=== PATIENT | male | born 1945 | race Caucasian/White ===

== ENCOUNTER 2019-03-29 11:00 | Emergency (ER) | payer OTHER, SELFPAY ==
[2019-03-29 11:05] VITALS: BP 190/90; TEMP 36.7; O2SAT 94; BMI 46.2
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
[2019-03-29 11:24] LABS: Basophils # 0.1 10^3/uL (0.0-0.1); Basophils % 0.9 %; Eosinophils # 0.2 10^3/uL (0.0-0.8); Eosinophils % 3.4 %; Hemoglobin 15.3 g/dL (11.7-16.6); Lymphocytes # 1.7 10^3/uL (0.8-4.8); Lymphocytes % 30.5 %; Mean Corpuscular HGB Conc 33.3 g/dL (30.0-36.0); Mean Corpuscular Hemoglobin 30.2 pg (28.0-34.0); Mean Corpuscular Volume 90.9 fL (80-94); Mean Platelet Volume 9.3 fL (7.4-10.4); Monocytes # 0.4 10^3/uL (0.2-0.9); Monocytes % 6.7 %; Neutrophils # 3.2 10^3/uL (1.8-7.7); Neutrophils % 58.1 %; Nucleated Red Blood Cells % 0 %; Platelet Count 205 10^3/cmm (130-400); Red Blood Count 5.06 10^6/uL (4.1-5.3); Red Cell Distribution Width 12.6 % (12.1-15.1); White Blood Count 5.6 10^3/uL (4.0-10.0)
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
[2019-03-29 11:41] LABS: Alanine Aminotransferase 18 U/L (0-41); Albumin Level 4.4 g/dL (3.5-5.2); Alkaline Phosphatase 109 IU/L (40-130); Anion Gap 14.4 (5-19); Aspartate Amino Transferase 18 U/L (0-40); Blood Urea Nitrogen 18 mg/dL (8-23); Calcium 9.8 mg/Dl (8.8-10.2); Carbon Dioxide 25 mmol/L (22-29); Chloride 101 mmol/L (98-107); Globulin 3.5 g/dL (1.3-4.6); Glucose 110 mg/dL (74-106); Potassium 4.4 mmol/L (3.5-5.1); Sodium 136 mmol/L (136-145); Total Bilirubin 0.3 mg/dL (0.15-1.2); Total Protein 7.9 g/dL (6.6-8.7)
[2019-03-29] MEDS: iodixanol 320 mg/mL 100mL Btl IV (12:53)
[2019-03-29] MEDS: morphine 4 mg/mL SDV 1 mL IVP (13:29)
[2019-03-29] MEDS: ondansetron 2 mg/ML SDV 2 mL 4 MG IVP (13:35)
[2019-03-29 14:14] VITALS: BP 157/84; PULSE 60; RESP 20; O2SAT 95
== END 2019-03-29 14:15 | disposition home or self-care (01) ==
LOC: ER 03-31 11:44
PROVIDERS: Physician Assistant; Emergency Provider Emergency Medicine; Family Provider Family Medicine
DX: S16.1XXA Strain of muscle, fascia and tendon at neck level, initial encounter (principal); M54.5 Low back pain; M54.6 Pain in thoracic spine; V59.40XA Driver of pick-up truck or van injured in collision with unspecified motor vehicles in traffic accident, initial encounter
CPT/HCPCS: 70450; 71045; 72125; 72128; 72131; 73590; 74177; 80053; 85025; 96374; 99281; J2270; J2405; Q9967

== ENCOUNTER 2019-04-05 10:50 | Outpatient (CLI) | payer MEDICARE, OTHER, SELFPAY ==
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
== END 2019-04-05 10:51 | disposition home or self-care (01) ==
LOC: RAD 10:57
PROVIDERS: Family Provider Family Medicine; Visit Provider Family Medicine
DX: R60.0 Localized edema (principal); M66.0 Rupture of popliteal cyst; M79.605 Pain in left leg; M79.89 Other specified soft tissue disorders
CPT/HCPCS: 93971

== ENCOUNTER 2020-07-01 12:52 | Outpatient (CLI) | payer OTHER, SELFPAY ==
--- NOTE | 2020-07-01 13:03 | CT_ITS ---
WS: [id number] CT ABDOMEN WITHOUT CONTRAST HISTORY: FOLLOW UP RENAL MASS Contiguous single phase 5 mm axial imaging performed to the abdomen. Oral contrast has not been provi ded. Coronal and sagittal reformats are submitted. All CT scans at [facility] use at leas t one of these dose optimization techniques: automated exposure control; mA and/or kV adjustment per patient size (includes targeted exams where dose is matched to clinical indication); or iterative rec onstruction. CONTRAST: None DLP: 3058.95 mGy.cm COMPARISON: 03/29/2019, 07/18/2017 Lower thorax: Lung bases are clear. Mild enlargement of the heart. Liver: Mild hepatic steatosis. Liver is not enlarged. No bile duct dilatation. Gallbladder: Normal. Pancreas: Normal. Spleen: Granulomatous. Normal size. Adrenals: Normal. Right kidney: Again noted is a solid mass extending anterior from the mid to lower RIGHT kidney. Mass measures 5.0 x 5.6 cm. Cannot comment on enhancement without IV contrast. There does appear to be a slight increase in size of the mass as compared to the prior study. No obstruction. There is an area of cortical thinning and scarring in the lower pole. Left kidney: There are multiple small indeterminate masses associated with the LEFT kidney. In the po sterior mid kidney is a low-attenuation mass with calcium in the wall measuring 2.0 x 2.3 cm which is unchanged. Cannot identify an enlarging mass. Aorta: Mild atherosclerosis with no aneurysm. GI tract: Visualized appendix is normal. Visualized colon is negative. No obstruction. No adenopathy or free fluid. Abdominal wall: No hernia. Visualized osseous structures: Multilevel moderate to severe lower thoracic and lumbar vertebral body spondylosis. CT/CT abdomen wo con [id number] IMPRESSION: 1. Previously described solid mass consistent with a renal cell carcinoma in t he mid to lower RIGHT kidney has slightly increased in size since the prior belinda dy. Now measures 5.0 x 5.6 cm. Evaluation is limited without IV contrast. 2. Additional stable masses within the LEFT kidney. Cannot comment on enhancin g components or mass. 3. Mild cardiomegaly.
== END 2020-07-01 12:53 | disposition home or self-care (01) ==
LOC: RADWPI 13:01
PROVIDERS: Visit Provider Internal Medicine Nephrology
DX: N18.32 Chronic kidney disease, stage 3b (principal); N28.89 Other specified disorders of kidney and ureter; I51.7 Cardiomegaly
CPT/HCPCS: 74150

== ENCOUNTER 2021-05-10 10:01 | Emergency (ER) | payer OTHER, MEDICARE, SELFPAY ==
[2021-05-10 10:07] VITALS: BP 183/99; PULSE 59; RESP 20; TEMP 36.8; O2SAT 97; BMI 45.6
--- NOTE | 2021-05-10 10:17 | XRR_ITS ---
PROCEDURE INFORMATION: Exam: XR Chest Exam date and time: 05/10/2021 10:17 AM Age: 76 years old Clinical indication: Cough TECHNIQUE: Imaging protocol: XR of the chest. Views: 1 view. COMPARISON: CR XR chest 1V portable [id number] 03/29/2019 11:40 AM FINDINGS: Lungs: No pulmonary consolidation. Pleural spaces: No pleural effusion. No pneumothorax. Heart/Mediastinum: The cardiac silhouette is approximately unchanged given differences in pulmonary inflation. No gross evidence of pneumomediastinum. Diaphragm: There is elevation of the right hemidiaphragm. Bones/joints: No gross fracture. Soft tissues: Possible small nodule in the lower left chest measuring 4.4 mm. XR/XR chest 1V portable [id number] IMPRESSION: 1. Possible small nodule in the lower left chest measuring 4.[address] chest to better characterize. This could be obtained on a nonemergent basis. 2. Elevation of the right hemidiaphragm.
--- NOTE | 2021-05-10 10:35 | ED_ITS ---
Documented by User: DM Rodriguez 05/11/21 07:54 HPI - Nausea/Vomiting/Diarrhea General: Chief complaint: Nausea/Vomiting/Diarrhea Stated complaint: Nausea/Vomiting Time Seen by Provider: 05/10/21 10:12 History of Present Illness: Patient is a 76-year-old male who comes to the ED with nausea, vomiting and diarrhea. Patient has a past medical history of CKD stage III. Symptoms started approximately 4 days ago. The first 2 days patient had fever nausea and vomiting and diarrhea. His vomiting has resolved but he still has some nausea. He reports having diarrhea multiple times a day and it is hard to control it. Patient has had the COVID-19 vaccination and booster. He has not had an appetite over the past couple days. Over the last 24 hours she has had little p.o. fluids. Main concern today is that patient is getting dehydrated. He endorses some fatigue as well. Patient has been taking Pepto- Bismol to help with symptoms. Associated nausea: Yes Associated symtoms: Reports fatigue and nausea; Denies change in vision, chest pain, dysuria, headache(s) or palpitations Review of Systems Const: Reports: fever(s) (Had fever the first day or 2 of symptoms but not for past couple days), change in appetite (decreased) and fatigue; Denies: chills Eyes: Denies: change in vision or eye discomfort ENMT: Denies: throat pain, odynophagia, nasal discharge or nasal congestion Card: Denies: chest pain, palpitations, edema, swelling of feet/ankles, dyspnea on exertion or orthopnea Resp: Reports: non-productive cough (Chronic); Denies: dyspnea or productive cough GI: Reports: nausea, vomiting (hasn't had any episodes of vomiting for the past couple days.) and diarrhea; Denies: abdominal pain, constipation or hematochezia : Denies: flank pain, difficulty urinating, dysuria or hematuria Musc: Denies: neck pain, back pain or extremity swelling Skin/Breast: Denies: rash or new lesions Neuro: Denies: headache(s), numbness in extremities or weakness in extremities PFSH ED PFSH: Medical History Chronic kidney disease No pertinent family history Social History Smoking and tobacco status: never smoked Physical Exam Const: COMMON NORMALS: no acute distress, patient oriented x3 and alert GENERAL APPEARANCE: cooperative NUTRITIONAL APPEARANCE: obese HENMT: COMMON NORMALS: normocephalic HEAD & SCALP: normocephalic MOUTH: Normal oral and palatal mucosa present THROAT: posterior oropharynx normal and uvula midline Eye: COMMON NORMALS: Equal, round and reactive pupils present GENERAL EYE: appearance normal, both eyes and all related structures PUPIL: Yes Equal, round and reactive pupils present Neck/C-Spine: COMMON NORMALS: supple GENERAL: Yes normal visual inspection Resp: COMMON NORMALS: normal respiratory effort, No retractions, No use of accessory muscles and clear to auscultation bilaterally AUSCULTATION: clear to auscultation bilaterally Cardio: COMMON NORMALS: regular rate, regular rhythm, S1 normal heart sound present, S2 normal heart sound present, No gallops present (Cardio), No clicks present (Cardio), No murmurs present (Cardio) and Peripheral pulses 2+ throughout RATE: regular rate RHYTHM: regular rhythm HEART SOUNDS: S1 normal heart sound present and S2 normal heart sound present PERIPHERAL PULSES: Peripheral pulses 2+ throughout GI: COMMON NORMALS: Normal to inspection, nondistended, normoactive bowel sounds present, Soft to palpation, non-tender and no masses PALPATION: Yes Soft to palpation : COMMON NORMALS: Yes no CVA tenderness BLADDER/KIDNEY EXAM: Yes no CVA tenderness Back/Pelvis: COMMON NORMALS: no CVA tenderness Extremity: COMMON NORMALS: normal to inspection Neuro: COMMON NORMALS: patient oriented x3 and moves all extremities SENSORIUM/ORIENTATION: Yes alert Skin: GENERAL SKIN EXAM: dry skin Course Reevaluation(s): Reevaluation #1: Patient says he urinated right before he arrived here in the ED. He has been given approximately 1 L of IV fluids but he does not have the urge to urinate yet. I discussed with patient about waiting a little bit longer to get a UA from him or doing a straight cath. Patient does not want to wait any longer and would prefer to just get the straight cath done so we can get her urine sample. Denies any dysuria, hematuria or urinary retention. Patient just does not feel he has to go the bathroom yet. Time: 12:55 Vital Signs: Vital signs: Vital Signs Temperature 98.0 F 02/26/22 13:45 Pulse Rate 53 L 05/10/21 13:45 Respiratory Rate 14 05/10/21 13:45 Blood Pressure 142/83 05/10/21 13:45 Pulse Oximetry 97 05/10/21 13:45 MDM - Nausea/Vomiting/Diarrhea Medical Decision Making Patient is a 76-year-old male comes to the ED with nausea, vomiting and diarrhea. He has a past medical history of chronic kidney disease stage III. His symptoms of vomiting resolved approximately 2 days ago but he still feeling nauseous and having multiple episodes of diarrhea. Biggest concern for patient that he was getting dehydrated because the not drinking enough. Denies any other current symptoms such as abdominal pain, fevers, blood in stool or bladder symptoms. Patient does endorse having a chronic nonproductive cough. Vitals stable. Patient has a creatinine of 1.6 but is other creatinine level we have on file was at 1.5. Given his CKD history this appears to be his baseline. The rest of CBC and CMP are unremarkable. UA showed no signs of infection. Covid test was negative. Chest x-ray showed possible small nodule in lower left chest measuring 4.4 mm. Radiologist recommended a nonemergent CT of chest to better evaluate lung nodule. Told patient about chest x-ray findings and that I will be setting up an outpatient CT of the chest in place and referral with case management for further evaluation of lung nodule. An outpatient order form was filled out for CT of chest and I placed an order with case management for patient to be set up with outpatient CT of chest and referral to follow-up with pulm/oncology. Patient was given 1 L IV fluids, Zofran here in the ED and his symptoms improved. He had no episodes of emesis here in the ED was able to keep p.o. fluids down. Patient's symptoms likely due to viral cause. Patient was stable for discharge home. pt diagnosed with a viral syndrome and lung nodules sent home with a prescription for dicyclomine and Zofran. He was told case nayeli tavarez will call him in the next week here to set up outpatient CT of chest. Return to ED precautions given. He was encouraged to make sure he drinks plenty of fluids and stays hydrated. Follow-up with PCP in the next 5 to 7 days for reevaluation. Patient understood and agreed with plan. Lab Data I reviewed the patient's lab results. : 05/10/21 10:30 05/10/21 10:30 Radiology Impressions Chest X-Ray 05/10/21 10:17 IMPRESSION: 1. Possible small nodule in the lower left chest measuring 4.[address] chest to better characterize. This could be obtained on a nonemergent basis. 2. Elevation of the right hemidiaphragm. ADDENDUM: 05/10/21 1117 The sentence, Possible small nodule in the lower left chest measuring 4.4 mm. Should be in the Lungs: section. Laboratory Results WBC 4.8 10^3/uL (4.0-10.0) 05/10/21 10:30 RBC 5.15 10^6/uL (4.1-5.3) 05/10/21 10:30 Hgb 15.6 g/dL (11.7-16.6) 05/10/21 10:30 Hct 47.5 % (42.0-52.0) 05/10/21 10:30 MCV 92.2 fl (80-94) 05/10/21 10:30 MCH 30.3 pg (28.0-34.0) 05/10/21 10:30 MCHC 32.8 g/dL (30.0-36.0) 05/10/21 10:30 RDW 12.8 % (12.1-15.1) 05/10/21 10:30 Plt Count 188 10^3/cmm (130-400) 05/10/21 10:30 MPV 8.8 fL (7.4-10.4) 05/10/21 10:30 Neut % (Auto) 58.8 % 05/10/21 10:30 Lymph % (Auto) 26.5 % 05/10/21 10:30 [place] % (Auto) 10.3 % 05/10/21 10:30 Eos % (Auto) 3.4 % 05/10/21 10:30 Baso % (Auto) 0.8 % 05/10/21 10:30 Neut # (Auto) 2.80 10^3/uL (1.8-7.7) 05/10/21 10:30 Lymph # (Auto) 1.3 10^3/uL (0.8-4.8) 05/10/21 10:30 [place] # (Auto) 0.5 10^3/uL (0.2-0.9) 05/10/21 10:30 Eos # (Auto) 0.2 10^3/uL (0.0-0.8) 05/10/21 10:30 Baso # (Auto) 0.0 10^3/uL (0.0-0.1) 05/10/21 10:30 Nucleated RBC % (auto) 0 % 05/10/21 10:30 Nucleated RBCs # 0.0 /100WBC 05/10/21 10:30 Sodium 135 mmol/L (136-145) L 05/10/21 10:30 Potassium 4.3 mmol/L (3.5-5.1) 05/10/21 10:30 Chloride 100 mmol/L (98-107) 05/10/21 10:30 Carbon Dioxide 23 mmol/L (22-29) 05/10/21 10:30 Anion Gap 16.3 (5-19) 05/10/21 10:30 BUN 25 mg/dL (8-23) H 05/10/21 10:30 Creatinine 1.6 mg/dL (0.7-1.2) H 05/10/21 10:30 GFR Calculation Not Reportable 05/10/21 10:30 Glucose 117 mg/dL (65-115) H 05/10/21 10:30 Calculated Osmolality 285 mOsm/kg (285-295) 05/10/21 10:30 Calcium 9.1 mg/dL (8.5-10.5) 05/10/21 10:30 Total Bilirubin 0.5 mg/dL (0.15-1.2) 05/10/21 10:30 AST 14 U/L (0-40) 05/10/21 10:30 ALT 13 U/L (0-41) 05/10/21 10:30 Alkaline Phosphatase 116 IU/L (40-130) 05/10/21 10:30 Total Protein 7.4 g/dL (6.6-8.7) 05/10/21 10:30 Albumin 4.2 g/dL (3.5-5.2) 05/10/21 10:30 Globulin 3.2 g/dL (1.3-4.6) 05/10/21 10:30 Lipase 26 U/L (13-60) 05/10/21 10:30 Urine Color Yellow (Yellow) 05/10/21 13:10 Urine Appearance Clear (CLEAR) 05/10/21 13:10 Urine pH 5 (5-7) 05/10/21 13:10 Ur Specific Ruby 1.020 (1.005-1.030) 05/10/21 13:10 Urine Protein Trace (Negative) 05/10/21 13:10 Urine Glucose (UA) Norm (Normal) 05/10/21 13:10 Urine Ketones Negative (Negative) 05/10/21 13:10 Urine Blood Neg (Negative) 05/10/21 13:10 Urine Nitrate Negative (Negative) 05/10/21 13:10 Urine Bilirubin Neg (Negative) 05/10/21 13:10 Urine Urobilinogen Norm mg/dL (Negative) 05/10/21 13:10 Ur Leukocyte Esterase Negative (Negative) 05/10/21 13:10 Urine RBC None /hpf (0-2) 05/10/21 13:10 Urine WBC None /hpf (0-5) 05/10/21 13:10 Ur Squamous Epith Cells 0-4 /hpf (0-5) H 05/10/21 13:10 Amorphous Sediment Not Reportable 05/10/21 13:10 Urine Bacteria 1+ /hpf (NONE) H 05/10/21 13:10 SARS-CoV-2 Ag (Rapid) Negative (Negative) 05/10/21 11:00 Discharge Plan Discharge Patient Disposition: Home Clinical Impression: Viral syndrome, Lung nodule Condition: Stable Prescriptions: New dicyclomine 20 mg tablet 20 mg PO TID PRN (Reason: diarrhea and abdominal cramping) Qty: 20 0RF ondansetron 4 mg tablet,disintegrating 4 mg PO Q8H PRN (Reason: nausea and vomiting) Qty: 20 0RF No Action furosemide 40 mg Tablet 40 mg PO DAILY 0RF citalopram 40 mg Tablet 40 mg PO BEDTIME 0RF Zyrtec 10 mg Tablet 10 mg PO DAILY 0RF gabapentin 400 mg Capsule 400 mg PO BID 0RF omeprazole 40 mg Capsule,Delayed Release(Dr/Ec) 40 mg PO DAILY 0RF Aspir-81 81 mg Tablet,Delayed Release (Dr/Ec) 81 mg PO DAILY 0RF spironolactone 25 mg Tablet 25 mg PO DAILY 0RF tamsulosin 0.4 mg Capsule 0.4 mg PO BID 0RF levothyroxine 50 mcg Tablet 50 mcg PO DAILY 0RF Sudafed 30 mg Tablet 30 mg PO Q6H PRN (Reason: Congestion) 0RF dicyclomine 10 mg Capsule 10 mg PO TID PRN (Reason: STOMACH CRAMPS) 0RF memantine 10 mg Tablet 10 mg PO BID 0RF chlorhexidine gluconate 0.12 % Mouthwash 15 ml BUCCAL DAILY PRN (Reason: Mouth Irritation) 0RF Vitamin D3 25 mcg (1,000 unit) Tablet 25 mcg PO DAILY 0RF alogliptin 6.25 mg Tablet 6.25 mg PO DAILY 0RF Discharge Orders: Discharge ED (Routine); Ordered 05/10/21 Ordered By: Simeon Roland Referrals: [facility] [Primary Care Provider] - Discharge Diet: Advance as tolerated Discharge Activity: Increase activity as tolerated Patient Instructions: Diarrhea - Adult, Gastroenteritis (DC), Viral Syndrome (ED) Activity Restrictions/Additional Instructions: Follow-up with medical provider as directed. Case management should be contacting you in the next several days to set up an appointment for outpatient CT chest to evaluate lung nodule. athlete manager will also refer you to a specialist to see after imaging. Take medications as prescribed. Return to the ER or your medical provider if condition worsens. Please read and understand discharge instructions. Thank you for choosing [facility] for your healthcare needs today. Please realize this is an emergency room and that we are providing you with a medical screening exam and this may not be complete and all inclusive of all the testing and or work up that you may need to determine your ailment or severity of your illness. It is very important that you follow up as instructed or that you return to the Emergency Department should you have concerns or if your condition changes or worsens in any way. Coding Level of Care Code ED Tie Knitter Helper for Chg Fwd Exam Comprehensive Documented by User: Sivakumar Betancourt DO 05/12/21 08:53 HPI - Nausea/Vomiting/Diarrhea General: Chief complaint: Nausea/Vomiting/Diarrhea Stated complaint: Nausea/Vomiting Time Seen by Provider: 05/10/21 10:12 [facility] ED PFS: Medical History Chronic kidney disease No pertinent family history Social History Smoking and tobacco status: never smoked Course Vital Signs: Vital signs: Vital Signs Temperature 98.0 F 05/10/21 13:45 Pulse Rate 53 L 05/10/21 13:45 Respiratory Rate 14 05/10/21 13:45 Blood Pressure 142/83 05/10/21 13:45 Pulse Oximetry 97 05/10/21 13:45 MDM - Nausea/Vomiting/Diarrhea Medical Decision Making Patient is a 76-year-old male comes to the ED with nausea, vomiting and diarrhea. He has a past medical history of chronic kidney disease stage III. His symptoms of vomiting resolved approximately 2 days ago but he still feeling nauseous and having multiple episodes of diarrhea. Biggest concern for patient that he was getting dehydrated because the not drinking enough. Denies any other current symptoms such as abdominal pain, fevers, blood in stool or bladder symptoms. Patient does endorse having a chronic nonproductive cough. Vitals stable. Patient has a creatinine of 1.6 but is other creatinine level we have on file was at 1.5. Given his CKD history this appears to be his baseline. The rest of CBC and CMP are unremarkable. UA showed no signs of infection. Covid test was negative. Chest x-ray showed possible small nodule in lower left chest measuring 4.4 mm. Radiologist recommended a nonemergent CT of chest to better evaluate lung nodule. Told patient about chest x-ray findings and that I will be setting up an outpatient CT of the chest in place and referral with case management for further evaluation of lung nodule. An outpatient order form was filled out for CT of chest and I placed an order with case management for patient to be set up with outpatient CT of chest and referral to follow-up with pulm/oncology. Patient was given 1 L IV fluids, Zofran here in the ED and his symptoms improved. He had no episodes of emesis here in the ED was able to keep p.o. fluids down. Patient's symptoms likely due to viral cause. Patient was stable for discharge home. pt diagnosed with a viral syndrome and lung nodules sent home with a prescription for dicyclomine and Zofran. He was told case management will call him in the next week here to set up outpatient CT of chest. Return to ED precautions given. He was encouraged to make sure he drinks plenty of fluids and stays hydrated. Follow-up with PCP in the next 5 to 7 days for reevaluation. Patient understood and agreed with plan. Chart reviewed and patient discussed with midlevel. Agree with assessment and plan. Lab Data : 05/10/21 10:30 05/10/21 10:30 Radiology Impressions Chest X-Ray 05/10/21 10:17 IMPRESSION: 1. Possible small nodule in the lower left chest measuring 4.[address] chest to better characterize. This could be obtained on a nonemergent basis. 2. Elevation of the right hemidiaphragm. ADDENDUM: 05/10/21 1117 The sentence, Possible small nodule in the lower left chest measuring 4.4 mm. Should be in the Lungs: section. Laboratory Results WBC 4.8 10^3/uL (4.0-10.0) 05/10/21 10:30 RBC 5.15 10^6/uL (4.1-5.3) 05/10/21 10:30 Hgb 15.6 g/dL (11.7-16.6) 05/10/21 10:30 Hct 47.5 % (42.0-52.0) 05/10/21 10:30 MCV 92.2 fl (80-94) 05/10/21 10:30 MCH 30.3 pg (28.0-34.0) 05/10/21 10:30 MCHC 32.8 g/dL (30.0-36.0) 05/10/21 10:30 RDW 12.8 % (12.1-15.1) 05/10/21 10:30 Plt Count 188 10^3/cmm (130-400) 05/10/21 10:30 MPV 8.8 fL (7.4-10.4) 05/10/21 10:30 Neut % (Auto) 58.8 % 05/10/21 10:30 Lymph % (Auto) 26.5 % 05/10/21 10:30 [place] % (Auto) 10.3 % 05/10/21 10:30 Eos % (Auto) 3.4 % 05/10/21 10:30 Baso % (Auto) 0.8 % 05/10/21 10:30 Neut # (Auto) 2.80 10^3/uL (1.8-7.7) 05/10/21 10:30 Lymph # (Auto) 1.3 10^3/uL (0.8-4.8) 05/10/21 10:30 [place] # (Auto) 0.5 10^3/uL (0.2-0.9) 05/10/21 10:30 Eos # (Auto) 0.2 10^3/uL (0.0-0.8) 05/10/21 10:30 Baso # (Auto) 0.0 10^3/uL (0.0-0.1) 05/10/21 10:30 Nucleated RBC % (auto) 0 % 05/10/21 10:30 Nucleated RBCs # 0.0 /100WBC 05/10/21 10:30 Sodium 135 mmol/L (136-145) L 05/10/21 10:30 Potassium 4.3 mmol/L (3.5-5.1) 05/10/21 10:30 Chloride 100 mmol/L (98-107) 05/10/21 10:30 Carbon Dioxide 23 mmol/L (22-29) 05/10/21 10:30 Anion Gap 16.3 (5-19) 05/10/21 10:30 BUN 25 mg/dL (8-23) H 05/10/21 10:30 Creatinine 1.6 mg/dL (0.7-1.2) H 05/10/21 10:30 GFR Calculation Not Reportable 05/10/21 10:30 Glucose 117 mg/dL (65-115) H 05/10/21 10:30 Calculated Osmolality 285 mOsm/kg (285-295) 05/10/21 10:30 Calcium 9.1 mg/dL (8.5-10.5) 05/10/21 10:30 Total Bilirubin 0.5 mg/dL (0.15-1.2) 05/10/21 10:30 AST 14 U/L (0-40) 05/10/21 10:30 ALT 13 U/L (0-41) 05/10/21 10:30 Alkaline Phosphatase 116 IU/L (40-130) 05/10/21 10:30 Total Protein 7.4 g/dL (6.6-8.7) 05/10/21 10:30 Albumin 4.2 g/dL (3.5-5.2) 05/10/21 10:30 Globulin 3.2 g/dL (1.3-4.6) 05/10/21 10:30 Lipase 26 U/L (13-60) 05/10/21 10:30 Urine Color Yellow (Yellow) 05/10/21 13:10 Urine Appearance Clear (CLEAR) 05/10/21 13:10 Urine pH 5 (5-7) 05/10/21 13:10 Ur Specific Ruby 1.020 (1.005-1.030) 05/10/21 13:10 Urine Protein Trace (Negative) 05/10/21 13:10 Urine Glucose (UA) Norm (Normal) 05/10/21 13:10 Urine Ketones Negative (Negative) 05/10/21 13:10 Urine Blood Neg (Negative) 05/10/21 13:10 Urine Nitrate Negative (Negative) 05/10/21 13:10 Urine Bilirubin Neg (Negative) 05/10/21 13:10 Urine Urobilinogen Norm mg/dL (Negative) 05/10/21 13:10 Ur Leukocyte Esterase Negative (Negative) 05/10/21 13:10 Urine RBC None /hpf (0-2) 05/10/21 13:10 Urine WBC None /hpf (0-5) 05/10/21 13:10 Ur Squamous Epith Cells 0-4 /hpf (0-5) H 05/10/21 13:10 Amorphous Sediment Not Reportable 05/10/21 13:10 Urine Bacteria 1+ /hpf (NONE) H 05/10/21 13:10 SARS-CoV-2 Ag (Rapid) Negative (Negative) 05/10/21 11:00 Discharge Plan Discharge Patient Disposition: Home Clinical Impression: Viral syndrome, Lung nodule Condition: Stable Prescriptions: New dicyclomine 20 mg tablet 20 mg PO TID PRN (Reason: diarrhea and abdominal cramping) Qty: 20 0RF ondansetron 4 mg tablet,disintegrating 4 mg PO Q8H PRN (Reason: nausea and vomiting) Qty: 20 0RF No Action furosemide 40 mg Tablet 40 mg PO DAILY 0RF citalopram 40 mg Tablet 40 mg PO BEDTIME 0RF Zyrtec 10 mg Tablet 10 mg PO DAILY 0RF gabapentin 400 mg Capsule 400 mg PO BID 0RF omeprazole 40 mg Capsule,Delayed Release(Dr/Ec) 40 mg PO DAILY 0RF Aspir-81 81 mg Tablet,Delayed Release (Dr/Ec) 81 mg PO DAILY 0RF spironolactone 25 mg Tablet 25 mg PO DAILY 0RF tamsulosin 0.4 mg Capsule 0.4 mg PO BID 0RF levothyroxine 50 mcg Tablet 50 mcg PO DAILY 0RF Sudafed 30 mg Tablet 30 mg PO Q6H PRN (Reason: Congestion) 0RF dicyclomine 10 mg Capsule 10 mg PO TID PRN (Reason: STOMACH CRAMPS) 0RF memantine 10 mg Tablet 10 mg PO BID 0RF chlorhexidine gluconate 0.12 % Mouthwash 15 ml BUCCAL DAILY PRN (Reason: Mouth Irritation) 0RF Vitamin D3 25 mcg (1,000 unit) Tablet 25 mcg PO DAILY 0RF alogliptin 6.25 mg Tablet 6.25 mg PO DAILY 0RF Discharge Orders: Discharge ED (Routine); Ordered 05/10/21 Ordered By: Simeon Roland [facility] [Primary Care Provider] - Discharge Diet: Advance as tolerated Discharge Activity: Increase activity as tolerated Patient Instructions: Diarrhea - Adult, Gastroenteritis (DC), Viral Syndrome (ED) Activity Restrictions/Additional Instructions: Follow-up with medical provider as directed. Case management should be contacting you in the next several days to set up an appointment for outpatient CT chest to evaluate lung nodule. athlete manager will also refer you to a spe cialist to see after imaging. Take medications as prescribed. Return to the ER or your medical provider if condition worsens. Please read and understand discharge instructions. Thank you for choosing [facility] for your healthcare needs today. Please realize this is an emergency room and that we are providing you with a medical screening exam and this may not be complete and all inclusive of all the testing and or work up that you may need to determine your ailment or severity of your illness. It is very important that you follow up as instructed or that you return to the Emergency Department should you have concerns or if your condition changes or worsens in any way. Coding Level of Care Code ED Tie Knitter Helper for Chg Fwd Exam Comprehensive
[2021-05-10 10:38] LABS: Basophils % 0.8 %; Eosinophils # 0.2 10^3/uL (0.0-0.8); Eosinophils % 3.4 %; Hematocrit 47.5 % (42.0-52.0); Hemoglobin 15.6 g/dL (11.7-16.6); Lymphocytes # 1.3 10^3/uL (0.8-4.8); Lymphocytes % 26.5 %; Mean Corpuscular HGB Conc 32.8 g/dL (30.0-36.0); Mean Corpuscular Hemoglobin 30.3 pg (28.0-34.0); Mean Corpuscular Volume 92.2 fl (80-94); Mean Platelet Volume 8.8 fL (7.4-10.4); Monocytes # 0.5 10^3/uL (0.2-0.9); Monocytes % 10.3 %; Neutrophils % 58.8 %; Nucleated Red Blood Cells % 0 %; Platelet Count 188 10^3/cmm (130-400); Red Blood Count 5.15 10^6/uL (4.1-5.3); Red Cell Distribution Width 12.8 % (12.1-15.1); White Blood Count 4.8 10^3/uL (4.0-10.0)
[2021-05-10 10:55] LABS: Alanine Aminotransferase 13 U/L (0-41); Albumin Level 4.2 g/dL (3.5-5.2); Alkaline Phosphatase 116 IU/L (40-130); Anion Gap 16.3 (5-19); Aspartate Amino Transferase 14 U/L (0-40); Blood Urea Nitrogen 25 mg/dL (8-23); Calcium 9.1 mg/dL (8.5-10.5); Carbon Dioxide 23 mmol/L (22-29); Chloride 100 mmol/L (98-107); Globulin 3.2 g/dL (1.3-4.6); Glucose 117 mg/dL (65-115); Lipase 26 U/L (13-60); Osmolality Calculated 285 mOsm/kg (285-295); Potassium 4.3 mmol/L (3.5-5.1); Sodium 135 mmol/L (136-145); Total Bilirubin 0.5 mg/dL (0.15-1.2); Total Protein 7.4 g/dL (6.6-8.7)
[2021-05-10 11:09] VITALS: BP 135/72; PULSE 57; RESP 16; TEMP 36.8; O2SAT 95
[2021-05-10] MEDS: ondansetron 2 mg/ML SDV 2 mL 4 MG IVP (11:18)
[2021-05-10] MEDS: sodium chloride 0.9% 1,000 ML 999 ML IV (11:19)
[2021-05-10 11:30] LABS: SARS Covid-2 Antigen Negative (Negative)
[2021-05-10 11:54] VITALS: BP 156/89; PULSE 58; RESP 16; TEMP 36.8; O2SAT 100
[2021-05-10 13:45] VITALS: BP 142/83; PULSE 53; RESP 14; TEMP 36.7; O2SAT 97
[2021-05-10 13:46] LABS: Urine Appearance Clear (CLEAR); Urine Color Yellow (Yellow); pH Urine 5 (5-7)
[2021-05-10 13:47] LABS: Add Urine Culture? No; Add Urine Microscopic? YES; Bacteria Urine 1+ /hpf; Bilirubin Urine Neg (Negative); Blood Urine Neg (Negative); Glucose Urine UA Norm (Normal); Ketones Urine Negative (Negative); Leukocyte Esterase Urine Negative (Negative); Nitrate Urine Negative (Negative); Protein Urine Trace (Negative); Squamous Epithelial Cell Urine 0-4 /hpf (0-5); Urobilinogen Urine Norm (Negative)
--- NOTE | 2021-05-13 14:06 | DCPLANNER ---
Addendum entered by Eloise Cruz 06/06/21 11:51: Patient had a follow up appointment scheduled for 05.30.21 with [facility] - patient did attend appointment. Original Note: manager audio had a message to schedule an out patient stress test for patient. manager audio is unable to order a CT for patient, due to patient having [employer]. manager audio also had message to schedule a follow up appointment for patient with pulmonology. A follow up appointment is scheduled for Sunday, May 30, 2021 at 10:[address] Centeno. manager audio gave the appointment information to patient.
== END 2021-05-10 14:20 | disposition home or self-care (01) ==
PROVIDERS: Emergency Provider Physician Assistant
DX: B34.9 Viral infection, unspecified (principal); R91.1 Solitary pulmonary nodule; Z79.82 Long term (current) use of aspirin; Z20.822 Contact with and (suspected) exposure to COVID-19
CPT/HCPCS: 51701; 71045; 80053; 81001; 83690; 85025; 87426; 96361; 96374; 99284; J2405; J7030

== ENCOUNTER → 2021-05-30 10:55 | Outpatient (BNVA) | payer OTHER, SELFPAY | PROVIDERS: PCP Family Medicine; Visit Provider Internal Medicine Pulmonary Disease | DX: R91.1 Solitary pulmonary nodule (principal); N28.89 Other specified disorders of kidney and ureter; N18.9 Chronic kidney disease, unspecified | CPT/HCPCS: 99204 ==

== ENCOUNTER 2021-06-20 10:12 | Outpatient (CLI) | payer OTHER, SELFPAY ==
--- NOTE | 2021-06-20 10:30 | CT_ITS ---
WS: [id number] CT CHEST WITHOUT INTRAVENOUS CONTRAST HISTORY: lung nodule TECHNIQUE: Contiguous 5 mm axial imaging performed on the thorax. Coronal and sagittal reformats are submitted. All CT scans at [facility] use at least one of these dose optimization techniques: automated exposure control; mA and/or kV adjustment per patient size (includes targeted exams where dose is matched to clinical indication); or iterative reconstruction. CONTRAST: None DLP: 809.89 mGy.cm COMPARISON: 05/08/2012 CT and chest radiograph 05/10/2021 Lungs and central airway: Mildly hyperexpanded lungs. No pulmonary nodule or mass. There is breathing motion artifact at the lung bases. There is very mild increased groundglass attenuation in the LEFT lower lobe from pneumonitis. Pleura: Mild bilateral pleural thickening at the lung bases. No effusion. Heart and pericardium: Normal size heart with no pericardial effusion. Mediastinum and monica: No mediastinum or hilar adenopathy. Vessels: Very minimal atherosclerosis aorta. No aneurysm. Normal size pulmonary artery. Chest wall and lower neck: No soft tissue masses. Upper abdomen: There is a mild bulge of the anterior contour of the mid to upper RIGHT kidney. Patien t has a known solid renal mass. This study was not obtained to evaluate this solid mass as it is with out contrast. The adrenal glands are normal. Mild hepatic steatosis. The visualized gallbladder is sl ightly contracted. Osseous structures: Increase in thoracic kyphosis. Large anterior bridging osteophytes throughout the thoracic spine. CT/CT chest wo con [id number] IMPRESSION: 1. No pulmonary nodule or mass. 2. Very minimal areas of mild pneumonitis at the LEFT lung base. 3. Mild emphysema.
== END 2021-06-20 10:13 | disposition home or self-care (01) ==
PROVIDERS: PCP Family Medicine; Visit Provider Internal Medicine Pulmonary Disease
DX: R91.1 Solitary pulmonary nodule (principal); J43.9 Emphysema, unspecified
CPT/HCPCS: 71250

== ENCOUNTER → 2021-07-25 10:11 | Outpatient (BNVA) | payer OTHER, SELFPAY | PROVIDERS: PCP Family Medicine; Visit Provider Internal Medicine Pulmonary Disease | DX: R91.1 Solitary pulmonary nodule (principal); N28.89 Other specified disorders of kidney and ureter; J45.909 Unspecified asthma, uncomplicated; N18.30 Chronic kidney disease, stage 3 unspecified; R06.02 Shortness of breath | CPT/HCPCS: 36415; 82785; 85025; 86003; 99214 ==

== ENCOUNTER 2021-08-05 06:00 | Outpatient (RCR) | payer OTHER, SELFPAY | END 2021-08-12 23:59 | disposition home or self-care (01) | LOC: SPT 06:00 | PROVIDERS: PCP Family Medicine; Referring Provider Family Medicine; Visit Provider Family Medicine | DX: M54.59 Other low back pain (principal) | CPT/HCPCS: 97161 ==

== ENCOUNTER 2021-08-13 06:00 | Outpatient (RCR) | payer OTHER, SELFPAY | END 2021-09-11 23:59 | disposition home or self-care (01) | LOC: SPT 06:00 | PROVIDERS: PCP Family Medicine; Referring Provider Family Medicine; Visit Provider Family Medicine | DX: M54.50 Low back pain, unspecified (principal) | CPT/HCPCS: 97110; 97530 ==

== ENCOUNTER 2021-09-12 06:00 | Outpatient (RCR) | payer OTHER, SELFPAY | END 2021-10-12 23:59 | disposition home or self-care (01) | LOC: SPT 06:00 | PROVIDERS: PCP Family Medicine; Referring Provider Family Medicine; Visit Provider Family Medicine | DX: M54.50 Low back pain, unspecified (principal) | CPT/HCPCS: 97110 ==

== ENCOUNTER 2021-10-28 12:34 | Outpatient (CLI) | payer OTHER, SELFPAY ==
--- NOTE | 2021-10-28 13:47 | PFTS_ITS ---
Date of Study:10/28/21 Date of Dictation: MECHANICS: Forced vital capacity (FVC) is reduced. Forced expiratory volume in one second (FEV1) is reduced. FEV1/FVC is normal. FLOW VOLUME LOOP: Mild scooping. LUNG VOLUMES: Total lung capacity (TLC) is reduced. Residual volume (RV) is normal. DIFFUSING CAPACITY FOR CARBON MONOXIDE: Normal. INTERPRETATION: The prebronchodilator spirometry is consistent with mild restriction. No postbronchodilator spirometry was performed. Lung volumes are consistent with mild restriction. Gas exchange (DLCO) is normal. MTDD
== END 2021-10-28 12:35 | disposition home or self-care (01) ==
PROVIDERS: PCP Family Medicine; Visit Provider Internal Medicine Pulmonary Disease
DX: J45.909 Unspecified asthma, uncomplicated (principal)
CPT/HCPCS: 94010; 94618; 94726; 94729

== ENCOUNTER → 2021-10-30 10:56 | Outpatient (BNVA) | payer OTHER, SELFPAY | PROVIDERS: PCP Family Medicine; Visit Provider Internal Medicine Pulmonary Disease | DX: R91.1 Solitary pulmonary nodule (principal); J45.909 Unspecified asthma, uncomplicated; N28.89 Other specified disorders of kidney and ureter; N18.9 Chronic kidney disease, unspecified | CPT/HCPCS: 99214 ==

== ENCOUNTER → 2022-01-05 14:54 | Outpatient (BNVA) | payer OTHER, SELFPAY | PROVIDERS: PCP Family Medicine; Referring Provider Family Medicine; Visit Provider Specialist | DX: M17.11 Unilateral primary osteoarthritis, right knee (principal); Z96.652 Presence of left artificial knee joint; E66.01 Morbid (severe) obesity due to excess calories; Z68.42 Body mass index [BMI] 45.0-49.9, adult | CPT/HCPCS: 20610; 73560; 73565; 99204; J7326 ==

== ENCOUNTER 2022-04-11 20:15 | Emergency (ER) | payer OTHER, SELFPAY ==
[2022-04-11 20:16] VITALS: PULSE 91; RESP 16; TEMP 36.4; O2SAT 97
[2022-04-11 20:23] VITALS: BP 143/79; PULSE 91; RESP 16; O2SAT 97
[2022-04-11 22:29] LABS: Basophils # 0.1 10^3/uL (0.0-0.1); Basophils % 0.6 %; Eosinophils # 0.2 10^3/uL (0.0-0.8); Hematocrit 44.7 % (42.0-52.0); Hemoglobin 14.6 g/dL (11.7-16.6); Lymphocytes # 1.5 10^3/uL (0.8-4.8); Lymphocytes % 13.3 %; Mean Corpuscular HGB Conc 32.7 g/dL (30.0-36.0); Mean Corpuscular Hemoglobin 30.4 pg (28.0-34.0); Mean Corpuscular Volume 92.9 fl (80-94); Mean Platelet Volume 8.7 fL (7.4-10.4); Monocytes # 0.9 10^3/uL (0.2-0.9); Monocytes % 8.3 %; Neutrophils % 75.2 %; Nucleated Red Blood Cells % 0 %; Platelet Count 222 10^3/cmm (130-400); Red Blood Count 4.81 10^6/uL (4.1-5.3); Red Cell Distribution Width 13.1 % (12.1-15.1); White Blood Count 10.9 10^3/uL (4.0-10.0)
--- NOTE | 2022-04-11 22:32 | XRR_ITS ---
PROCEDURE INFORMATION: Exam: XR Chest Exam date and time: 04/11/2022 10:53 PM Age: 77 years old Clinical indication: Other: AMS TECHNIQUE: Imaging protocol: Radiologic exam of the chest. Views: 1 view. COMPARISON: CT chest [facility] [id number] 06/20/2021 10:36 AM FINDINGS: Lungs: Right perihilar opacity. Pleural spaces: No pleural effusion. No pneumothorax. Heart/Mediastinum: Similar cardiomegaly. Bones/joints: Visualized osseous structures are intact. XR/XR chest 1V portable [id number] IMPRESSION: Right perihilar opacity which may reflect aspiration or infiltrate/pneumonia.
--- NOTE | 2022-04-11 22:32 | CTR_ITS ---
PROCEDURE INFORMATION: Exam: CT Head Without Contrast Exam date and time: 04/11/2022 11:12 PM Age: 77 years old Clinical indication: Altered mental status/memory loss; Patient HX: Renal cell CA; Additional info: AMS TECHNIQUE: Imaging protocol: Computed tomography of the head without contrast. Radiation optimization: All CT scans at this facility use at least one of these dose optimization techniques: automated exposure control; mA and/or kV adjustment per patient size (includes targeted exams where dose is matched to clinical indication); or iterative reconstruction. Other protocol: This patient has received 2 known CTs and 0 known cardiac nuclear medicine studies in the 12 months prior to the current study. COMPARISON: CT head wo con* [id number] 03/29/2019 12:45 PM RADIATION DOSE METRICS: Total DLP (mGy-cm): 1190.48 FINDINGS: Brain: No hemorrhage. No edema. Moderate diffuse cerebral atrophy. No significant white matter disease. No mass effect. Cerebral ventricles: No ventriculomegaly. Paranasal sinuses: Visualized sinuses are unremarkable. No fluid levels. Mastoid air cells: Visualized mastoid air cells are well aerated. Bones/joints: Unremarkable. No acute fracture. Soft tissues: Unremarkable. CT/CT head wo con* [id number] IMPRESSION: No acute intracranial abnormality.
[2022-04-11] MEDS: sodium chloride 0.9% 1,000 ML 999 ML IV (22:47)
[2022-04-11 22:56] LABS: Lactate (Lactic Acid level) 1.2 mmol/L (0.5-2.2)
[2022-04-11 22:57] LABS: Alanine Aminotransferase 11 U/L (0-41); Albumin Level 3.6 g/dL (3.5-5.2); Alkaline Phosphatase 112 U/L (40-130); Anion Gap 15.3 (5-19); Aspartate Amino Transferase 13 U/L (0-40); Blood Urea Nitrogen 15 mg/dL (8-23); C Reactive Protein 60.7 mg/L (0.0-4.9); Calcium 9.1 mg/dL (8.5-10.5); Carbon Dioxide 24 mmol/L (22-29); Chloride 98 mmol/L (98-107); Globulin 4.3 g/dL (1.3-4.6); Glucose 134 mg/dL (65-115); Osmolality Calculated 279 mOsm/kg (285-295); Potassium 4.3 mmol/L (3.5-5.1); Sodium 133 mmol/L (136-145); Total Bilirubin 0.7 mg/dL (0.15-1.2); Total Protein 7.9 g/dL (6.6-8.7)
--- NOTE | 2022-04-11 22:59 | CTR_ITS ---
PROCEDURE INFORMATION: Exam: CT Chest With Contrast; Diagnostic Exam date and time: 04/11/2022 11:18 PM Age: 77 years old Clinical indication: Other: Weakness; Abdominal pain; Generalized; Other: Abnormal cxr; Chest pressure; Patient HX: HX renal cell CA. Prostate surgery; Additional info: AMS, weakness, abdominal pain, abn cxr TECHNIQUE: Imaging protocol: Diagnostic computed tomography of the chest with contrast. Radiation optimization: All CT scans at this facility use at least one of these dose optimization techniques: automated exposure control; mA and/or kV adjustment per patient size (includes targeted exams where dose is matched to clinical indication); or iterative reconstruction. Contrast material: OMNI 350; Contrast volume: 100 ml; Contrast route: INTRAVENOUS (IV); Other protocol: This patient has received 2 known CTs and 0 known cardiac nuclear medicine studies in the 12 months prior to the current study. COMPARISON: CT chest [facility] [id number] 06/20/2021 10:36 AM RADIATION DOSE METRICS: Total DLP (mGy-cm): 704 FINDINGS: Lungs: Minimal ground-glass densities are seen bilaterally in the inferior lingula and lower lobes similar to previous. No apparent right perihilar masses visualized to correlate with the finding on the comparison same day x-ray. Unchanged mild hyperinflation. Pleural spaces: Unremarkable. No pneumothorax. No pleural effusion. Heart: Unremarkable. No cardiomegaly. No pericardial effusion. Lymph nodes: Unremarkable. No enlarged lymph nodes. Vasculature: Unremarkable. No aortic aneurysm. Bones/joints: Unremarkable. No acute fracture. Soft tissues: Unremarkable. PROCEDURE INFORMATION: Exam: CT Abdomen And Pelvis With Contrast Exam date and time: 04/11/2022 11:18 PM Age: 77 years old Clinical indication: Other: Weakness; Abdominal pain; Generalized; Other: Abnormal cxr; Chest pressure; Patient HX: HX renal cell CA. Prostate surgery; Additional info: AMS, weakness, abdominal pain, abn cxr TECHNIQUE: Imaging protocol: Computed tomography of the abdomen and pelvis with contrast. Radiation optimization: All CT scans at this facility use at least one of these dose optimization techniques: automated exposure control; mA and/or kV adjustment per patient size (includes targeted exams where dose is matched to clinical indication); or iterative reconstruction. Contrast material: OMNI 350; Contrast volume: 100 ml; Contrast route: INTRAVENOUS (IV); Other protocol: This patient has received 2 known CTs and 0 known cardiac nuclear medicine studies in the 12 months prior to the current study. COMPARISON: CT abdomen wo con [id number] 07/01/2020 1:43 PM RADIATION DOSE METRICS: Total DLP (mGy-cm): 1176.2 FINDINGS: Liver: Normal. No mass. Gallbladder and bile ducts: Normal. No calcified stones. No ductal dilation. Pancreas: Normal. No ductal dilation. Spleen: Normal. No splenomegaly. Adrenal glands: Normal. No mass. Kidneys and ureters: Anterior right midpole heterogeneously enhancing mass which measures 7.0 x 6.1 by 6.1 cm is consistent with the patient's history of renal cell carcinoma. This is larger than previous measurement of 5.0 x 5.6 cm. Low-attenuation lesion posterior midpole left kidney measuring 2.3 cm is unchanged with rim calcification. The Hounsfield unit values are inaccurate within the lesion due to beam hardening artifact but it appears grossly unchanged. Stomach and bowel: Unremarkable. No obstruction. No mucosal thickening. Appendix: No evidence of appendicitis. Intraperitoneal space: Unremarkable. No free air. No significant fluid collection. Vasculature: Unremarkable. No abdominal aortic aneurysm. Lymph nodes: Unremarkable. No enlarged lymph nodes. Urinary bladder: The bladder wall is thickened with Capellan catheter in place. Reproductive: Unremarkable as visualized. Bones/joints: ORIF changes in the left femur. Soft tissues: Unremarkable. CT/CT chest abdpel w/*[id number] IMPRESSION: 1. Minimal ground-glass densities are seen bilaterally in the inferior lingula and lower lobes similar to previous. This may reflect chronic pneumonitis. 2. No acute pulmonary disease identified. IMPRESSION: 1. Anterior right midpole renal masses mildly enlarging since 07/01/2020, suspicious for progressive disease. 2. Complex cyst lower pole of the left kidney is grossly unchanged and not well characterized on this study due to artifact. 3. Thickened bladder wall. Correlate for cystitis.
[2022-04-11 23:42] VITALS: BP 185/86; RESP 17; O2SAT 93
[2022-04-11 23:54] LABS: Glucose Urine UA Norm (Normal); Protein Urine 1+ (Negative); Urine Appearance Hazy (CLEAR); Urine Color Dark Yellow (Yellow); pH Urine 8 (5-7)
[2022-04-11 23:55] LABS: Add Urine Microscopic? YES; Bilirubin Urine Neg (Negative); Blood Urine 3+ (Negative); Ketones Urine Negative (Negative); Leukocyte Esterase Urine 1+ (Negative); Nitrate Urine Negative (Negative); Sulfosalicylic Acid Urine Negative (Negative); Urobilinogen Urine Neg (Negative)
[2022-04-11 23:56] LABS: RBC Urine >100 /hpf (0-2)
[2022-04-11 23:57] LABS: Add Urine Culture? Yes; Bacteria Urine TRACE /hpf; Mucus Urine TRACE /hpf; Squamous Epithelial Cell Urine 0-4 /hpf (0-5)
[2022-04-12] VITALS: BP 186/84; PULSE 66; O2SAT 94
[2022-04-12] MEDS: iohexol 350 mg/mL 500 mL Btl (per mL) IV
--- NOTE | 2022-04-12 00:15 | ED_ITS ---
HPI - Altered Mental Status General: Chief Complaint: Altered Mental Status Stated Complaint: AMS, all over pain Time Seen by Provider: 04/11/22 22:12 Source: patient and family History of Present Illness: 77-year-old male with mildly altered mental status and generalized weakness today. He had BPH surgery with Capellan placement 3 days ago. He has had a Capellan since that time. He was placed on antibiotics, Bactrim, after his surgery. He has been chilled today. No fever. He has generalized abdominal pain. He has been coughing a bit, mildly short of breath, and family states he has been wheezy. MD complaint: altered mental status and confusion Onset (ago): hour(s) Timing confirmed by: family member Severity: mild Consistency of symptoms: Waxing and Waning Context: other Associated symptoms: Reports no associated symptoms Review of Systems ENMT: Denies: throat pain Card: Denies: chest pain Resp: Reports: dyspnea and non-productive cough GI: Reports: abdominal pain and nausea; Denies: vomiting : Reports: hematuria Neuro: Reports: headache(s) PFSH ED PFSH: Medical History Chronic kidney disease No pertinent family history Social History Smoking and tobacco status: never smoked Physical Exam Const: GENERAL APPEARANCE: cooperative and frail appearing (Mildly); not ill appearing NUTRITIONAL APPEARANCE: obese ORIENTATION/CONSCIOUSNESS: Yes awake, Yes oriented to person, Yes oriented to place and Yes oriented to time HENMT: COMMON NORMALS: normocephalic and atraumatic HEAD & SCALP: normoc ephalic and atraumatic FACE & SINUS: normal facial exam Eye: COMMON NORMALS: Equal, round and reactive pupils present and EOMs intact bilaterally PUPIL: Yes Equal, round and reactive pupils present Neck/C-Spine: GENERAL: Yes trachea midline Chest: CHEST: Yes Symmetrical chest wall rise Resp: COMMON NORMALS: normal respiratory effort, No use of accessory muscles and clear to auscultation bilaterally AUSCULTATION: clear to auscultation bilaterally Cardio: COMMON NORMALS: regular rate and regular rhythm RATE: regular rate RHYTHM: regular rhythm GI: COMMON NORMALS: Soft to palpation PALPATION: Yes Soft to palpation and Yes Tenderness to palpation present (GI) (Generalized) Neuro: CATE COMA SCALE: document GCS findings Cate coma scale eye opening: Spontaneous [place] coma scale verbal response: Orientated Cate coma scale motor response: Obey commands Cate coma scale total score: 15 SENSORIUM/ORIENTATION: Yes oriented to person, Yes oriented to place and Yes oriented to time Psych: COMMON NORMALS: cooperative Course Vital Signs: Vital signs: Vital Signs Temperature 97.5 F L 04/11/22 20:16 Pulse Rate 91 04/11/22 20:23 Respiratory Rate 17 04/11/22 23:42 Blood Pressure 185/86 04/11/22 23:42 Pulse Oximetry 93 04/11/22 23:42 Oxygen Delivery Me thod 04/11/22 23:42 MDM - Altered Mental Status Medical Decision Making My blood cell count is 11. Hemoglobin 14.6. Creatinine is 1.4 which is near his baseline. Chest x-ray shows right perihilar opacity mildly concerning for pneumonia, CT of the chest abdomen pelvis was ordered. It shows minimal gland glass densities seen bilaterally in the inferior lingula and lower lobes that are similar to previous findings. No acute pulmonary disease is noted. CT of the belly shows thickened bladder wall consistent with cystitis. His urinalysis appears to show an incompletely treated urinary tract infection with hematuria related to his surgery. He is given a gram of Rocephin and a liter of fluid here. He is feeling better making more sense. He will be treated with cefdinir. He will stop his Macrobid. Family knows to bring him back for any worsening symptoms. Lab Data 04/11/22 22:20 04/11/22 22:20 Radiology Impressions Chest X-Ray 04/11/22 22:32 IMPRESSION: Right perihilar opacity which may reflect aspiration or infiltrate/pneumonia. Head CT 04/11/22 22:32 IMPRESSION: No acute intracranial abnormality. Chest/Abdomen/Pelvis CT 04/11/22 22:59 IMPRESSION: 1. Minimal ground-glass densities are seen bilaterally in the inferior lingula and lower lobes similar to previous. This may reflect chronic pneumonitis. 2. No acute pulmonary disease identified. IMPRESSION: 1. Anterior right midpole renal masses mildly enlarging since 07/01/2020, suspicious for progressive disease. 2. Complex cyst lower pole of the left kidney is grossly unchanged and not well characterized on this study due to artifact. 3. Thickened bladder wall. Correlate for cystitis. Laboratory Results WBC 10.9 10^3/uL (4.0-10.0) H 04/11/22 22:20 RBC 4.81 10^6/uL (4.1-5.3) 04/11/22 22:20 Hgb 14.6 g/dL (11.7-16.6) 04/11/22 22:20 Hct 44.7 % (42.0-52.0) 04/11/22 22:20 MCV 92.9 fl (80-94) 04/11/22 22:20 MCH 30.4 pg (28.0-34.0) 04/11/22 22:20 MCHC 32.7 g/dL (30.0-36.0) 04/11/22 22:20 RDW 13.1 % (12.1-15.1) 04/11/22 22:20 Plt Count 222 10^3/cmm (130-400) 04/11/22 22:20 MPV 8.7 fL (7.4-10.4) 04/11/22 22:20 Neut % (Auto) 75.2 % 04/11/22 22:20 Lymph % (Auto) 13.3 % 04/11/22 22:20 [place] % (Auto) 8.3 % 04/11/22 22:20 Eos % (Auto) 2.0 % 04/11/22 22:20 Baso % (Auto) 0.6 % 04/11/22 22:20 Neut # (Auto) 8.20 10^3/uL (1.8-7.7) H 04/11/22 22:20 Lymph # (Auto) 1.5 10^3/uL (0.8-4.8) 04/11/22 22:20 [place] # (Auto) 0.9 10^3/uL (0.2-0.9) 04/11/22 22:20 Eos # (Auto) 0.2 10^3/uL (0.0-0.8) 04/11/22 22:20 Baso # (Auto) 0.1 10^3/uL (0.0-0.1) 04/11/22 22:20 Nucleated RBC % (auto) 0 % 04/11/22 22:20 Nucleated RBCs # 0.0 /100WBC 04/11/22 22:20 Sodium 133 mmol/L (136-145) L 04/11/22 22:20 Potassium 4.3 mmol/L (3.5-5.1) 04/11/22 22:20 Chloride 98 mmol/L (98-107) 04/11/22 22:20 Carbon Dioxide 24 mmol/L (22-29) 04/11/22 22:20 Anion Gap 15.3 (5-19) 04/11/22 22:20 BUN 15 mg/dL (8-23) 04/11/22 22:20 Creatinine 1.4 mg/dL (0.7-1.2) H 04/11/22 22:20 GFR Calculation Not Reportable 04/11/22 22:20 Glucose 134 mg/dL (65-115) H 04/11/22 22:20 Calculated Osmolality 279 mOsm/kg (285-295) L 04/11/22 22:20 Lactate 1.2 mmol/L (0.5-2.2) 04/11/22 22:20 Calcium 9.1 mg/dL (8.5-10.5) 04/11/22 22:20 Total Bilirubin 0.7 mg/dL (0.15-1.2) 04/11/22 22:20 AST 13 U/L (0-40) 04/11/22 22:20 ALT 11 U/L (0-41) 04/11/22 22:20 Alkaline Phosphatase 112 U/L (40-130) 04/11/22 22:20 C-Reactive Protein 60.7 mg/L (0.0-4.9) H 04/11/22 22:20 Total Protein 7.9 g/dL (6.6-8.7) 04/11/22 22:20 Albumin 3.6 g/dL (3.5-5.2) 04/11/22 22:20 Globulin 4.3 g/dL (1.3-4.6) 04/11/22 22:20 Urine Color Dark yellow (Yellow) 04/11/22 23:32 Urine Appearance Hazy (CLEAR) A 04/11/22 23:32 Urine pH 8 (5-7) H 04/11/22 23:32 Ur Specific [place] 1.010 (1.005-1.030) 04/11/22 23:32 Urine Protein 1+ (Negative) H 04/11/22 23:32 Urine Glucose (UA) Norm (Normal) 04/11/22 23:32 Urine Ketones Negative (Negative) 04/11/22 23:32 Urine Blood 3+ (Negative) H 04/11/22 23:32 Urine Nitrate Negative (Negative) 04/11/22 23:32 Urine Bilirubin Neg (Negative) 04/11/22 23:32 Prot Sulfosalicylic Acd Negative (Negative) 04/11/22 23:32 Urine Urobilinogen Neg mg/dL (Negative) 04/11/22 23:32 Ur Leukocyte Esterase 1+ (Negative) H 04/11/22 23:32 Urine RBC >100 /hpf (0-2) H 04/11/22 23:32 Urine WBC 5-10 /hpf (0-5) H 04/11/22 23:32 Ur Squamous Epith Cells 0-4 /hpf (0-5) H 04/11/22 23:32 Amorphous Sediment Not Reportable 04/11/22 23:32 Urine Bacteria Trace /hpf (NONE) 04/11/22 23:32 Urine Mucus Trace /hpf 04/11/22 23:32 Discharge Plan Discharge Patient Disposition: Home Clinical Impression: Altered mental status, Urinary tract infection Condition: Stable Prescriptions: New cefdinir 300 mg capsule 300 mg PO BID Qty: 14 0RF No Action ranitidine HCl 150 mg tablet 150 mg PO BID albuterol sulfate 90 mcg/actuation aerosol powdr breath activated 1 inh inhalation Q6H PRN (Reason: shortness of breath) Qty: 1 3RF citalopram 40 mg Tablet 40 mg PO BEDTIME Zyrtec 10 mg Tablet 10 mg PO DAILY gabapentin 400 mg Capsule 400 mg PO BID omeprazole 40 mg Capsule,Delayed Release(Dr/Ec) 40 mg PO DAILY Aspir-81 81 mg Tablet,Delayed Release (Dr/Ec) 81 mg PO DAILY spironolactone 25 mg Tablet 25 mg PO DAILY tamsulosin 0.4 mg Capsule 0.4 mg PO BID levothyroxine 50 mcg Tablet 50 mcg PO DAILY Sudafed 30 mg Tablet 30 mg PO Q6H PRN (Reason: Congestion) dicyclomine 10 mg Capsule 10 mg PO TID PRN (Reason: STOMACH CRAMPS) memantine 10 mg Tablet 10 mg PO BID chlorhexidine gluconate 0.12 % Mouthwash 15 ml BUCCAL DAILY PRN (Reason: Mouth Irritation) Vitamin D3 25 mcg (1,000 unit) Tablet 25 mcg PO DAILY alogliptin 6.25 mg Tablet 6.25 mg PO DAILY dicyclomine 20 mg tablet 20 mg PO TID PRN (Reason: diarrhea and abdominal cramping) Qty: 20 0RF ondansetron 4 mg tablet,disintegrating 4 mg PO Q8H PRN (Reason: nausea and vomiting) Qty: 20 0RF furosemide 40 mg tablet 40 mg PO BID Discharge Orders: Discharge ED (Routine); Ordered 04/12/22 Ordered By: Damien Paz Referrals: Urvashi Mcmahan MD [Primary Care Provider] - 1-3 days Patient Instructions: Altered Mental Status (ED), Urinary Tract Infection in Older Adults (ED), Opioid Safety, Pain Management Activity Restrictions/Additional Instructions: Return for worsening lethargy or mental status changes despite treatment, fever greater than 100 despite 2-3 doses of antibiotics, worsening pain, other concerning symptoms. Coding Level of Care Code ED Blast Furnace Tender for Maryg Fwd Exam Comprehensive
[2022-04-12] MEDS: cefTRIAXone 1,000 MG in sodium chloride 0.9% (plus) 50 ML 100 MG IV (01:10)
[2022-04-12 01:35] VITALS: BP 136/81; PULSE 79; O2SAT 94
== END 2022-04-12 01:37 | disposition home or self-care (01) ==
PROVIDERS: Emergency Medicine; Emergency Provider Emergency Medicine; PCP Family Medicine
DX: R41.82 Altered mental status, unspecified (principal); N39.0 Urinary tract infection, site not specified; Z79.82 Long term (current) use of aspirin; N18.9 Chronic kidney disease, unspecified
CPT/HCPCS: 70450; 71045; 71260; 74177; 80053; 81001; 83605; 85025; 86140; 87040; 87086; 96365; 99285; J0696; J7030; Q9967

== ENCOUNTER 2022-05-23 19:36 | Inpatient (IN) | payer OTHER, SELFPAY ==
--- NOTE | 2022-05-23 19:44 | CTR_ITS ---
PROCEDURE INFORMATION: Exam: CTA Chest With Contrast Exam date and time: 05/23/2022 9:45 PM Age: 77 years old Clinical indication: Other: Hypoxia, covid pos, HX pe; Patient HX: HX right renal CA per PT. ; Additional info: Covid positive, hypoxia, HX of pe TECHNIQUE: Imaging protocol: Computed tomographic angiography of the chest with contrast. 3D rendering (Not supervised by radiologist): MIP and/or 3D reconstructed images were created by the technologist. Radiation optimization: All CT scans at this facility use at least one of these dose optimization techniques: automated exposure control; mA and/or kV adjustment per patient size (includes targeted exams where dose is matched to clinical indication); or iterative reconstruction. Contrast material: OMNI 350; Contrast volume: 100 ml; Contrast route: INTRAVENOUS (IV); REPORTING DATA: Count of CT and Cardiac NM exams in prior 12 months: This patient has received 3 known CTs and 0 known cardiac nuclear medicine studies in the 12 months prior to the current study. COMPARISON: CT chest abdpel w/*[id number] 04/11/2022 11:18 PM RADIATION DOSE METRICS: Total DLP (mGy-cm): 518.71 FINDINGS: Limitations: Poor contrast bolus timing limiting evaluation for pulmonary embolism. Within this limitation: Pulmonary arteries: There are suspected filling defects in the bilateral segmental and subsegmental pulmonary artery branches. Aorta: There are atherosclerotic calcifications of the aortic arch. There are calcifications of the origin/proximal arch vessels. There are calcifications of the aortic valve leaflets. There is minimal atherosclerotic calcifications of the coronary arteries. Lungs: There are dependent opacities which may represent atelectasis, inflammation, or airspace disease such as pneumonia. Clinical correlation is recommended. No masses. Pleural spaces: No pneumothorax. No pleural effusion. Heart: Mild thickening of the interventricular septum and the left ventricular wall. Borderline cardiomegaly. Heart RV/LV ratio: The RV LV ratio equals 1.09. Lymph nodes: Scattered small mediastinal and hilar lymph nodes are nonspecific. No enlarged lymph nodes by CT size criteria. Bones/joints: Diffuse flowing syndesmophytes throughout the thoracic spine compatible with diffuse idiopathic skeletal hyperostosis. No acute fracture. Soft tissues: Granulomatous calcifications in the spleen. Fatty changes of the liver and mild hepatomegaly. Small hiatal hernia. CT/CT angio chest PE protcl [id number] IMPRESSION: 1. Poor contrast bolus timing, limiting evaluation for pulmonary embolism. Within this limitation: 2. Suspected pulmonary embolism in the segmental and subsegmental pulmonary artery branches bilaterally. 3. Additional miscellaneous findings in the body of the report. 4. Please refer to the prior CT of the abdomen from 04/11/2022 for detailed intra-abdominal findings. Findings were communicated with Dr Tao by Dr. Brooks on 05/23/2022 at 11:05 p.m.
--- NOTE | 2022-05-23 19:45 | ECG_ITS ---
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 Measurements Intervals [place] Rate: 97 P: 77 DE: 182 QRS: -24 QRSD: 93 T: 36 QT: 352 QTc: 448 Interpretive Statements SINUS RHYTHM INDETERMINATE AXIS LOW QRS VOLTAGE IN PRECORDIAL LEADS [QRS DEFLECTION < 1.0 mV IN CHEST LEADS] INCOMPLETE RIGHT BUNDLE BRANCH BLOCK [90+ ms QRS DURATION, TERMINAL R IN V1/V2, 40+ ms S IN I/aVL/V4/V5/V6] POSSIBLE ANTERIOR MYOCARDIAL INFARCTION , OF INDETERMINATE AGE [30 ms Q WAVE IN V3/V4, OR R < 0.2 mV IN V4] Compared to ECG 07/18/2017 22:59:01 Incomplete right bundle-branch block now present Myocardial infarct finding now present Electronically Signed On 05-24-2022 19:39:15 CDT by Slim Wilburn M.D. [id number]
--- NOTE | 2022-05-23 19:46 | ED_ITS ---
Documented by User: Tayo Yang DO 05/23/22 20:08 HPI - SOB/Dyspnea General: Chief Complaint: COVID symptoms Stated Complaint: WEAKNESS/COVID + Time Seen by Provider: 05/23/22 19:38 History of Present Illness: HPI Narrative: Patient presents to the ER per EMS with complaints of shortness of breath, COVID-positive today in generalized weakness. Patient states has been going downhill the last couple days with shortness of breath and generalized weakness to the point today that he cannot get up and move around as he normally can. Patient did a home COVID test today and it was positive. MD elicited complaint: shortness of breath Pertinent past history: PE Onset (ago): day(s) (2 to 3 days ago) Context: recent illness Timing: constant and progressively worsening Severity: moderate Exacerbating factors: movement Relieving factors: nothing Known history of: PE Associated symptoms: Reports cough; Deny abdominal pain, chest pain, extremity pain, fever(s), nausea, palpitations, polydipsia, polyuria or vomiting Related Data: Home oxygen amount: none Review of Systems General: Reports: 10 or more systems reviewed and unremarkable except in HPI and below Const: Reports: body aches; Denies: fever(s) or chills Eyes: Denies: change in vision or blurry vision ENMT: Denies: throat pain or odynophagia Card: Reports: edema; Denies: chest pain, palpitations or irregular heart rhythm Resp: Reports: dyspnea GI: Denies: abdominal pain, nausea, vomiting or diarrhea : Denies: flank pain, difficulty urinating, dysuria or urinary frequency Musc: Denies: neck pain, back pain or extremity pain Skin/Breast: Denies: rash, pruritus or erythema Neuro: Denies: headache(s), numbness in extremities or weakness in extremities Psych: Denies: anxiety, depression or mood swings Endo: Denies: polyuria, polydipsia or tired all the time Nikhil/Lymph: Denies: easy bruising, easy bleeding or petechiae All/Imm: Denies: urticaria, throat swelling or tongue swelling PFSH ED PFSH: Medical History Chronic kidney disease No pertinent family history Social History Smoking and tobacco status: never smoked Physical Exam Const: COMMON NORMALS: patient oriented x3, alert and well nourished GENERAL APPEARANCE: ill appearing NUTRITIONAL APPEARANCE: obese HENMT: COMMON NORMALS: normocephalic, atraumatic, hearing grossly normal bilat erally and external ears normal HEAD & SCALP: normocephalic and atraumatic EXTERNAL EAR: Yes external ears normal Eye: COMMON NORMALS: Equal, round and reactive pupils present, EOMs intact jimmy aterally and conjunctivae normal CONJUNCTIVA: Yes conjunctivae normal PUPIL: Yes Equal, round and reactive pupils present Neck/C-Spine: COMMON NORMALS: full ROM, no lymphadenopathy, supple and no JVD Lymph: LYMPHATIC: no lymphadenopathy noted Chest: COMMONS NORMALS: normal inspection of the chest Resp: EFFORT & INSPECTION: Yes able to speak in complete sentences, Yes symmetric chest movement, Yes respiratory distress and Yes decreased respiratory effort AUSCULTATION: diminished lung sounds Cardio: COMMON NORMALS: no JVD, regular rate, regular rhythm, S1 normal heart sound present, S2 normal heart sound present and No gallops present (Cardio) RATE: regular rate RHYTHM: regular rhythm HEART SOUNDS: S1 normal heart sound present and S2 normal heart sound present GI: COMMON NORMALS: Normal to inspection, nondistended, normoactive bowel sounds present, Soft to palpation, non-tender and No hepatosplenomegaly present PALPATION: Yes Soft to palpation and Yes No hepatosplenomegaly present : COMMON NORMALS: Yes no CVA tenderness BLADDER/KIDNEY EXAM: Yes no CVA tenderness Back/Pelvis: COMMON NORMALS: no CVA tenderness and thoracic and lumbar spine normal to inspection Extremity: NARRATIVE EXTREMITY EXAM: 1-2+ pitting edema bilateral lower extremities Neuro: COMMON NORMALS: patient oriented x3, CN's II-XII intact bilaterally, moves all extremities, no focal motor deficits and no sensory deficits noted SENSORIUM/ORIENTATION: Yes alert Psych: COMMON NORMALS: mental status grossly normal, Normal thought process present, cooperative, normal affect and speech normal SPEECH: Yes normal speech THOUGHT PROCESS: Normal thought process present Course Vital Signs: Vital signs: Vital Signs Temperature 98.5 F 05/23/22 19:50 Pulse Rate 88 05/23/22 22:42 Respiratory Rate 20 H 05/23/22 22:42 Blood Pressure 133/56 05/23/22 22:42 Pulse Oximetry 97 05/23/22 22:42 Oxygen Delivery Me thod Nasal Cannula 05/23/22 22:42 Oxygen Flow Rate 2 05/23/22 22:42 MDM - SOB/Dyspnea Lab Data 05/23/22 19:55 03 19:55 Labs/Radiology: Radiology Impressions Chest CTA 05/23/22 19:44 IMPRESSION: 1. Poor contrast bolus timing, limiting evaluation for pulmonary embolism. Within this limitation: 2. Suspected pulmonary embolism in the segmental and subsegmental pulmonary artery branches bilaterally. 3. Additional miscellaneous findings in the body of the report. 4. Please refer to the prior CT of the abdomen from 04/11/2022 for detailed intra-abdominal findings. Findings were communicated with Dr Tao by Dr. Brooks on 05/23/2022 at 11:05 p.m. Laboratory Results WBC 7.9 10^3/uL (4.0-10.0) 05/23/22 19:55 RBC 4.75 10^6/uL (4.1-5.3) 05/23/22 19:55 Hgb 14.4 g/dL (11.7-16.6) 05/23/22 19:55 Hct 44.6 % (42.0-52.0) 05/23/22 19:55 MCV 93.9 fl (80-94) 05/23/22 19:55 MCH 30.3 pg (28.0-34.0) 05/23/22 19:55 MCHC 32.3 g/dL (30.0-36.0) 05/23/22 19:55 RDW 13.7 % (12.1-15.1) 05/23/22 19:55 Plt Count 157 10^3/cmm (130-400) 05/23/22 19:55 MPV 9.1 fL (7.4-10.4) 05/23/22 19:55 Neut % (Auto) 59.9 % 05/23/22 19:55 Lymph % (Auto) 28.9 % 05/23/22 19:55 [place] % (Auto) 9.4 % 05/23/22 19:55 Eos % (Auto) 0.9 % 05/23/22 19:55 Baso % (Auto) 0.5 % 05/23/22 19:55 Neut # (Auto) 4.72 10^3/uL (1.8-7.7) 05/23/22 19:55 Lymph # (Auto) 2.3 10^3/uL (0.8-4.8) 05/23/22 19:55 [place] # (Auto) 0.7 10^3/uL (0.2-0.9) 05/23/22 19:55 Eos # (Auto) 0.1 10^3/uL (0.0-0.8) 05/23/22 19:55 Baso # (Auto) 0.0 10^3/uL (0.0-0.1) 05/23/22: Nucleated RBC % (auto) 0 % 05/23/22: Nucleated RBCs # 0.0 /100WBC 05/23/22 19: PT 14.20 SECONDS (12.1-14.9) 05/23/22 19: INR 1.06 (0.8-1.2) 05/23/22: Specimen Type Arterial 05/23/22 20:09 Sample Site Brachial, right 05/23/22 20:09 ABG pH 7.42 (7.35-7.45) 05/23/22 20:09 ABG pCO2 36.6 mmHg (35-45) 05/23/22 20:09 ABG pO2 78.7 mmHg (80.0-100.0) L 05/23/22 20:09 ABG HCO3 23.8 mmol/L (22-26) 05/23/22 20:09 ABG Base Excess -0.3 mmol/L (-2.0-2.0) 05/23/22 20:09 Damien Test N/a 05/23/22 20:09 Hematocrit 44.5 % (42-52) 05/23/22 20:09 Hgb O2 Saturation 94.9 % (95-100) L 05/23/22 20:09 Carboxyhemoglobin 1.2 %THgb (0.4-20.1) 05/23/22 20:09 Methemoglobin 0.8 % (0.4-1.5) 05/23/22 20:09 Total Hemoglobin 14.5 g/dL (14-18) 05/23/22 20:09 O2 Delivery Device Nc 05/23/22 20:09 O2 Liters/Min 2.5 % 05/23/22 20:09 Ssn/Ssbn Assistant Navigator ID Kedra 05/23/22 20:09 Sodium 135 mmol/L (136-145) L 05/23/22 19:55 Potassium 3.8 mmol/L (3.5-5.1) 05/23/22 19:55 Chloride 96 mmol/L (98-107) L 05/23/22 19:55 Carbon Dioxide 24 mmol/L (22-29) 05/23/22 19:55 Anion Gap 18.8 (5-19) 05/23/22 19:55 BUN 15 mg/dL (8-23) 05/23/22 19:55 Creatinine 1.7 mg/dL (0.7-1.2) H 05/23/22 19:55 GFR Calculation Not Reportable 05/23/22 19:55 Glucose 133 mg/dL (65-115) H 05/23/22 19:55 Calculated Osmolality 283 mOsm/kg (285-295) L 05/23/22 19:55 Lactic Acid 1.9 mmol/L (0.5-2.2) 05/23/22 19:55 Calcium 8.6 mg/dL (8.5-10.5) 05/23/22 19:55 Magnesium 1.8 mg/dL (1.7-2.3) 05/23/22 19:55 Total Bilirubin 0.5 mg/dL (0.15-1.2) 05/23/22 19:55 AST 17 U/L (0-40) 05/23/22 19:55 ALT 14 U/L (0-41) 05/23/22 19:55 Alkaline Phosphatase 121 U/L (40-130) 05/23/22 19:55 Troponin T Baseline 24 ng/L (0-15) H 05/23/22 19:55 Troponin T 120 Minute 22.10 ng/L (0-15) H 05/23/22 22:00 Delta Troponin T -1.90 ABS# (0-10) L 05/23/22 22:00 NT-Pro-B Natriuret Pep 219 pg/mL (0-450) 05/23/22 19:55 Total Protein 7.2 g/dL (6.6-8.7) 05/23/22 19:55 Albumin 4.2 g/dL (3.5-5.2) 05/23/22 19:55 Globulin 3.0 g/dL (1.3-4.6) 05/23/22 19:55 Urine Color Yellow (Yellow) 05/23/22 22:08 Urine Appearance Clear (CLEAR) 05/23/22 22:08 Urine pH 5 (5-7) 05/23/22 22:08 Ur Specific [place] 1.015 (1.005-1.030) 05/23/22 22:08 Urine Protein Trace (Negative) 05/23/22 22:08 Urine Glucose (UA) Norm (Normal) 05/23/22 22:08 Urine Ketones Negative (Negative) 05/23/22 22:08 Urine Blood 2+ (Negative) H 05/23/22 22:08 Urine Nitrate Negative (Negative) 05/23/22 22:08 Urine Bilirubin Neg (Negative) 05/23/22 22:08 Urine Urobilinogen Neg mg/dL (Negative) 05/23/22 22:08 Ur Leukocyte Esterase Trace (Negative) H 05/23/22 22:08 Urine RBC 10-15 /hpf (0-2) H 05/23/22 22:08 Urine WBC 10-15 /hpf (0-5) H 05/23/22 22:08 Ur Squamous Epith Cells 5-10 /hpf (0-5) H 05/23/22 22:08 Amorphous Sediment 1+ /hpf 05/23/22 22:08 Urine Bacteria 1+ /hpf (NONE) H 05/23/22 22:08 Urine Mucus 1+ /hpf 05/23/22 22:08 EKG Data EKG 1: I personally reviewed and interpreted this EKG as follows: EKG Interpretation Date: 05/23/22 EKG interpretation time: 19:54 Interpretation: EKG shows normal sinus rhythm at 97 beats minute a [place] interval of 182 QRS duration of 93 QT of 352 shows an indeterminate axis low voltage in precordial leads incomplete right bundle branch block possible anterior PR of indeterminate age Q waves in V3/V4 Discharge Plan Discharge Patient Disposition: Admitted As Inpatient Admit Provider: Tamica Kendall Clinical Impression: Acute respiratory failure with hypoxia, Pulmonary edema Condition: Stable Coding Level of Care Code ED Envelope Machine Operator for Chg Fwd Documented by User: Rebekah Tao MD 05/23/22 23:24 HPI - SOB/Dyspnea General: Chief Complaint: COVID symptoms Stated Complaint: WEAKNESS/COVID + Time Seen by Provider: 05/23/22 19:38 PFSH ED PFSH: Medical History Chronic kidney disease No pertinent family history Social History Smoking and tobacco status: never smoked Course Vital Signs: Vital signs: Vital Signs Temperature 98.5 F 05/23/22 19:50 Pulse Rate 88 05/23/22 22:42 Respiratory Rate 20 H 05/23/22 22:42 Blood Pressure 133/56 05/23/22 22:42 Pulse Oximetry 97 05/23/22 22:42 Oxygen Delivery Me thod Nasal Cannula 05/23/22 22:42 Oxygen Flow Rate 2 05/23/22 22:42 MDM - SOB/Dyspnea Medical Decision Making Patient presents for shortness of breath along with generalized weakness CT shows a possible pulmonary embolism we will start Lovenox spoke to the ospitalist and will admit at this time. Lab Data 05/23/22 19:55 05/23/22 19:55 Labs/Radiology: Radiology Impressions Chest CTA 05/23/22 19:44 IMPRESSION: 1. Poor contrast bolus timing, limiting evaluation for pulmonary embolism. Within this limitation: 2. Suspected pulmonary embolism in the segmental and subsegmental pulmonary artery branches bilaterally. 3. Additional miscellaneous findings in the body of the report. 4. Please refer to the prior CT of the abdomen from 04/11/2022 for detailed intra-abdominal findings. Findings were communicated with Dr Tao by Dr. Brooks on 05/23/2022 at 11:05 p.m. Laboratory Results WBC 7.9 10^3/uL (4.0-10.0) 05/23/22 19:55 RBC 4.75 10^6/uL (4.1-5.3) 05/23/22 19:55 Hgb 14.4 g/dL (11.7-16.6) 05/23/22 19:55 Hct 44.6 % (42.0-52.0) 05/23/22 19:55 MCV 93.9 fl (80-94) 05/23/22 19:55 MCH 30.3 pg (28.0-34.0) 05/23/22 19:55 MCHC 32.3 g/dL (30.0-36.0) 05/23/22 19:55 RDW 13.7 % (12.1-15.1) 05/23/22 19:55 Plt Count 157 10^3/cmm (130-400) 05/23/22 19:55 MPV 9.1 fL (7.4-10.4) 05/23/22 19:55 Neut % (Auto) 59.9 % 05/23/22 19:55 Lymph % (Auto) 28.9 % 05/23/22 19:55 [place] % (Auto) 9.4 % 05/23/22 19:55 Eos % (Auto) 0.9 % 05/23/22 19:55 Baso % (Auto) 0.5 % 05/23/22 19:55 Neut # (Auto) 4.72 10^3/uL (1.8-7.7) 05/23/22 19:55 Lymph # (Auto) 2.3 10^3/uL (0.8-4.8) 05/23/22 19:55 [place] # (Auto) 0.7 10^3/uL (0.2-0.9) 05/23/22 19:55 Eos # (Auto) 0.1 10^3/uL (0.0-0.8) 05/23/22 19:55 Baso # (Auto) 0.0 10^3/uL (0.0-0.1) 05/23/22 19:55 Nucleated RBC % (auto) 0 % 05/23/22 19:55 Nucleated RBCs # 0.0 /100WBC 05/23/22 19:55 PT 14.20 SECONDS (12.1-14.9) 05/23/22 19:55 INR 1.06 (0.8-1.2) 05/23/22 19:55 Specimen Type Arterial 05/23/22 20:09 Sample Site Brachial, right 05/23/22 20:09 ABG pH 7.42 (7.35-7.45) 05/23/22 20:09 ABG pCO2 36.6 mmHg (35-45) 05/23/22 20:09 ABG pO2 78.7 mmHg (80.0-100.0) L 05/23/22 20:09 ABG HCO3 23.8 mmol/L (22-26) 05/23/22 20:09 ABG Base Excess -0.3 mmol/L (-2.0-2.0) 05/23/22 20:09 Damien Test N/a 05/23/22 20:09 Hematocrit 44.5 % (42-52) 05/23/22 20:09 Hgb O2 Saturation 94.9 % (95-100) L 05/23/22 20:09 Carboxyhemoglobin 1.2 %THgb (0.4-20.1) 05/23/22 20:09 Methemoglobin 0.8 % (0.4-1.5) 05/23/22 20:09 Total Hemoglobin 14.5 g/dL (14-18) 05/23/22 20:09 O2 Delivery Device Nc 05/23/22 20:09 O2 Liters/Min 2.5 % 05/23/22 20:09 Ssn/Ssbn Assistant Navigator ID Kedar 05/23/22 20:09 Sodium 135 mmol/L (136-145) L 05/23/22 19:55 Potassium 3.8 mmol/L (3.5-5.1) 05/23/22 19:55 Chloride 96 mmol/L (98-107) L 05/23/22 19:55 Carbon Dioxide 24 mmol/L (22-29) 05/23/22 19:55 Anion Gap 18.8 (5-19) 05/23/22 19:55 BUN 15 mg/dL (8-23) 05/23/22 19:55 Creatinine 1.7 mg/dL (0.7-1.2) H 05/23/22 19:55 GFR Calculation Not Reportable 05/23/22 19:55 Glucose 133 mg/dL (65-115) H 05/23/22 19:55 Calculated Osmolality 283 mOsm/kg (285-295) L 05/23/22 19:55 Lactic Acid 1.9 mmol/L (0.5-2.2) 05/23/22 19:55 Calcium 8.6 mg/dL (8.5-10.5) 05/23/22 19:55 Magnesium 1.8 mg/dL (1.7-2.3) 05/23/22 19:55 Total Bilirubin 0.5 mg/dL (0.15-1.2) 05/23/22 19:55 AST 17 U/L (0-40) 05/23/22 19:55 ALT 14 U/L (0-41) 05/23/22 19:55 Alkaline Phosphatase 121 U/L (40-130) 05/23/22 19:55 Troponin T Baseline 24 ng/L (0-15) H 05/23/22 19:55 Troponin T 120 Minute 22.10 ng/L (0-15) H 05/23/22 22:00 Delta Troponin T -1.90 ABS# (0-10) L 05/23/22 22:00 NT-Pro-B Natriuret Pep 219 pg/mL (0-450) 05/23/22 19:55 Total Protein 7.2 g/dL (6.6-8.7) 05/23/22 19:55 Albumin 4.2 g/dL (3.5-5.2) 05/23/22 19:55 Globulin 3.0 g/dL (1.3-4.6) 05/23/22 19:55 Urine Color Yellow (Yellow) 05/23/22 22:08 Urine Appearance Clear (CLEAR) 05/23/22 22:08 Urine pH 5 (5-7) 05/23/22 22:08 Ur Specific [place] 1.015 (1.005-1.030) 05/23/22 22:08 Urine Protein Trace (Negative) 05/23/22 22:08 Urine Glucose (UA) Norm (Normal) 05/23/22 22:08 Urine Ketones Negative (Negative) 05/23/22 22:08 Urine Blood 2+ (Negative) H 05/23/22 22:08 Urine Nitrate Negative (Negative) 05/23/22 22:08 Urine Bilirubin Neg (Negative) 05/23/22 22:08 Urine Urobilinogen Neg mg/dL (Negative) 05/23/22 22:08 Ur Leukocyte Esterase Trace (Negative) H 05/23/22 22:08 Urine RBC 10-15 /hpf (0-2) H 05/23/22 22:08 Urine WBC 10-15 /hpf (0-5) H 05/23/22 22:08 Ur Squamous Epith Cells 5-10 /hpf (0-5) H 05/23/22 22:08 Amorphous Sediment 1+ /hpf 05/23/22 22:08 Urine Bacteria 1+ /hpf (NONE) H 05/23/22 22:08 Urine Mucus 1+ /hpf 05/23/22 22:08 EKG Data EKG 2: I personally reviewed and interpreted this EKG as follows: EKG Interpretation Date: 05/23/22 EKG interpretation time: 21:58 Interpretation: nsr hr [address] or t wave abnormalities qrs 97 qtc 399 Discharge Plan Discharge Patient Disposition: Admitted As Inpatient Admit Provider: Tamica Kendall Clinical Impression: Acute respiratory failure with hypoxia, Pulmonary edema Condition: Stable Coding Level of Care Code ED Envelope Machine Operator for Chg Aubrey
[2022-05-23 19:50] VITALS: PULSE 99; RESP 18; TEMP 36.9; O2SAT 98; BMI 46.2
[2022-05-23 20:11] VITALS: BP 155/65
[2022-05-23 20:16] LABS: Basophils % 0.5 %; Eosinophils # 0.1 10^3/uL (0.0-0.8); Eosinophils % 0.9 %; Hematocrit 44.6 % (42.0-52.0); Hemoglobin 14.4 g/dL (11.7-16.6); Lymphocytes # 2.3 10^3/uL (0.8-4.8); Lymphocytes % 28.9 %; Mean Corpuscular HGB Conc 32.3 g/dL (30.0-36.0); Mean Corpuscular Hemoglobin 30.3 pg (28.0-34.0); Mean Corpuscular Volume 93.9 fl (80-94); Mean Platelet Volume 9.1 fL (7.4-10.4); Monocytes # 0.7 10^3/uL (0.2-0.9); Monocytes % 9.4 %; Neutrophils # 4.72 10^3/uL (1.8-7.7); Neutrophils % 59.9 %; Nucleated Red Blood Cells % 0 %; Platelet Count 157 10^3/cmm (130-400); Red Blood Count 4.75 10^6/uL (4.1-5.3); Red Cell Distribution Width 13.7 % (12.1-15.1); White Blood Count 7.9 10^3/uL (4.0-10.0)
[2022-05-23 20:21] LABS: ABG PCO2 36.6 mmHg (35-45); ABG PH Result 7.42 (7.35-7.45); Arterial Blood Gas Hematocrit 44.5 % (42-52); Base Excess ABG -0.3 mmol/L (-2.0-2.0); Blood Gas LPM 2.5 %; Blood Gas Sample Site Brachial, right; Blood Gas Sample Type Arterial; Carboxyhemoglobin 1.2 %THgb (0.4-20.1); HCO3 ABG 23.8 mmol/L (22-26); HGB O2 Sat 94.9 % (95-100); Methemoglobin 0.8 % (0.4-1.5); Oxygen Device NC; PO2 ABG 78.7 mmHg (80.0-100.0); Total Hemoglobin 14.5 g/dL (14-18)
[2022-05-23 20:38] LABS: Lactic Sepsis W/Reflex 1.9 mmol/L (0.5-2.2); Troponin(5th) Baseline 24 ng/L (0-15)
[2022-05-23 20:40] LABS: INR 1.06 (0.8-1.2)
[2022-05-23 21:12] LABS: Alanine Aminotransferase 14 U/L (0-41); Albumin Level 4.2 g/dL (3.5-5.2); Alkaline Phosphatase 121 U/L (40-130); Anion Gap 18.8 (5-19); Aspartate Amino Transferase 17 U/L (0-40); Blood Urea Nitrogen 15 mg/dL (8-23); Calcium 8.6 mg/dL (8.5-10.5); Carbon Dioxide 24 mmol/L (22-29); Chloride 96 mmol/L (98-107); Glucose 133 mg/dL (65-115); Magnesium 1.8 mg/dL (1.7-2.3); NT Pro B Type Natriuretic Pept 219 pg/mL (0-450); Osmolality Calculated 283 mOsm/kg (285-295); Potassium 3.8 mmol/L (3.5-5.1); Sodium 135 mmol/L (136-145); Total Bilirubin 0.5 mg/dL (0.15-1.2); Total Protein 7.2 g/dL (6.6-8.7)
[2022-05-23] MEDS: iohexol 350 mg/mL 500 mL Btl (per mL) IV (21:34)
--- NOTE | 2022-05-23 21:58 | ECG_ITS ---
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 Measurements Intervals Broad [place] Rate: 85 P: 78 HI: 164 QRS: -12 QRSD: 97 T: 20 QT: 356 QTc: 425 Interpretive Statements SINUS RHYTHM LOW QRS VOLTAGE IN PRECORDIAL LEADS [QRS DEFLECTION < 1.0 mV IN CHEST LEADS] INCOMPLETE RIGHT BUNDLE BRANCH BLOCK [90+ ms QRS DURATION, TERMINAL R IN V1/V2, 40+ ms S IN I/aVL/V4/V5/V6] Compared to ECG 05/23/2022 19:54:00 Indeterminate axis no longer present Myocardial infarct finding no longer present Electronically Signed On 05-24-2022 23:21:03 CDT by Slim Wilburn M.D. [id number]
[2022-05-23 22:42] VITALS: BP 133/56; PULSE 88; RESP 20; O2SAT 97
[2022-05-23 22:50] LABS: Add Urine Microscopic? YES; Bilirubin Urine Neg (Negative); Blood Urine 2+ (Negative); Glucose Urine UA Norm (Normal); Ketones Urine Negative (Negative); Leukocyte Esterase Urine Trace (Negative); Nitrate Urine Negative (Negative); Protein Urine Trace (Negative); Specific Gravity, Urine 1.015 (1.005-1.030); Urine Appearance Clear (CLEAR); Urine Color Yellow (Yellow); Urobilinogen Urine Neg (Negative); pH Urine 5 (5-7)
[2022-05-23 22:53] LABS: Add Urine Culture? Yes; Amorphous Sediment Urine 1+ /hpf; Bacteria Urine 1+ /hpf; Mucus Urine 1+ /hpf
[2022-05-23] MEDS: enoxaparin 100 mg/mL Syringe SUBCUT (23:17)
[2022-05-23 23:51] VITALS: BP 112/67; PULSE 77; RESP 20; TEMP 37; O2SAT 95
[2022-05-24] VITALS (13 sets, daily range): BP systolic 112–145; BP diastolic 66–78; PULSE 67–83; RESP 14–22; TEMP 36.6–37; O2SAT 92–96
--- NOTE | 2022-05-24 00:10 | USCV_ITS ---
Singh Yepez Age: 77 Gender: M : 1945 Exam Date: 05/24/2022 13:34 Ordering Phys: Tamica Kendall MD Technologist: [place] Exam Location: [facility] Indication: pe BP: / HR: 61 Rhythm: Sinus Technical Quality: Adequate MEASUREMENTS (Male / Female) Normal Values 2D ECHO LV Diastolic Diameter PLAX 5.9 cm 4.2 - 5.9 / 3.9 - 5.3 cm LV Systolic Diameter PLAX 4.3 cm IVS Diastolic Thickness 0.9 cm 0.6 - 1.0 / 0.6 - 0.9 cm IVS Systolic Thickness 1.3 cm LVPW Diastolic Thickness 0.8 cm 0.6 - 1.0 / 0.6 - 0.9 cm LVPW Systolic Thickness 1.2 cm LVOT Diameter 2.4 cm LV Ejection Fraction 2D Teich 51.4 % LV Ejection Fraction MOD 2C 66.4 % LV Ejection Fraction 2C AL 65.6 % LA Diameter 4.2 cm IVC Diameter 2.9 cm M-MODE Aortic Annulus Diameter 2.8 cm LA Ao Ratio MM 1.5 MV E Point Septal Separation 0.5 cm DOPPLER AV Peak Velocity 142.0 cm/s LVOT Peak Velocity 141.0 cm/s AV Area Cont Eq vti 4.0 cm squared AV Area Cont Eq pk 4.3 cm squared MV Area PHT 3.5 cm squared Mitral E to A Ratio 0.7 MV E' Velocity 92.0 cm/s Mitral E to LV E' Septal Ratio 11.4 TV Peak E Velocity 65.0 cm/s FINDINGS Left Ventricle Possibly normal LV size and ejection fraction Right Ventricle Could not be visualized well Right Atrium Could not be visualized Left Atrium Mildly increased left atrial size. Mitral Valve Thickened mitral valve. Moderate mitral annular calcification. Aortic Valve Thickened aortic valve. Tricuspid Valve Tricuspid valve not well visualized. Pulmonic Valve Pulmonic valve not well visualized. Pericardium No pericardial effusion. Aorta Normal aortic annulus size. IVC Inferior vena cava not visualized. CONCLUSIONS Possibly normal LV size and ejection fraction. Mildly increased left atrial size. Thickened mitral valve. Moderate mitral annular calcification. Thickened aortic valve. The right-sided structures could not be visualized well Technically difficult study Dr Slim Wilburn MD [facility] (Electronically Signed) Final Date: 24 May 2022 18:03 S
--- NOTE | 2022-05-24 00:23 | P.HP_ITS ---
Providers/Chief Complaint Admitting Physician: Tamica Kendall MD Primary Care Provider: Urvashi Mcmahan MD Chief Complaint: WEAKNESS/COVID + History of Present Illness Singh Yepez is a 77 year old male presenting to the ER today with c/o generlaized weakness, shortness of breath and low grade fever that have been going on the past week. His home covid test was positive today, which brought him to the ER. He is being evlauted as outpatient for possible asthma. CTA chest today showed possible B/L PE. He has a past h/o PE in 2012 after orthopedic surgery Review of Systems General: Reports: 10 or more systems reviewed and unremarkable except in HPI and below Const: Denies: fever(s), chills or body aches Eyes: Denies: change in vision, blurry vision or photophobia ENMT: Reports: hoarseness; Denies: throat pain, enlarged tonsils, odynophagia or nasal congestion Card: Denies: chest pain, palpitations, irregular heart rhythm, edema, swelling of feet/ankles, lightheadedness, pre-syncope, dyspnea on exertion or orthopnea Resp: Denies: dyspnea, productive cough, non-productive cough, wheezing, stridor, pain on inspiration, change in phlegm color, hemoptysis or chest congestion GI: Denies: abdominal pain, nausea, vomiting, hematemesis, coffee ground emesis, dysphagia, heartburn, diarrhea, constipation, GI cramping, change in stool character, hematochezia or melena : Denies: flank pain, dysuria, urinary frequency, urinary urgency, urinary hesitancy or hematuria Musc: Denies: neck pain, back pain, extremity pain, joint swelling, joint warmth or deformity Neuro: Denies: headache(s), numbness in extremities, weakness in extremities, sensory changes, difficulty walking, frequent falls, dizziness, vertigo, behavioral changes, Slurred speech present or seizure-like activity Psych: Denies: anxiety, depression, suicidal ideation or homicidal ideation Endo: Denies: polyuria, polydipsia, tired all the time, cold intolerance or hot flashes Nikhil/Lymph: Denies: easy bruising or easy bleeding Medications/Allergies Home Medications Medication Instructions Recorded Confirmed Last Taken Type alogliptin 6.25 mg tablet 6.25 mg PO DAILY 05/10/21 01/05/22 05/08/21 History aspirin 81 mg tablet,delayed 81 mg PO DAILY 05/10/21 01/05/22 05/08/21 History release cetirizine 10 mg tablet (Zyrtec) 10 mg PO DAILY 05/10/21 01/05/22 05/08/21 History chlorhexidine gluconate 0.12 % 15 ml buccal DAILY PRN Mouth 05/10/21 01/05/22 Unknown History mouthwash Irritation cholecalciferol (vitamin D3) 25 25 mcg PO DAILY 05/10/21 01/05/22 05/08/21 History mcg (1,000 unit) tablet (Vitamin D3) citalopram 40 mg tablet 40 mg PO BEDTIME 05/10/21 01/05/22 05/08/21 History dicyclomine 10 mg capsule 10 mg PO TID PRN STOMACH CRAMPS 05/10/21 01/05/22 05/08/21 History dicyclomine 20 mg tablet 20 mg PO TID PRN diarrhea and 05/10/21 01/05/22 Unknown Rx abdominal cramping #20 tabs gabapentin 400 mg capsule 400 mg PO BID 05/10/21 01/05/22 05/08/21 History levothyroxine 50 mcg tablet 50 mcg PO DAILY 05/10/21 01/05/22 05/08/21 History memantine 10 mg tablet 10 mg PO BID 05/10/21 01/05/22 05/08/21 History omeprazole 40 mg capsule,delayed 40 mg PO DAILY 05/10/21 01/05/22 05/08/21 History release ondansetron 4 mg disintegrating 4 mg PO Q8H PRN nausea and 05/10/21 01/05/22 Unknown Rx tablet vomiting #20 tabs pseudoephedrine HCl 30 mg tablet 30 mg PO Q6H PRN Congestion 05/10/21 01/05/22 05/08/21 History (Sudafed) spironolactone 25 mg tablet 25 mg PO DAILY 05/10/21 01/05/22 05/08/21 History tamsulosin 0.4 mg capsule 0.4 mg PO BID 05/10/21 01/05/22 05/08/21 History ranitidine HCl 150 mg tablet 150 mg PO BID 05/30/21 01/05/22 Unknown History albuterol sulfate 90 mcg/actuation 1 inh inhalation Q6H PRN shortness 07/25/21 01/05/22 Unknown Rx breath activated powder inhaler of breath #1 ea furosemide 40 mg tablet 40 mg PO BID 10/30/21 01/05/22 Unknown History cefdinir 300 mg capsule 300 mg PO BID #14 caps 04/12/22 Unknown Rx Allergies Allergy/AdvReac Type Severity Reaction Status Date / Time No Known Allergies Allergy Verified 04/11/22 20:22 PFSH Acute PFSH: Medical History Chronic kidney disease No pertinent family history Social History Smoking and tobacco status: never smoked Vitals/I&O/Wt Last Vital Signs Temp 98.6 F 05/23/22 23:51 Pulse 77 05/23/22 23:51 Resp 20 H 05/23/22 23:51 BP 112/67 05/23/22 23:51 Pulse Ox 95 05/23/22 23:51 O2 Del Method 05/23/22 23:51 O2 Flow Rate 2 05/23/22 23:51 Weight last 48 hrs Weight 167.829 kg Physical Exam Narrative: General: No acute distress, AO x3 HEENT: PERRLA, pupils bilaterally equal and reactive, pallors not present Chest: Normal vesicular breath sounds, no added sounds, equal good air entry bilaterally CVS: S1-S2 regular, no murmurs, no tachycardia, no gallops, no rubs Abdomen: Soft, nontender, no organomegaly, bowel sounds present Neuro: No focal deficits, no facial deformity, AO x3, power 5/5 in all limbs Data 05/23/22 19:55 05/23/22 19:55 Micro: Microbiology 05/23/22 19:58 Blood Culture - Preliminary Blood SPECIMEN COLLECTED 05/23/22 19:55 Blood Culture - Preliminary Blood SPECIMEN COLLECTED Other data: Radiology Impressions Chest CTA 05/23/22 19:44 IMPRESSION: 1. Poor contrast bolus timing, limiting evaluation for pulmonary embolism. Within this limitation: 2. Suspected pulmonary embolism in the segmental and subsegmental pulmonary artery branches bilaterally. 3. Additional miscellaneous findings in the body of the report. 4. Please refer to the prior CT of the abdomen from 04/11/2022 for detailed intra-abdominal findings. Findings were communicated with Dr Tao by Dr. Brooks on 05/23/2022 at 11:05 p.m. Laboratory Results WBC 7.9 10^3/uL (4.0-10.0) 05/23/22 19:55 RBC 4.75 10^6/uL (4.1-5.3) 05/23/22 19:55 Hgb 14.4 g/dL (11.7-16.6) 05/23/22 19:55 Hct 44.6 % (42.0-52.0) 05/23/22 19:55 MCV 93.9 fl (80-94) 05/23/22 19:55 MCH 30.3 pg (28.0-34.0) 05/23/22 19:55 MCHC 32.3 g/dL (30.0-36.0) 05/23/22 19:55 RDW 13.7 % (12.1-15.1) 05/23/22 19:55 Plt Count 157 10^3/cmm (130-400) 05/23/22 19:55 MPV 9.1 fL (7.4-10.4) 05/23/22 19:55 Neut % (Auto) 59.9 % 05/23/22 19:55 Lymph % (Auto) 28.9 % 05/23/22 19:55 [place] % (Auto) 9.4 % 05/23/22 19:55 Eos % (Auto) 0.9 % 05/23/22 19:55 Baso % (Auto) 0.5 % 05/23/22 19:55 Neut # (Auto) 4.72 10^3/uL (1.8-7.7) 05/23/22 19:55 Lymph # (Auto) 2.3 10^3/uL (0.8-4.8) 05/23/22 19:55 [place] # (Auto) 0.7 10^3/uL (0.2-0.9) 05/23/22 19:55 Eos # (Auto) 0.1 10^3/uL (0.0-0.8) 05/23/22 19:55 Baso # (Auto) 0.0 10^3/uL (0.0-0.1) 05/23/22 19:55 Nucleated RBC % (auto) 0 % 05/23/22 19:55 Nucleated RBCs # 0.0 /100WBC 05/23/22 19:55 PT 14.20 SECONDS (12.1-14.9) 05/23/22 19:55 INR 1.06 (0.8-1.2) 05/23/22 19:55 D-Dimer 1.48 ug/mIFEU (0-0.59) H 05/24/22 01:15 Specimen Type Arterial 05/23/22 20:09 Sample Site Brachial, right 05/23/22 20:09 ABG pH 7.42 (7.35-7.45) 05/23/22 20:09 ABG pCO2 36.6 mmHg (35-45) 05/23/22 20:09 ABG pO2 78.7 mmHg (80.0-100.0) L 05/23/22 20:09 ABG HCO3 23.8 mmol/L (22-26) 05/23/22 20:09 ABG Base Excess -0.3 mmol/L (-2.0-2.0) 05/23/22 20:09 Damien Test N/a 05/23/22 20:09 Hematocrit 44.5 % (42-52) 05/23/22 20:09 Hgb O2 Saturation 94.9 % (95-100) L 05/23/22 20:09 Carboxyhemoglobin 1.2 %THgb (0.4-20.1) 05/23/22 20:09 Methemoglobin 0.8 % (0.4-1.5) 05/23/22 20:09 Total Hemoglobin 14.5 g/dL (14-18) 05/23/22 20:09 O2 Delivery Device Nc 05/23/22 20:09 O2 Liters/Min 2.5 % 05/23/22 20:09 Restaurant Hourly Manager ID Kedar 05/23/22 20:09 Sodium 135 mmol/L (136-145) L 05/23/22 19:55 Potassium 3.8 mmol/L (3.5-5.1) 05/23/22 19:55 Chloride 96 mmol/L (98-107) L 05/23/22 19:55 Carbon Dioxide 24 mmol/L (22-29) 05/23/22 19:55 Anion Gap 18.8 (5-19) 05/23/22 19:55 BUN 15 mg/dL (8-23) 05/23/22 19:55 Creatinine 1.7 mg/dL (0.7-1.2) H 05/23/22 19:55 GFR Calculation Not Reportable 05/23/22 19:55 Glucose 133 mg/dL (65-115) H 05/23/22 19:55 Calculated Osmolality 283 mOsm/kg (285-295) L 05/23/22 19:55 Lactic Acid 1.9 mmol/L (0.5-2.2) 05/23/22 19:55 Calcium 8.6 mg/dL (8.5-10.5) 05/23/22 19:55 Magnesium 1.8 mg/dL (1.7-2.3) 05/23/22 19:55 Total Bilirubin 0.5 mg/dL (0.15-1.2) 05/23/22 19:55 AST 17 U/L (0-40) 05/23/22 19:55 ALT 14 U/L (0-41) 05/23/22 19:55 Alkaline Phosphatase 121 U/L (40-130) 05/23/22 19:55 Troponin T Baseline 24 ng/L (0-15) H 05/23/22 19:55 Troponin T 120 Minute 22.10 ng/L (0-15) H 05/23/22 22:00 Delta Troponin T -1.90 ABS# (0-10) L 05/23/22 22:00 Troponin T Hi Sens 6Hr 25.27 ng/L (0-15) H 05/24/22 01:15 Troponin T Hi Sens 6Hr Delta 1.27 ng/L (0-12) 05/24/22 01:15 C-Reactive Protein 33.5 mg/L (0.0-4.9) H 05/24/22 01:15 NT-Pro-B Natriuret Pep 219 pg/mL (0-450) 05/23/22 19:55 Total Protein 7.2 g/dL (6.6-8.7) 05/23/22 19:55 Albumin 4.2 g/dL (3.5-5.2) 05/23/22 19:55 Globulin 3.0 g/dL (1.3-4.6) 05/23/22 19:55 Procalcitonin 0.15 ng/mL (0-0.5) 05/24/22 01:15 TSH 1.59 uIU/mL (0.27-4.20) 05/24/22 01:15 Urine Color Yellow (Yellow) 05/23/22 22:08 Urine Appearance Clear (CLEAR) 05/23/22 22:08 Urine pH 5 (5-7) 05/23/22 22:08 Ur Specific [place] 1.015 (1.005-1.030) 05/23/22 22:08 Urine Protein Trace (Negative) 05/23/22 22:08 Urine Glucose (UA) Norm (Normal) 05/23/22 22:08 Urine Ketones Negative (Negative) 05/23/22 22:08 Urine Blood 2+ (Negative) H 05/23/22 22:08 Urine Nitrate Negative (Negative) 05/23/22 22:08 Urine Bilirubin Neg (Negative) 05/23/22 22:08 Urine Urobilinogen Neg mg/dL (Negative) 05/23/22 22:08 Ur Leukocyte Esterase Trace (Negative) H 05/23/22 22:08 Urine RBC 10-15 /hpf (0-2) H 05/23/22 22:08 Urine WBC 10-15 /hpf (0-5) H 05/23/22 22:08 Ur Squamous Epith Cells 5-10 /hpf (0-5) H 05/23/22 22:08 Amorphous Sediment 1+ /hpf 05/23/22 22:08 Urine Bacteria 1+ /hpf (NONE) H 05/23/22 22:08 Urine Mucus 1+ /hpf 05/23/22 22:08 Nasal Influ A H1 2009 PCR Not detected (NOT DETECT) 05/23/22 21:29 Adenovirus (PCR) Not detected (NOT DETECT) 05/23/22 21: C. pneumoniae DNA (PCR) Not detected (NOT DETECT) 05/23/22 21:29 Coronavirus 229E (PCR) Not detected (NOT DETECT) 05/23/22 21:29 Human Metapneumovir PCR Not detected (NOT DETECT) 05/23/22 21:29 Influenza A (H1) PCR Not detected (NOT DETECT) 05/23/22 21:29 Influenza A (H3) PCR Not detected (NOT DETECT) 05/23/22 21:29 Influenza Type A (PCR) Not detected (NOT DETECT) 05/23/22 21:29 Influenza Type B (PCR) Not detected (NOT DETECT) 05/23/22 21:29 M. pneumoniae (PCR) Not detected (NOT DETECT) 05/23/22 21:29 Parainfluenza 1 (PCR) Not detected (NOT DETECT) 05/23/22 21: Parainfluenza 2 (PCR) Not detected (NOT DETECT) 05/23/22 21: Parainfluenza 3 (PCR) Not detected (NOT DETECT) 05/23/22 21: Parainfluenza 4 (PCR) Not detected (NOT DETECT) 05/23/22 21:29 RSV Type A (PCR) Not detected (NOT DETECT) 05/23/22 21:29 RSV Type B (PCR) Not detected (NOT DETECT) 05/23/22 21:29 Entero/Rhino (PCR) Not detected (NOT DETECT) 05/23/22 21:29 SARS-CoV-2 (PCR) Detected (NOT DETECT) A 05/23/22 21:29 A&P Assessment and plan (1) COVID-19: Remdisivir 200mg iv x 1 followed by 100mg iv daily dexamethasone 6mg IVP daily duoneb q6h, budesonide q12h Flutter valve/spirometer at bedside trend inflammatory markers CRP, d dimer CTA shows PE (2) Pulmonary embolism: Start Lovenox 1mg/kg s/c q12h supplemental 02 to keep sat >92% Attestations Medical Necessity Statement*: Anticipated >2 midnight admission for above defined care Coding Level of Care Code Acute Code for Chg Fwd Moderate MDM includes number and complexity of problems actively addressed during encounter, amount and/or complexity of data reviewed/ordered and described risk of complication, morbidity or mortality of management as documented Diagnoses COVID-19 U07.1 Pulmonary embolism I26.99
[2022-05-24 01:40] LABS: Adenovirus Not Detected (NOT DETECT); Chlamydia Pneumoniae Not Detected (NOT DETECT); Coronavirus 229E,HKU1,NL63,OC4 Not Detected (NOT DETECT); Human Metapneumovirus Not Detected (NOT DETECT); Human Rhinovirus/Enterovirus Not Detected (NOT DETECT); Influenza A Not Detected (NOT DETECT); Influenza A H1 Not Detected (NOT DETECT); Influenza A H1-2009 Not Detected (NOT DETECT); Influenza A H3 Not Detected (NOT DETECT); Influenza B Not Detected (NOT DETECT); Mycoplasma Pneumoniae Not Detected (NOT DETECT); Parainfluenza Virus Type 1 Not Detected (NOT DETECT); Parainfluenza Virus Type 2 Not Detected (NOT DETECT); Parainfluenza Virus Type 3 Not Detected (NOT DETECT); Parainfluenza Virus Type 4 Not Detected (NOT DETECT); Respiratory Syncytial Virus A Not Detected (NOT DETECT); Respiratory Syncytial Virus B Not Detected (NOT DETECT); SARS-COV-2 Detected (NOT DETECT)
[2022-05-24 01:53] LABS: Troponin 5 6HR 25.27 ng/L (0-15)
[2022-05-24 03:00] LABS: Troponin 5 6HR Delta 1.27 ng/L (0-12)
[2022-05-24 03:03] LABS: Procalcitonin 0.15 ng/mL (0-0.5); Thyroid Stimulating Hormone 1.59 uIU/mL (0.27-4.20)
[2022-05-24 03:14] LABS: C Reactive Protein 33.5 mg/L (0.0-4.9)
[2022-05-24] MEDS: ipratropium-albuterol 3 mL Neb INHALATION ×4 (03:30→19:52)
[2022-05-24] MEDS: dexamethasone 4 mg/mL INJ 6 MG IVP (03:44)
[2022-05-24] MEDS: enoxaparin 150 mg/mL Syringe SUBCUT ×2 (03:44→15:08)
[2022-05-24] MEDS: remdesivir 200 MG in sodium chloride 0.9% (100 ml) 100 ML 100 MG IV (03:44)
[2022-05-24 04:06] LABS: D Dimer 1.48 ug/mIFEU (0-0.59)
[2022-05-24 06:58] LABS: NT Pro B Type Natriuretic Pept 236 pg/mL (0-450)
--- NOTE | 2022-05-24 08:09 | PC.PHAR ---
Addendum entered by Catrina Boone 05/24/22 08:13: [facility] Original Note: pts granddaughter melvin [phone] verified pts medications-states the pt no longer has an albuterol inhaler written 07/25/21-states the pt is no longer taking aspirin 81mg daily,celexa 40mg hs or vit d3 1000 units daily-notes are made in the pharmacy comments
[2022-05-24] MEDS: budesonide 0.5 mg/2 mL Neb INHALATION ×2 (08:24→19:52)
[2022-05-24] MEDS: docusate sodium 100 mg Capsule PO ×2 (08:41→20:27)
[2022-05-24] MEDS: pantoprazole DR 40 mg Tablet PO (08:41)
--- NOTE | 2022-05-24 11:46 | PM.MISC ---
Miscellaneous Note Note: H&P reviewed, patient seen, spoke with the family He is DNR/DNI Continue remdesivir and Decadron Continue diuresis Patient is on 2 L Awake and alert Pleasant cooperative I will add low-dose levofloxacin Might be able to discharge him by Wednesday
[2022-05-24] MEDS: potassium chloride ER 20 mEq Tablet PO (12:38)
[2022-05-25] VITALS (7 sets, daily range): BP systolic 128–151; BP diastolic 69–88; PULSE 47–93; RESP 15–18; TEMP 36.4–36.7; O2SAT 92–96; BMI 46.4
[2022-05-25] MEDS: ipratropium-albuterol 3 mL Neb INHALATION ×2 (03:29→08:32)
[2022-05-25] MEDS: dexamethasone 4 mg/mL INJ 6 MG IVP (04:35)
[2022-05-25] MEDS: enoxaparin 150 mg/mL Syringe SUBCUT (04:36)
[2022-05-25] MEDS: acetaminophen 325 mg Tablet 650 MG PO (04:37)
[2022-05-25 05:01] LABS: Basophils % 0.2 %; Hematocrit 40.6 % (42.0-52.0); Hemoglobin 13.4 g/dL (11.7-16.6); Lymphocytes # 1.2 10^3/uL (0.8-4.8); Lymphocytes % 17.7 %; Mean Corpuscular Hemoglobin 30.7 pg (28.0-34.0); Mean Corpuscular Volume 93.1 fl (80-94); Mean Platelet Volume 9.1 fL (7.4-10.4); Monocytes # 0.8 10^3/uL (0.2-0.9); Neutrophils # 4.61 10^3/uL (1.8-7.7); Neutrophils % 69.6 %; Nucleated Red Blood Cells % 0 %; Platelet Count 171 10^3/cmm (130-400); Red Blood Count 4.36 10^6/uL (4.1-5.3); Red Cell Distribution Width 13.5 % (12.1-15.1); White Blood Count 6.6 10^3/uL (4.0-10.0)
[2022-05-25 05:21] LABS: Alanine Aminotransferase 12 U/L (0-41); Albumin Level 3.5 g/dL (3.5-5.2); Alkaline Phosphatase 93 U/L (40-130); Aspartate Amino Transferase 17 U/L (0-40); Blood Urea Nitrogen 20 mg/dL (8-23); C Reactive Protein 40.6 mg/L (0.0-4.9); Calcium 8.5 mg/dL (8.5-10.5); Carbon Dioxide 23 mmol/L (22-29); Chloride 101 mmol/L (98-107); Chol HDL Ratio 3.93 mg/dL (1.0-5.00); Cholesterol 114 mg/dL (0-200); Globulin 3.1 g/dL (1.3-4.6); Glucose 105 mg/dL (65-115); HDL Cholesterol 29 mg/dL (60-100); LDL Cholesterol Calculated 65 mg/dL (50-129); LDL HDL Ratio 2.24 RATIO (0.00-3.22); Magnesium 2.1 mg/dL (1.7-2.3); Osmolality Calculated 285 mOsm/kg (285-295); Phosphorus 2.8 mg/dL (2.5-4.5); Sodium 136 mmol/L (136-145); Total Bilirubin 0.3 mg/dL (0.15-1.2); Total Protein 6.6 g/dL (6.6-8.7); Triglycerides 100 mg/dL (0-150)
[2022-05-25 05:32] LABS: Estmated Average Glucose 111; Hemoglobin A1C 5.5 % (4.0-6.0)
[2022-05-25] MEDS: levoFLOXacin 750 mg Tablet PO (06:09)
[2022-05-25] MEDS: remdesivir 100 MG in sodium chloride 0.9% (100 ml) 100 ML IV (06:09)
[2022-05-25] MEDS: budesonide 0.5 mg/2 mL Neb INHALATION (08:32)
[2022-05-25] MEDS: docusate sodium 100 mg Capsule PO (09:01)
[2022-05-25] MEDS: FUROsemide 40 mg Tablet PO (09:01)
[2022-05-25] MEDS: potassium chloride ER 20 mEq Tablet PO (09:01)
[2022-05-25] MEDS: pantoprazole DR 40 mg Tablet PO (09:01)
--- NOTE | 2022-05-25 10:18 | PM.DCS ---
Discharge Providers Date of Admission: 05/23/22 23:12 Date of Discharge: May 25, 2022 Attending Provider at Admission: Tamica Kendall MD Attending Provider at Discharge: Angela Leon MD Primary Care Provider: Urvashi Mcmahan MD Diagnoses at Discharge Discharge Diagnosis (1) COVID-19: Status: Acute (2) Pulmonary embolism: Status: Acute Reason for Visit Reason for Visit: WEAKNESS/COVID + Hospital Course Hospital Course 77-year-old male who we were able to wean him off of was admitted to the hospital for management of admitted to the hospital for management of he does have diastolic CHF acute on chronic kidney disease cardiorenal improved with diuresis. Patient remained stable throughout hospitalization. He will get Eliquis at the time of discharge, I have discontinued his spironolactone for his hypertension added hydralazine and low-dose amlodipine. Patient already has compression stockings at home for his lower extremity edema. Follows up with Dr. Avelar outpatient for COPD. Will request PT and home O2 eval before discharge. Patient has remained afebrile, doing well on room air. I have asked him to quarantine until Wednesday which will finish 5 days from day of symptoms. Physical Exam Narrative: And alert S1, S2 hemodynamically stable Bradycardia without active symptoms Doing well on room air Distended abdomen Signs of congestive heart failure seems compensated Discharge Data Studies Completed and Pending Completed Studies During Hospitalization Category Date Time Status CT angio chest PE protcl [id number] Stat Cat Scan 05/23/22 19:44 Completed CV. echo complete* [id number] Routine Ultrasound 05/24/22 00:10 Completed Pending at discharge Category Date Time Status Blood Culture Stat Lab 05/23/22 19:58 Results Sputum Culture and Gram Stain Stat Lab 05/24/22 16:35 Results Urine Culture Stat Lab 05/23/22 22:08 Received Radiology Impressions Chest CTA 05/23/22 19:44 IMPRESSION: 1. Poor contrast bolus timing, limiting evaluation for pulmonary embolism. Within this limitation: 2. Suspected pulmonary embolism in the segmental and subsegmental pulmonary artery branches bilaterally. 3. Additional miscellaneous findings in the body of the report. 4. Please refer to the prior CT of the abdomen from 04/11/2022 for detailed intra-abdominal findings. Findings were communicated with Dr Tao by Dr. Brooks on 05/23/2022 at 11:05 p.m. Laboratory Results WBC 6.6 10^3/uL (4.0-10.0) 05/25/22 04:48 RBC 4.36 10^6/uL (4.1-5.3) 05/25/22 04:48 Hgb 13.4 g/dL (11.7-16.6) 05/25/22 04:48 Hct 40.6 % (42.0-52.0) L 05/25/22 04:48 MCV 93.1 fl (80-94) 05/25/22 04:48 MCH 30.7 pg (28.0-34.0) 05/25/22 04:48 MCHC 33.0 g/dL (30.0-36.0) 05/25/22 04:48 RDW 13.5 % (12.1-15.1) 05/25/22 04:48 Plt Count 171 10^3/cmm (130-400) 05/25/22 04:48 MPV 9.1 fL (7.4-10.4) 05/25/22 04:48 Neut % (Auto) 69.6 % 05/25/22 04:48 Lymph % (Auto) 17.7 % 05/25/22 04:48 [place] % (Auto) 12.0 % 05/25/22 04:48 Eos % (Auto) 0.0 % 05/25/22 04:48 Baso % (Auto) 0.2 % 05/25/22 04:48 Neut # (Auto) 4.61 10^3/uL (1.8-7.7) 05/25/22 04:48 Lymph # (Auto) 1.2 10^3/uL (0.8-4.8) 05/25/22 04:48 [place] # (Auto) 0.8 10^3/uL (0.2-0.9) 05/25/22 04:48 Eos # (Auto) 0.0 10^3/uL (0.0-0.8) 05/25/22 04:48 Baso # (Auto) 0.0 10^3/uL (0.0-0.1) 05/25/22 04:48 Nucleated RBC % (auto) 0 % 05/25/22 04:48 Nucleated RBCs # 0.0 /100WBC 05/25/22 04:48 PT 14.20 SECONDS (12.1-14.9) 05/23/22 19:55 INR 1.06 (0.8-1.2) 05/23/22 19:55 D-Dimer 1.48 ug/mIFEU (0-0.59) H 05/24/22 01:15 Specimen Type Arterial 05/23/22 20:09 Sample Site Brachial, right 05/23/22 20:09 ABG pH 7.42 (7.35-7.45) 05/23/22 20:09 ABG pCO2 36.6 mmHg (35-45) 05/23/22 20:09 ABG pO2 78.7 mmHg (80.0-100.0) L 05/23/22 20:09 ABG HCO3 23.8 mmol/L (22-26) 05/23/22 20:09 ABG Base Excess -0.3 mmol/L (-2.0-2.0) 05/23/22 20:09 Damien Test N/a 05/23/22 20:09 Hematocrit 44.5 % (42-52) 05/23/22 20:09 Hgb O2 Saturation 94.9 % (95-100) L 05/23/22 20:09 Carboxyhemoglobin 1.2 %THgb (0.4-20.1) 05/23/22 20:09 Methemoglobin 0.8 % (0.4-1.5) 05/23/22 20:09 Total Hemoglobin 14.5 g/dL (14-18) 05/23/22 20:09 O2 Delivery Device Nc 05/23/22 20:09 O2 Liters/Min 2.5 % 05/23/22 20:09 Upholstery Technician ID [email or web address] 05/23/22 20:09 Sodium 136 mmol/L (136-145) 05/25/22 04:48 Potassium 4.0 mmol/L (3.5-5.1) 05/25/22 04:48 Chloride 101 mmol/L (98-107) 05/25/22 04:48 Carbon Dioxide 23 mmol/L (22-29) 05/25/22 04:48 Anion Gap 16.0 (5-19) 05/25/22 04:48 BUN 20 mg/dL (8-23) 05/25/22 04:48 Creatinine 1.4 mg/dL (0.7-1.2) H 05/25/22 04:48 GFR Calculation Not Reportable 05/25/22 04:48 Glucose 105 mg/dL (65-115) 05/25/22 04:48 Estimat Average Glucose 111 05/25/22 04:48 Hemoglobin A1c 5.5 % (4.0-6.0) 05/25/22 04:48 Calculated Osmolality 285 mOsm/kg (285-295) 05/25/22 04:48 Lactic Acid 1.9 mmol/L (0.5-2.2) 05/23/22 19:55 Calcium 8.5 mg/dL (8.5-10.5) 05/25/22 04:48 Phosphorus 2.8 mg/dL (2.5-4.5) 05/25/22 04:48 Magnesium 2.1 mg/dL (1.7-2.3) 05/25/22 04:48 Total Bilirubin 0.3 mg/dL (0.15-1.2) 05/25/22 04:48 AST 17 U/L (0-40) 05/25/22 04:48 ALT 12 U/L (0-41) 05/25/22 04:48 Alkaline Phosphatase 93 U/L (40-130) 05/25/22 04:48 Troponin T Baseline 24 ng/L (0-15) H 05/23/22 19:55 Troponin T 120 Minute 22.10 ng/L (0-15) H 05/23/22 22:00 Delta Troponin T -1.90 ABS# (0-10) L 05/23/22 22:00 Troponin T Hi Sens 6Hr 25.27 ng/L (0-15) H 05/24/22 01:15 Troponin T Hi Sens 6Hr Delta 1.27 ng/L (0-12) 05/24/22 01:15 C-Reactive Protein 40.6 mg/L (0.0-4.9) H 05/25/22 04:48 NT-Pro-B Natriuret Pep 236 pg/mL (0-450) 05/24/22 01:15 Total Protein 6.6 g/dL (6.6-8.7) 05/25/22 04:48 Albumin 3.5 g/dL (3.5-5.2) 05/25/22 04:48 Globulin 3.1 g/dL (1.3-4.6) 05/25/22 04:48 Triglycerides 100 mg/dL (0-150) 05/25/22 04:48 Cholesterol 114 mg/dL (0-200) 05/25/22 04:48 LDL Cholesterol, Calc 65 mg/dL (50-129) 05/25/22 04:48 HDL Cholesterol 29 mg/dL (60-100) L 05/25/22 04:48 LDL/HDL Ratio 2.24 RATIO (0.00-3.22) 05/25/22 04:48 Cholesterol/HDL Ratio 3.93 mg/dL (1.0-5.00) 05/25/22 04:48 Procalcitonin 0.15 ng/mL (0-0.5) 05/24/22 01:15 TSH 1.59 uIU/mL (0.27-4.20) 05/24/22 01:15 Urine Color Yellow (Yellow) 05/23/22 22:08 Urine Appearance Clear (CLEAR) 05/23/22 22:08 Urine pH 5 (5-7) 05/23/22 22:08 Ur Specific [place] 1.015 (1.005-1.030) 05/23/22 22:08 Urine Protein Trace (Negative) 05/23/22 22:08 Urine Glucose (UA) Norm (Normal) 05/23/22 22:08 Urine Ketones Negative (Negative) 05/23/22 22:08 Urine Blood 2+ (Negative) H 05/23/22 22:08 Urine Nitrate Negative (Negative) 05/23/22 22:08 Urine Bilirubin Neg (Negative) 05/23/22 22:08 Urine Urobilinogen Neg mg/dL (Negative) 05/23/22 22:08 Ur Leukocyte Esterase Trace (Negative) H 05/23/22 22:08 Urine RBC 10-15 /hpf (0-2) H 05/23/22 22:08 Urine WBC 10-15 /hpf (0-5) H 05/23/22 22:08 Ur Squamous Epith Cells 5-10 /hpf (0-5) H 05/23/22 22:08 Amorphous Sediment 1+ /hpf 05/23/22 22:08 Urine Bacteria 1+ /hpf (NONE) H 05/23/22 22:08 Urine Mucus 1+ /hpf 05/23/22 22:08 Nasal Influ A H1 2009 PCR Not detected (NOT DETECT) 05/23/22 21: Adenovirus (PCR) Not detected (NOT DETECT) 05/23/22 21: C. pneumoniae DNA (PCR) Not detected (NOT DETECT) 05/23/22 21: Coronavirus 229E (PCR) Not detected (NOT DETECT) 05/23/22 21: Human Metapneumovir PCR Not detected (NOT DETECT) 05/23/22 21: Influenza A (H1) PCR Not detected (NOT DETECT) 05/23/22 21: Influenza A (H3) PCR Not detected (NOT DETECT) 05/23/22 21: Influenza Type A (PCR) Not detected (NOT DETECT) 05/23/22 21: Influenza Type B (PCR) Not detected (NOT DETECT) 05/23/22 21:29 M. pneumoniae (PCR) Not detected (NOT DETECT) 05/23/22 21: Parainfluenza 1 (PCR) Not detected (NOT DETECT) 05/23/22 21:29 Parainfluenza 2 (PCR) Not detected (NOT DETECT) 05/23/22 21: Parainfluenza 3 (PCR) Not detected (NOT DETECT) 05/23/22 21:29 Parainfluenza 4 (PCR) Not detected (NOT DETECT) 05/23/22 21:29 RSV Type A (PCR) Not detected (NOT DETECT) 05/23/22 21: RSV Type B (PCR) Not detected (NOT DETECT) 05/23/22 21:29 Entero/Rhino (PCR) Not detected (NOT DETECT) 05/23/22 21:29 SARS-CoV-2 (PCR) Detected (NOT DETECT) A 05/23/22 21:29 Vitals Last Vital Signs Temp 97.6 F 05/25/22 08:43 Pulse 59 L 05/25/22 08:43 Resp 15 05/25/22 08:43 BP 151/74 05/25/22 08:43 Pulse Ox 96 05/25/22 08:43 O2 Del Method 05/25/22 08:43 O2 Flow Rate 2 05/24/22 20:00 Discharge Plan Discharge Patient Disposition: Home Condition: Stable Prescriptions: New albuterol sulfate 90 mcg/actuation HFA aerosol inhaler 2 inh inhalation Q8H PRN (Reason: shortness of breath or wheezing) Qty: 6.7 0RF hydralazine 25 mg tablet 25 mg PO BID Qty: 60 0RF Eliquis DVT-PE Treat 30D Start 5 mg (74 tabs) tablets,dose pack See Rx Instructions .ROUTE .COMPLEX Qty: 74 0RF Rx Instructions: orally per package directions amlodipine 5 mg tablet 5 mg PO DAILY Qty: 30 0RF Eliquis 5 mg tablet 5 mg PO BID Qty: 60 2RF Rx Instructions: After finishing starter dose Continued cetirizine [Zyrtec] 10 mg Tablet 10 mg PO DAILY gabapentin 400 mg Capsule 400 mg PO TID tamsulosin 0.4 mg Capsule 0.4 mg PO BID levothyroxine 50 mcg Tablet 50 mcg PO DAILY dicyclomine 10 mg Capsule 10 mg PO QAM memantine 10 mg Tablet 10 mg PO BID chlorhexidine gluconate 0.12 % Mouthwash 15 ml BUCCAL DAILY PRN (Reason: Mouth Irritation) alogliptin 6.25 mg Tablet 6.25 mg PO DAILY [place] 5-325 mg Tablet 1 - 2 tab PO Q6H PRN (Reason: Pain) Prilosec 20 mg Capsule,Delayed Release(Dr/Ec) 20 mg PO DAILY furosemide 40 mg tablet 40 mg PO DAILY Qty: 30 0RF Changed potassium chloride 20 mEq Tablet Extended Release 10 meq PO DAILY Qty: 30 0RF Discontinued spironolactone 25 mg Tablet 25 mg PO DAILY pseudoephedrine HCl [Sudafed] 30 mg Tablet 30 mg PO Q6H PRN (Reason: Congestion) Discharge Orders: Discharge Order (Routine); Ordered 05/25/22 Ordered By: Angela Leon Referrals: Urvashi Mcmahan MD [Primary Care Provider] - 7-10 days Patient Instructions: Opioid Safety Discharge Attestations Time Spent in Discharge Care*: less than 30 min Quality Metrics Clinical Quality Measures [ No reported AMI, CVA or VTE this stay] Coding Level of Care Code Acute Code for Chg Fwd Diagnoses COVID-19 U07.1 Pulmonary embolism I26.99
== END 2022-05-25 13:07 | disposition home or self-care (01) | DRG 177 ==
LOC: ER 21:27 → MEDSURG 23:19
PROVIDERS: Emergency Medicine; Admitting Provider Student in an Organized Health Care Education/Training Program; Emergency Provider Emergency Medicine; PCP Family Medicine; Visit Provider Internal Medicine
DX: U07.1 COVID-19 (principal); I26.93 Single subsegmental thrombotic pulmonary embolism without acute cor pulmonale; I13.0 Hypertensive heart and chronic kidney disease with heart failure and stage 1 through stage 4 chronic kidney disease, or unspecified chronic kidney disease; I50.32 Chronic diastolic (congestive) heart failure; N18.9 Chronic kidney disease, unspecified; J44.9 Chronic obstructive pulmonary disease, unspecified; Z79.891 Long term (current) use of opiate analgesic; Z66 Do not resuscitate
CPT/HCPCS: 36415; 36600; 71275; 80053; 80061; 81001; 82805; 83036; 83605; 83735; 83880; 84100; 84145; 84443; 84484; 85025; 85378; 85610; 86140; 87040; 87070; 87086; 87205; 87486; 87581; 87633; 93005; 93306; 94640; 96372; 97110; 99285; J0248; J1100; J1650; J7626; Q9967

== ENCOUNTER → 2022-08-05 10:52 | Outpatient (BNVA) | payer OTHER, SELFPAY | PROVIDERS: PCP Family Medicine; Visit Provider Internal Medicine Cardiovascular Disease | DX: R06.02 Shortness of breath (principal); M79.89 Other specified soft tissue disorders; I12.9 Hypertensive chronic kidney disease with stage 1 through stage 4 chronic kidney disease, or unspecified chronic kidney disease; N18.9 Chronic kidney disease, unspecified; E66.01 Morbid (severe) obesity due to excess calories; Z68.42 Body mass index [BMI] 45.0-49.9, adult | CPT/HCPCS: 80048; 83880; 99204 ==

== ENCOUNTER 2022-08-19 09:34 | Outpatient (CLI) | payer OTHER, SELFPAY ==
--- NOTE | 2022-08-19 09:30 | USCV_ITS ---
Singh Yepez Age: 77 Gender: M : 1945 Exam Date: 08/19/2022 10:03 Ordering Phys: Slim Wilburn MD ([email or web address]) Technologist: MARIELY [place] [facility] [place]: HISTORY: Lower extremity swelling. PROCEDURES: Venous duplex imaging was performed in bilateral lower extremities. The venous duplex Doppler examination of both lower extremities was performed in the standard fashion. The following venous structures were evaluated: common femoral vein, profunda vein, proximal portion of the greater saphenous vein, superficial femoral vein, and the popliteal vein. Serial compression, augmentation maneuvers, and spectral Doppler flow evaluation were performed. An evaluation for venous insufficiency was also completed. FINDINGS: The veins were found to be easily compressible with spontaneous blood flow. Non pulsatile flow pattern. On the right side, the greater saphenous vein at the distal segment and at the below-knee level where found to have refluxes, lasting 4.62 and 2.81 seconds respectively. These vein segments relative depth of 0.51 and 0.42 cm from the surface. On the left side, the mid, distal and below-knee segments of the greater saphenous vein were found to have refluxes, lasting for 1.44, 3.73 and 4.62 seconds respectively. These venous segments were at the depth of 2.28, 1.75 and 1.18 cm respectively from the surface. The segments are measuring 0.72, 0.62 and 0.47 cm respectively in diameter. CONCLUSIONS 1. No evidence of DVT in the above-mentioned identifiable veins. 2. Significant venous reflux of greater than 500 ms involving the mid, distal and below-knee segments of the greater saphenous vein on the left side. The reflux times, venous dimension and depth from the surface are as mentioned above. 3. Significant venous reflux of greater than 500 ms were noted in the distal and below-knee segments of the greater saphenous vein on the right side. But the segments were found to be very superficial. Dr Slim Wilburn MD [facility] (Electronically Signed) Final Date: 10 September 2022 16:17 S
== END 2022-08-19 09:35 | disposition home or self-care (01) ==
LOC: RAD 09:37
PROVIDERS: PCP Family Medicine; Visit Provider Internal Medicine Cardiovascular Disease
DX: R06.02 Shortness of breath (principal); M79.89 Other specified soft tissue disorders; I87.8 Other specified disorders of veins
CPT/HCPCS: 93970

== ENCOUNTER → 2022-10-22 14:46 | Outpatient (BNVA) | payer OTHER, SELFPAY | PROVIDERS: PCP Family Medicine; Visit Provider Specialist | DX: M17.11 Unilateral primary osteoarthritis, right knee (principal) | CPT/HCPCS: 20610; J7326 ==

== ENCOUNTER → 2022-11-02 08:06 | Outpatient (BNVA) | payer OTHER, SELFPAY | PROVIDERS: PCP Family Medicine; Visit Provider Podiatrist Foot & Ankle Surgery | DX: B35.1 Tinea unguium (principal); N18.9 Chronic kidney disease, unspecified; I73.9 Peripheral vascular disease, unspecified; R60.9 Edema, unspecified; M20.41 Other hammer toe(s) (acquired), right foot; M20.42 Other hammer toe(s) (acquired), left foot; E11.22 Type 2 diabetes mellitus with diabetic chronic kidney disease | CPT/HCPCS: 11721; 99204 ==

== ENCOUNTER → 2022-12-23 09:29 | Outpatient (BNVA) | payer OTHER, SELFPAY | PROVIDERS: PCP Family Medicine; Visit Provider Internal Medicine Cardiovascular Disease | DX: M79.89 Other specified soft tissue disorders (principal); R06.02 Shortness of breath; I26.99 Other pulmonary embolism without acute cor pulmonale; I12.9 Hypertensive chronic kidney disease with stage 1 through stage 4 chronic kidney disease, or unspecified chronic kidney disease; N18.9 Chronic kidney disease, unspecified | CPT/HCPCS: 99214 ==

== ENCOUNTER → 2023-01-11 08:22 | Outpatient (BNVA) | payer OTHER, SELFPAY | PROVIDERS: PCP Family Medicine; Visit Provider Podiatrist Foot & Ankle Surgery | DX: E11.8 Type 2 diabetes mellitus with unspecified complications (principal); B35.1 Tinea unguium; N18.9 Chronic kidney disease, unspecified; I73.9 Peripheral vascular disease, unspecified; R60.9 Edema, unspecified; M20.41 Other hammer toe(s) (acquired), right foot; M20.42 Other hammer toe(s) (acquired), left foot; E11.22 Type 2 diabetes mellitus with diabetic chronic kidney disease | CPT/HCPCS: 11721 ==

== ENCOUNTER → 2023-03-22 10:01 | Outpatient (BNVA) | payer OTHER, SELFPAY | PROVIDERS: PCP Family Medicine; Visit Provider Podiatrist Foot & Ankle Surgery | DX: B35.1 Tinea unguium (principal); N18.9 Chronic kidney disease, unspecified; I73.9 Peripheral vascular disease, unspecified; R60.9 Edema, unspecified; M20.41 Other hammer toe(s) (acquired), right foot; M20.42 Other hammer toe(s) (acquired), left foot; E11.29 Type 2 diabetes mellitus with other diabetic kidney complication | CPT/HCPCS: 11721 ==

== ENCOUNTER → 2023-04-30 09:39 | Outpatient (BNVA) | payer OTHER, SELFPAY | PROVIDERS: PCP Family Medicine; Visit Provider Specialist | DX: M17.11 Unilateral primary osteoarthritis, right knee; Z71.89 Other specified counseling | CPT/HCPCS: 20610; J7326 ==

== ENCOUNTER → 2023-05-31 10:05 | Outpatient (BNVA) | payer OTHER, SELFPAY | PROVIDERS: PCP Family Medicine; Visit Provider Podiatrist Foot & Ankle Surgery | DX: B35.1 Tinea unguium (principal); N18.9 Chronic kidney disease, unspecified; I73.9 Peripheral vascular disease, unspecified; R60.9 Edema, unspecified; M20.41 Other hammer toe(s) (acquired), right foot; M20.42 Other hammer toe(s) (acquired), left foot; E11.29 Type 2 diabetes mellitus with other diabetic kidney complication | CPT/HCPCS: 11721 ==

== ENCOUNTER → 2023-08-02 11:03 | Outpatient (BNVA) | payer OTHER, SELFPAY | PROVIDERS: PCP Family Medicine; Visit Provider Podiatrist Foot & Ankle Surgery | DX: E11.22 Type 2 diabetes mellitus with diabetic chronic kidney disease (principal); B35.1 Tinea unguium; N18.9 Chronic kidney disease, unspecified; I73.9 Peripheral vascular disease, unspecified; R60.9 Edema, unspecified; M20.41 Other hammer toe(s) (acquired), right foot; M20.42 Other hammer toe(s) (acquired), left foot | CPT/HCPCS: 11721 ==

== ENCOUNTER → 2023-09-21 09:21 | Outpatient (BNVA) | payer OTHER, SELFPAY | PROVIDERS: PCP Family Medicine; Referring Provider Family Medicine; Visit Provider Internal Medicine | DX: E21.0 Primary hyperparathyroidism (principal); N18.9 Chronic kidney disease, unspecified | CPT/HCPCS: 36415; 80053; 82306; 82310; 83036; 83970; 99204 ==

== ENCOUNTER → 2023-10-04 11:16 | Outpatient (BNVA) | payer OTHER, SELFPAY | PROVIDERS: PCP Family Medicine; Visit Provider Podiatrist Foot & Ankle Surgery | DX: B35.1 Tinea unguium (principal); N18.9 Chronic kidney disease, unspecified; I73.9 Peripheral vascular disease, unspecified; R60.9 Edema, unspecified; M20.41 Other hammer toe(s) (acquired), right foot; M20.42 Other hammer toe(s) (acquired), left foot; E11.29 Type 2 diabetes mellitus with other diabetic kidney complication | CPT/HCPCS: 11721 ==

== ENCOUNTER → 2023-12-03 08:15 | Outpatient (BNVA) | payer OTHER, SELFPAY | PROVIDERS: PCP Family Medicine; Visit Provider Specialist | DX: M17.11 Unilateral primary osteoarthritis, right knee (principal); Z71.89 Other specified counseling | CPT/HCPCS: 20610; J1100; J2795; J3301 ==

== ENCOUNTER → 2023-12-16 11:06 | Outpatient (BNVA) | payer OTHER, SELFPAY | PROVIDERS: PCP Family Medicine; Visit Provider Podiatrist Foot & Ankle Surgery | DX: B35.1 Tinea unguium (principal); N18.9 Chronic kidney disease, unspecified; I73.9 Peripheral vascular disease, unspecified; R60.9 Edema, unspecified; M20.41 Other hammer toe(s) (acquired), right foot; M20.42 Other hammer toe(s) (acquired), left foot; E11.69 Type 2 diabetes mellitus with other specified complication; E11.29 Type 2 diabetes mellitus with other diabetic kidney complication | CPT/HCPCS: 11721 ==

== ENCOUNTER 2023-12-30 09:46 | Emergency (ER) | payer OTHER, SELFPAY ==
[2023-12-30 10:06] VITALS: BP 168/82; PULSE 89; RESP 20; TEMP 36.8; O2SAT 95; BMI 46.0
--- NOTE | 2023-12-30 10:21 | XR_ITS ---
WS: [id number] Portable AP upright chest, 12/30/2023 Clinical Data: sob Comparison: Portable chest, 04/11/2022 Findings: There is a patchy opacity in the right hilum which extends into the right lower lobe. The o pacity could represent atelectasis and/or minimal pneumonia. No nodules, masses or effusions are seen . The heart is normal. The pulmonary vascularity is not increased. No pneumothorax is seen. The aort ic arch shows mild calcification. Monitor leads are on the chest wall. XR/XR chest 1V portable [id number] Impression: 1. Minimal patchy opacity of the right hilum extending into the right lower lob e which could represent atelectasis and/or pneumonia. 2. Atherosclerosis.
--- NOTE | 2023-12-30 10:23 | ECG_ITS ---
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: : 1945 Requested By: Dominik Hardwick Order Number: [id number] Pawan MD: RUBEN BRITTON Measurements Intervals [place] Rate: 95 P: 145 PA: 176 QRS: -43 QRSD: 107 T: 98 QT: 335 QTc: 421 Interpretive Statements ECTOPIC ATRIAL RHYTHM LEFT AXIS DEVIATION [QRS AXIS < -30] LOW QRS VOLTAGE IN PRECORDIAL LEADS [QRS DEFLECTION < 1.0 mV IN CHEST LEADS] INCOMPLETE RIGHT BUNDLE BRANCH BLOCK [90+ ms QRS DURATION, TERMINAL R IN V1/V2, 40+ ms S IN I/aVL/V4/V5/V6] POSSIBLE ANTERIOR MYOCARDIAL INFARCTION , OF INDETERMINATE AGE [30 ms Q WAVE IN V3/V4, OR R < 0.2 mV IN V4] Compared to ECG 05/23/2022 21:58:35 Ectopic atrial rhythm now present Left-axis deviation now present Myocardial infarct finding now present Sinus rhythm no longer present Electronically Signed On 01-01-2024 18:12:53 CDT by RUBEN BRITTON [id number]
--- NOTE | 2023-12-30 10:24 | ED_ITS ---
HPI - Anxiety 2 General: Chief Complaint: Anxiety Stated Complaint: muscle spasms / pain Time Seen by Provider: 12/30/23 10:09 History of Present Illness: This patient was triaged with concerns about possible anxiety. My interview with patient and family were notable that he was awakened approximately 2:30 AM felt tremulous and shaky and subjective sensation of shortness of breath. He states that this persisted and he eventually fell back asleep and then awoke and feeling the same way later on in the morning. Daughter with whom he lives states that she came downstairs and found him somewhat tremulous and telling her he was feeling short of breath. She thought his blood sugar might be low and she did give him a candy bar as well as milk. His symptoms have persisted without abatement. Daughter reports that he has had similar symptoms in the past but it has not lasted this long He currently denies fevers chills. He denies chest pain. He states he is had some loose stool. No blood in his stools. No known exposure to infectious disease. He denies any known history of cardiovascular disease heart failure etc. He has had a prior provoked DVT/pulmonary embolus approximately 10 years ago. He still takes Eliquis for an unknown reason at this time. He states he is not an anxious person. He has not taken any of his a.m. medications. MD complaint: shortness of breath Provoking factors: none known Associated symptoms: Reports chills; Deny chest pain, fever(s), headache(s), nausea, palpitations, syncope or vomiting Related Data Home Medications Medication Instructions Recorded Confirmed alogliptin 6.25 mg tablet 6.25 mg PO DAILY 05/10/21 12/30/23 cetirizine 10 mg tablet (Zyrtec) 10 mg PO DAILY 05/10/21 12/30/23 levothyroxine 50 mcg tablet 50 mcg PO DAILY 05/10/21 12/30/23 memantine 10 mg tablet 10 mg PO BID 05/10/21 12/30/23 tamsulosin 0.4 mg capsule 0.4 mg PO BID 05/10/21 12/30/23 omeprazole 20 mg capsule,delayed 20 mg PO DAILY 05/24/22 12/30/23 release gabapentin 400 mg capsule 400 mg PO BID 08/05/22 12/30/23 cholecalciferol (vitamin D3) 25 25 mcg PO DAILY 12/23/22 12/30/23 mcg (1,000 unit) capsule citalopram 40 mg tablet 40 mg PO DAILY 12/23/22 12/30/23 dicyclomine 10 mg capsule 10 mg PO TID 12/23/22 12/30/23 empagliflozin 25 mg tablet 12.5 mg PO DAILY 12/23/22 12/30/23 (Jardiance) folic acid 0.8 mg capsule 0.4 mg PO DAILY 12/23/22 12/30/23 rosuvastatin 20 mg tablet 10 mg PO DAILY 12/23/22 12/30/23 amlodipine 2.5 mg tablet 2.5 mg PO DAILY 12/30/23 12/30/23 hydralazine 10 mg tablet 10 mg PO QID 12/30/23 12/30/23 sitagliptin 25 mg tablet 25 mg PO DAILY 12/30/23 12/30/23 Previous Rx's Medication Instructions Recorded potassium chloride 20 mEq 10 meq (1/2 x 20 mEq) PO DAILY #30 05/25/22 tablet,extended release tabs Diabetic shoes with 3 pairs of #1 ea 11/02/22 inserts diabetic socks [id number] #1 ea 03/22/23 diabetic shoes with 3 inserts #1 ea 12/16/23 ciprofloxacin HCl 500 mg tablet 500 mg PO Q12H #20 tabs 12/30/23 (Cipro) Allergies Allergy/AdvReac Type Severity Reaction Status Date / Time cephalexin [From Keflex] Allergy Unknown Verified 10/04/23 11:19 Review of Systems 2 Const: Reports: chills; Denies: fever(s) or body aches ENMT: Denies: throat pain, odynophagia, nasal discharge or nasal congestion Card: Denies: chest pain, palpitations, irregular heart rhythm, edema, syncope or pre-syncope Resp: Reports: dyspnea; Denies: productive cough, non-productive cough, wheezing or stridor GI: Reports: diarrhea; Denies: abdominal pain, nausea, vomiting, hematochezia or melena : Reports: flank pain, difficulty urinating and dysuria Skin/Breast: Denies: rash, pruritus, erythema or photosensitivity Neuro: Denies: headache(s), numbness in extremities or weakness in extremities Nikhil/Lymph: Reports: easy bruising PFSH ED 2 PFSH: Medical History Pulmonary embolism COVID-19 Pulmonary edema Acute respiratory failure with hypoxia Chronic kidney disease No pertinent family history Social History Smoking and tobacco/nicotine status: never used tobacco/nicotine Physical Exam 2 Narrative: EXAM NARRATIVE: He is a alert gentleman who speaks in very short declarative sentences in a very soft whispery style voice. He does make good eye contact. Const: COMMON NORMALS: patient oriented x3 and alert GENERAL APPEARANCE: c ooperative NUTRITIONAL APPEARANCE: obese HENMT: COMMON NORMALS: normocephalic, Normal external nose present, Normal nasal mucous membranes and turbinates present and moist oral mucous membranes HEAD & SCALP: normocephalic NOSE: Normal external nose present and Normal nasal mucous membranes and turbinates present Eye: COMMON NORMALS: Equal, round and reactive pupils present, conjunctivae normal and no scleral icterus CONJUNCTIVA: Yes conjunctivae normal PUPIL: Yes Equal, round and reactive pupils present Neck/C-Spine: COMMON NORMALS: full ROM, no JVD and No carotid bruits Chest: COMMONS NORMALS: normal inspection of the chest and normal palpation of entire chest wall Resp: COMMON NORMALS: normal respiratory effort, No retractions, No use of accessory muscles and clear to auscultation bilaterally AUSCULTATION: clear to auscultation bilaterally and diminished lung sounds (Bilateral bases) Cardio: COMMON NORMALS: no JVD, regular rate, regular rhythm and Peripheral pulses 2+ throughout RATE: regular rate RHYTHM: regular rhythm P ERIPHERAL PULSES: Peripheral pulses 2+ throughout GI: COMMON NORMALS: Normal to inspection, nondistended, normoactive bowel sounds present, Soft to palpation and non-tender INSPECTION: Yes central obesity PALPATION: Yes Soft to palpation Back/Pelvis: COMMON NORMALS: thoracic and lumbar spine normal to inspection and no thoracic nor lumbar tenderness Extremity: COMMON NORMALS: full ROM and capillary refill normal NARRATIVE EXTREMITY EXAM: He has bilateral nonpitting edema both lower extremities no tenderness is noted. The skin and soft tissue are very hypertrophied. Neuro: COMMON NORMALS: patient oriented x3, moves all extremities, no focal motor deficits and no sensory deficits noted SENSORIUM/ORIENTATION: Yes alert Psych: COMMON NORMALS: mental status grossly normal SPEECH: Yes soft M OOD & AFFECT: Yes depressed mood Skin: COMMON NORMALS: no wounds, turgor normal, no jaundice and no petechiae GENERAL SKIN EXAM: turgor normal Course 2 Reevaluation(s): Reevaluation #1: Social studies noted abnormal urinalysis as well as a potential pneumonia. Will proceed with serum lactate continue IV fluids and loading antibiotics. Patient does not have a clinical picture is suggest sepsis at this time. Has a history of Keflex allergy but questioning the family and well the patient there was not any clear-cut symptoms and certainly nothing to suggest anaphylaxis or other serious reaction. There was some question whether it made him nervous. Will proceed with ceftriaxone. Time: 11:40 Reevaluation #2: Patient subjectively is feeling improved. Vital signs are improved. I discussed current findings with the patient and family. It would appear that he has a urinary tract infection as a likely etiology to his fever. He does not have a leukocytosis and has preserved renal function consistent with his prior renal function. I offered options of treatment at home versus continued observation in the hospital and he opted for going home. We discussed reasons to return to the emergency department. He voices understanding and was appreciative of care. Time: 13:39 Vital Signs: Vital signs: Vital Signs Temperature 99.2 F 12/30/23 13:22 Pulse Rate 111 H 12/30/23 13:22 Respiratory Rate 12 12/30/23 13:22 Blood Pressure 123/57 12/30/23 13:22 Pulse Oximetry 93 12/30/23 13:22 Oxygen Delivery Me thod Room Air 12/30/23 13:22 MDM - Anxiety Medical Decision Making Patient presented as noted in history of present illness. The differential at this point is rather broad given his clinical appearance and lack of specific symptoms. 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 Will proceed with a workup to include blood count chemistries troponin BNP imaging as indicated and further narrowing of the differential based upon clinical as well as ancillary studies. Laboratories were noted initial troponin was slightly over the URL but a second troponin had a negative or nonsignificant delta making ACS unlikely at this time. He had no dynamic EKG changes as well throughout his stay. He received fluids IV antibiotics for what appears to be a urinary tract infection. No evidence at this time of other ongoing tensional emergency medical conditions. His chest x-ray showed what is likely atelectasis given lack of any respiratory findings today. Patient is chosen to be discharged to home care with return precautions. Return precautions were reviewed with both he as well as attending family. Lab Data I reviewed the patient's lab results. 12/30/23 10:39 12/30/23 10:39 Radiology Impressions Chest X-Ray 12/30/23 10:21 Impression: 1. Minimal patchy opacity of the right hilum extending into the right lower lobe which could represent atelectasis and/or pneumonia. 2. Atherosclerosis. Laboratory Results WBC 7.68 10^3/uL (3.29-11.43) 12/30/23 10:39 RBC 5.02 10^6/uL (3.85-5.65) 12/30/23 10:39 Hgb 15.30 g/dL (11.27-16.99) 12/30/23 10:39 Hct 48.1 % (37-53) 12/30/23 10:39 MCV 95.8 fl (82-101) 12/30/23 10:39 MCH 30.5 pg (27-33) 12/30/23 10:39 MCHC 31.8 g/dL (30-55) 12/30/23 10:39 RDW 13.6 % (12.1-15.1) 12/30/23 10:39 Plt Count 143 10^3/cmm (157-399) L 12/30/23 10:39 MPV 9.3 fL (7.4-10.4) 12/30/23 10:39 Neut % (Auto) 91.2 % 12/30/23 10:39 Lymph % (Auto) 6.3 % 12/30/23 10:39 [place] % (Auto) 1.3 % 12/30/23 10:39 Eos % (Auto) 0.5 % 12/30/23 10:39 Baso % (Auto) 0.3 % 12/30/23 10:39 Neut # (Auto) 7.01 10^3/uL (1.8-7.7) 12/30/23 10:39 Lymph # (Auto) 0.5 10^3/uL (0.8-4.8) L 12/30/23 10:39 [place] # (Auto) 0.1 10^3/uL (0.2-0.9) L 12/30/23 10:39 Eos # (Auto) 0.0 10^3/uL (0.0-0.8) 12/30/23 10:39 Baso # (Auto) 0.0 10^3/uL (0.0-0.1) 12/30/23 10:39 Nucleated RBC % (auto) 0 % 12/30/23 10:39 Nucleated RBCs # 0.0 /100WBC 12/30/23 10:39 Sodium 139 mmol/L (136-145) 12/30/23 10:39 Potassium 4.2 mmol/L (3.5-5.1) 12/30/23 10:39 Chloride 102 mmol/L (98-107) 12/30/23 10:39 Carbon Dioxide 26 mmol/L (22-29) 12/30/23 10:39 Anion Gap 15.2 (5-19) 12/30/23 10:39 BUN 17 mg/dL (8-23) 12/30/23 10:39 Creatinine 1.3 mg/dL (0.7-1.2) H 12/30/23 10:39 GFR Calculation Not Reportable 12/30/23 10:39 Glucose 145 mg/dL (65-115) H 12/30/23 10:39 POC Glucose 90 mg/dL (70-110) 12/30/23 12:02 Calculated Osmolality 292 mOsm/kg (285-295) 12/30/23 10:39 Lactic Acid 2.2 mmol/L (0.5-2.2) 12/30/23 12:25 Calcium 8.5 mg/dL (8.5-10.5) 12/30/23 10:39 Magnesium 1.8 mg/dL (1.7-2.3) 12/30/23 10:39 Total Bilirubin 0.7 mg/dL (0.15-1.2) 12/30/23 10:39 AST 15 U/L (0-40) 12/30/23 10:39 ALT 14 U/L (0-41) 12/30/23 10:39 Alkaline Phosphatase 117 U/L (40-130) 12/30/23 10:39 Troponin T Baseline 19 ng/L (0-15) H 12/30/23 10:39 Troponin T 120 Minute 23.26 ng/L (0-15) H 12/30/23 12:25 Delta Troponin T 4.26 ABS# (0-10) 12/30/23 12:25 NT-Pro-B Natriuret Pep 135 pg/mL (0-450) 12/30/23 10:39 Total Protein 7.0 g/dL (6.6-8.7) 12/30/23 10:39 Albumin 4.5 g/dL (3.5-5.2) 12/30/23 10:39 Globulin 2.5 g/dL (1.3-4.6) 12/30/23 10:39 Urine Color Yellow (Yellow) 12/30/23 10:32 Urine Appearance Turbid (CLEAR) A 12/30/23 10:32 Urine pH >=9.0 (5-7) A 12/30/23 10:32 Ur Specific [place] 1.035 (1.005-1.030) H 12/30/23 10:32 Urine Protein 3+ (Negative) A 12/30/23 10:32 Urine Glucose (UA) Trace (Normal) H 12/30/23 10:32 Urine Ketones Negative (Negative) 12/30/23 10:32 Urine Blood 2+ (Negative) A 12/30/23 10:32 Urine Nitrate Negative (Negative) 12/30/23 10:32 Urine Bilirubin Negative (Negative) 12/30/23 10:32 Urine Urobilinogen 1.0 mg/dL (Negative) 12/30/23 10:32 Ur Leukocyte Esterase 2+ (Negative) A 12/30/23 10:32 Urine RBC 21-50 /hpf (0-2) H 12/30/23 10:32 Urine WBC >100 /hpf (0-5) H 12/30/23 10:32 Ur Squamous Epith Cells 0-5 /hpf (0-5) 12/30/23 10:32 Amorphous Sediment Not Reportable 12/30/23 10:32 Urine Bacteria Exceeds /hpf (NONE) 12/30/23 10:32 Hyaline Casts 31.43 /lpf 12/30/23 10:32 All radiology interpretation(s) finalized by discharge EKG Data EKG 1: I personally reviewed and interpreted this EKG as follows: Interpretation: Chest X-Ray 12/30/23 10:21 Impression: 1. Minimal patchy opacity of the right hilum extending into the right lower lobe which could represent atelectasis and/or pneumonia. 2. Atherosclerosis. Contemporaneous review of resting EKG reveals ventricular rate of 95 bpm. Consistent with sinus rhythm. LA interval, QRS duration, corrected QT interval normal. He does have a leftward axis consistent with possible left anterior Heema block. Also has what appears to be an incomplete right bundle branch block pattern. No acute ST-T wave changes noted at this time. Other EKG comments: Chest X-Ray 12/30/23 10:21 Impression: 1. Minimal patchy opacity of the right hilum extending into the right lower lobe which could represent atelectasis and/or pneumonia. 2. Atherosclerosis. EKG 2: I personally reviewed and interpreted this EKG as follows: Interpretation: Chest X-Ray 12/30/23 10:21 Impression: 1. Minimal patchy opacity of the right hilum extending into the right lower lobe which could represent atelectasis and/or pneumonia. 2. Atherosclerosis. Repeat EKG this emergency department evaluation revealed a ventricular rate of 99 bpm. Consistent with sinus rhythm. LA interval is normal, QRS duration is normal, corrected QT intervals normal. Leftward axis consistent with right bundle branch block. No acute dynamic changes from previous tracing this visit. Other EKG comments: Chest X-Ray 12/30/23 10:21 Impression: 1. Minimal patchy opacity of the right hilum extending into the right lower lobe which could represent atelectasis and/or pneumonia. 2. Atherosclerosis. Discharge Plan Discharge Patient Disposition: Home Clinical Impression: Urinary tract infection Qualifiers: Urinary tract infection type: site unspecified Hematuria presence: with hematuria Qualified Code(s): N39.0 - Urinary tract infection, site not specified Condition: Stable Prescriptions: New ciprofloxacin HCl [Cipro] 500 mg tablet 500 mg PO Q12H Qty: 20 0RF No Action dicyclomine 10 mg capsule 10 mg PO TID cholecalciferol (vitamin D3) 25 mcg (1,000 unit) capsule 25 mcg PO DAILY citalopram 40 mg tablet 40 mg PO DAILY rosuvastatin 20 mg tablet 10 mg PO DAILY folic acid 0.8 mg capsule 0.4 mg PO DAILY Jardiance 25 mg tablet 12.5 mg PO DAILY (DME) Diabetic shoes with 3 pairs of inserts See Rx Instructions .Route .MEDSUPPLY Qty: 1 0RF Rx Instructions: As directed (DME) diabetic socks A9270 See Rx Instructions .Route .MEDSUPPLY Qty: 1 0RF Rx Instructions: [facility] ([facility]) diabetic shoes with 3 inserts See Rx Instructions .Route .MEDSUPPLY Qty: 1 0RF Rx Instructions: As directed to the shoe madonna cetirizine [Zyrtec] 10 mg Tablet 10 mg PO DAILY tamsulosin 0.4 mg Capsule 0.4 mg PO BID levothyroxine 50 mcg Tablet 50 mcg PO DAILY memantine 10 mg Tablet 10 mg PO BID alogliptin 6.25 mg Tablet 6.25 mg PO DAILY gabapentin 400 mg capsule 400 mg PO BID hydralazine 10 mg Tablet 10 mg PO QID amlodipine 2.5 mg tablet 2.5 mg PO DAILY sitagliptin 25 mg Tablet 25 mg PO DAILY omeprazole 20 mg Capsule,Delayed Release(Dr/Ec) 20 mg PO DAILY potassium chloride 20 mEq Tablet Extended Release 10 meq PO DAILY Qty: 30 0RF Discharge Orders: Discharge ED (Routine); Ordered 12/30/23 Ordered By: Dominik Hardwick Referrals: Urvashi Mcmahan MD [Primary Care Provider] - 4-7 days Discharge Diet: Usual diet Discharge Activity: Increase activity as tolerated Patient Instructions: Opioid Safety, Pain Management Activity Restrictions/Additional Instructions: As we discussed you have a kidney infection. Is important you drink at least a quart of fluids predominantly water on a daily basis. We have also prescribed you an antibiotic you should take until is completely finished. If you have worsening symptoms, and unable to take your medications or have other concerns you are welcome to return to the emergency department at any time. Coding Level of Care Code ED Grit Removal Operator for Alex Burgos
--- NOTE | 2023-12-30 10:27 | PC.PHAR ---
patient is [facility]
[2023-12-30 10:47] LABS: Basophils % 0.3 %; Eosinophils % 0.5 %; Hematocrit 48.1 % (37-53); Lymphocytes # 0.5 10^3/uL (0.8-4.8); Lymphocytes % 6.3 %; Mean Corpuscular HGB Conc 31.8 g/dL (30-55); Mean Corpuscular Hemoglobin 30.5 pg (27-33); Mean Corpuscular Volume 95.8 fl (82-101); Mean Platelet Volume 9.3 fL (7.4-10.4); Monocytes # 0.1 10^3/uL (0.2-0.9); Monocytes % 1.3 %; Neutrophils # 7.01 10^3/uL (1.8-7.7); Neutrophils % 91.2 %; Nucleated Red Blood Cells % 0 %; Platelet Count 143 10^3/cmm (157-399); Red Blood Count 5.02 10^6/uL (3.85-5.65); Red Cell Distribution Width 13.6 % (12.1-15.1); White Blood Count 7.68 10^3/uL (3.29-11.43)
[2023-12-30 10:48] LABS: Bilirubin Urine Negative (Negative); Blood Urine 2+ (Negative); Glucose Urine UA Trace (Normal); Ketones Urine Negative (Negative); Leukocyte Esterase Urine 2+ (Negative); Nitrate Urine Negative (Negative); Protein Urine 3+ (Negative); Urine Appearance Turbid (CLEAR); Urine Color Yellow (Yellow); pH Urine >=9.0 (5-7)
[2023-12-30 10:53] LABS: Add Urine Microscopic? YES; Bacteria Urine EXCEEDS /hpf; Hyaline Casts Urine 31.43 /lpf; RBC Urine 21-50 /hpf (0-2); Squamous Epithelial Cell Urine 0-5 /hpf (0-5); WBC Urine >100 /hpf (0-5)
[2023-12-30 11:10] LABS: Troponin(5th) Baseline 19 ng/L (0-15)
[2023-12-30 11:13] VITALS: BP 138/68; PULSE 96; RESP 24; O2SAT 94
[2023-12-30 11:15] LABS: Alanine Aminotransferase 14 U/L (0-41); Albumin Level 4.5 g/dL (3.5-5.2); Alkaline Phosphatase 117 U/L (40-130); Anion Gap 15.2 (5-19); Aspartate Amino Transferase 15 U/L (0-40); Blood Urea Nitrogen 17 mg/dL (8-23); Calcium 8.5 mg/dL (8.5-10.5); Carbon Dioxide 26 mmol/L (22-29); Chloride 102 mmol/L (98-107); Creatinine Clr Calc Pharmacy 79.0655; Globulin 2.5 g/dL (1.3-4.6); Glucose 145 mg/dL (65-115); Magnesium 1.8 mg/dL (1.7-2.3); NT Pro B Type Natriuretic Pept 135 pg/mL (0-450); Osmolality Calculated 292 mOsm/kg (285-295); Potassium 4.2 mmol/L (3.5-5.1); Sodium 139 mmol/L (136-145); Total Bilirubin 0.7 mg/dL (0.15-1.2)
[2023-12-30] MEDS: sodium chloride 0.9% 500 ML IV (11:25)
[2023-12-30 11:32] LABS: Specific Gravity, Urine 1.035 (1.005-1.030)
[2023-12-30 11:33] LABS: Add Urine Culture? Yes
[2023-12-30] MEDS: cefTRIAXone 2,000 mg SDV 2000 MG IVP (12:03)
[2023-12-30 12:11] VITALS: BP 119/64; PULSE 99; RESP 16; TEMP 38; O2SAT 94
[2023-12-30 12:20] LABS: Glucose Point of Care 90 mg/dL (70-110)
--- NOTE | 2023-12-30 12:41 | ECG_ITS ---
[facility] Date: 2023-12-30 Pat Name: Singh Yepez Department: Room: Gender: Male [employer] Person: : 1945 Requested By: Dominik Hardwick Order Number: [id number] Reading MD: RUBEN BRITTON Measurements Intervals [place] Rate: 99 P: 86 RI: 182 QRS: -76 QRSD: 95 T: 65 QT: 332 QTc: 427 Interpretive Statements SINUS RHYTHM INDETERMINATE AXIS INCOMPLETE RIGHT BUNDLE BRANCH BLOCK [90+ ms QRS DURATION, TERMINAL R IN V1/V2, 40+ ms S IN I/aVL/V4/V5/V6] Compared to ECG 12/30/2023 11:34:37 Indeterminate axis now present Ectopic atrial rhythm no longer present Left-axis deviation no longer present Myocardial infarct finding no longer present Electronically Signed On 01-01-2024 18:21:03 CDT by RUBEN BRITTON [id number]
[2023-12-30] MEDS: acetaminophen 325 mg Tablet 650 MG PO (12:44)
[2023-12-30 13:21] LABS: Lactic Sepsis W/Reflex 2.2 mmol/L (0.5-2.2)
[2023-12-30 13:22] VITALS: BP 123/57; PULSE 111; RESP 12; TEMP 37.3; O2SAT 93
[2023-12-30 13:25] LABS: Troponin 5 2HR 23.26 ng/L (0-15); Troponin 5 2HR Delta 4.26 ABS# (0-10)
[2023-12-30] MEDS: diphenhydrAMINE 25 mg Capsule PO (14:08)
[2023-12-30 14:20] VITALS: BP 167/82; PULSE 93; RESP 20; O2SAT 92
[2023-12-30 14:35] LABS: Reflex Lactate Order REFLEX LACTIC ORDERD
== END 2023-12-30 14:17 | disposition home or self-care (01) ==
PROVIDERS: Emergency Provider Emergency Medicine; PCP Family Medicine
DX: N39.0 Urinary tract infection, site not specified (principal); R31.9 Hematuria, unspecified; N18.9 Chronic kidney disease, unspecified
CPT/HCPCS: 36416; 71045; 80053; 81001; 82962; 83605; 83735; 83880; 84484; 85025; 87040; 87077; 87086; 87186; 93005; 96361; 96374; 99285; J0696; J7040

== ENCOUNTER 2023-12-31 09:50 | Inpatient (IN) | payer OTHER, SELFPAY ==
[2023-12-31] VITALS (19 sets, daily range): BP systolic 109–174; BP diastolic 52–94; PULSE 72–102; RESP 20–35; TEMP 37.9–39.6; O2SAT 90–97; BMI 46.2
--- NOTE | 2023-12-31 09:53 | XR_ITS ---
WS: [id number] Portable AP upright chest, 12/31/2023 Clinical Data: fever, fall Comparison: Portable chest, 12/30/2023 Findings: The patchy opacity in the right hilum extending into the right lower lobe has diminished sl ightly. No nodules, masses or effusions are seen. The heart is slightly enlarged. The pulmonary vascu larity is not increased. No pneumonia or pneumothorax is seen. The aortic arch shows minimal calcific ation. XR/XR chest 1V portable [id number] Impression: 1. Slight decrease in patchy opacity in right hilum extending into the right lo wer lobe. 2. Mild cardiomegaly and atherosclerosis.
--- NOTE | 2023-12-31 10:20 | PC.PHAR ---
patient is from [place] Same medications on med list, he was in yesterday 12/29
--- NOTE | 2023-12-31 10:21 | CT_ITS ---
WS: [id number] CT HEAD NONCONTRAST HISTORY: fall, struck head, on blood thinners TECHNIQUE: Contiguous axial imaging performed through the brain. Bone and soft tissue windows. Sagitt al and coronal reformats reviewed. All CT scans at [facility] use at least one of these dose optimization techniques: automated exposure control; mA and/or kV adjustment per patient size (includ es targeted exams where dose is matched to clinical indication); or iterative reconstruction. DLP: 1064.28 mGy.cm COMPARISON: 04/11/2022 No acute intracranial hemorrhage, midline shift or mass effect. Moderate bilateral symmetric atrophy. Mild small vessel disease. Small lacunar infarct anterior limb RIGHT internal capsule. Ventricles: Normal size with no hydrocephalus. Paranasal sinuses: As visualized are clear. Mastoid air cells: Well pneumatized. Calvarium and scalp: Skull is intact with no soft tissue edema or swelling. Quality Limited by motion artifact. CT/CT head wo con* [id number] IMPRESSION: 1. No acute intracranial hemorrhage or edema. 2. Moderate symmetric atrophy and mild small vessel disease.
--- NOTE | 2023-12-31 10:24 | W.ED.FEVER ---
HPI - Fever General: Chief Complaint: Fever Stated Complaint: UTI, Fever, fell lastnight Time Seen by Provider: 12/31/23 09:52 Source: patient and family Mode of arrival: wheelchair Limitations: no limitations History of Present Illness: Patient is a nice 78-year-old male who presents to ED today along with family for evaluation of fever, weakness, fatigue. They were seen here in the emergency department yesterday and diagnosed with a urinary tract infection. They were reportedly placed on Ciprofloxacin. Family states this morning they noticed fevers as high as 102. They feel like patient has become increasingly weak-to the point where he is not able to get up and walk around his home or care for himself like he normally would be able to. Family is also noticed some shortness of breath and a nonproductive cough. He has also had some diarrhea. He reportedly fell yesterday evening/this morning because of the weakness. He did strike his head. No LOC. He is on anticoagulation due to a previous PE diagnosed several years ago. PMH significant for previous PE, CHF (last echo 05/2022 possibly normal LV size and ejection fraction , technically difficult study ), CKD, PAD, renal cell carcinoma (not undergoing nephrectomy-urology in [facility] doing 6 mo surveillance), DM2, HTN, and morbid obesity. MD elicited complaint: fever Onset (ago): hour(s) Measured temperature: 102 F Exacerbating factors: nothing Relieving factors: nothing Associated symptoms: Reports diarrhea and headache(s); Deny abdominal pain, flank pain, chest pain, extremity pain, nasal congestion, nausea, sinus pain or vomiting Treatments prior to arrival fever: acetaminophen Related Data Home Medications Medication Instructions Recorded Confirmed alogliptin 6.25 mg tablet 6.25 mg PO DAILY 05/10/21 12/31/23 cetirizine 10 mg tablet (Zyrtec) 10 mg PO DAILY 05/10/21 12/31/23 levothyroxine 50 mcg tablet 50 mcg PO DAILY 05/10/21 12/31/23 memantine 10 mg tablet 10 mg PO BID 05/10/21 12/31/23 tamsulosin 0.4 mg capsule 0.4 mg PO BID 05/10/21 12/31/23 omeprazole 20 mg capsule,delayed 20 mg PO DAILY 05/24/22 12/31/23 release gabapentin 400 mg capsule 400 mg PO BID 08/05/22 12/31/23 cholecalciferol (vitamin D3) 25 25 mcg PO DAILY 12/23/22 12/31/23 mcg (1,000 unit) capsule citalopram 40 mg tablet 40 mg PO DAILY 12/23/22 12/31/23 dicyclomine 10 mg capsule 10 mg PO TID 12/23/22 12/31/23 empagliflozin 25 mg tablet 12.5 mg PO DAILY 12/23/22 12/31/23 (Jardiance) folic acid 0.8 mg capsule 0.4 mg PO DAILY 12/23/22 12/31/23 rosuvastatin 20 mg tablet 10 mg PO DAILY 12/23/22 12/31/23 amlodipine 2.5 mg tablet 2.5 mg PO DAILY 12/30/23 12/31/23 hydralazine 10 mg tablet 10 mg PO QID 12/30/23 12/31/23 sitagliptin 25 mg tablet 25 mg PO DAILY 12/30/23 12/31/23 Previous Rx's Medication Instructions Recorded potassium chloride 20 mEq 10 meq (1/2 x 20 mEq) PO DAILY #30 05/25/22 tablet,extended release tabs Diabetic shoes with 3 pairs of #1 ea 11/02/22 inserts diabetic socks [id number] #1 ea 03/22/23 diabetic shoes with 3 inserts #1 ea 12/16/23 ciprofloxacin HCl 500 mg tablet 500 mg PO Q12H #20 tabs 12/30/23 (Cipro) Allergies Allergy/AdvReac Type Severity Reaction Status Date / Time cephalexin [From Keflex] Allergy Unknown Verified 12/31/23 10:20 Review of Systems Const: Reports: fever(s), fatigue and malaise Eyes: Denies: change in vision, blurry vision, photophobia, floaters or seeing flashes ENMT: Denies: throat pain, odynophagia, ear or mastoid pain, nasal discharge, nasal congestion or sinus pain Card: Reports: edema and swelling of feet/ankles; Denies: chest pain, palpitations or irregular heart rhythm Resp: Reports: dyspnea, non-productive cough and chest congestion; Denies: wheezing or hemoptysis GI: Reports: diarrhea; Denies: abdominal pain, nausea or vomiting : Reports: urinary incontinence (family states this is becoming more frequent/chronic); Denies: flank pain Musc: Denies: neck pain, back pain, extremity pain, extremity swelling, joint pain or joint swelling Skin/Breast: Denies: rash Neuro: Reports: headache(s); Denies: numbness in extremities, weakness in extremities or sensory changes PFSH ED PFSH: Medical History Pulmonary embolism COVID-19 Pulmonary edema Acute respiratory failure with hypoxia Chronic kidney disease No pertinent family history Social History Smoking and tobacco/nicotine status: never used tobacco/nicotine Physical Exam Const: COMMON NORMALS: no acute distress, patient oriented x3, no limitations, alert and well nourished GENERAL APPEARANCE: cooperative NUTRITIONAL APPEARANCE: obese morbidly obese (BMI 46.2) HENMT: COMMON NORMALS: normocephalic HEAD & SCALP: normal to inspection and normocephalic HEAD IMAGES: 1. mild scalp contusion FACE & SINUS: normal facial exam Eye: GENERAL EYE: appearance normal, both eyes and all related structures and normal light reflex DIRECT OPHTHALMOSCOPY: Yes normal light reflex Neck/C-Spine: COMMON NORMALS: full ROM GENERAL: Yes normal visual inspection CERVICAL SPINE: No Cervical spine tenderness Chest: COMMONS NORMALS: normal inspection of the chest and normal palpation of entire chest wall Resp: COMMON NORMALS: clear to auscultation bilaterally EFFORT & INSPECTION: No tachypneic, No respiratory distress, Yes labored (mildly), No grunting, No stridor, No Actively coughing, No retractions and No uses accessory muscles AUSCULTATION: clear to auscultation bilaterally Cardio: COMMON NORMALS: regular rate and regular rhythm RATE: regular rate RHYTHM: regular rhythm GI: COMMON NORMALS: Normal to inspection, nondistended, normoactive bowel sounds present, Soft to palpation and non-tender INSPECTION: Yes normal to inspection PALPATION: Yes Soft to palpation OTHER: exam limited due to body habitus : COMMON NORMALS: Yes no CVA tenderness BLADDER/KIDNEY EXAM: Yes no CVA tenderness Back/Pelvis: COMMON NORMALS: no CVA tenderness and thoracic and lumbar spine normal to inspection Extremity: GENERAL: Yes normal exam except as noted and Yes edema (bilateral symmetrical edema) Neuro: CATE COMA SCALE: document GCS findings [place] coma scale eye opening: Spontaneous Cate coma scale verbal response: Orientated [place] coma scale motor response: Obey commands Cate coma scale total score: 15 COMMON NORMALS: patient oriented x3, moves all extremities, no focal motor deficits and no sensory deficits noted SENSORIUM/ORIENTATION: Yes alert GAIT: Yes Unable to assess gait Skin: COMMON NORMALS: no rashes or lesions noted GENERAL SKIN EXAM: no rashes or lesions noted Course Consultations: Consultation #1: Dr. Grullon-accepts hospitalization to [facility] Vital Signs: Vital signs: Vital Signs Temperature 100.2 F H 12/31/23 10:10 Pulse Rate 92 12/31/23 10:10 Respiratory Rate 24 H 12/31/23 10:10 Blood Pressure 143/69 12/31/23 10:10 Pulse Oximetry 93 12/31/23 10:10 Oxygen Delivery Me thod Room Air 12/31/23 10:10 MDM - Fever Medical Decision Making Patient is a 78-year-old male here after he was seen yesterday and diagnosed with a UTI. Questionable pneumonia at that time as well. Family states he has progressively gotten more weak, fatigued, and now has had fevers up to 102. Low-grade fever of 100.2 upon arrival. His white count today is normal. His lactate is up from yesterday at 2.7. He has worsening kidney functions with his BUN/Cr at 25/1.7. He does have known chronic kidney disease. He does have known renal cell carcinoma. Reportedly just received his surveillance 2 days ago with his urologist Dr. Valdez in [place]. CT scan obtained today at the request of the hospitalist. Today he does appear fluid overloaded on his CXR and by his BNP. He reportedly has been taking his Lasix. Procalcitonin is elevated at 15.25. Urine still appearing infected. Patient was started on IV fluids although full sepsis bolus was not given due to his fluid overload status. He was started on IV antibiotics. Dr. Tao aware of patient and agrees with need for admission. Dr. Grullon will accept patient to [facility]. Requesting [facility]. He did review CT renal prior to admission. Of note-he has new onset atrial flutter today. He is already on anticoagulation. Rate controlled. Medical Records I reviewed the patient's medical records. Lab Data I reviewed the patient's lab results. 12/31/23 10:27 12/31/23 10:27 Radiology Impressions Chest X-Ray 12/31/23 09:53 Impression: 1. Slight decrease in patchy opacity in right hilum extending into the right lower lobe. 2. Mild cardiomegaly and atherosclerosis. Head CT 12/31/23 10:21 IMPRESSION: 1. No acute intracranial hemorrhage or edema. 2. Moderate symmetric atrophy and mild small vessel disease. Abdomen/Pelvis CT 12/31/23 11:38 IMPRESSION: 1. 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 Mass now measures 8.1 x 9.1 x 8.0 cm. 2. Additional masses in the LEFT kidney cannot be further characterized. One of these masses is hyperdense suggesting it may contain hemorrhage. 3. Abnormal urinary bladder. Shape of the bladder is abnormal and there is increased density within the bladder. Bladder may be distended with blood products or infection. Neoplasm would not be excluded on this examination. 4. Quality of this examination is compromised by body habitus. Laboratory Results WBC 8.77 10^3/uL (3.29-11.43) 12/31/23 10: RBC 4.75 10^6/uL (3.85-5.65) 12/31/23 10: Hgb 14.40 g/dL (11.27-16.99) 12/31/23 10: Hct 44.2 % (37-53) 12/31/23 10: MCV 93.1 fl (82-101) 12/31/23 10: MCH 30.3 pg (27-33) 12/31/23 10:27 MCHC 32.6 g/dL (30-55) 12/31/23 10: RDW 14.1 % (12.1-15.1) 12/31/23 10: Plt Count 138 10^3/cmm (157-399) L 12/31/23 10: MPV 9.3 fL (7.4-10.4) 12/31/23 10: Neut % (Auto) 84.6 % 12/31/23 10: Lymph % (Auto) 9.9 % 12/31/23 10:27 Warren % (Auto) 5.0 % 12/31/23 10:27 Eos % (Auto) 0.0 % 12/31/23 10: Baso % (Auto) 0.3 % 12/31/23 10: Neut # (Auto) 7.41 10^3/uL (1.8-7.7) 12/31/23 10: Lymph # (Auto) 0.9 10^3/uL (0.8-4.8) 12/31/23 10: Warren # (Auto) 0.4 10^3/uL (0.2-0.9) 12/31/23 10:27 Eos # (Auto) 0.0 10^3/uL (0.0-0.8) 12/31/23 10: Baso # (Auto) 0.0 10^3/uL (0.0-0.1) 12/31/23 10: Nucleated RBC % (auto) 0 % 12/31/23 10: Nucleated RBCs # 0.0 /100WBC 12/31/23 10: Sodium 136 mmol/L (136-145) 12/31/23 10: Potassium 4.1 mmol/L (3.5-5.1) 12/31/23 10: Chloride 102 mmol/L (98-107) 12/31/23 10: Carbon Dioxide 23 mmol/L (22-29) 12/31/23 10: Anion Gap 15.1 (5-19) 12/31/23 10:27 BUN 25 mg/dL (8-23) H 12/31/23 10:27 Creatinine 1.7 mg/dL (0.7-1.2) H 12/31/23 10:27 GFR Calculation Not Reportable 12/31/23 10:27 Glucose 190 mg/dL (65-115) H 12/31/23 10:27 Calculated Osmolality 291 mOsm/kg (285-295) 12/31/23 10:27 Lactic Acid 2.7 mmol/L (0.5-2.2) H 12/31/23 10:27 Calcium 8.3 mg/dL (8.5-10.5) L 12/31/23 10:27 Total Bilirubin 0.6 mg/dL (0.15-1.2) 12/31/23 10: AST 21 U/L (0-40) 12/31/23 10: ALT 15 U/L (0-41) 12/31/23 10: Alkaline Phosphatase 94 U/L (40-130) 12/31/23 10: Troponin T Baseline 43 ng/L (0-15) H 12/31/23 10:27 NT-Pro-B Natriuret Pep 6235 pg/mL (0-450) H 12/31/23 10: Total Protein 7.0 g/dL (6.6-8.7) 12/31/23 10: Albumin 3.9 g/dL (3.5-5.2) 12/31/23 10: Globulin 3.1 g/dL (1.3-4.6) 12/31/23 10: Procalcitonin 15.25 ng/mL (0-0.5) H 12/31/23 10: TSH 2.43 uIU/mL (0.27-4.20) 12/31/23 10: Urine Color Yellow (Yellow) 12/31/23 11:27 Urine Appearance Cloudy (CLEAR) A 12/31/23 11:27 Urine pH (5-7) 12/31/23 11:27 Ur Specific Star Not Reportable 12/31/23 11: Urine Protein Not Reportable 12/31/23 11:27 Urine Glucose (UA) Not Reportable 12/31/23 11:27 Urine Ketones Not Reportable 12/31/23 11: Urine Blood Not Reportable 12/31/23 11:27 Urine Nitrate Not Reportable 12/31/23 11:27 Urine Bilirubin Not Reportable 12/31/23 11:27 Urine Urobilinogen Not Reportable 12/31/23 11:27 Ur Leukocyte Esterase Not Reportable 12/31/23 11:27 Urine RBC 15-25 /hpf (0-2) H 12/31/23 11:27 Urine WBC 25-40 /hpf (0-5) H 12/31/23 11:27 Ur Squamous Epith Cells 5-10 /hpf (0-5) H 12/31/23 11:27 Amorphous Sediment Trace /hpf 12/31/23 11:27 Urine Bacteria 1+ /hpf (NONE) H 12/31/23 11:27 Urine Mucus Trace /hpf 12/31/23 11:27 Coronavirus (PCR) Negative (Negative) 12/31/23 11:42 Influenza A (PCR) Negative (Negative) 12/31/23 11:42 Influenza Type B (PCR) Negative (Negative) 12/31/23 11:42 RSV (PCR) Negative (Negative) 12/31/23 11:42 All radiology interpretation(s) finalized by discharge Discharge Plan Discharge Patient Disposition: Admitted As Inpatient Clinical Impression: Renal mass, right, Acute UTI, New onset atrial flutter, Acute on chronic diastolic CHF (congestive heart failure), [id number] kidney injury Condition: Stable Prescriptions: No Action dicyclomine 10 mg capsule 10 mg PO TID cholecalciferol (vitamin D3) 25 mcg (1,000 unit) capsule 25 mcg PO DAILY citalopram 40 mg tablet 40 mg PO DAILY rosuvastatin 20 mg tablet 10 mg PO DAILY folic acid 0.8 mg capsule 0.4 mg PO DAILY Jardiance 25 mg tablet 12.5 mg PO DAILY (DME) Diabetic shoes with 3 pairs of inserts See Rx Instructions .Route .MEDSUPPLY Qty: 1 0RF Rx Instructions: [place] [place] A9270 See Rx Instructions .Route .MEDSUPPLY Qty: 1 0RF Rx Instructions: As directed to the [place] (DME) diabetic shoes with 3 inserts See Rx Instructions .Route .MEDSUPPLY Qty: 1 0RF Rx Instructions: As directed to the shoe madonna cetirizine [Zyrtec] 10 mg Tablet 10 mg PO DAILY tamsulosin 0.4 mg Capsule 0.4 mg PO BID levothyroxine 50 mcg Tablet 50 mcg PO DAILY memantine 10 mg Tablet 10 mg PO BID alogliptin 6.25 mg Tablet 6.25 mg PO DAILY gabapentin 400 mg capsule 400 mg PO BID hydralazine 10 mg Tablet 10 mg PO QID amlodipine 2.5 mg tablet 2.5 mg PO DAILY sitagliptin 25 mg Tablet 25 mg PO DAILY ciprofloxacin HCl [Cipro] 500 mg tablet 500 mg PO Q12H Qty: 20 0RF omeprazole 20 mg Capsule,Delayed Release(Dr/Ec) 20 mg PO DAILY potassium chloride 20 mEq Tablet Extended Release 10 meq PO DAILY Qty: 30 0RF Referrals: Urvashi Mcmahan MD [Primary Care Provider] - Coding Level of Care Code ED [employer] Inspector for Maryg Aubrey
[2023-12-31 10:44] LABS: Basophils % 0.3 %; Hematocrit 44.2 % (37-53); Lymphocytes # 0.9 10^3/uL (0.8-4.8); Lymphocytes % 9.9 %; Mean Corpuscular HGB Conc 32.6 g/dL (30-55); Mean Corpuscular Hemoglobin 30.3 pg (27-33); Mean Corpuscular Volume 93.1 fl (82-101); Mean Platelet Volume 9.3 fL (7.4-10.4); Monocytes # 0.4 10^3/uL (0.2-0.9); Neutrophils # 7.41 10^3/uL (1.8-7.7); Neutrophils % 84.6 %; Nucleated Red Blood Cells % 0 %; Platelet Count 138 10^3/cmm (157-399); Red Blood Count 4.75 10^6/uL (3.85-5.65); Red Cell Distribution Width 14.1 % (12.1-15.1); White Blood Count 8.77 10^3/uL (3.29-11.43)
[2023-12-31 10:52] LABS: Lactic Sepsis W/Reflex 2.7 mmol/L (0.5-2.2)
[2023-12-31 11:07] LABS: NT Pro B Type Natriuretic Pept 6235 pg/mL (0-450); Procalcitonin 15.25 ng/mL (0-0.5); Thyroid Stimulating Hormone 2.43 uIU/mL (0.27-4.20)
--- NOTE | 2023-12-31 11:13 | ECG_ITS ---
[facility] Test Date: 2023-12-31 Pat Name: Singh Yepez Department: Room: Gender: Male [employer] Supervisor: : 1945 Requested By: Jacqueline Murphy Order Number: [id number] Reading MD: RUBEN BRITTON Measurements Intervals [place] Rate: 84 P: 0 MI: 0 QRS: 42 QRSD: 98 T: 58 QT: 370 QTc: 438 Interpretive Statements ATRIAL FLUTTER/TACHYCARDIA ST ELEVATION, PROBABLY EARLY REPOLARIZATION [ST ELEVATION WITH NORMALLY INFLECTED T-WAVE] ABNORMAL RHYTHM ECG Compared to ECG 12/30/2023 12:41:56 ST (T wave) deviation now present Early repolarization now present Sinus rhythm no longer present Indeterminate axis no longer present Incomplete right bundle-branch block no longer present Electronically Signed On 01-01-2024 18:10:43 CDT by RUBEN BRITTON [email or web address]
[2023-12-31 11:18] LABS: Alanine Aminotransferase 15 U/L (0-41); Albumin Level 3.9 g/dL (3.5-5.2); Alkaline Phosphatase 94 U/L (40-130); Anion Gap 15.1 (5-19); Aspartate Amino Transferase 21 U/L (0-40); Blood Urea Nitrogen 25 mg/dL (8-23); Calcium 8.3 mg/dL (8.5-10.5); Carbon Dioxide 23 mmol/L (22-29); Chloride 102 mmol/L (98-107); Creatinine Clr Calc Pharmacy 60.6486; Globulin 3.1 g/dL (1.3-4.6); Glucose 190 mg/dL (65-115); Osmolality Calculated 291 mOsm/kg (285-295); Potassium 4.1 mmol/L (3.5-5.1); Sodium 136 mmol/L (136-145); Total Bilirubin 0.6 mg/dL (0.15-1.2)
[2023-12-31 11:35] LABS: Troponin(5th) Baseline 43 ng/L (0-15)
--- NOTE | 2023-12-31 11:38 | CT_ITS ---
WS: [id number] CT ABDOMEN AND PELVIS NONCONTRAST HISTORY: UTI/hematuria, CKD, possible renal mass? i TECHNIQUE: Imaging performed through the abdomen and pelvis. Coronal and sagittal reformats are submi tted. All CT scans at [facility] use at least one of these dose optimization techniques: auto mated exposure control; mA and/or kV adjustment per patient size (includes targeted exams where dose is matched to clinical indication); or iterative reconstruction. DLP: 1435.73 mGy.cm COMPARISON: 04/11/2022, 03/29/2019 Quality of this examination is compromised by body habitus and lack of IV contrast. Lower thorax: Lung bases are clear. Visualized heart is normal. No hiatal hernia. Liver: Mild hepatomegaly and hepatic steatosis. Gallbladder: Normal gallbladder. No pericholecystic fluid or cholelithiasis. No gallbladder wall thic kening. Pancreas: Normal size and attenuation. Normal pancreatic duct. No pancreatitis or mass. Spleen: Normal. Adrenal glands: Normal RIGHT adrenal gland. Minimal stable nodularity of the LEFT adrenal gland is un changed. Right kidney: Patient has a known solid RIGHT renal mass extending from the anterior mid kidney which continues to increase in size now measuring 8.1 x 9.1 x 8.0 cm. Mass has been present since at least 03/29/2019 with continued increase in size. No renal obstruction. Left kidney: High density mass from the posterior mid kidney measures 2.6 x 2.3 cm. Elevated Hounsfie ld units. There was a minimally complex cyst seen at this location on a prior exam. There is an addit ional cortical hypodensity from the superior pole which cannot be very well defined on this exam. Aorta: Mild atherosclerosis abdominal aorta with no aneurysm. No free fluid, intraperitoneal air or significant lymphadenopathy. GI tract: The entire GI tract is not included due to patient's body habitus. No obstruction. Abdominal wall: Incompletely included due to body habitus. Pelvis: There is an elongated mass in the central pelvis which is the bladder but abnormal. There is increased in density within the bladder and the santos are slightly irregular. Bladder is being narrow ed and is abnormal shape. No free fluid. Osseous structures: Advanced degenerative changes throughout the visualized spine. Prior LEFT hip art hroplasty. CT/CT kidney stone [id number] IMPRESSION: 1. 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 Mass now measures 8.1 x 9.1 x 8.0 cm. 2. Additional masses in the LEFT kidney cannot be further characterized. One o f these masses is hyperdense suggesting it may contain hemorrhage. 3. Abnormal urinary bladder. Shape of the bladder is abnormal and there is inc reased density within the bladder. Bladder may be distended with blood products or infection. Neoplasm would not be excluded on this examination. 4. Quality of this examination is compromised by body habitus.
[2023-12-31 11:42] LABS: Add Urine Microscopic? NO
--- NOTE | 2023-12-31 11:53 | ECG_ITS ---
[facility] Test Date: 2023-12-31 Pat Name: Singh Yepez Department: Room: Gender: Male Insurance Plan Specialist: : 1945 Requested By: Jacqueline Murphy Order Number: [id number] Reading MD: RUBEN BRITTON Measurements Intervals [place] Rate: 75 P: 0 KS: 0 QRS: -28 QRSD: 94 T: 39 QT: 371 QTc: 416 Interpretive Statements ATRIAL FLUTTER/TACHYCARDIA INDETERMINATE AXIS INFERIOR MYOCARDIAL INFARCTION , PROBABLY OLD [40+ ms Q WAVE AND/OR ST/T ABNORMALITY IN II/aVF] Compared to ECG 12/31/2023 11:27:18 Indeterminate axis now present Myocardial infarct finding now present ST (T wave) deviation no longer present Early repolarization no longer present Electronically Signed On 01-01-2024 18:10:35 CDT by RUBEN BRITTON [email or web address]
[2023-12-31 12:18] LABS: Urine Color Yellow (Yellow)
[2023-12-31 12:18] LABS: Reflex Lactate Order REFLEX LACTIC ORDERD
[2023-12-31 12:19] LABS: Amorphous Sediment Urine TRACE /hpf; Bacteria Urine 1+ /hpf; Mucus Urine TRACE /hpf; RBC Urine 15-25 /hpf (0-2); UA Manual Slide Review YES; UA Slide Review UA Slide Review Perf; Urine Appearance Cloudy (CLEAR); WBC Urine 25-40 /hpf (0-5)
[2023-12-31 12:20] LABS: Charge for UA Resulting for Rev
[2023-12-31 12:38] LABS: Covid PCR NEGATIVE (Negative); Influenza A NEGATIVE (Negative); Influenza B NEGATIVE (Negative); Respiratory Syncytial Virus Ce NEGATIVE (Negative)
[2023-12-31] MEDS: levofloxacin-dextrose 5 % 750 MG/150 ML PREMIX 100 MG IV (12:48)
--- NOTE | 2023-12-31 13:00 | PC.PHAR ---
talked to mo personally, they stated eliquis was dispensed on 12/29/23
--- NOTE | 2023-12-31 13:05 | ECG_ITS ---
[facility] Test Date: 2023-12-31 Pat Name: Singh Yepez Department: Room: Gender: Male Equine Intern: : 1945 Requested By: Jacqueline Murphy Order Number: [id number] Reading MD: RUBEN BRITTON Measurements Intervals [place] Rate: 71 P: 0 ID: 0 QRS: -33 QRSD: 109 T: 37 QT: 375 QTc: 408 Interpretive Statements ATRIAL FLUTTER/TACHYCARDIA INDETERMINATE AXIS INFERIOR MYOCARDIAL INFARCTION , OF INDETERMINATE AGE [40+ ms Q WAVE AND/OR ST/T ABNORMALITY IN II/aVF] Compared to ECG 12/31/2023 11:55:20 No significant changes Electronically Signed On 01-01-2024 18:15:00 CDT by RUBEN BRITTON [email or web address]
[2023-12-31 13:11] LABS: Troponin 5 2HR 39.08 ng/L (0-15)
[2023-12-31 13:12] LABS: Lactic Acid level (Lactate) 1.7 mmol/L (0.5-2.2)
[2023-12-31 13:13] LABS: Troponin 5 2HR Delta -3.92 ABS# (0-10)
--- NOTE | 2023-12-31 13:19 | P.HP_ITS ---
Providers/Chief Complaint 2 Admitting Physician: Gilberto Grullon MD, hospitalist Primary Care Provider: Urvashi Mcmahan MD Chief Complaint: UTI, Fever, fell lastnight History of Present Illness Singh Yepez is a 78 year old male presenting to the emergency department with complaints of fever, some confusion, and a fall last night as well as weakness. He was seen in the ER yesterday, diagnosed with UTI and given a shot of Rocephin, and a prescription for fluoroquinolone. He has a history of renal cell carcinoma, PE on full anticoagulation, chronic kidney disease. He has been short of breath and wheezing since his ER visit yesterday as well. No chest discomfort. He has been more swollen than usual lately. No nausea, vomiting, blood in stool. Denies any obvious hematuria. Review of Systems 2 General: Reports: 10 or more systems reviewed and unremarkable except in HPI and below Card: Reports: swelling of feet/ankles; Denies: chest pain Resp: Reports: dyspnea; Denies: productive cough GI: Denies: abdominal pain, nausea, vomiting, hematochezia or melena Medications/Allergies Home Medications Medication Instructions Recorded Confirmed Last Taken Type alogliptin 6.25 mg tablet 6.25 mg PO DAILY 05/10/21 12/31/23 05/08/21 History cetirizine 10 mg tablet (Zyrtec) 10 mg PO DAILY 05/10/21 12/31/23 05/08/21 History levothyroxine 50 mcg tablet 50 mcg PO DAILY 05/10/21 12/31/23 05/08/21 History memantine 10 mg tablet 10 mg PO BID 05/10/21 12/31/23 05/08/21 History tamsulosin 0.4 mg capsule 0.4 mg PO BID 05/10/21 12/31/23 05/08/21 History omeprazole 20 mg capsule,delayed 20 mg PO DAILY 05/24/22 12/31/23 Unknown History release potassium chloride 20 mEq 10 meq (1/2 x 20 mEq) PO DAILY #30 05/25/22 12/31/23 Unknown Rx tablet,extended release tabs gabapentin 400 mg capsule 400 mg PO BID 08/05/22 12/31/23 Unknown History Diabetic shoes with 3 pairs of #1 ea 11/02/22 12/31/23 Unknown Rx inserts cholecalciferol (vitamin D3) 25 25 mcg PO DAILY 12/23/22 12/31/23 Unknown History mcg (1,000 unit) capsule citalopram 40 mg tablet 40 mg PO DAILY 12/23/22 12/31/23 Unknown History dicyclomine 10 mg capsule 10 mg PO TID 12/23/22 12/31/23 Unknown History empagliflozin 25 mg tablet 12.5 mg PO DAILY 12/23/22 12/31/23 Unknown History (Jardiance) folic acid 0.8 mg capsule 0.4 mg PO DAILY 12/23/22 12/31/23 Unknown History rosuvastatin 20 mg tablet 10 mg PO DAILY 12/23/22 12/31/23 Unknown History diabetic socks [id number] #1 ea 03/22/23 12/31/23 Unknown Rx diabetic shoes with 3 inserts #1 ea 12/16/23 12/31/23 Unknown Rx amlodipine 2.5 mg tablet 2.5 mg PO DAILY 12/30/23 12/31/23 Unknown History ciprofloxacin HCl 500 mg tablet 500 mg PO Q12H #20 tabs 12/30/23 12/31/23 Unknown Rx (Cipro) hydralazine 10 mg tablet 10 mg PO QID 12/30/23 12/31/23 Unknown History sitagliptin 25 mg tablet 25 mg PO DAILY 12/30/23 12/31/23 Unknown History apixaban 5 mg tablet (Eliquis) 5 mg PO DAILY 12/31/23 12/31/23 Unknown History Allergies Allergy/AdvReac Type Severity Reaction Status Date / Time cephalexin [From Keflex] Allergy Unknown Verified 12/31/23 10:20 PFSH Acute 2 PFSH: Medical History (Updated 12/31/23 @ 13:35 by Gilberto Grullon MD) Acute on chronic diastolic CHF (congestive heart failure) Type 2 diabetes mellitus Benign essential HTN Pulmonary embolism COVID-19 Pulmonary edema Acute respiratory failure with hypoxia Chronic kidney disease No pertinent family history Social History Smoking and tobacco/nicotine status: never used tobacco/nicotine Vitals/I&O/Wt Last Vital Signs Temp 100.2 F H 12/31/23 10:10 Pulse 92 12/31/23 10:10 Resp 24 H 12/31/23 10:10 BP 143/69 12/31/23 10:10 Pulse Ox 93 12/31/23 10:10 O2 Del Method Room Air 12/31/23 10:10 Weight last 48 hrs Weight 167.829 kg Physical Exam 2 Narrative: General Exam is an obese white male, conversant and pleasant, with daughters at bedside. He is audibly wheezing without a stethoscope. He is febrile HEENT: Atraumatic normocephalic. Oropharynx clear Neck is supple obese Cardiovascular regular rate and rhythm, EKG shows atrial flutter Lungs bilateral expiratory wheezes Abdomen is soft obese nontender with positive bowel sounds exams deferred Extremities 2+ edema, no cyanosis or clubbing Skin no rash Neuro no focal deficits Data 12/31/23 10:27 12/31/23 10:27 Other Labs: LFTs are normal Troponin 43, repeat 39 BNP 6235 Lactic acid 2.7 Calcium 8.3, albumin 3.9 Procalcitonin 15.2 TSH 2.43 Urinalysis with 25-40 whites, 15-25 reds. Yesterday's urine had greater than 100 white blood cells COVID testing negative. Influenza negative. TSH normal Magnesium is ordered Blood cultures obtained Urinalysis from yesterday growing gram-negative rods Abdomen pelvis CT demonstrated known solid mass increasing in size on the right. Additional masses in the left kidney cannot be characterized. 1 is hyperdense, could not rule out hemorrhage completely Abnormal urinary bladder with increased density within the bladder Head CT no acute findings Chest x-ray Opacity right hilum into the right lower lobe, cardiomegaly, Micro: Microbiology 12/31/23 10:27 Blood Culture - Preliminary Blood SPECIMEN COLLECTED 12/31/23 10:25 Blood Culture - Preliminary Blood SPECIMEN COLLECTED A&P Assessment and plan (1) Acute UTI: Patient with acute complicated UTI. This is noted by fever, encephalopathy, history of renal mass Capellan has been placed secondary to some urinary retention Secondary to multiple comorbidities, increased risk for ESBL. Placed on meropenem. He received Rocephin yesterday. Gram-positive coverage not needed, as his urine is already growing gram-negative rods. (2) Acute encephalopathy: Patient with acute encephalopathy likely secondary to complicated UTI Monitor for improvement (3) Acute on chronic diastolic CHF (congestive heart failure): Patient clinically with acute diastolic heart failure Echocardiogram of such poor quality EF could not be clearly delineated in the past when it was performed secondary to body habitus Diuresis with the Lasix 40 mg IV every 12 hours Close follow-up of electrolytes daily (4) Pulmonary embolism: Patient with past history of pulmonary embolism greater than 1 year ago Continue Eliquis (5) Atrial flutter: EKG demonstrates atrial flutter Rate is controlled TSH is normal Check magnesium This appears to be new onset Echocardiogram will not be useful, previous attempt was of extremely poor quality and not much information can be gathered Already on Eliquis (6) Type 2 diabetes mellitus: Consistent carb diet Sliding scale insulin (7) Renal mass, right: Patient with history of renal mass CT consistent with this. No evidence of significant obstruction Some masses noted on the left. Cannot completely rule out some hemorrhage, but less likely with hemoglobin of 14.4, stable vital signs Patient is a poor surgical candidate, and no treatment has been recommended for his likely renal cell cancer. (8) Chronic kidney disease: Patient with chronic kidney disease Monitor creatinine closely Capellan placed Plan Multiple other medical problems as outlined in past medical history Allow natural No blood products, Protestant Eliquis will suffice for DVT prophylaxis Attestations 2 Medical Necessity Statement*: Will require greater than 2 midnight stay for evaluation and treatment of complicated UTI, acute CHF Diagnoses Acute UTI N39.0 Acute encephalopathy G93.40 Acute on chronic diastolic CHF (congestive heart failure) I50.33 Pulmonary embolism I26.99 Atrial flutter I48.92 Type 2 diabetes mellitus E11.9 Renal mass, right N28.89 Chronic kidney disease N18.9 Time Spent (min) 54
--- NOTE | 2023-12-31 13:42 | XR_ITS ---
WS: [id number] Left hip, AP and frog-leg views, 12/31/2023 Clinical Data: pain Comparison: None. Findings: The left hip arthroplasty is in good position. No periprosthetic fractures or loosening is seen. Ther e is underpenetration of the adjacent left pelvis but no definite injuries are seen. The soft tissues are normal. XR/XR hip LT 2-3V wo/w pel* [id number] Impression: Intact left hip arthroplasty.
[2023-12-31] MEDS: meropenem 1,000 mg SDV 1000 MG IVP ×2 (14:53→21:03)
[2023-12-31] MEDS: FUROsemide 10 mg/mL SDV 4mL 40 MG IVP (14:57)
[2023-12-31] MEDS: ipratropium-albuterol 3 mL Neb INHALATION (16:09)
[2023-12-31 16:36] LABS: Troponin 5 6HR 40.35 ng/L (0-15)
--- NOTE | 2023-12-31 16:36 | PC.NURSE ---
attempted report at [id number]; nurse is d/c another pt on CSU and will return my call.
[2023-12-31 16:37] LABS: Troponin 5 6HR Delta -2.65 ng/L (0-12)
--- NOTE | 2023-12-31 17:13 | ECG_ITS ---
[facility]23[facility]31 Pat Name: Singh Yepez Department: Room: Gender: Male Application Support Analyst: : [id number] Requested By: Jacqueline Murphy Order Number: [id number] Reading MD: RUBEN BRITTON Measurements Intervals Vevay Rate: 98 P: 0 WI: 0 QRS: 57 QRSD: 97 T: 50 QT: 325 QTc: 416 Interpretive Statements ATRIAL FLUTTER/TACHYCARDIA ABNORMAL RHYTHM ECG Compared to ECG 12/31/2023 13:05:36 Indeterminate axis no longer present Myocardial infarct finding no longer present Electronically Signed On 01-01-2024 18:14:54 CDT by RUBEN BRITTON [email or web address]
[2023-12-31 18:25] LABS: Glucose Point of Care 146 mg/dL (70-110)
[2023-12-31] MEDS: tamsulosin 0.4 mg Capsule PO (18:25)
[2023-12-31] MEDS: memantine 5 mg tablet 10 MG PO (18:25)
[2023-12-31] MEDS: apixaban 5 mg Tablet PO (18:25)
--- NOTE | 2023-12-31 18:37 | PC.NURSE ---
received report from ed approximately 1650, arrived from ed approximately 1720 via stretcher transferred to bed with max lift sheet assist. AO to self. family at bedside
[2023-12-31 20:49] LABS: Glucose Point of Care 165 mg/dL (70-110)
[2023-12-31] MEDS: acetaminophen 325 mg Tablet 650 MG PO (21:02)
[2023-12-31] MEDS: insulin lispro 100 unit/1 mL SUBCUT (21:03)
[2024-01-01] VITALS (10 sets, daily range): BP systolic 130–160; BP diastolic 62–106; PULSE 51–97; RESP 16–30; TEMP 36.6–38.7; O2SAT 92–95
[2024-01-01] MEDS: FUROsemide 10 mg/mL SDV 4mL 40 MG IVP ×2 (01:26→14:34)
[2024-01-01 04:34] LABS: Basophils % 0.4 %; Eosinophils % 0.3 %; Hematocrit 44.3 % (37-53); Lymphocytes # 1.4 10^3/uL (0.8-4.8); Lymphocytes % 13.3 %; Mean Corpuscular HGB Conc 32.3 g/dL (30-55); Mean Corpuscular Hemoglobin 29.9 pg (27-33); Mean Corpuscular Volume 92.7 fl (82-101); Monocytes # 1.1 10^3/uL (0.2-0.9); Monocytes % 10.5 %; Neutrophils # 7.79 10^3/uL (1.8-7.7); Neutrophils % 75.3 %; Nucleated Red Blood Cells % 0 %; Platelet Count 98 10^3/cmm (157-399); Red Blood Count 4.78 10^6/uL (3.85-5.65); Red Cell Distribution Width 14.1 % (12.1-15.1); White Blood Count 10.35 10^3/uL (3.29-11.43)
[2024-01-01 05:03] LABS: Anion Gap 13.7 (5-19); Blood Urea Nitrogen 25 mg/dL (8-23); Calcium 8.2 mg/dL (8.5-10.5); Carbon Dioxide 27 mmol/L (22-29); Chloride 102 mmol/L (98-107); Creatinine Clr Calc Pharmacy 56.0193; Glucose 137 mg/dL (65-115); Magnesium 1.8 mg/dL (1.7-2.3); Osmolality Calculated 295 mOsm/kg (285-295); Potassium 3.7 mmol/L (3.5-5.1); Sodium 139 mmol/L (136-145)
[2024-01-01] MEDS: meropenem 1,000 mg SDV 1000 MG IVP ×3 (05:35→20:52)
[2024-01-01 06:41] LABS: Glucose Point of Care 150 mg/dL (70-110)
[2024-01-01] MEDS: pantoprazole DR 40 mg Tablet PO (08:19)
[2024-01-01] MEDS: citalopram 20 mg Tablet 40 MG PO (08:19)
[2024-01-01] MEDS: apixaban 5 mg Tablet PO ×2 (08:19→17:18)
[2024-01-01] MEDS: atorvastatin 40 mg Tablet PO (08:19)
[2024-01-01] MEDS: tamsulosin 0.4 mg Capsule PO ×2 (08:19→17:17)
[2024-01-01] MEDS: memantine 5 mg tablet 10 MG PO ×2 (08:19→17:18)
[2024-01-01] MEDS: levothyroxine 50 mcg Tablet PO (08:19)
[2024-01-01] MEDS: insulin lispro 100 unit/1 mL SUBCUT (08:20)
[2024-01-01] MEDS: levofloxacin-dextrose 5 % 750 MG/150 ML PREMIX 100 MG IV (11:39)
[2024-01-01 11:55] LABS: Glucose Point of Care 126 mg/dL (70-110)
--- NOTE | 2024-01-01 16:06 | P.PN_ITS ---
Subjective 2 Subjective: Seen today. Patient resting comfortably in bed. Discussed with him that he is being treated for UTI at this time. Platelets 98, creatinine 1.9. Urine culture pending Vitals/I&O/Wt Last Vital Signs Temp 99.5 F 01/01/24 11:45 Pulse 80 01/01/24 11:45 Resp 24 H 01/01/24 11:45 BP 160/89 01/01/24 11:45 Pulse Ox 94 01/01/24 11:45 O2 Del Method Room Air 01/01/24 11:45 01/01/24 01/01/24 01/01/24 06:59 14:59 22:59 Intake Total 762 / 762 Output Total 1100 / 4800 1800 / 1800 Balance -1100 / -4650 762 / 762 -1800 / -1038 Weight last 48 hrs Weight 177.355 kg Weight 179.033 kg Weight 167.829 kg Physical Exam 2 Narrative: General Exam is an obese white male, laying in bed appearing comfortable at this time. HEENT: Atraumatic normocephalic. Oropharynx clear Neck is supple obese Cardiovascular regular rate and rhythm, EKG shows atrial flutter Lungs bilateral mild expiratory wheezes, otherwise clear to auscultation. Abdomen is soft obese nontender with positive bowel sounds Extremities 2+ edema, no cyanosis or clubbing Skin no rash Neuro no focal deficits Urinary Catheter Management: Capellan: Cath Placed During This Visit: yes Reason for Continuing Indwelling Catheter: Accurate Measurement of Urinary Output in Critically Ill Patients Urinary Catheter Date of Insertion: 12/31/23 Urinary Catheter Time of Insertion: 13:12 Data 01/01/24 04:26 01/01/24 04:26 Micro: Microbiology 12/31/23 10:27 Blood Culture - Preliminary Blood NEGATIVE TO DATE 12/31/23 10:25 Blood Culture - Preliminary Blood NEGATIVE TO DATE A&P Assessment and plan (1) Acute UTI: Patient with acute complicated UTI. This is noted by fever, encephalopathy, history of renal mass Capellan has been placed secondary to some urinary retention Secondary to multiple comorbidities, increased risk for ESBL. Placed on meropenem. He received Rocephin yesterday. Gram-positive coverage not needed, as his urine is already growing gram-negative rods. (2) Acute encephalopathy: Patient with acute encephalopathy likely secondary to complicated UTI Monitor for improvement (3) Acute on chronic diastolic CHF (congestive heart failure): Patient clinically with acute diastolic heart failure Echocardiogram of such poor quality EF could not be clearly delineated in the past when it was performed secondary to body habitus Diuresis with the Lasix 40 mg IV every 12 hours Close follow-up of electrolytes daily (4) Pulmonary embolism: Patient with past history of pulmonary embolism greater than 1 year ago Continue Eliquis (5) Atrial flutter: EKG demonstrates atrial flutter Rate is controlled TSH is normal Check magnesium This appears to be new onset Echocardiogram will not be useful, previous attempt was of extremely poor quality and not much information can be gathered Already on Eliquis (6) Type 2 diabetes mellitus: Consistent carb diet Sliding scale insulin (7) Renal mass, right: Patient with history of renal mass CT consistent with this. No evidence of significant obstruction Some masses noted on the left. Cannot completely rule out some hemorrhage, but less likely with hemoglobin of 14.4, stable vital signs Patient is a poor surgical candidate, and no treatment has been recommended for his likely renal cell cancer. (8) Chronic kidney disease: Patient with chronic kidney disease Monitor creatinine closely Capellan placed Plan Multiple other medical problems as outlined in past medical history Allow natural No blood products, Restoration Eliquis will suffice for DVT prophylaxis 01/01/2024 -Creatinine 1.9. Worsening since admission. Most likely worsening secondary to IV Lasix. Will hold Lasix today. Patient is 5.6 L negative since admission. ? At least 147 admission and 98 today. Continue to monitor. ? Continue Eliquis. Awaiting final urine culture. Gram-negative rods positive. Continue meropenem. ? Echo could not be performed secondary to body habitus. ? Check CBC CMP in AM. Attestations 2 Medical Necessity Statement*: Continue to treat for complicated UTI, CHF exacerbation. Diagnoses Acute UTI N39.0 Acute encephalopathy G93.40 Acute on chronic diastolic CHF (congestive heart failure) I50.33 Pulmonary embolism I26.99 Atrial flutter I48.92 Type 2 diabetes mellitus E11.9 Renal mass, right N28.89 Chronic kidney disease N18.9
[2024-01-01 16:20] LABS: Glucose Point of Care 120 mg/dL (70-110)
[2024-01-01 16:56] LABS: Procalcitonin 9.95 ng/mL (0-0.5)
[2024-01-01] MEDS: acetaminophen 325 mg Tablet 650 MG PO (17:17)
--- NOTE | 2024-01-01 17:56 | PC.NURSE ---
Tylenol given for a fever of 101.5. Cool rags placed on forehead. 30 min temperature check was 99.2
--- NOTE | 2024-01-01 18:20 | PC.NURSE ---
When I pulled the vanc premix out of the pyxis, I only pulled one bag. When I went in to pull a second bag, I could not. I called pharmacy to help me and they adjusted the 2500mg dose to two seperate orders so I could pull the second bag.
[2024-01-01] MEDS: vancomycin 1,250 MG/250 ML PIGGYBACK 166.67 MG IV (19:08)
[2024-01-01 20:50] LABS: Glucose Point of Care 125 mg/dL (70-110)
[2024-01-01] MEDS: cetirizine 10 mg Tablet PO (22:00)
[2024-01-02] VITALS (8 sets, daily range): BP systolic 143–167; BP diastolic 71–102; PULSE 77–83; RESP 22–25; TEMP 36.8–37; O2SAT 93–96
[2024-01-02 04:29] LABS: Basophils % 0.3 %; Eosinophils # 0.1 10^3/uL (0.0-0.8); Eosinophils % 2.1 %; Hematocrit 44.1 % (37-53); Mean Corpuscular HGB Conc 32.7 g/dL (30-55); Mean Corpuscular Hemoglobin 30.2 pg (27-33); Mean Corpuscular Volume 92.5 fl (82-101); Mean Platelet Volume 9.3 fL (7.4-10.4); Monocytes # 0.7 10^3/uL (0.2-0.9); Monocytes % 10.1 %; Neutrophils # 4.63 10^3/uL (1.8-7.7); Nucleated Red Blood Cells % 0 %; Platelet Count 113 10^3/cmm (157-399); Red Blood Count 4.77 10^6/uL (3.85-5.65); Red Cell Distribution Width 13.8 % (12.1-15.1); White Blood Count 6.52 10^3/uL (3.29-11.43)
[2024-01-02 04:53] LABS: Anion Gap 14.8 (5-19); Blood Urea Nitrogen 27 mg/dL (8-23); Calcium 8.4 mg/dL (8.5-10.5); Carbon Dioxide 26 mmol/L (22-29); Chloride 103 mmol/L (98-107); Creatinine Clr Calc Pharmacy 62.6099; Glucose 133 mg/dL (65-115); Osmolality Calculated 297 mOsm/kg (285-295); Potassium 3.8 mmol/L (3.5-5.1); Sodium 140 mmol/L (136-145)
[2024-01-02] MEDS: vancomycin 1,000 MG in sodium chloride 0.9% 250 ML 250 MG IV (05:00)
[2024-01-02] MEDS: meropenem 1,000 mg SDV 1000 MG IVP ×2 (05:00→13:18)
[2024-01-02 06:32] LABS: Glucose Point of Care 131 mg/dL (70-110)
[2024-01-02] MEDS: cetirizine 10 mg Tablet PO (08:52)
[2024-01-02] MEDS: levothyroxine 50 mcg Tablet PO (08:52)
[2024-01-02] MEDS: citalopram 20 mg Tablet 40 MG PO (08:52)
[2024-01-02] MEDS: atorvastatin 40 mg Tablet PO (08:52)
[2024-01-02] MEDS: tamsulosin 0.4 mg Capsule PO (08:52)
[2024-01-02] MEDS: memantine 5 mg tablet 10 MG PO (08:52)
[2024-01-02] MEDS: pantoprazole DR 40 mg Tablet PO (08:52)
[2024-01-02] MEDS: apixaban 5 mg Tablet PO (08:53)
[2024-01-02] MEDS: levofloxacin-dextrose 5 % 750 MG/150 ML PREMIX 100 MG IV (11:20)
--- NOTE | 2024-01-02 12:22 | PHA.VACGOAL ---
Vancomycin Goal - Goal Vancomycin Goal:: 10-15 mg/L Vancomycin Indication:: Other (UTI) - Therapy Current therapy:: Meropenem Day of therpy:: Day []of [] . Actual body weight (kg): 391 lb - Data Labs: WBC 6.52 10^3/uL (3.29-11.43) 01/02/24 04:09 RBC 4.77 10^6/uL (3.85-5.65) 01/02/24 04:09 Hgb 14.40 g/dL (11.27-16.99) 01/02/24 04:09 Hct 44.1 % (37-53) 01/02/24 04:09 MCV 92.5 fl (82-101) 01/02/24 04:09 MCH 30.2 pg (27-33) 01/02/24 04:09 MCHC 32.7 g/dL (30-55) 01/02/24 04:09 RDW 13.8 % (12.1-15.1) 01/02/24 04:09 Sodium 140 mmol/L (136-145) 01/02/24 04:09 Potassium 3.8 mmol/L (3.5-5.1) 01/02/24 04:09 Chloride 103 mmol/L (98-107) 01/02/24 04:09 Carbon Dioxide 26 mmol/L (22-29) 01/02/24 04:09 Anion Gap 14.8 (5-19) 01/02/24 04:09 BUN 27 mg/dL (8-23) H 01/02/24 04:09 Creatinine 1.7 mg/dL (0.7-1.2) H 01/02/24 04:09 GFR Calculation Not Reportable 01/02/24 04:09 Treatment plan:: new consult Regimen:: 1000 MG Q12H PER POLICY
[2024-01-02 13:26] LABS: Glucose Point of Care 124 mg/dL (70-110)
--- NOTE | 2024-01-02 14:07 | P.PN_ITS ---
Subjective 2 Subjective: Seen this morning. Creatinine 1.7 today. Patient is 5L Negative since admission. Daughter at bedside. Patient states he is having issues with incontinence and has talked to his urologist about it to. Urine culture positive for Proteus mirabilis pansensitive. Patient is slightly hard of hearing. Daughter states patient is pretty independent at home and is able to walk from living room to kitchen to bathroom by himself. Vitals/I&O/Wt Last Vital Signs Temp 98.3 F 01/02/24 12:00 Pulse 77 01/02/24 12:00 Resp 24 H 01/02/24 12:00 BP 167/98 01/02/24 12:00 Pulse Ox 94 01/02/24 12:00 O2 Del Method Room Air 01/02/24 12:00 01/01/24 01/02/24 01/02/24 22:59 06:59 14:59 Intake Total 1240 / 2002 550 / 2552 630 / 630 Output Total 3400 / 3400 600 / 4000 Balance -2160 / -1398 -50 / -1448 630 / 630 Weight last 48 hrs Weight 177.355 kg Weight 177.355 kg Weight 179.033 kg Physical Exam 2 Narrative: General Exam is an obese white male, laying in bed appearing comfortable at this time. HEENT: Atraumatic normocephalic. Oropharynx clear Neck is supple obese Cardiovascular regular rate and rhythm, Lungs bilateral mild expiratory wheezes, otherwise clear to auscultation. Abdomen is soft obese nontender with positive bowel sounds Extremities Trace to 1+ edema, no cyanosis or clubbing Skin no rash Neuro no focal deficits Urinary Catheter Management: Capellan: Cath Placed During This Visit: yes Reason for Continuing Indwelling Catheter: Acute Urinary Retention or Obstruction Urinary Catheter Date of Insertion: 12/31/23 Urinary Catheter Time of Insertion: 13:12 Data 01/02/24 04:09 01/02/24 04:09 Micro: Microbiology 01/01/24 19:59 Blood Culture - Preliminary Blood SPECIMEN COLLECTED 01/01/24 19:57 Blood Culture - Preliminary Blood SPECIMEN COLLECTED 12/31/23 10:27 Blood Culture - Preliminary Blood NEGATIVE TO DATE 12/31/23 10:25 Blood Culture - Preliminary Blood NEGATIVE TO DATE A&P Assessment and plan (1) Acute UTI: Patient with acute complicated UTI. This is noted by fever, encephalopathy, history of renal mass Capellan has been placed secondary to some urinary retention Secondary to multiple comorbidities, increased risk for ESBL. Placed on meropenem. He received Rocephin yesterday. Gram-positive coverage not needed, as his urine is already growing gram-negative rods. (2) Acute encephalopathy: Patient with acute encephalopathy likely secondary to complicated UTI Monitor for improvement (3) Acute on chronic diastolic CHF (congestive heart failure): Patient clinically with acute diastolic heart failure Echocardiogram of such poor quality EF could not be clearly delineated in the past when it was performed secondary to body habitus Diuresis with the Lasix 40 mg IV every 12 hours Close follow-up of electrolytes daily (4) Pulmonary embolism: Patient with past history of pulmonary embolism greater than 1 year ago Continue Eliquis (5) Atrial flutter: EKG demonstrates atrial flutter Rate is controlled TSH is normal Check magnesium This appears to be new onset Echocardiogram will not be useful, previous attempt was of extremely poor quality and not much information can be gathered Already on Eliquis (6) Type 2 diabetes mellitus: Consistent carb diet Sliding scale insulin (7) Renal mass, right: Patient with history of renal mass CT consistent with this. No evidence of significant obstruction Some masses noted on the left. Cannot completely rule out some hemorrhage, but less likely with hemoglobin of 14.4, stable vital signs Patient is a poor surgical candidate, and no treatment has been recommended for his likely renal cell cancer. (8) Chronic kidney disease: Patient with chronic kidney disease Monitor creatinine closely Capellan placed Plan Multiple other medical problems as outlined in past medical history Allow natural No blood products, Confucianist Eliquis will suffice for DVT prophylaxis 01/02/2024 - Creatinine 1.7. Worsening since admission. Patient is 5 L negative since admission. ? At least 140 admission and 98 today. Continue to monitor. ? Continue Eliquis. ? Echo could not be performed secondary to body habitus. ? Check CBC CMP in AM. ? Discussed with nursing staff to ambulate the patient. Urine culture has resulted and identified Proteus mirabilis pansensitive. Will switch to Levaquin at this time. Stop meropenem. Attestations 2 Medical Necessity Statement*: Continue to treat for complicated UTI, CHF exacerbation. Diagnoses Acute UTI N39.0 Acute encephalopathy G93.40 Acute on chronic diastolic CHF (congestive heart failure) I50.33 Pulmonary embolism I26.99 Atrial flutter I48.92 Type 2 diabetes mellitus E11.9 Renal mass, right N28.89 Chronic kidney disease N18.9
--- NOTE | 2024-01-02 14:39 | PC.NURSE ---
urinary catheter removed at 1439 without problems
--- NOTE | 2024-01-02 15:21 | P.DS_ITS ---
Discharge Providers Date of Admission: 12/31/23 17:47 Date of Discharge: January 02, 2024 Attending Provider at Admission: Gilberto Grullon MD Attending Provider at Discharge: Basilia Slaughter MD Primary Care Provider: Urvashi Mcmahan MD Diagnoses at Discharge Discharge Diagnosis (1) Acute UTI: Status: Acute (2) Acute encephalopathy: Status: Resolved (3) Acute on chronic diastolic CHF (congestive heart failure): Status: Resolved (4) Pulmonary embolism: Status: Acute (5) Atrial flutter: Status: Acute (6) Type 2 diabetes mellitus: Status: Acute (7) Renal mass, right: Status: Acute (8) Chronic kidney disease: Status: Acute Reason for Visit Reason for Visit: UTI, Fever, fell lastnight Hospital Course Hospital Course Patient has a known history of renal mass, CKD, atrial fibrillation, pulmonary embolism diastolic heart failure who presented to the hospital with acute UTI. He was placed on meropenem. Urine culture grew gram-negative rods sensitive to Levaquin. Patient was sent home on 7 days of Levaquin. He was also diuresed during hospitalization and was 5 L negative since admission. Discharged home on oral Lasix and potassium. Patient to follow-up with primary care doctor and urology as an outpatient. Patient was walked by nursing staff and was ambulatory and at his baseline at time of discharge. Physical Exam Narrative: General Exam is an obese white male, laying in bed appearing comfortable at this time. HEENT: Atraumatic normocephalic. Oropharynx clear Neck is supple obese Cardiovascular regular rate and rhythm, Lungs bilateral mild expiratory wheezes, otherwise clear to auscultation. Abdomen is soft obese nontender with positive bowel sounds Extremities Trace to 1+ edema, no cyanosis or clubbing Neuro no focal deficits Urinary Catheter Management: Capellan: Cath Placed During This Visit: yes Reason for Continuing Indwelling Catheter: Acute Urinary Retention or Obstruction Urinary Catheter Date of Insertion: 12/31/23 Urinary Catheter Time of Insertion: 13:12 Discharge Data Studies Completed and Pending Completed Studies During Hospitalization Category Date Time Status CT abdomen renal stone [CT kidney stone [id number]] Stat Cat Scan 12/31/23 11:[address] head wo con* [id number] Stat Cat Scan 12/31/23 10:21 Completed XR chest 1V portable [id number] Urgent Exams 12/31/23 09:53 Completed XR hip LT 2-3V wo/w pel* [id number] Stat Exams 12/31/23 13:42 Completed Pending at discharge Category Date Time Status Basic Metabolic Panel AM LABS Lab 01/03/24 04:00 Ordered Blood Culture Stat Lab 12/31/23 10:27 Results Blood Culture Stat Lab 01/01/24 19:59 Results Sputum Culture and Gram Stain Stat Lab 01/01/24 17:09 Uncollected Urine Culture Stat Lab 01/01/24 18:42 Received Vancomycin Trough Timed Lab 01/03/24 16:30 Ordered Radiology Impressions Chest X-Ray 12/31/23 09:53 Impression: 1. Slight decrease in patchy opacity in right hilum extending into the right lower lobe. 2. Mild cardiomegaly and atherosclerosis. Head CT 12/31/23 10:21 IMPRESSION: 1. No acute intracranial hemorrhage or edema. 2. Moderate symmetric atrophy and mild small vessel disease. Abdomen/Pelvis CT 12/31/23 11:38 IMPRESSION: 1. 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 Mass now measures 8.1 x 9.1 x 8.0 cm. 2. Additional masses in the LEFT kidney cannot be further characterized. One of these masses is hyperdense suggesting it may contain hemorrhage. 3. Abnormal urinary bladder. Shape of the bladder is abnormal and there is increased density within the bladder. Bladder may be distended with blood products or infection. Neoplasm would not be excluded on this examination. 4. Quality of this examination is compromised by body habitus. Hip/Pelvis X-Ray 12/31/23 13:42 Impression: Intact left hip arthroplasty. Laboratory Results WBC 6.52 10^3/uL (3.29-11.43) 01/02/24 04:09 RBC 4.77 10^6/uL (3.85-5.65) 01/02/24 04:09 Hgb 14.40 g/dL (11.27-16.99) 01/02/24 04:09 Hct 44.1 % (37-53) 01/02/24 04:09 MCV 92.5 fl (82-101) 01/02/24 04:09 MCH 30.2 pg (27-33) 01/02/24 04:09 MCHC 32.7 g/dL (30-55) 01/02/24 04:09 RDW 13.8 % (12.1-15.1) 01/02/24 04:09 Plt Count 113 10^3/cmm (157-399) L 01/02/24 04:09 MPV 9.3 fL (7.4-10.4) 01/02/24 04:09 Neut % (Auto) 71.0 % 01/02/24 04:09 Lymph % (Auto) 16.0 % 01/02/24 04:09 [place] % (Auto) 10.1 % 01/02/24 04:09 Eos % (Auto) 2.1 % 01/02/24 04:09 Baso % (Auto) 0.3 % 01/02/24 04:09 Neut # (Auto) 4.63 10^3/uL (1.8-7.7) 01/02/24 04:09 Lymph # (Auto) 1.0 10^3/uL (0.8-4.8) 01/02/24 04:09 [place] # (Auto) 0.7 10^3/uL (0.2-0.9) 01/02/24 04:09 Eos # (Auto) 0.1 10^3/uL (0.0-0.8) 01/02/24 04:09 Baso # (Auto) 0.0 10^3/uL (0.0-0.1) 01/02/24 04:09 Nucleated RBC % (auto) 0 % 01/02/24 04:09 Nucleated RBCs # 0.0 /100WBC 01/02/24 04:09 Sodium 140 mmol/L (136-145) 01/02/24 04:09 Potassium 3.8 mmol/L (3.5-5.1) 01/02/24 04:09 Chloride 103 mmol/L (98-107) 01/02/24 04:09 Carbon Dioxide 26 mmol/L (22-29) 01/02/24 04:09 Anion Gap 14.8 (5-19) 01/02/24 04:09 BUN 27 mg/dL (8-23) H 01/02/24 04:09 Creatinine 1.7 mg/dL (0.7-1.2) H 01/02/24 04:09 GFR Calculation Not Reportable 01/02/24 04:09 Glucose 133 mg/dL (65-115) H 01/02/24 04:09 POC Glucose 124 mg/dL (70-110) H 01/02/24 12:30 Calculated Osmolality 297 mOsm/kg (285-295) H 01/02/24 04:09 Lactic Acid 2.7 mmol/L (0.5-2.2) H 12/31/23 10:27 Lactic Acid (Sepsis) 1.7 mmol/L (0.5-2.2) 12/31/23 12:51 Calcium 8.4 mg/dL (8.5-10.5) L 01/02/24 04:09 Magnesium 2.0 mg/dL (1.7-2.3) 01/02/24 04:09 Total Bilirubin 0.6 mg/dL (0.15-1.2) 12/31/23 10: AST 21 U/L (0-40) 12/31/23 10: ALT 15 U/L (0-41) 12/31/23 10:27 Alkaline Phosphatase 94 U/L (40-130) 12/31/23 10:27 Troponin T Baseline 43 ng/L (0-15) H 12/31/23 10:27 Troponin T 120 Minute 39.08 ng/L (0-15) H 12/31/23 12:51 Delta Troponin T -3.92 ABS# (0-10) L 12/31/23 12:51 Troponin T Hi Sens 6Hr 40.35 ng/L (0-15) H 12/31/23 16:15 Troponin T Hi Sens 6Hr Delta -2.65 ng/L (0-12) L 12/31/23 16:15 NT-Pro-B Natriuret Pep 6235 pg/mL (0-450) H 12/31/23 10:27 Total Protein 7.0 g/dL (6.6-8.7) 12/31/23 10: Albumin 3.9 g/dL (3.5-5.2) 12/31/23 10:27 Globulin 3.1 g/dL (1.3-4.6) 12/31/23 10:27 Procalcitonin 9.95 ng/mL (0-0.5) H 01/01/24 04:26 TSH 2.43 uIU/mL (0.27-4.20) 12/31/23 10: Urine Color Yellow (Yellow) 12/31/23 11:27 Urine Appearance Cloudy (CLEAR) A 12/31/23 11:27 Urine pH (5-7) 12/31/23 11:27 Ur Specific [place] Not Reportable 12/31/23 11: Urine Protein Not Reportable 12/31/23 11:27 Urine Glucose (UA) Not Reportable 12/31/23 11:27 Urine Ketones Not Reportable 12/31/23 11:27 Urine Blood Not Reportable 12/31/23 11:27 Urine Nitrate Not Reportable 12/31/23 11: Urine Bilirubin Not Reportable 12/31/23 11: Urine Urobilinogen Not Reportable 12/31/23 11:27 Ur Leukocyte Esterase Not Reportable 12/31/23 11:27 Urine RBC 15-25 /hpf (0-2) H 12/31/23 11:27 Urine WBC 25-40 /hpf (0-5) H 12/31/23 11:27 Ur Squamous Epith Cells 5-10 /hpf (0-5) H 12/31/23 11:27 Amorphous Sediment Trace /hpf 12/31/23 11:27 Urine Bacteria 1+ /hpf (NONE) H 12/31/23 11:27 Urine Mucus Trace /hpf 12/31/23 11:27 Coronavirus (PCR) Negative (Negative) 12/31/23 11:42 Influenza A (PCR) Negative (Negative) 12/31/23 11:42 Influenza Type B (PCR) Negative (Negative) 12/31/23 11:42 RSV (PCR) Negative (Negative) 12/31/23 11:42 Vitals Last Vital Signs Temp 98.3 F 01/02/24 12:00 Pulse 77 01/02/24 12:00 Resp 24 H 01/02/24 12:00 BP 167/98 01/02/24 12:00 Pulse Ox 94 01/02/24 12:00 O2 Del Method Room Air 01/02/24 12:00 Discharge Plan Discharge Patient Disposition: Home Condition: Stable Prescriptions: New levofloxacin 750 mg tablet 750 mg PO DAILY 7 Days Qty: 7 0RF furosemide [Lasix] 20 mg tablet 20 mg PO DAILY 7 Days Qty: 7 0RF Continued dicyclomine 10 mg capsule 10 mg PO TID cholecalciferol (vitamin D3) 25 mcg (1,000 unit) capsule 25 mcg PO DAILY citalopram 40 mg tablet 40 mg PO DAILY rosuvastatin 20 mg tablet 10 mg PO DAILY folic acid 0.8 mg capsule 0.4 mg PO DAILY Jardiance 25 mg tablet 12.5 mg PO DAILY (DME) Diabetic shoes with 3 pairs of inserts See Rx Instructions .Route .MEDSUPPLY Qty: 1 0RF Rx Instructions: As directed ([facility]) diabetic socks [id number] See Rx Instructions .Route .MEDSUPPLY Qty: 1 0RF Rx Instructions: As directed to the [place] (DME) diabetic shoes with 3 inserts See Rx Instructions .Route .MEDSUPPLY Qty: 1 0RF Rx Instructions: As directed to the shoe madonna cetirizine [Zyrtec] 10 mg Tablet 10 mg PO DAILY tamsulosin 0.4 mg Capsule 0.4 mg PO BID levothyroxine 50 mcg Tablet 50 mcg PO DAILY memantine 10 mg Tablet 10 mg PO BID alogliptin 6.25 mg Tablet 6.25 mg PO DAILY gabapentin 400 mg capsule 400 mg PO BID hydralazine 10 mg Tablet 10 mg PO QID amlodipine 2.5 mg tablet 2.5 mg PO DAILY sitagliptin 25 mg Tablet 25 mg PO DAILY Eliquis 5 mg Tablet 5 mg PO DAILY potassium chloride 20 mEq Tablet Extended Release 10 meq PO DAILY Qty: 30 0RF omeprazole 20 mg Capsule,Delayed Release(Dr/Ec) 20 mg PO DAILY Discontinued ciprofloxacin HCl [Cipro] 500 mg tablet 500 mg PO Q12H Qty: 20 0RF Discharge Orders: Discharge Order (Routine); Ordered 01/02/24 Ordered By: Basilia Slaughter Other Ambulatory Orders: Basic Metabolic Panel (Routine) Timeframe: 20240105 Facility: [facility] - Location: Lab - Main Lab Ordered By: Basilia Slaughter Referrals: Urvashi Mcmahan MD [Primary Care Provider] - 4-7 days (Please call for an follow-up with in 4 to 7 days. Thank you! ) Discharge Diet: Cardiac Discharge Activity: Resume usual activity Patient Instructions: Furosemide (By mouth) (Lasix), Levofloxacin (By mouth), Urinary Tract Infection in Men (DC), Encephalopathy (DC), CHF Stoplight, Opioid Safety Activity Restrictions/Additional Instructions: Please follow-up with your primary care doctor and urology as an outpatient. Discharge Attestations Time Spent in Discharge Care*: less than 30 min Quality Metrics Clinical Quality Measures [ No reported AMI, CVA or VTE this stay] Coding Level of Care Code Acute Code for Chg Fwd Diagnoses Acute UTI N39.0 Acute encephalopathy G93.40 Acute on chronic diastolic CHF (congestive heart failure) I50.33 Pulmonary embolism I26.99 Atrial flutter I48.92 Type 2 diabetes mellitus E11.9 Renal mass, right N28.89 Chronic kidney disease N18.9
== END 2024-01-02 16:46 | disposition home or self-care (01) | DRG 689 ==
LOC: ER 12:50 → CSU 17:47
PROVIDERS: Admitting Provider Internal Medicine; Emergency Provider Physician Assistant; PCP Family Medicine; Visit Provider Internal Medicine
DX: N39.0 Urinary tract infection, site not specified (principal); I50.33 Acute on chronic diastolic (congestive) heart failure; I13.0 Hypertensive heart and chronic kidney disease with heart failure and stage 1 through stage 4 chronic kidney disease, or unspecified chronic kidney disease; C64.1 Malignant neoplasm of right kidney, except renal pelvis; I48.92 Unspecified atrial flutter; G93.49 Other encephalopathy; W18.30XA Fall on same level, unspecified, initial encounter; E11.22 Type 2 diabetes mellitus with diabetic chronic kidney disease; N18.9 Chronic kidney disease, unspecified; E11.51 Type 2 diabetes mellitus with diabetic peripheral angiopathy without gangrene; E66.01 Morbid (severe) obesity due to excess calories; R33.9 Retention of urine, unspecified; Z66 Do not resuscitate; B96.4 Proteus (mirabilis) (morganii) as the cause of diseases classified elsewhere; R32 Unspecified urinary incontinence; Z79.84 Long term (current) use of oral hypoglycemic drugs; Z79.01 Long term (current) use of anticoagulants; Z86.16 Personal history of COVID-19; Z86.711 Personal history of pulmonary embolism
CPT/HCPCS: 0241U; 36415; 36416; 51702; 70450; 71045; 73502; 74176; 80048; 80053; 81003; 82962; 83605; 83735; 83880; 84145; 84443; 84484; 85025; 87040; 87086; 93005; 94640; 96365; 96372; 96375; 96376; 99285; A9270; J1815; J1940; J1956; J2185; J3370; J7050

== ENCOUNTER → 2024-02-25 10:09 | Outpatient (BNVA) | payer OTHER, SELFPAY | PROVIDERS: PCP Family Medicine; Visit Provider Podiatrist Foot & Ankle Surgery | DX: B35.1 Tinea unguium (principal); N18.9 Chronic kidney disease, unspecified; I73.9 Peripheral vascular disease, unspecified; R60.9 Edema, unspecified; M20.41 Other hammer toe(s) (acquired), right foot; M20.42 Other hammer toe(s) (acquired), left foot; E11.29 Type 2 diabetes mellitus with other diabetic kidney complication | CPT/HCPCS: 11721 ==

== ENCOUNTER → 2024-03-03 09:48 | Outpatient (BNVA) | payer OTHER, SELFPAY | PROVIDERS: PCP Family Medicine; Visit Provider Specialist | DX: M17.11 Unilateral primary osteoarthritis, right knee (principal); Z71.89 Other specified counseling | CPT/HCPCS: 20610; J1100; J2795; J3301 ==

== ENCOUNTER → 2024-03-23 11:28 | Outpatient (BNVA) | payer OTHER, SELFPAY | PROVIDERS: PCP Family Medicine; Visit Provider Internal Medicine | DX: E21.0 Primary hyperparathyroidism (principal); E11.9 Type 2 diabetes mellitus without complications; N18.9 Chronic kidney disease, unspecified; R19.7 Diarrhea, unspecified | CPT/HCPCS: 36415; 80053; 82306; 82310; 83036; 83970; 99214 ==

== ENCOUNTER → 2024-05-18 10:15 | Outpatient (BNVA) | payer OTHER, SELFPAY | PROVIDERS: PCP Family Medicine; Visit Provider Podiatrist Foot & Ankle Surgery | DX: E11.29 Type 2 diabetes mellitus with other diabetic kidney complication (principal); B35.1 Tinea unguium; N18.9 Chronic kidney disease, unspecified; I73.9 Peripheral vascular disease, unspecified; R60.9 Edema, unspecified; M20.41 Other hammer toe(s) (acquired), right foot; M20.42 Other hammer toe(s) (acquired), left foot | CPT/HCPCS: 11721 ==

== ENCOUNTER → 2024-06-07 08:36 | Outpatient (BNVA) | payer OTHER, SELFPAY | PROVIDERS: PCP Family Medicine; Visit Provider Specialist | DX: M17.11 Unilateral primary osteoarthritis, right knee (principal) | CPT/HCPCS: 20610; J1100; J2795; J3301; J9999 ==

== ENCOUNTER 2024-06-19 09:17 | Outpatient (CLI) | payer OTHER, SELFPAY ==
[2024-06-19 11:09] LABS: Anion Gap 12.6 (5-19); Blood Urea Nitrogen 18 mg/dL (8-23); Calcium 8.9 mg/dL (8.5-10.5); Carbon Dioxide 29 mmol/L (22-29); Chloride 104 mmol/L (98-107); Glucose 114 mg/dL (65-115); Iron 76 ug/dL (59-158); Osmolality Calculated 295 mOsm/kg (285-295); Potassium 4.6 mmol/L (3.5-5.1); Sodium 141 mmol/L (136-145); Total Iron Binding Capacity 328 mcg/dl; Unsaturated Iron Binding 252 ug/dL (112-347)
[2024-06-19 11:10] LABS: Albumin Level 4.1 g/dL (3.5-5.2); Calcium 8.9 mg/dL (8.5-10.5); Ferritin 79 ng/mL (30-400); Percent Saturation 23.1 % (20-50)
[2024-06-19 11:15] LABS: Creatinine Urine, Random 118 mg/dL (39-259); Microalbum Creatinine Ratio Ur 17 mg/dL (0-20); Microalbumin Random Urine 2 ug/dL (0-20)
[2024-06-19 11:16] LABS: Parathyroid Hormone 76.3 pg/mL (15-65)
[2024-06-19 11:26] LABS: Bacteria Urine None Seen /hpf; Hyaline Casts Urine 0-4 /lpf; RBC Urine 0-2 /hpf (0-2); Squamous Epithelial Cell Urine 0-5 /hpf (0-5)
[2024-06-19 11:33] LABS: Add Urine Microscopic? YES; Bilirubin Urine Neg (Negative); Blood Urine Neg (Negative); Glucose Urine UA 4+ (Normal); Ketones Urine Negative (Negative); Leukocyte Esterase Urine Negative (Negative); Nitrate Urine Negative (Negative); Protein Urine Neg (Negative); Urine Appearance Clear (CLEAR); Urine Color Yellow (Yellow); Urobilinogen Urine Neg (Negative); pH Urine 5 (5-7)
[2024-06-19 11:34] LABS: Add Urine Culture? No
== END 2024-06-19 09:18 | disposition home or self-care (01) ==
LOC: LAB 09:20
PROVIDERS: PCP Family Medicine; Visit Provider Nurse Practitioner Gerontology
DX: I12.9 Hypertensive chronic kidney disease with stage 1 through stage 4 chronic kidney disease, or unspecified chronic kidney disease (principal); N18.32 Chronic kidney disease, stage 3b; D64.9 Anemia, unspecified; N25.81 Secondary hyperparathyroidism of renal origin
CPT/HCPCS: 36415; 80048; 81001; 82040; 82044; 82310; 82728; 83540; 83550; 83970; 84100; 84550; 85018

== ENCOUNTER → 2024-07-20 10:25 | Outpatient (BNVA) | payer OTHER, SELFPAY | PROVIDERS: PCP Family Medicine; Visit Provider Podiatrist Foot & Ankle Surgery | DX: E11.29 Type 2 diabetes mellitus with other diabetic kidney complication (principal); B35.1 Tinea unguium; N18.9 Chronic kidney disease, unspecified; I73.9 Peripheral vascular disease, unspecified; R60.9 Edema, unspecified; M20.41 Other hammer toe(s) (acquired), right foot; M20.42 Other hammer toe(s) (acquired), left foot | CPT/HCPCS: 11721 ==

== ENCOUNTER 2024-09-18 09:49 | Outpatient (CLI) | payer OTHER, SELFPAY ==
[2024-09-18 12:17] LABS: Alanine Aminotransferase 17 U/L (0-41); Albumin Level 3.9 g/dL (3.5-5.2); Alkaline Phosphatase 93 U/L (40-130); Anion Gap 14.9 (5-19); Aspartate Amino Transferase 18 U/L (0-40); Blood Urea Nitrogen 13 mg/dL (8-23); Calcium 8.8 mg/dL (8.5-10.5); Carbon Dioxide 26 mmol/L (22-29); Chloride 101 mmol/L (98-107); Globulin 2.8 g/dL (1.3-4.6); Glucose 106 mg/dL (65-115); Osmolality Calculated 287 mOsm/kg (285-295); Potassium 3.9 mmol/L (3.5-5.1); Sodium 138 mmol/L (136-145); Total Protein 6.7 g/dL (6.6-8.7)
[2024-09-18 12:21] LABS: Calcium 8.9 mg/dL (8.5-10.5)
== END 2024-09-18 09:50 | disposition home or self-care (01) ==
PROVIDERS: PCP Family Medicine; Visit Provider Internal Medicine
DX: E21.0 Primary hyperparathyroidism (principal); E11.9 Type 2 diabetes mellitus without complications; N18.9 Chronic kidney disease, unspecified
CPT/HCPCS: 36415; 80053; 82306; 82310; 83970

== ENCOUNTER → 2024-09-21 10:26 | Outpatient (BNVA) | payer OTHER, SELFPAY | PROVIDERS: PCP Family Medicine; Visit Provider Podiatrist Foot & Ankle Surgery | DX: E11.69 Type 2 diabetes mellitus with other specified complication (principal); B35.1 Tinea unguium; N18.9 Chronic kidney disease, unspecified; I73.9 Peripheral vascular disease, unspecified; R60.9 Edema, unspecified; M20.41 Other hammer toe(s) (acquired), right foot; M20.42 Other hammer toe(s) (acquired), left foot | CPT/HCPCS: 11721 ==

== ENCOUNTER → 2024-09-22 09:45 | Outpatient (BNVA) | payer OTHER, SELFPAY | PROVIDERS: PCP Family Medicine; Visit Provider Specialist | DX: M17.11 Unilateral primary osteoarthritis, right knee (principal) | CPT/HCPCS: 20610; J1100; J2795; J3301; J9999 ==

== ENCOUNTER 2024-10-13 18:27 | Emergency (ER) | payer OTHER, SELFPAY ==
[2024-10-13 18:29] VITALS: BP 144/71; PULSE 75; RESP 16; TEMP 36.6; O2SAT 94; BMI 45.0
--- OUTSIDE RECORDS SUMMARY | 2024-10-13 18:39 | XMS_ITS | Patient Health Record ---
Author Organization [facility] Address [address] [place], [place] [address] Care Team Providers Care Resident Care Coordinator Name Role Phone Stanley EVERETT, Zeyad Primary Care Provider Mark San MD, Demarco Unavailable [phone] [facility] Unavailable Unavailable Allergies Allergen (clinical drug ingredient) Drug/Non Drug Allergy documented on EMR Reaction Allergy Type Onset Date Status None or not verifiab le (as is Current Medications) (uncoded) Unknown Allergy Active Reason For Referral No Information Medications Medication SIG (Take, Route, Fr equency, Duration) Notes Start Date End Date Status traMADol 50 mg 1 tab(s) orally qid, prn; Duration: 7 day(s) Active Vicodin 5/500 mg 1 tab(s) orally q8h, prn; Duration: 5 day(s) Active naproxen 375 mg 1 tab(s) orally BID; Duration: 30 day(s) Active Plan Of Treatment No Information Insurance Providers Payer Name Payer Address Payer Phone Subscriber Number Group Number Insured Name Patient Relationship to Insured Coverage Start Date Coverage End Date [facility] [address] [place] [address] [id number] Singh Yepez Self - patient is the insured [facility] Medicare Part B Claims Department [address] [address] [place] [address] [id number] Singh Yepez Self - patient is the insured Medical (General) History Medical History History ICD Code See prior documentation Surgical History Surgery Date(Month/Year) Rotator cuff repair Cyst on his back Hospitalization History Reason Date(Month/Year) Surgeries
--- OUTSIDE RECORDS SUMMARY | 2024-10-13 18:39 | XMS_ITS | Clinical Summary ---
Author Organization [facility] Address [address] [place] [address] Care Team Providers Care Fiscal Accountant Name Role Phone Zeyad Angel MD Primary Care Provider [phone] Allergies No known active allergies Medications amoxicillin-clavul anate (AUGMENTIN) 875-125 mg tablet 06/04/2017 A ctive methylPREDNISolone (MEDROL DOSPACK) 4 mg Tablets, Dose Pack 05/11/2017 Active valACYclovir (VALTREX) 1 gram tablet 05/11/2017 Active Active Problems Problem Noted Date Diagnosed Date Morbid obesity 09/27/2017 CKD (chronic kidney disease) 09/27/2017 Right renal mass 07/21/2017 Overview (07/21/2017): CT finding, 4.4 cm Alzheimer's dementia without behavioral disturba nce 07/20/2017 CKD (chronic kidney disease) stage 3, GFR 30-59 ml/min 07/20/2017 Resolved Problems Problem Noted Date Diagnosed Date Resolved Date Generalized abdominal pain 07/20/2017 0 08/13/2017 Intractable vomiting with nausea 07/20/2017 08/13/2017 Social History Tobacco Use Types Packs/Day Years Used Date Smoking Tobacco: Never Smokeless Tobacco: Never Tobacco Cessation:Counseling Given: No Sex and Gender Information Value Date Recorded Sex Assigned at Not on file Legal Sex Male 11:09 AM GAME PRODUCER Gender Identity Not on file Sexual Orientation Not on file Last Filed Vital Signs Vital Sign Reading Time Taken Comments Blood Pressure 160/77 02/03/2019 10:07 AM GAME PRODUCER Pulse 88 02/03/2019 10:07 AM GAME PRODUCER Temperature 36.1 C (97 F) 07/30/2017 8:43 AM CDT Respiratory Rate 18 07/30/2017 8:43 AM CDT Oxygen Saturation 95% 07/30/2017 8:43 AM CDT Inhaled Oxygen Concentration - - Weight 167.8 kg (370 lb) 02/03/2019 10:07 AM GAME PRODUCER Height 190.5 cm (6' 3 ) 02/03/2019 10:07 AM GAME PRODUCER Body Mass Index 46.25 02/03/2019 10:07 AM GAME PRODUCER Plan of Treatment Health Maintenance Due Date Last Done Comments DTAP/TDAP/TD VACCINES (1 - Tdap) 1964 PNEUMOCOCCAL VACCINE 50+ YEARS (1 of 1 - PCV) 04/01/18 97 ZOSTER VACCINE (1 of 2) 1996 RSV VACCINE (60+ or ) (1 - 1-dose 75+ series) 2021 INFLUENZA VACCINE (#1) 2024 Medical Devices Implanted Type Area Blackjack Supervisor Device Identifier Shelf Expiration Date Model / Serial / Lot Mesh Ventralex 2.5in Med Circ [id number] - [id number] Implanted:Qty: 1 on 07/24/2017 by Singh Ibarra MD at [facility] Mesh Abdomen CR [employer] 06/10/2019 [id number] / / [id number] Insurance [employer] VISN 16 CONSOLIDATED FEE UNIT Advance Directives For more information, please contact: [phone] Documents on File Type Date Recorded Patient Supervisor Beater Room Expl anation Advance Directive POA 08/04/2017 10:52 AM Advance Directive POA * Full Code (Latest Code Status on File) Date Activated Date Inactivated Comments 07/24/2017 4:16 PM 07/30/2017 3:07 PM * Full Code Date Activated Date Inactivated Comments 07/20/2017 3:37 PM 07/24/2017 4:16 PM Care Teams Fiscal Accountant Relationship Specialty Start Date End Date Zeyad Angel MD [address] [address] PCP - General Family Practice 07/19/17
--- OUTSIDE RECORDS SUMMARY | 2024-10-13 18:39 | XMS_ITS | Clinical Summary ---
Author Organization [facility] [employer] Address [address] [place] [address] Phone Care Team Providers Care Allopathic Doctor Name Role Phone Urvashi Mcmahan MD Primary Care Provider Allergies No known active allergies Medications * This document contains information received from the source organization and may not represent a complete record from that organization. aspirin 325 MG tablet 325 mg Take 1/2 tablet by mouth daily. Active gabapentin (NEURONTIN) 400 MG capsule Take 400 mg by mouth twice a day Active tamsulosin (Flomax) 0.4 MG 24 hr capsule Take 0.4 mg by mouth 2 (two) times a day Active furosemide (LASIX) 40 MG tablet Take 40 mg by mouth 1 (one) time each day Active spironolactone (ALDACTONE) 25 MG tablet Take 25 mg by mouth 1 (one) time each day Take 2 tablets by mouth daily Active memantine (NAMENDA) 10 MG tablet Take 10 mg by mouth 2 (two) times a day Active citalopram (CeleXA) 20 MG tablet Take 20 mg by mouth every night Active Cholecalciferol (Vitamin D) 25 MCG (1000 UT) tablet Take by mouth 2 (two) times a day Active levothyroxine sodium (TIROSINT) 50 MCG capsule Take 50 mcg by mouth 1 (one) time each day Active ALOGLIPTIN BENZOATE PO Take 6.25 mg by mouth 1 (one) time each day Active omeprazole (PriLOSEC) [address] capsule Take 20 mg by mouth 1 (one) time each day Do not crush or chew. Active dicyclomine (BENTYL) 10 MG capsule Take 10 mg by mouth 4 (four) times a day (before meals and nightly) Active Active Problems Problem Noted Date Diagnosed Date Renal mass 07/21/2017 Overview (08/15/2019): CT finding, 4.4 cm Stage 3b chronic kidney disease 07/20/2017 Family History Medical History Relation Comments Cancer Father Dementia Mother Relation Status Comments Father Mother Social History Tobacco Use Types Packs/Day Years Used Date Smoking Tobacco: Never Smokeless Tobacco: Never Alcohol Use Standard Drinks/Week Comments Never 0 (1 standard drink = 0.6 oz pur e alcohol) AUDIT-C Answer Date Recorded Q1: How often do you have a drink containing alc ohol? Never 08/15/2019 Average Number of Drinks Not on file Frequency of Binge Drinking Not on file 04/2019 Sex and Gender Information Value Date Recorded Sex Assigned at Not on file Legal Sex Male 8:57 AM EST Gender Identity Not on file Sexual Orientation Not on file Last Filed Vital Signs Vital Sign Reading Time Taken Comments Blood Pressure 126/56 06/18/2020 10:49 AM CDT Pulse 70 06/18/2020 10:49 AM CDT Temperature 36.6 C (97.8 F) 06/18/2020 10:49 AM CDT Respiratory Rate - - Oxygen Saturation - - Inhaled Oxygen Concentration - - Weight 172 kg (379 lb) 06/18/2020 10:49 AM CDT Height 190.5 cm (6' 3 ) 06/18/2020 10:49 AM CDT Body Mass Index 47.37 06/18/2020 10:49 AM CDT Plan of Treatment Health Maintenance Due Date Last Done Comments Pneumococcal Vaccine: 50+ Ye ars (1 of 2 - PCV) 1965 Influenza Vaccine (#1) 2024 Hepatitis B Vaccine Aged Out No longe r eligible based on patient's age to complete this topic Insurance [id number] [place], [place] [address] [place] [address] Regions 1,2,3 (VACCN) Care Teams Allopathic Doctor Relationship Specialty Start Date End Date Urvashi Mcmahan MD [address] [place] [address] PCP - General Family Medicine 06/18/20
--- OUTSIDE RECORDS SUMMARY | 2024-10-13 18:39 | XMS_ITS | Encounter Summary ---
Author Organization [facility] Address [address] [place] [address] Phone Care Team Providers Care Medical Receptionist Biller Name Role Phone Urvashi Mcmahan MD Primary Care Provider [phone] Encounter Details Date Type Department Care Team (Late st Contact Info) Description 02/06/2019 Orders Only [facility] [address] [place] [address] Chronic kidney disease, stage 3 (moderate) (HCC); Renal mass Social History Tobacco Use Types Packs/Day Years Used Date Smoking Tobacco: Never Assessed Sex and Gender Information Value Date Recorded Sex Assigned at Not on file Legal Sex Male 8:57 AM EST Gender Identity Not on file Sexual Orientation Not on file documented as of this encounter Plan of Treatment Not on file documented as of this encounter Visit Diagnoses Diagnosis Chronic kidney disease, stage 3 (moderate) Renal mass documented in this encounter Care Teams Medical Receptionist Biller Relationship Specialty Start Date End Date Urvashi Mcmahan MD [address] [place] [address] PCP - General Family Medicine 06/18/20 documented as of this encounter
--- OUTSIDE RECORDS SUMMARY | 2024-10-13 18:39 | XMS_ITS | Encounter Summary ---
Author Organization [facility] Address [address] [place] [address] Care Team Providers Care Rn Anesthetist Name Role Phone Zeyad Angel MD Primary Care Provider [phone] Reason for Referral * Outpatient Services (Routine) - Closed Specialty Diagnoses / Procedures Referred By Contac t Referred To Contact Radiology Diagnoses Right renal mass Procedures CT ABDOMEN PELVIS WO CONTRAST CT ABDOMEN PELVIS W CONTRAST Donnell Kothari MD Phone: tel: fax: [facility] [address] [facility] [address] [place] [address] Phone: tel: fax: Referral ID Status Reason Start Date Expiration Date V isits Requested Visits Authorized [id number] Closed [facility] TO SCHEDULE ([facility]) 09/27/2017 10/28/2018 1 1 Encounter Details Date Type Department Care Team ([facility] Contact Info) Description 03/14/2018 Ancillary Orders [facility] [place] [address] Entrance [address], 3[address] [place] [address] Donnell Kothari MD [address] [address] Right renal mass Social History Tobacco Use Types Packs/Day Years Used Date Smoking Tobacco: Never Smokeless Tobacco: Never Sex and Gender Information Value Date Recorded Sex Assigned at Not on file Legal Sex Male 11:09 AM CERTIFIED EXECUTIVE CHEF Gender Identity Not on file Sexual Orientation Not on file documented as of this encounter Plan of Treatment Not on file documented as of this encounter Results * CT ABDOMEN PELVIS WO CONTRAST (03/14/2018 11:22 AM CERTIFIED EXECUTIVE CHEF) Anatomical Region Laterality Modality Abdomen Computed Tomogra phy 03/14/2018 11:2 2 AM CERTIFIED EXECUTIVE CHEF Impressions 03/14/2018 11:39 AM CERTIFIED EXECUTIVE CHEF IMPRESSION: Please see below. Exam: CT ABDOMEN PELVIS WO CONTRAST Date/Time of Exam: 03/14/2018 11:22 AM Reason For Exam: See Diagnosis. Diagnosis: Right renal mass. Technique: CT of the abdomen and pelvis was performed without the administration of intravenous contrast. Findings: Prior exam is July 20, 2017. The lung bases are clear and there is no pleural or pericardial effusion. A small hiatal hernia is noted. There is fatty infiltration of the liver. The gallbladder, spleen, and adrenal glands have an appropriate appearance. The pancreas is unremarkable. There is an exophytic lesion/mass mid pole right kidney measuring 4.5 cm in size image 36 unchanged since the prior exam. Additional subcentimeter renal hypodensities compatible with cysts and cortical scarring is unchanged. Both kidneys have a lobulated contour. No calculi are identified in the kidneys, ureters, or bladder. The bladder wall appears thickened and there is prostatomegaly. The appearance is compatible with chronic outlet obstructive changes. Small fat filled inguinal hernias are noted. There is no pathologic adenopathy in the retroperitoneum, abdomen, or pelvis. The abdominal aorta is normal in size. There is abundant colonic stool. No ileus or obstruction. No inflammatory changes. The appendix is unremarkable. Moderate degenerative changes are noted in the spine and no bony destructive lesion or fracture is identified. IMPRESSION: 1. Unchanged appearance of the exophytic right renal mass concerning for renal cell carcinoma. No new mass or adenopathy. Prostatomegaly and bladder wall thickening is identified. [id number] Narrative Procedure Note Lizzette Urbina MD - 03/14/2018 IMPRESSION: Please see below. Exam: CT ABDOMEN PELVIS WO CONTRAST Date/Time of Exam: 03/14/2018 11:22 AM Reason For Exam: See Diagnosis. Diagnosis: Right renal mass. Technique: CT of the abdomen and pelvis was performed without the administration of intravenous contrast. Findings: Prior exam is July 20, 2017. The lung bases are clear and there is no pleural or pericardial effusion. A small hiatal hernia is noted. There is fatty infiltration of the liver. The gallbladder, spleen, and adrenal glands have an appropriate appearance. The pancreas is unremarkable. There is an exophytic lesion/mass mid pole right kidney measuring 4.5 cm in size image 36 unchanged since the prior exam. Additional subcentimeter renal hypodensities compatible with cysts and cortical scarring is unchanged. Both kidneys have a lobulated contour. No calculi are identified in the kidneys, ureters, or bladder. The bladder wall appears thickened and there is prostatomegaly. The appearance is compatible with chronic outlet obstructive changes. Small fat filled inguinal hernias are noted. There is no pathologic adenopathy in the retroperitoneum, abdomen, or pelvis. The abdominal aorta is normal in size. There is abundant colonic stool. No ileus or obstruction. No inflammatory changes. The appendix is unremarkable. Moderate degenerative changes are noted in the spine and no bony destructive lesion or fracture is identified. IMPRESSION: 1. Unchanged appearance of the exophytic right renal mass concerning for renal cell carcinoma. No new mass or adenopathy. Prostatomegaly and bladder wall thickening is identified. [id number] ORDERABLES Final R esult documented in this encounter Visit Diagnoses Diagnosis Right renal mass Unspecified disorder of kidney and ureter Right renal mass Unspecified disorder of kidney and ureter documented in this encounter Care Teams Rn Anesthetist Relationship Specialty Start Date End Date Zeyad Angel MD [address] [address] PCP - General Family Practice 07/19/17 documented as of this encounter
--- OUTSIDE RECORDS SUMMARY | 2024-10-13 18:39 | XMS_ITS | Clinical Summary ---
Author Organization [facility] Address [address] [facility] Attn: [place] [address] Care Team Providers Care Jailer/Training Officer Name Role Phone Zeyad Angel MD Primary Care Provider [phone] Allergies No known active allergies Medications valACYclovir (VALTREX) 1 gram tablet 05/11/2017 Active amoxicillin-clavul anate (AUGMENTIN) 875-125 mg tablet 06/04/2017 A ctive methylPREDNISolone (MEDROL DOSPACK) 4 mg Tablets, Dose Pack 05/11/2017 Active Active Problems Problem Noted Date Diagnosed Date CKD (chronic kidney disease) 09/27/2017 Morbid obesity 09/27/2017 Right renal mass 07/21/2017 Overview (07/11/2020): CT finding, 4.4 cm Alzheimer's dementia without [...] at Not on file Legal Sex Male 7:00 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 Gender Identity Not on file Sexual Orientation Not on file Last Filed Vital Signs Vital Sign Reading Time Taken Comments Blood Pressure 160/77 02/03/2019 10:07 AM ION EXCHANGE OPERATOR Pulse 88 02/03/2019 10:07 AM ION EXCHANGE OPERATOR Temperature 36.1 C (97 F) 07/30/2017 8:43 AM CDT Respiratory Rate 18 07/30/2017 8:43 AM CDT Oxygen Saturation - - Inhaled Oxygen Concentration - - Weight 167.8 kg (370 lb) 02/03/2019 10:07 AM ION EXCHANGE OPERATOR Height 190.5 cm (6' 3 ) 02/03/2019 10:07 AM ION EXCHANGE OPERATOR Body Mass Index 46.25 02/03/2019 10:07 AM ION EXCHANGE OPERATOR Plan of Treatment Health Maintenance Due Date Last Done Comments DTAP/TDAP/TD VACCINES (1 - Tdap) 1965 PNEUMOCOCCAL VACCINE 50+ YEARS (1 of 1 - PCV) 04/01/18 97 ZOSTER VACCINE (1 of 2) 1996 RSV VACCINE (60+ or ) (1 - 1-dose 75+ series) 2021 INFLUENZA VACCINE (#1) 2024 Medical Devices Implanted Type Area Telecasting Technician Device Identifier Shelf Expiration Date Model / Serial / Lot Mesh Ventralex 2.5in Med Circ [id number] - [id number] Implanted:Qty: 1 on 07/24/2017 by Singh Ibarra MD Mesh Abdomen CR [employer] 06/10/2019 [id number] / / [id number] Advance Directives For more information, please contact: [phone] Documents on File Type Date Recorded Patient Sheet Manager Expl anation Advance Directive POA 08/04/2017 10:52 AM Advance Directive POA Care Teams Jailer/Training Officer Relationship Specialty Start Date End Date Zeyad Angel MD [address] [address] PCP - General Family Practice 07/19/17
--- OUTSIDE RECORDS SUMMARY | 2024-10-13 18:39 | XMS_ITS | Patient Health Record ---
Author Organization [facility] Address [address] [place] [address] Care Team Providers Care Zmt Operator Name Role Phone Urvashi Queen MD Primary Care Provider UnavailShantelle Gomez Unavailable [phone] [place], [place] Unavailable Unavailable Jese Sung Unavailable [phone] Rosario Melara Unavailable [phone] Mitul Razo Unavailable [phone] Allergies Allergen (clinical drug ingredient) Drug/Non Drug Allergy documented on EMR Reaction Allergy Type Onset Date Status Novocain Unknown Drug Allergy Active Results Component Value Reference Range Flag Notes UA Without Micro-[place], [place] - [address] Reviewed date:07/26/2024 02:46:30 PM Interpretation: Performing Lab: Notes/Report: Glucose 3+ Bili - Ketones - Sp Umbarger 1.010 Blood - pH 6.5 Protein - Urobili - Nitrites - Leukocytes - Creatinine (B) 91651 Reviewed date:12/24/2023 12:04:18 PM Interpretation: Performing Lab: Notes/Report: Diagnosis Description: Malignant neoplasm of right kidney, except renal pelvis Creat 1.40 .57-1.17 MG/DL HI F-pzlvww-t-benzoquinon e imine (NAPQI) is a metabolite of acetaminophen, NAPQI concentrations of apparoximately 10 mg/L correlation to toxic levels of acetaminophen demonstrates a greater than or equil to 10% change in results. NAPQI concentrations greater than this may lead to falsely depressed results for patient samples. Use of this assay is not recommended for patients undergoing treatment with phenindione, due to the potential for falsely depressed results. GFR 51.6 NA Calculation pe rformed from GFR calculator provided by the [employer]. Glomerular Filtration rate(GRF) is the best overall index of kidney function. Normal GFR varies according to age,sex, body size, and declines with age. The National Kid[employer] Foundation recommends using the CKD-EPI Creatinine Equation(2020) to estimate GFR. CT Abdomen w/ + w/o Contrast -[id number] Reviewed date:12/23/2023 07:32:32 AM Interpretation: Performing Lab: Notes/Report: See Below For Report CT Abdomen w/ + w/o Contrast Read See Below For Report CT Abdomen w/ + w/o Contrast -[id number] Reviewed date:07/16/2024 07:57:24 AM Interpretation: Performing Lab: Notes/Report: See Below For Report CT Abdomen w/ + w/o Contrast Read See Below For Report CT Abdomen w/ + w/o Contrast -[id number] Reviewed date:12/23/2023 07:27:11 AM Interpretation: Performing Lab: Notes/Report: [id number]=[facility] Chest PA/Lat-[id number] Reviewed date:12/25/2023 10:12:12 AM Interpretation: Performing Lab: Notes/Report: See Below For Report Chest PA/Lat Diagnosis Description: Malignant neoplasm of right kidney, except renal pelvis Read See Below For Report Creat Proc NC--NO PCT Reviewed date:07/14/2024 09:32:24 AM Interpretation: Performing Lab: Notes/Report: Creat 1.25 .57-1.17 MG/DL HI Use of this assay is not recommended for patients undergoing treatment with phenindione, due to the potential for falsely depressed results. R-etiggz-i-benzoquinon e imine (NAPQI) is a metabolite of acetaminophen, NAPQI concentrations of apparoximately 10 mg/L correlation to toxic levels of acetaminophen demonstrates a greater than or equil to 10% change in results. NAPQI concentrations greater than this may lead to falsely depressed results for patient samples. Bun Proc NC--NO CPT Reviewed date:07/14/2024 09:32:31 AM Interpretation: Performing Lab: Notes/Report: BUN 15 7-21 MG/DL Chest PA/Lat-[id number] Reviewed date:12/25/2023 10:11:28 AM Interpretation: Performing Lab: Notes/Report: [id number]&org=[facility] ([facility]) [id number] Reviewed date:12/24/2023 12:04:27 PM Interpretation: Performing Lab: Notes/Report: Diagnosis Description: Malignant neoplasm of right kidney, except renal pelvis Glucose Serum 100 71-110 MG/DL Testing p erformed at [facility], [address] [place] [address] [place] [address]. CLIA ID#: [id number] BUN 14 7-21 MG/DL Creat 1.21 .57-1.17 MG/DL HI Use of this assay is not recommended for patients undergoing treatment with phenindione, due to the potential for falsely depressed results. K-bilxli-a-benzoquinon e imine (NAPQI) is a metabolite of acetaminophen, NAPQI concentrations of apparoximately 10 mg/L correlation to toxic levels of acetaminophen demonstrates a greater than or equil to 10% change in results. NAPQI concentrations greater than this may lead to falsely depressed results for patient samples. GFR 51.6 NA Calculation pe rformed from GFR calculator provided by the [employer]. Glomerular Filtration rate(GRF) is the best overall index of kidney function. Normal GFR varies according to age,sex, body size, and declines with age. The National Kid[employer] Foundation recommends using the CKD-EPI Creatinine Equation(2020) to estimate GFR. BUN/Creat Ratio 14.0 12.0-20.0 % Total Protein 7.2 5.8-8.0 G/DL Albumin 4.4 3.2-4.8 G/DL Globulin 2.8 2.3-3.5 G/DL Alb/Glob 1.6 0.8-2.2 Calcium 9.2 8.7-10.4 MG/DL Sodium 140 136-145 MMOL/L Potassium 4.1 3.5-5.1 MMOL/L Chloride 106 98-107 MMOL/L CO2 28.7 20.0-31.0 MMOL/L Anion Gap 9 5-15 Alk Phos 114 46-116 Bili Total .4 .3-1.2 MG/DL Use of this assay is not recommended for patients undergoing treatment with eltrombopag due to the potential for falsely elevated results. AST/SGOT 13 15-37 UNIT/L LOW ALT/SGPT 12 12-78 UNIT/L Osmo Serum,Calculated 290 280-300 MOSM/KG Blood Urea Nitrogen (BUN) 84 520 Reviewed date:12/24/2023 12:04:41 PM Interpretation: Performing Lab: Notes/Report: Diagnosis Description: Malignant neoplasm of right kidney, except renal pelvis BUN 17 7-21 MG/DL UA W/O Microscopic [id number] Reviewed date:12/29/2023 11:03:50 AM Interpretation: Performing Lab: Notes/Report: Specific gravity UA 1.020 Urine pH 5.5 Urine Glucose 3+ Urine Bilirubin 0 Urine Ketone 0 Urine Blood 0 Urine Protein +- Urobilinogen 0 Urine Nitrite 0 Urine Leukocyte 0 CBC w\ Auto Diff [id number] Reviewed date:12/24/2023 12:04:07 PM Interpretation: Performing Lab: Notes/Report: Diagnosis Description: Malignant neoplasm of right kidney, except renal pelvis WBC 6.9 4.5-11.0 X10'3 RBC 4.98 4.50-5.90 X10'6 Hgb 15.2 13.5-17.5 G/DL Hct 46.0 41.0-53.0 % MCV 92.4 80.0-100.0 FL MCH 30.5 27.0-31.0 PG MCHC 33.0 31.0-37.0 G/DL Platelet 162 150-400 X10'3 RDW-SD 45.5 35.0-49.0 FL RDW-CV 13.4 12.2-15.6 % MPV 9.5 9.2-12.0 FL Neutro Auto% 68.2 40.0-70.0 % Lymph Auto% 22.2 22.0-44.0 % [place] Auto% 6.4 3.0-7.0 % Eos Auto% 2.2 2.0-4.0 % Baso Auto% 0.6 0.0-1.0 % Imm Gran% .4 .0-.4 % Neutro Abs 4.71 .80-7.70 Absolute Neutrophil Count 4710 NA Lymph Abs 1.53 .10-4.10 [place] Abs .44 .20-1.00 Eos Abs .15 .00-.40 Baso Abs .04 .00-.20 Imm Gran Abs .03 .00-.10 NRBC# .00 .00-.20 NRBC% .00 .00-.20 /[address] Abdomen w/ + w/o Contrast -[id number] Reviewed date:07/16/2024 07:57:41 AM Interpretation: Performing Lab: Notes/Report: [id number]=[facility] Reason For Referral Reason Neph -scheduled Diagnosis 1 Chronic kidney disea se, stage 3b (N18.32) Referring Provider First Name [place] Jose Luis ff Referring Provider Last Name [place] Referring Provider [facility] Referred [facility] Referred Provider Jese Sung Referred Address [address] [place] [address] Darinel [address],[place], [place],[address],[place] Referred Provider Specialty Nephrology Referral Priority Routine Reason Malignant neoplasm o f right kidney Referring Provider First Name [place] Jose Luis ff Referring Provider Last Name MT Referring Provider [facility] Referred [facility] Referred Provider Mitul Razo Referred Address [address],[place], [place],[address],[place] Referred Provider Specialty Urology Referral Priority Routine Reason Malignant Neoplasm o f Right Kidney Referring Provider First Name [place] Jose Luis ff Referring Provider Last Name MT Referring Provider [facility] Referred [facility] Referred Provider Mitul Razo Referred Address [address],[place], [place],[address],[place] Referred Provider Specialty Urology Referral Priority Routine Reason Neph-scheduled Diagnosis 1 Chronic kidney disea se, stage 3b (N18.32) Referring Provider First Name [place] Jose Luis ff Referring Provider Last Name [place] Referring Provider [facility] Referred [facility] Referred Provider Jese Sung Referred Address [address] [place] [address] Darinel Murphy [address],[place], [place],[address],[place] Referred Provider Specialty Nephrology Referral Priority Routine Reason Malignant Neoplasm o f right kidney, except renal pelvis Diagnosis 1 Malignant neoplasm o f right kidney, except renal pelvis (C64.1) Referring Provider First Name [place] Jose Luis ff Referring Provider Last Name [place] Referring Provider [facility] Referred [facility] Referred Provider Mitul Razo Referred Address [address],[place], [place],[address],[place] Referred Provider Specialty Urology Referral Priority Routine Medications Medication SIG (Take, Route, Frequency, Duration) Notes Start Date End Date Status Tamsulosin HCl 0.4 MG Capsule 1 capsule Orally twice daily Active SITagliptin 25mg 1 tab daily A ctive Potassium Chloride 20 MEQ Powder for Oral Solution ORAL wed,,wed,sat 04/17/2022 Active Omeprazole 40 MG Capsule Delayed Release 1 capsule 30 minutes before morning meal Orally Once a day Active HYDROcodone-Acetamino phen 5-325 MG Tablet 1 tablet as needed Orally every 6 hrs Not-Taking Memantine HCl 10 MG Tablet 1 tablet Orally Twice a day Active hydrALAZINE HCl 10 MG Tablet 1 tablet with food Orally Four times a day Not-Taking Levothyroxine Sodium 50 MCG Tablet 1 tablet in the morning on an empty stomach Orally Once a day Active guaiFENesin DM Not-T aking Gabapentin 400 MG Capsule 1 capsule Orally twice daily Active Empagliflozin 25 MG Oral Tablet ORAL *Reorder from [place] for eRx and Interaction Alerts* 08/21/2022 Not-Taking Furosemide 40 MG Tablet 1 tablet Orally ,wed,sat Active Dicyclomine Hydrochloride 10 MG Oral Capsule ORAL *Reorder from [place] for eRx and Interaction Alerts* 04/17/2022 Not-Taking Folic Acid 0.8 MG Oral Capsule ORAL 0.4 mg daily 08/21/2022 Active Dextromethorphan Hydrobromide 1 MG/ML / Guaifenesin 20 MG/ML Oral Solution ORAL *Reorder from [place] for eRx and Interaction Alerts* 08/21/2022 Not-Taking Empagliflozin 25 MG Tablet 0.5 tablet Orally Once a day Active Citalopram Hydrobromide 40 MG Tablet 1 tablet Orally Once a day Not-Taking Rosuvastatin Calcium 20 MG Tablet 1/2 tablet Orally Once a day Active Eliquis 5 MG Tablet 1 tablet Orally twice a day Active cholecalciferol 0.05 MG Oral Capsule ORAL *Reorder from [place] for eRx and Interaction Alerts* 08/21/2022 Not-Taking Chlorhexidine Gluconate 0.12 % Solution as directed Mouth/Throat Not-Taking cetirizine hydrochloride 10 MG Oral Tablet ORAL *Reorder from [place] for eRx and Interaction Alerts* 08/26/2021 Not-Taking Citalopram 40 MG Oral Tablet ORAL *Reorder from [place] for eRx and Interaction Alerts* 08/26/2021 Active Aspirin Adult Low Dose 81 MG Tablet Delayed Release 1 tablet Orally Once a day Not-Taking Lancet Device Not-Ta dwaine Cetirizine HCl 10 MG Tablet 1 tablet Orally Once a day Active Apixaban 5 MG Oral Tablet ORAL *Reorder from [place] for eRx and Interaction Alerts* 08/21/2022 Not-Taking amLODIPine Besylate 2.5 MG Tablet 1 tablet Orally Once a day Active Apixaban 5 MG Tablet 1 tablet Orally Twice a day Not-Taking Albuterol Sulfate 108 (90 Base) MCG/ACT Aerosol Powder Breath Activated 1 puff as needed Inhalation every 4 hrs Active Alogliptin Benzoate 6.25 MG Tablet 1 tablet Orally daily Not-Taking Acetaminophen 5-325 1 tab every 6 hours prn Active alogliptin 6.25 MG Oral Tablet ORAL *Reorder from [place] for eRx and Interaction Alerts* 08/26/2021 Not-Taking Accu-Chek Active Not -Taking 200 ACTUAT Albuterol 0.09 MG/ACTUAT Dry Powder Inhaler INTRAPULMONARY *Reorder from [place] for eRx and Interaction Alerts* 08/21/2022 Not-Taking Vitamin D3 25 MCG (1000 UT) Tablet Chewable 1 tablet Orally Once a day Active Sudafed Not-Taking docusate sodium 100 MG Oral Capsule [Colace] ORAL *Reorder from [place] for eRx and Interaction Alerts* 04/17/2022 Active Spironolactone 25 MG Tablet 1 tablet Orally Not-Taking Dicyclomine HCl 10 MG Capsule 1 capsules Orally twice a day Active Ranitidine 150 Max Strength Not-Taking Social History Tobacco Use: Social History Observation Description Date Details (start date - stop date) Never Smoker NA - NA Social History Drugs/Alcohol: Social Info Question Answer Notes Caffeine Intake: 2-3 cups per day Coffee, sod a Tobacco Use: Social Info Question Answer Notes xTobacco Use/Smoking Are you a nonsmoker Tobacco use other than smoking: Are you an other tobacco user? No Additional Details Category Social Info Options Details Miscellaneous: Marital status: Occupation: Retired Children: yes x3 : Was in the [employer] from [phone] Level of Education: [employer]: [employer] Drugs/Alcohol: Do you smoke marijuana? De nies Do you drink alcohol? No Migrated Social History Migrated Social History History of tobacco use : , Smoking Status : Never used tobacco , Alcohol intake : Section Notes: Does not smoke Does not drink Does not smoke Does not drink Does not smoke Does not drink Does not smoke Does not drink Does not smoke Does not drink Problems Problem Type SNOMED Code ICD Code Onset Dates Problem Status W/U Status Risk Notes Problem Malignant tumor of kidney (020268967) Malignant neoplasm of right kidney, except renal pelvis (C64.1) Active confirmed Problem Diabetic renal disease (498551363) Type 2 diabetes mellitus with diabetic chronic kidney disease (E11.22) Active confirmed Problem Mixed hyperlipidemia (743112022) Mixed hyperlipidemia (E78.2) Active confirmed Problem Chronic kidney disease due to hypertension (779053452132449) Hypertensive chronic kidney disease with stage 1 through stage 4 chronic kidney disease, or unspecified chronic kidney disease (I12.9) Active confirmed Problem Renal failure syndrome (57719967) Unspecified kidney failure (N19) Active confirmed Problem Secondary hyperparathyroidism of renal origin (59255932) Secondary hyperparathyroidism of renal origin (N25.81) Active confirmed Problem Hyperparathyroidism (34320664) Hyperparathyroidism (E21.3) Active confirmed Problem Benign hypertension (50983472) Hypertension, benign (I10) Active confirmed Problem Vitamin D deficiency (08828935) Vitamin D deficiency (E55.9) Active confirmed Problem History of pulmonary embolus (383320096) History of pulmonary embolism (Z86.711) Active confirmed Problem Anemia (254234448) Anemia (D64.9) Active confir med Problem Acquired hypothyroidism (819307257) Acquired hypothyroidism (E03.9) Active confirmed Problem Diabetic peripheral neuropathy associated with type 2 diabetes mellitus (3731234654353) Type 2 diabetes mellitus with diabetic neuropathy, without long-term current use of insulin (E11.40) Active confirmed Problem Use of anticoagulation (042496468) Chronic anticoagulation (Z79.01) Active confirmed Problem Iron deficiency anemia (79600633) Iron deficiency anemia (D50.9) Active confirmed Problem Morbid obesity (768694364) Morbid obesity (E66.01) Active confirmed Problem Urinary incontinence (588786607) Urinary incontinence (R32) Active confirmed Problem Pancreatic mass (557271996) Pancreatic mass (K86.89) Active confirmed Problem Renal mass (946707300) Renal mass (N28.89) Active confirmed Problem Malignant tumor of kidney (723501675) Malignant neoplasm of right kidney (C64.1) Active confirmed Problem Chronic kidney disease stage 3B (disorder) (356726519) Chronic kidney disease, stage 3b (N18.32) Active confirmed Vital Signs Heart Rate 96 /min 07/26/2024 Temperature 98.76 degrees Fahrenheit 07/26/2024 Blood pressure diastolic 86 mm Hg 07/26/2024 Oximetry 94 % 06/22/2024 Height-cm 182.88 cm 07/26/2024 Weight-kg 168.06 kg 07/26/2024 Height 73 in 07/26/2024 Blood pressure systolic 120 mm Hg 07/26/2024 Weight 370.5 lbs 07/26/2024 BMI 48.88 kg/m2 07/26/2024 Procedures Procedure Date Ordered Date Performed Result Body Sit e PVR (Post Void Residual) 12/29/2023 12/29/2023 500mL strai ght cath Encounters Encounter Location Date Provider Diagnosis [facility] [address] [place] [address] 06/22/2024 Shantelle Manzo Hypertensive chronic kidney disease with stage 1 through stage 4 chronic kidney disease, or unspecified chronic kidney disease I12.9 ; Type 2 diabetes mellitus with diabetic chronic kidney disease E11.22 ; Chronic kidney disease, stage 3b N18.32 ; Hyponatremia E87.1 ; Secondary hyperparathyroidism of renal origin N25.81 ; Vitamin D deficiency E55.9 ; Anemia D64.9 ; Pharmacologic therapy Z79.899 and Iron deficiency anemia D50.9 [facility] [address] [place] [address] 12/06/2023 Rosario Melara Hypertensive chronic kidney disease with stage 1 through stage 4 chronic kidney disease, or unspecified chronic kidney disease I12.9 ; Chronic kidney disease, stage 3b N18.32 ; Hyponatremia E87.1 ; Secondary hyperparathyroidism of renal origin N25.81 ; Vitamin D deficiency E55.9 ; Anemia D64.9 and Pharmacologic therapy Z79.899 [facility] [address] [place] [address] [address] [place] [address] 07/26/2024 Mitul Razo Malignant neoplasm o f right kidney C64.1 ; Urinary incontinence R32 and Incomplete emptying of bladder R33.9 [facility] [address] [place] [address] [address] [place] [address] 12/29/2023 Mituljuan m Jamay Urinary retention R3 3.9 ; Malignant neoplasm of right kidney C64.1 and Urinary incontinence R32 [facility] [address] [place] [address] [address] [place] [address] 07/27/2024 Mitul Baltazarsay [facility] [address] [place] [address] 07/26/2024 Mitul Baltazarsay [facility] [address] [place] [address] 07/26/2024 Mitul Baltazarsay [facility] [address] [place] [address] 07/26/2024 Mitul Razo Malignant neoplasm o f right kidney C64.1 [facility] [address] [place] [address] [address] [place] [address] 07/26/2024 Mitul Razo Malignant neoplasm o f right kidney C64.1 [facility] [address] [place] [address] [address] [place] [address] 05/22/2024 Rosario Purijosefina [facility] [address] [place] [address] [address] [place] [address] 04/20/2024 Rosario Melara [facility] [address] [place] [address] [address] [place] [address] 12/29/2023 Mitul Razo Renal mass N28.89 [facility] [address] [place] [address] [address] [place] [address] 11/25/2023 Jese Sung Assessments Encounter Date Diagnosis (ICD Code) Assessment Notes Treatment Notes Treatment Clinical Notes Section Notes 12/06/2023 Hypertensive chronic kidney disease with stage 1 through stage 4 chronic kidney disease, or unspecified chronic kidney disease (ICD-10 - I12.9) Chronic Kidney Disease: Care Instructions material was printed CKD is back to baseline. Hypertension is controlled. Hyponatremia has resolved. SHPTH is at goal. Vitamin D deficiency has resolved with treatment. Renal cell carcinoma is being monitored, but not treated. His hemoglobin is above goal for CKD and he is mildly iron deficient. 12/29/2023 Urinary retention (ICD-10 - R33.9) 12/29/2023 Malignant neoplasm of right kidney (ICD-10 - C64.1) 12/29/2023 Renal mass (ICD-10 - N28.89) 06/22/2024 Type 2 diabetes mellitus with diabetic chronic kidney disease (ICD-10 - E11.22) CKD stage 3b is baseline. Most recent labs are consistent with stage II CKD. Hypertension is slightly uncontrolled in clinic with unknown control at home. Hyponatremia has resolved. SHPTH is at goal for CKD. Vitamin D was previously at goal for CKD. Renal cell carcinoma is being monitored, but not treated. His hemoglobin is above goal for CKD and he is mildly iron deficient. BPH followed by Urology. Diabetes control is unknown. SHPTH is at goal for CKD. 06/22/2024 Hypertensive chronic kidney disease with stage 1 through stage 4 chronic kidney disease, or unspecified chronic kidney disease (ICD-10 - I12.9) CKD stage 3b is baseline. Most recent labs are consistent with stage II CKD. Hypertension is slightly uncontrolled in clinic with unknown control at home. Hyponatremia has resolved. SHPTH is at goal for CKD. Vitamin D was previously at goal for CKD. Renal cell carcinoma is being monitored, but not treated. His hemoglobin is above goal for CKD and he is mildly iron deficient. BPH followed by Urology. Diabetes control is unknown. SHPTH is at goal for CKD. 07/26/2024 Urinary incontinence (ICD-10 - R32) 07/26/2024 Malignant neoplasm of right kidney (ICD-10 - C64.1) 07/26/2024 Malignant neoplasm of right kidney (ICD-10 - C64.1) 07/26/2024 Malignant neoplasm of right kidney (ICD-10 - C64.1) 07/26/2024 Incomplete emptying of bladder (ICD-10 - R33.9) 12/06/2023 Chronic kidney disease, stage 3b (ICD-10 - N18.32) Diabetic Renal Diet: Care Instructions material was printed CKD is back to baseline. Hypertension is controlled. Hyponatremia has resolved. SHPTH is at goal. Vitamin D deficiency has resolved with treatment. Renal cell carcinoma is being monitored, but not treated. His hemoglobin is above goal for CKD and he is mildly iron deficient. 06/22/2024 Chronic kidney disease, stage 3b (ICD-10 - N18.32) CKD stage 3b is baseline. Most recent labs are consistent with stage II CKD. Hypertension is slightly uncontrolled in clinic with unknown control at home. Hyponatremia has resolved. SHPTH is at goal for CKD. Vitamin D was previously at goal for CKD. Renal cell carcinoma is being monitored, but not treated. His hemoglobin is above goal for CKD and he is mildly iron deficient. BPH followed by Urology. Diabetes control is unknown. SHPTH is at goal for CKD. 12/29/2023 Urinary incontinence (ICD-10 - R32) 12/06/2023 Hyponatremia (ICD-10 - E87.1) CKD is back to baseline. Hypertension is controlled. Hyponatremia has resolved. SHPTH is at goal. Vitamin D deficiency has resolved with treatment. Renal cell carcinoma is being monitored, but not treated. His hemoglobin is above goal for CKD and he is mildly iron deficient. 06/22/2024 Hyponatremia (ICD-10 - E87.1) CKD stage 3b is baseline. Most recent labs are consistent with stage II CKD. Hypertension is slightly uncontrolled in clinic with unknown control at home. Hyponatremia has resolved. SHPTH is at goal for CKD. Vitamin D was previously at goal for CKD. Renal cell carcinoma is being monitored, but not treated. His hemoglobin is above goal for CKD and he is mildly iron deficient. BPH followed by Urology. Diabetes control is unknown. SHPTH is at goal for CKD. 12/06/2023 Secondary hyperparathyroidism of renal origin (ICD-10 - N25.81) Hyperparathyroidism : Care Instructions material was printed CKD is back to baseline. Hypertension is controlled. Hyponatremia has resolved. SHPTH is at goal. Vitamin D deficiency has resolved with treatment. Renal cell carcinoma is being monitored, but not treated. His hemoglobin is above goal for CKD and he is mildly iron deficient. 06/22/2024 Secondary hyperparathyroidism of renal origin (ICD-10 - N25.81) CKD stage 3b is baseline. Most recent labs are consistent with stage II CKD. Hypertension is slightly uncontrolled in clinic with unknown control at home. Hyponatremia has resolved. SHPTH is at goal for CKD. Vitamin D was previously at goal for CKD. Renal cell carcinoma is being monitored, but not treated. His hemoglobin is above goal for CKD and he is mildly iron deficient. BPH followed by Urology. Diabetes control is unknown. SHPTH is at goal for CKD. 12/06/2023 Vitamin D deficiency (ICD-10 - E55.9) CKD is back to baseline. Hypertension is controlled. Hyponatremia has resolved. SHPTH is at goal. Vitamin D deficiency has resolved with treatment. Renal cell carcinoma is being monitored, but not treated. His hemoglobin is above goal for CKD and he is mildly iron deficient. 06/22/2024 Vitamin D deficiency (ICD-10 - E55.9) CKD stage 3b is baseline. Most recent labs are consistent with stage II CKD. Hypertension is slightly uncontrolled in clinic with unknown control at home. Hyponatremia has resolved. SHPTH is at goal for CKD. Vitamin D was previously at goal for CKD. Renal cell carcinoma is being monitored, but not treated. His hemoglobin is above goal for CKD and he is mildly iron deficient. BPH followed by Urology. Diabetes control is unknown. SHPTH is at goal for CKD. 06/22/2024 Anemia (ICD-10 - D64.9) CKD stage 3b is baseline. Most recent labs are consistent with stage II CKD. Hypertension is slightly uncontrolled in clinic with unknown control at home. Hyponatremia has resolved. SHPTH is at goal for CKD. Vitamin D was previously at goal for CKD. Renal cell carcinoma is being monitored, but not treated. His hemoglobin is above goal for CKD and he is mildly iron deficient. BPH followed by Urology. Diabetes control is unknown. SHPTH is at goal for CKD. 12/06/2023 Anemia (ICD-10 - D64.9) CKD is back to baseline. Hypertension is controlled. Hyponatremia has resolved. SHPTH is at goal. Vitamin D deficiency has resolved with treatment. Renal cell carcinoma is being monitored, but not treated. His hemoglobin is above goal for CKD and he is mildly iron deficient. 12/06/2023 Pharmacologic therapy (ICD-10 - Z79.899) CKD is back to baseline. Hypertension is controlled. Hyponatremia has resolved. SHPTH is at goal. Vitamin D deficiency has resolved with treatment. Renal cell carcinoma is being monitored, but not treated. His hemoglobin is above goal for CKD and he is mildly iron deficient. 06/22/2024 Pharmacologic therapy (ICD-10 - Z79.899) CKD stage 3b is baseline. Most recent labs are consistent with stage II CKD. Hypertension is slightly uncontrolled in clinic with unknown control at home. Hyponatremia has resolved. SHPTH is at goal for CKD. Vitamin D was previously at goal for CKD. Renal cell carcinoma is being monitored, but not treated. His hemoglobin is above goal for CKD and he is mildly iron deficient. BPH followed by Urology. Diabetes control is unknown. SHPTH is at goal for CKD. 06/22/2024 Iron deficiency anemia (ICD-10 - D50.9) CKD stage 3b is baseline. Most recent labs are consistent with stage II CKD. Hypertension is slightly uncontrolled in clinic with unknown control at home. Hyponatremia has resolved. SHPTH is at goal for CKD. Vitamin D was previously at goal for CKD. Renal cell carcinoma is being monitored, but not treated. His hemoglobin is above goal for CKD and he is mildly iron deficient. BPH followed by Urology. Diabetes control is unknown. SHPTH is at goal for CKD. 12/06/2023 Other Continue current antihypertensives. Monitor blood pressure daily with a goal of less than 140/80. Low-sodium diet. Continue vitamin D supplement. Monitor hyperparathyroidism labs and vitamin D level. Continue current diuretics.Weight daily. Low-sodium diet. Dose medications for GFR less than 60 ml/min. Avoid nephrotoxins. Risk factor modification: Control DM, HTN. Follow-up in 5-[address] Sung with labs at at [facility] clinic. BMP, mag, uric, phos, PTH, UA The patient was instructed to follow up with their PCP for preventative health screenings. CKD is back to baseline. Hypertension is controlled. Hyponatremia has resolved. SHPTH is at goal. Vitamin D deficiency has resolved with treatment. Renal cell carcinoma is being monitored, but not treated. His hemoglobin is above goal for CKD and he is mildly iron deficient. 12/29/2023 Other [address] abd with and without iv contrast He is not a good surgical candidate due to overall with cbc, cmp, chest x ray. with straight cath PVR. PVR is currently around 500. As long as he does not develop hydronephrosis or worsening renal function we will monitor given his overall body habitus and poor health. I do not want to place him on medication that relaxes bladder since he is not emptying well Continue tamsulosin 06/22/2024 Other I have asked patient to sign [facility] for [facility] hospitalization records. Continue current antihypertensives. Monitor blood pressure daily with a goal of less than 140/80. Continue low-sodium diet. Continue vitamin D supplement. Monitor hyperparathyroidism labs and vitamin D level. Continue current diuretics. Weigh daily. Dose medications for GFR of 62 mL/min. Avoid nephrotoxins. Risk factor modification: Control DM, HTN. Monitor iron deficiency. Keep follow up with Urology as recommended Follow-up in 6 months with labs at [facility] 5-10 days prior to appointment BMP, mag, uric, phos, PTH, Hgb, iron studies, UA, UPC, urine microalbumin The patient was instructed to follow up with their PCP for preventative health screenings. CKD stage 3b is baseline. Most recent labs are consistent with stage II CKD. Hypertension is slightly uncontrolled in clinic with unknown control at home. Hyponatremia has resolved. SHPTH is at goal for CKD. Vitamin D was previously at goal for CKD. Renal cell carcinoma is being monitored, but not treated. His hemoglobin is above goal for CKD and he is mildly iron deficient. BPH followed by Urology. Diabetes control is unknown. SHPTH is at goal for CKD. 07/26/2024 Other obtain chest x ray. It may be done at Center. Get most recent [facility] and show me. Follow-up [address] abdomen with and without IV contrast, CBC, CMP, and chest x-ray. Plan Of Treatment Pending Test Test Name Order Date Blood Urea Nitrogen (BUN) 05580 12/29/19 24 Blood Urea Nitrogen (BUN) 02582 07/27/19 25 CA 19-9 31959 08/25/2023 Carcinogenicembryonic Antigen 34130 08/13 CBC w\ Auto Diff 10604 07/26/2024 Comprehensive Metabolic Panel (CMP) 8005 3 07/26/2024 Creatinine (B) 84302 12/29/2023 Creatinine (B) 73070 07/26/2024 Chest PA/Lat-24681 07/26/2024 CT Abdomen w/ + w/o Contrast-48579 07/26 Vitamin D Total (B) 33344 12/08/2021 Albumin 00656 09/01/2023 Basic Metabolic Panel (BMP) 53500 2023 Ferritin 16882 09/01/2023 Hemoglobin 87940 09/01/2023 Iron Binding Capacity Total 54214 2023 Iron Level 37076 09/01/2023 Magnesium (B) 88854 09/01/2023 Phosphorus (B) 37668 09/01/2023 Uric Acid (B) 91659 09/01/2023 Vitamin D Total (B) 90260 09/01/2023 UA Reflex Micro, Reflex Cult 71202, 8101 5, 54816 09/01/2023 PTH Intact 43927 09/01/2023 % Iron Saturation (Fe & TIBC)--42234,835 50 09/01/2023 Future Test Test Name Order Date CBC w\ Auto Diff 93254 04/15/2024 Comprehensive Metabolic Panel (CMP) 8005 3 04/15/2024 Chest PA/Lat-51398 04/15/2024 Albumin 22773 05/02/2024 Basic Metabolic Panel (BMP) 16550 2024 Ferritin 97861 05/02/2024 Hemoglobin 36517 05/02/2024 Iron Binding Capacity Total 83284 2024 Iron Level 52886 05/02/2024 Magnesium (B) 27804 05/02/2024 Phosphorus (B) 33162 05/02/2024 Uric Acid (B) 78426 05/02/2024 Microalbumin (U) Random 46528 05/02/2024 Creatinine (U) 87906 05/02/2024 UA Reflex Micro, Reflex Cult 04127, 8101 5, 44473 05/02/2024 PTH Intact 37925 05/02/2024 % Iron Saturation (Fe & TIBC)--39158,835 50 05/02/2024 Basic Metabolic Panel (BMP) 10852 2024 Ferritin 84495 01/22/2025 Hemoglobin 40809 01/22/2025 Magnesium (B) 27884 01/22/2025 Phosphorus (B) 07046 01/22/2025 Vitamin D Total (B) 53795 01/22/2025 PTH Intact 21084 01/22/2025 % Iron Saturation (Fe & TIBC)--98304,835 50 01/22/2025 Next Appt Details Provider Name:Mitul sigala, 01/16/2025 10:10:00 AM, [address], [address], [place], [address], Provider Name:Jese Sung, 02/05/2025 01:40:00 PM, [address] [place] [address] [address], [place], [address], Insurance Providers Payer Name Payer Address Payer Phone Subscriber Number Group Number Insured Name Patient Relationship to Insured Coverage Start Date Coverage End Date [employer] [address] [place] [phone] [id number] Singh Yepez Self - patient is the insured Medical (General) History Medical History History ICD Code Hyperlipidemia Hypertension Morbid obesity Penile swelling Restless legs Retention of urine type II diabetes PTSD renal mass (RCC) BPH CAD Diabetic neuropathy Respiratory infection Surgical History Surgery Date(Month/Year) knee sugery-left left hip replacement shoulder arthroscopy- right small bowel resection 07/2017 Hospitalization History Reason Date(Month/Year) see surgical
--- NOTE | 2024-10-13 18:45 | XRR_ITS ---
PROCEDURE INFORMATION: Exam: XR Left Hand Exam date and time: 10/13/2024 6:52 PM Age: 79 years old Clinical indication: Injury or trauma; Fall; Blunt trauma (contusions or hematomas); Hand; Left; Additional info: Pain TECHNIQUE: Imaging protocol: Radiologic exam of the left hand. Views: 3 or more views. COMPARISON: No relevant prior studies available. FINDINGS: Bones/joints: No acute fracture or dislocation of the left hand. Severe osteoarthritis of the 1st carpometacarpal joint. Soft tissues: Normal. XR/XR hand LT min 3V* [id number] IMPRESSION: 1. No acute fracture or dislocation of the left hand. 2. Severe osteoarthritis of the 1st carpometacarpal joint.
--- NOTE | 2024-10-13 18:45 | CTR_ITS ---
PROCEDURE INFORMATION: Exam: CT Cervical Spine Without Contrast Exam date and time: 10/13/2024 7:08 PM Age: 79 years old Clinical indication: Injury or trauma; Blunt trauma; Fall with headstrike. Small hematoma with lac to left frontal. Anticoagulated. ; Additional info: Fall, head injury TECHNIQUE: Imaging protocol: Computed tomography of the cervical spine without contrast. Axial, coronal and sagittal reformatted images were created and reviewed. Radiation optimization: All CT scans at this facility use at least one of these dose optimization techniques: automated exposure control; mA and/or kV adjustment per patient size (includes targeted exams where dose is matched to clinical indication); or iterative reconstruction. COMPARISON: CT cervical spin wo con* [id number] 07/08/2023 3:03 PM RADIATION DOSE METRICS: Total DLP (mGy-cm): 509.37 FINDINGS: Bones: Osteopenia. Straightening of the normal cervical lordosis. Nondisplaced, obliquely oriented fracture through the anterior inferior endplate of C7. No dislocation or subluxation. Mild anterolisthesis of C4 on C5. Alignment otherwise anatomic. Mild levoscoliosis. Vertebral body heights maintained. Multilevel degenerative changes, characterized by disc space narrowing, osteophytosis and uncovertebral and facet joint hypertrophy. Multilevel spinal canal and neural foraminal stenosis. Lungs: Lung apices are normal. Soft tissues: Grossly unremarkable. CT/CT cervical spin wo con* [id number] IMPRESSION: 1. Nondisplaced, obliquely oriented fracture through the anterior inferior endplate of C7. 2. Additional findings, as above. THIS REPORT CONTAINS FINDINGS THAT MAY BE CRITICAL TO PATIENT CARE. The findings were verbally communicated via telephone conference with MIHAI BAUTISTA at 7:52 PM CDT on 10/13/2024. The findings were acknowledged and understood.
--- NOTE | 2024-10-13 18:45 | XRR_ITS ---
PROCEDURE INFORMATION: Exam: XR Left Knee Exam date and time: 10/13/2024 6:55 PM Age: 79 years old Clinical indication: Injury or trauma; Fall; Blunt trauma; Knee; Left; Prior surgery; Surgery date: 6+ months; Surgery type: Tka; Additional info: Fall, pain TECHNIQUE: Imaging protocol: Radiologic exam of the left knee. Views: 3 views. COMPARISON: CR XR tibia fibula LT 2V [id number] 03/29/2019 11:19 AM FINDINGS: Bones/joints: No acute fracture or dislocation. Knee arthroplasty hardware is intact. No significant joint effusion. Soft tissues: Normal. XR/XR knee LT 3V* [id number] IMPRESSION: No acute fracture or dislocation. Knee arthroplasty hardware is intact.
--- NOTE | 2024-10-13 18:45 | CTR_ITS ---
PROCEDURE INFORMATION: Exam: CT Head Without Contrast Exam date and time: 10/13/2024 7:06 PM Age: 79 years old Clinical indication: Injury or trauma; Blunt trauma (contusions or hematomas); Fall with headstrike. Small hematoma with lac to left frontal. Anticoagulated. ; Additional info: Head injury, anticoagulated TECHNIQUE: Imaging protocol: Computed tomography of the head without contrast. Axial, coronal and sagittal reformatted images were created and reviewed. Radiation optimization: All CT scans at this facility use at least one of these dose optimization techniques: automated exposure control; mA and/or kV adjustment per patient size (includes targeted exams where dose is matched to clinical indication); or iterative reconstruction. COMPARISON: CT head wo con* [id number] 12/31/2023 10:56 AM RADIATION DOSE METRICS: Total DLP (mGy-cm): 1118.58 FINDINGS: Brain: 3 mm left posterior parafalcine subdural hematoma. Subtle, patchy areas of hypoattenuation in the periventricular and subcortical white matter, nonspecific but suggestive of mild chronic small vessel ischemic disease. No CT evidence of acute territorial infarction. No significant mass effect or midline shift. Basal cisterns patent. Cerebral ventricles: Prominence of the cortical sulci, cisterns and ventricular system, consistent with cerebral and cerebellar volume loss. Paranasal sinuses: Unremarkable. No fluid levels. Mastoid air cells: Grossly unremarkable. Bones: Unremarkable. No acute fracture. Soft tissues: Left frontal scalp injury. CT/CT head wo con* [id number] IMPRESSION: 1. 3 mm left posterior parafalcine subdural hematoma. 2. Additional findings, as above. THIS REPORT CONTAINS FINDINGS THAT MAY BE CRITICAL TO PATIENT CARE. The findings were verbally communicated via telephone conference with MIHAI BAUTISTA at 7:52 PM CDT on 10/13/2024. The findings were acknowledged and understood.
--- NOTE | 2024-10-13 18:45 | XRR_ITS ---
PROCEDURE INFORMATION: Exam: XR Right Knee Exam date and time: 10/13/2024 6:58 PM Age: 79 years old Clinical indication: Injury or trauma; Fall; Blunt trauma; Knee; Right; Additional info: Fall, knee pain TECHNIQUE: Imaging protocol: Radiologic exam of the right knee. Views: 3 views. COMPARISON: CR XR knees AP WB w RT lmt ORTH 01/05/2022 2:54 PM FINDINGS: Bones/joints: No acute fracture or dislocation. Severe tricompartmental osteoarthritis. No significant joint effusion. Soft tissues: Normal. XR/XR knee RT 3V* [id number] IMPRESSION: No acute fracture or dislocation. Severe osteoarthritis.
[2024-10-13] MEDS: tetanus-dipt-pertussis 0.5 mL SDV IM (19:12)
--- NOTE | 2024-10-13 20:09 | W.ED.FALL ---
HPI - Fall General: Chief Complaint: Fall Stated Complaint: fall- hit head Time Seen by Provider: 10/13/24 18:35 History of Present Illness: 79yo male patient presents after a fall outside his home. Patient reports he was walking out of his house when he fell, stating I really think my shoes hurt me. Patient wears diabetic shoes. The patient's witnessed the fall and reports the patient hit his head pretty hard. Patient complains of head pain, with some soreness in both knees. The patient denies neck pain, abdominal pain, or other significant complaints. The patient sustained a skin tear on his left hand with mild pain in the thumb, an abrasion with dried blood on his forehead with a visible contusion, and bilateral knee abrasions/contusions. The patient reports he went down on all fours during the fall. The patient is currently on Eliquis for history of pulmonary embolism (reported from 2020). No loss of consciousness was reported. Related Data Home Medications ?Medication ?Instructions ?Recorded ?Confirmed alogliptin 6.25 mg tablet 6.25 mg PO DAILY 05/10/21 09/22/24 cetirizine 10 mg tablet (Zyrtec) 10 mg PO DAILY 05/10/21 09/22/24 levothyroxine 50 mcg tablet 50 mcg PO DAILY 05/10/21 09/22/24 memantine 10 mg tablet 10 mg PO BID 05/10/21 09/22/24 tamsulosin 0.4 mg capsule 0.4 mg PO BID 05/10/21 09/22/24 omeprazole 20 mg capsule,delayed 20 mg PO DAILY 05/24/22 09/22/24 release gabapentin 400 mg capsule 400 mg PO BID 08/05/22 09/22/24 cholecalciferol (vitamin D3) 25 25 mcg PO DAILY 12/23/22 09/22/24 mcg (1,000 unit) capsule citalopram 40 mg tablet 40 mg PO DAILY 12/23/22 09/22/24 dicyclomine 10 mg capsule 10 mg PO TID 12/23/22 09/22/24 empagliflozin 25 mg tablet 12.5 mg PO DAILY 12/23/22 09/22/24 (Jardiance) folic acid 0.8 mg capsule 0.4 mg PO DAILY 12/23/22 09/22/24 rosuvastatin 20 mg tablet 10 mg PO DAILY 12/23/22 09/22/24 amlodipine 2.5 mg tablet 2.5 mg PO DAILY 12/30/23 09/22/24 hydralazine 10 mg tablet 10 mg PO QID 12/30/23 09/22/24 sitagliptin 25 mg tablet 25 mg PO DAILY 12/30/23 09/22/24 apixaban 5 mg tablet (Eliquis) 5 mg PO DAILY 12/31/23 09/22/24 Previous Rx's ?Medication ?Instructions ?Recorded Diabetic shoes with 3 pairs of #1 ea 11/02/22 inserts diabetic socks [id number] #1 ea 03/22/23 diabetic shoes with 3 inserts #1 ea 12/16/23 potassium chloride 20 mEq 10 meq (1/2 x 20 mEq) PO DAILY #30 01/02/24 tablet,extended release tabs Allergies Allergy/AdvReac Type Severity Reaction Status Date / Time cephalexin (From Keflex) Allergy Unknown Verified 10/13/24 18:31 [facility] ED PFSH: Medical History (Updated 10/13/24 @ 20:20 by Mihai Bautista MD) Acute on chronic diastolic CHF (congestive heart failure) Type 2 diabetes mellitus Benign essential HTN Pulmonary embolism COVID-19 Pulmonary edema Acute respiratory failure with hypoxia Chronic kidney disease No pertinent family history Social History Smoking and tobacco/nicotine status: unknown if used tobacco/nicotine Physical Exam Narrative: EXAM NARRATIVE: General: Alert, able to communicate appropriately, No acute distress. HEENT: Head with contusion and abrasion with dried blood on left forehead. Mucous membranes moist. Neck: Supple, no tenderness verbalized on examination. Respiratory: No increased work of breathing. No wheezing. Cardiac: Regular rate and rhythm, 2+ pulses in all extremities. Abdomen: Soft, non-distended, no rebound or guarding. Musculoskeletal: Left hand with skin tear and mild tenderness of thumb. Bilateral knees with abrasions and contusions, right knee appears more bruised. Left knee with evidence of prior arthroplasty. Neuro: Cranial nerves grossly intact, no focal motor or sensory deficits noted. Alert and oriented. Course Vital Signs: Vital signs: Vital Signs Temperature 97.8 F 10/13/24 18:29 Pulse Rate 75 10/13/24 18:29 Respiratory Rate 16 10/13/24 18:29 Blood Pressure 144/71 10/13/24 18:29 Pulse Oximetry 94 10/13/24 18:29 MDM - Fall Medical Decision Making ROS: Constitutional: No fever or chills reported. Head: Reports head pain with visible contusion and abrasion on forehead. Neck: Denies neck pain. Cardiovascular: No chest pain reported. Respiratory: No shortness of breath or respiratory complaints. Gastrointestinal: Denies abdominal pain. Musculoskeletal: Reports bilateral knee pain with visible abrasions/contusions. Reports left hand/thumb pain. Neurological: Alert and oriented. No focal neurological complaints. MEDICATIONS AND ALLERGIES: Medications: - Eliquis 5mg (for pulmonary embolism) Allergies: - Albuterol - Amlodipine - Cetirizine PAST HISTORICAL DATA: PMH: - Pulmonary embolism (2020) - Femoral issue (details not specified) - Diabetes (inferred from diabetic shoes) - Chronic neck issues PSH: - Prior surgery at [facility] (details not specified) - Left knee arthroplasty INITIAL IMPRESSION AND PLAN: Given the history and presentation, the primary working diagnosis is traumatic head injury with possible intracranial hemorrhage in an anticoagulated patient. Additional considerations include cervical spine injury, hand fracture, and knee injuries. Based on this initial impression I will order: 1. CT scan of head and cervical spine 2. X-rays of bilateral knees and left hand 3. CBC, CMP, PT, PTT to assess coagulation status 4. Consider reversal of anticoagulation if intracranial hemorrhage is identified 5. Wound care for forehead abrasion and left hand skin tear TEST INTERPRETATIONS: CT Head: 3mm left posterior parafalcine subdural hematoma. Subtle patchy areas of hypoattenuation in subcortical white matter, nonspecific but suggestive of mild chronic small vessel ischemic disease. CT Cervical Spine: Nondisplaced obliquely oriented fracture through the anterior inferior endplate of C7. X-ray Left Hand: No fracture or dislocation. Severe osteoarthritis of the first metacarpal carpometacarpal joint. X-ray Bilateral Knees: No acute fracture or dislocation. Severe osteoarthritis noted of the right knee. Left knee shows knee arthroplasty hardware that is intact. Laboratory studies ordered: CBC, CMP, PT, PTT (results not verbalized) PROCEDURES: Wound care to forehead abrasion and left hand skin tear. FINAL IMPRESSION: Based on all the above, my clinical impression is most compatible with: 1. Traumatic 3mm left posterior parafalcine subdural hematoma in anticoagulated patient 2. Nondisplaced C7 vertebral fracture 3. Forehead contusion and abrasion 4. Left hand skin tear 5. Bilateral knee contusions 6. 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 The most appropriate and indicated disposition at this time is transfer to [facility] for higher level of care. RATIONALE: The patient requires transfer to a facility with neurosurgical capabilities due to the presence of a subdural hematoma while on anticoagulation therapy. Although the bleed is small (3mm), the patient is at high risk for expansion of the hemorrhage due to being on Eliquis. Additionally, the patient has a C7 fracture that requires further evaluation and management. [facility] does not have neurosurgery capabilities to manage potential complications if the subdural hematoma were to expand. The patient requires anticoagulation reversal with Kcentra, repeat neuroimaging, and close neurological monitoring that is best provided at a facility with neurosurgical capabilities. TDAP was provided. KCENTRA was ordered. RISK STRATIFICATION AND CLINICAL DECISION RULES APPLIED: Wilson C-Spine Rule - High Risk. Patient is over 65 years old with a dangerous mechanism of injury (fall with head impact). CT imaging was appropriate and revealed a C7 fracture. Wilson Head CT Rule - High Risk. Patient is on anticoagulation therapy (Eliquis) with a history of head trauma. CT imaging was appropriate and revealed a subdural hematoma. CASE SUMMARY: Elderly male patient on Eliquis for history of pulmonary embolism presented after a fall outside his home, striking his head and sustaining bilateral knee injuries and a left hand skin tear. Initial evaluation revealed a forehead contusion with abrasion. Given the mechanism of injury and anticoagulation status, CT imaging of the head and cervical spine was obtained, revealing a 3mm left posterior parafalcine subdural hematoma and a nondisplaced C7 fracture. X-rays of bilateral knees and left hand showed no acute fractures but did reveal severe osteoarthritis. Due to the presence of a subdural hematoma in an anticoagulated patient and the C7 fracture, the decision was made to reverse anticoagulation with Kcentra and transfer the patient to [facility] for neurosurgical evaluation and management. Laboratory studies including CBC, CMP, PT, and PTT were ordered to assess coagulation status prior to transfer. The patient remained neurologically stable throughout the ED course but requires close monitoring for potential expansion of the subdural hematoma. DISCHARGE INSTRUCTIONS: Patient is being transferred to [facility] for higher level of care. The following information has been communicated to the patient and family: 1. You have been diagnosed with a small blood collection on the surface of your brain (subdural hematoma) and a fracture in your neck (C7 vertebra). 2. Due to these findings and the fact that you are on a blood thinner (Eliquis), we are transferring you to [facility] where neurosurgeons can monitor your condition closely. 3. We will be giving you medication (Kcentra) to reverse the effects of your blood thinner before transfer. 4. At [facility], you will likely have repeat imaging of your head to monitor the blood collection and ensure it is not expanding. 5. The physicians at [facility] will determine when it is safe to restart your blood thinner medication. Patient accepted by Dr. Jones to [facility] ER. [employer] services have been contacted to evaluate for transport. However, due to patient's obesity, he may have to travel by ground. Lab Data Radiology Impressions Cervical Spine CT 10/13/24 18:45 IMPRESSION: 1. Nondisplaced, obliquely oriented fracture through the anterior inferior endplate of C7. 2. Additional findings, as above. THIS REPORT CONTAINS FINDINGS THAT MAY BE CRITICAL TO PATIENT CARE. The findings were verbally communicated via telephone conference with MIHAI BAUTISTA at 7:52 PM CDT on 10/13/2024. The findings were acknowledged and understood. Hand X-Ray 10/13/24 18:45 IMPRESSION: 1. No acute fracture or dislocation of the left hand. 2. Severe osteoarthritis of the 1st carpometacarpal joint. Head CT 10/13/24 18:45 IMPRESSION: 1. 3 mm left posterior parafalcine subdural hematoma. 2. Additional findings, as above. THIS REPORT CONTAINS FINDINGS THAT MAY BE CRITICAL TO PATIENT CARE. The findings were verbally communicated via telephone conference with MIHAI BAUTISTA at 7:52 PM CDT on 10/13/2024. The findings were acknowledged and understood. Knee X-Ray 10/13/24 18:45 IMPRESSION: No acute fracture or dislocation. Knee arthroplasty hardware is intact. All radiology interpretation(s) finalized by discharge Discharge Plan Discharge Patient Disposition: Xfer Short-Term Hosp Clinical Impression: Acute subdural hematoma, Anticoagulated, Abrasion, Contusion of knee, left, Contusion of knee, right, Closed C7 fracture Condition: Stable Referrals: Urvashi Mcmahan MD [Primary Care Provider, [facility]] Patient Instructions: Opioid Safety, Pain Management, Patient Portal & Jorge Instructions Print Language: Kiswahili Coding Level of Care Code ED Library Historian for Alex Burgos
[2024-10-13 20:41] LABS: Hematocrit 43.8 % (37-53); Hemoglobin 14.50 g/dL (11.27-16.99); Mean Corpuscular HGB Conc 33.1 g/dL (30-55); Mean Corpuscular Hemoglobin 30.5 pg (27-33); Mean Corpuscular Volume 92.0 fl (82-101); Nucleated Red Blood Cells % 0 %; Platelet Count 158 10^3/cmm (157-399); Red Blood Count 4.76 10^6/uL (3.85-5.65); White Blood Count 8.41 10^3/uL (3.29-11.43)
[2024-10-13] MEDS: hum prothrombin cplx(pcc)4fact 1,000 UNIT, hum prothrombin cplx(pcc)4fact 500 UNIT in e... 5 UNIT IV (20:45)
[2024-10-13 20:51] LABS: INR 1.25 (0.8-1.2); Prothrombin Time 16.60 SECONDS (12.1-14.9)
[2024-10-13 20:52] LABS: Partial Thromboplastin Time 40.3 SECONDS (23.9-36.7)
[2024-10-13 20:59] LABS: Alanine Aminotransferase 19 U/L (0-41); Albumin Level 4.0 g/dL (3.5-5.2); Alkaline Phosphatase 105 U/L (40-130); Anion Gap 15.1 (5-19); Aspartate Amino Transferase 16 U/L (0-40); Blood Urea Nitrogen 11 mg/dL (8-23); Calcium 8.9 mg/dL (8.5-10.5); Carbon Dioxide 28 mmol/L (22-29); Chloride 99 mmol/L (98-107); Creatinine Clr Calc Pharmacy 83.2531; Globulin 2.9 g/dL (1.3-4.6); Glucose 127 mg/dL (65-115); Osmolality Calculated 287 mOsm/kg (285-295); Potassium 4.1 mmol/L (3.5-5.1); Sodium 138 mmol/L (136-145); Total Protein 6.9 g/dL (6.6-8.7)
[2024-10-13 21:11] VITALS: BP 122/83; PULSE 65; RESP 18; O2SAT 95
== END 2024-10-13 21:14 | disposition short-term general hospital (02) ==
PROVIDERS: Emergency Provider Student in an Organized Health Care Education/Training Program; PCP Family Medicine
DX: S06.5X0A Traumatic subdural hemorrhage without loss of consciousness, initial encounter (principal); S80.02XA Contusion of left knee, initial encounter; S80.01XA Contusion of right knee, initial encounter; S12.600A Unspecified displaced fracture of seventh cervical vertebra, initial encounter for closed fracture; E11.22 Type 2 diabetes mellitus with diabetic chronic kidney disease; I12.9 Hypertensive chronic kidney disease with stage 1 through stage 4 chronic kidney disease, or unspecified chronic kidney disease; N18.9 Chronic kidney disease, unspecified; W19.XXXA Unspecified fall, initial encounter; Z79.01 Long term (current) use of anticoagulants
CPT/HCPCS: 70450; 72125; 73130; 73562; 80053; 85025; 85610; 85730; 90715; 99284; J7168

== ENCOUNTER → 2024-12-07 10:57 | Outpatient (BNVA) | payer OTHER, SELFPAY | PROVIDERS: PCP Family Medicine; Visit Provider Podiatrist Foot & Ankle Surgery | DX: E11.8 Type 2 diabetes mellitus with unspecified complications (principal); B35.1 Tinea unguium; N18.9 Chronic kidney disease, unspecified; I73.9 Peripheral vascular disease, unspecified; R60.9 Edema, unspecified; M20.41 Other hammer toe(s) (acquired), right foot; M20.42 Other hammer toe(s) (acquired), left foot | CPT/HCPCS: 11721; 99213 ==

== ENCOUNTER 2024-12-08 09:06 | Inpatient (IN) | payer OTHER, SELFPAY ==
--- OUTSIDE RECORDS SUMMARY | 2024-06-29 05:10 | XMS_ITS ---
Author Organization [facility] Address [address] [place] [address] Care Team Providers Care Telephone Triage Nurse Name Role Phone Urvashi Queen MD Primary Care Provider Unavaila Shantelle Richardson Unavailable [phone] [place], [place] Unavailable Unavailable Mitul Razo Unavailable [phone] REASON FOR VISIT 6m f/u w CT, cbc,cmp, chest xray- straight cath ua Encounters Encounter Location Date Provider Diagnosis [facility] [address] [place] [address] [facility] [address] [place] [address] 06/29/2024 Mitul Razo Plan Of Treatment Next Appt Details Provider Name:Mitul sigala, 01/16/2025 10:10:00 AM, [address] [place] [address] , [address], [place], [address], Provider Name:Jese Sung, 02/05/2025 01:40:00 PM, [address] [place] [address] Dr [facility] [address], [place], [address], Progress Notes * Singh LUJAN RDOB:1945 ( 79 yo M)Acc No.[id number]:06/29/2024 Progress Notes Patient: Singh Padron Provider: Nba Razo MD :1945 A ge:79 Y S ex:Male Date:06/29/2024 Address:[address] [place] [address] [address], [facility] Pcp:Urvashi Queen MD Subjective: * Chief Complaints: * 6 m f/u w CT, cbc,cmp, chest xray- straight cath ua * Electronic signature of Arnulfo Razo MD on 12/08/2024 at 09:13 AM CDT Sign off status: Pending * Provider: Nba Razo MD Date: 0 06/29/2024 Generated for Nick villarreal/Anival/Zainitting on: 0 12/08/2024 09:13 AM CDT
--- OUTSIDE RECORDS SUMMARY | 2024-12-01 10:20 | XMS_ITS | Encounter Summary ---
Author Organization [facility] Address 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 Lithograph Press Operator Tinware Name Role Phone Zeyad Angel MD Primary Care Provider [phone] Encounter Details Date Type Department Care Team (Latest Contact Info) Description 12/01/2024 10:20 AM CDT Ancillary Procedure [facility] [address] [place] [address] Amy Garcia, RED MUD THICKENER OPERATOR [address] [place] [address] Closed nondisplaced fracture of seventh cervical vertebra, unspecified fracture morphology, initial encounter ([facility]) Social History Tobacco Use Types Packs/Day Years Used Date Smoking Tobacco: Never Smokeless Tobacco: Never Feeling Safe Answer Date Recorded Are you in a relationship wi th someone who hurts you emotionally and/or physically? 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 Gender Identity Not on file Sexual Orientation Not on file documented as of this encounter Plan of Treatment Not on file documented as of this encounter Procedures Procedure Name Priority Date/Time Associated Diagnosis Comments XR CERVICAL SPINE 1 VW Routine 12/01/2024 10:36 AM CDT Closed nondisplaced fracture of seventh cervical vertebra, unspecified fracture morphology, initial encounter ([facility]) documented in this encounter Results * XR CERVICAL SPINE 1 VW (12/01/2024 10:36 AM CDT) Anatomical Region Laterality Modality Spine Computed Radiogr aphy 12/01/2024 10:3 6 AM CDT Impressions 12/02/2024 9:22 AM CDT IMPRESSION: See below. Exam: XR CERVICAL SPINE 1 VW Date/Time of Exam: 12/01/2024 10:36 AM Reason For Exam: See Diagnosis. Diagnosis: Closed nondisplaced fracture of seventh cervical vertebra, unspecified fracture morphology, initial encounter ([facility]). Prior: 11/02/2024. Findings: Previously seen fracture of the C7 vertebral body is not well-demonstrated on this lateral view secondary to overlying soft tissues. Stable sagittal alignment. Unchanged grade 1 anterolisthesis of C4 on C5. Craniocervical junction is well aligned. Remaining vertebral body heights are maintained. Mild to moderate loss of disc height seen throughout the cervical spine. Moderate multilevel facet arthropathy. No prevertebral soft tissue swelling. Narrative Procedure Note Boris Schrader, DO - 12/02/2024 IMPRESSION: See below. Exam: XR CERVICAL SPINE 1 VW Date/Time of Exam: 12/01/2024 10:36 AM Reason For Exam: See Diagnosis. Diagnosis: Closed nondisplaced fracture of seventh cervical vertebra, unspecified fracture morphology, initial encounter ([facility]). Prior: 11/02/2024. Findings: Previously seen fracture of the C7 vertebral body is not well-demonstrated on this lateral view secondary to overlying soft tissues. Stable sagittal alignment. Unchanged grade 1 anterolisthesis of C4 on C5. Craniocervical junction is well aligned. Remaining vertebral body heights are maintained. Mild to moderate loss of disc height seen throughout the cervical spine. Moderate multilevel facet arthropathy. No prevertebral soft tissue swelling. Amy Garcia RED MUD THICKENER OPERATOR DIAGNOSTIC IMAGING ORDERA BLES Final Result documented in this encounter Visit Diagnoses Diagnosis Closed nondisplaced fracture of seventh cervical vertebra, unspecified fracture morphology, initial encounter ([facility]) documented in this encounter Care Teams Lithograph Press Operator Tinware Relationship Specialty Start Date End Date Zeyad Angel MD [address] [id number] PCP - General Family Practice 07/19/17 documented as of this encounter
--- OUTSIDE RECORDS SUMMARY | 2024-12-01 11:00 | XMS_ITS | Encounter Summary ---
Author Organization [facility] Address [address] [place] [address] Care Team Providers Care Customer Service Professional Name Role Phone Zeyad Angel MD Primary Care Provider [phone] Reason for Visit * Reason Comments Follow Up Encounter Details Date Type Department Care Team (Latest Contact Info) Description 12/01/2024 11:00 AM CDT Office Visit [facility] Neurosurgery [address] [place] [address] Amy Garcia FNP [address] [place] [address] Closed nondisplaced fracture of seventh cervical vertebra, unspecified fracture morphology, initial encounter ([facility]) (Primary Dx) Social History Tobacco Use Types Packs/Day Years Used Date Smoking Tobacco: Never Smokeless Tobacco: Never Feeling Safe Answer Date Recorded Are you in a relationship wi th someone who hurts you emotionally and/or physically? 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 Gender Identity Not on file Sexual Orientation Not on file documented as of this encounter Last Filed Vital Signs Vital Sign Reading Time Taken Comments Blood Pressure 104/58 12/01/2024 10:50 AM CDT Pulse - - Temperature - - Respiratory Rate - - Oxygen Saturation - - Inhaled Oxygen Concentration - - Weight 167.8 kg (370 lb) 12/01/2024 10:50 AM CDT Height 190.5 cm (6' 3 ) 12/01/2024 10:50 AM CDT Body Mass Index 46.25 12/01/2024 10:50 AM CDT documented in this encounter Progress Notes * Amy Garcia, TOWNSHIP SUPERVISOR - 12/02/2024 12:08 AM CDT I had the opportunity to visit with Singh today here in our neurosurgery office. Singh is a 79 y.o.male who was introduced to our services on October 13 2024 in regards to a fall in which he sustaineda small posterior falcine SDH, as well as an anterior inferior C7 endplate fx . He is here for his 2 month follow up appointment since discharge. Prior to our visit today Singh had an xray of his cervical spine. Showed evidence of no further kyphosis or deformity. Cervical collar was removed and cervical flexion/extension xrays were done whichshowed maintained alignment without deformity. Singh shares with me that he has been doing well. He denies headache. He denies pain with his neck.He is eager to have neck brace off. On exam, Singh is alert, oriented, normal speech, no focal findings or movement disorder noted, neck supple without rigidity, motor and sensory grossly normal bilaterally, normal muscle tone, no tremors, strength 3-4/5, in wheelchair. ROS Past Medical History: Diagnosis Date Dementia (CMS/HCC) HTN (hypertension) Past Surgical History: Procedure Laterality Date HX HERNIA INCISIONAL REPAIR N/A 07/24/2017 HERNIA [facility]ENTR[facility] HX SURGICAL OTHER 07/24/2017 MESH PLACEMENT performed [facility] at [facility] OR INSERT PERIPHERAL IV 07/21/2017 SD LAPS ABD PRTM&OMENTUM DX W/WO SPEC BR/WA SPX N/A 07/24/2017 LAPAROSCOPY DIAGNOSTIC/OPERATIVE performed by [facility] at [facility] OR SD RPR UMBILICAL HRNA 5 YRS/> REDUCIBLE N/A 07/24/2017 HERNIA UMBILICAL REPAIR performed by [facility] at [facility] OR Current Outpatient Medications on File Prior to Visit Medication Sig Dispense Refill Cetirizine 10 mg Capsule Take 1 Capsule by mouth daily. citalopram (CeleXA) 20 mg tablet Take 20 mg by mouth daily at bedtime. citalopram (CeleXA) 40 mg tablet Take 40 mg by mouth. docusate sodium (COLACE) 100 mg capsule TAKE 1 CAPSULE BY MOUTH TWICE DAILY prn folic acid (FOLVITE) 400 mcg Tablet Take 0.4 mg by mouth. furosemide (LASIX) 20 mg tablet Take 20 mg by mouth. gabapentin (NEURONTIN) 400 mg capsule Take 400 mg by mouth. levothyroxine 50 mcg tablet Take 50 mcg by mouth. HYDROcodone-acetaminophen (NORCO) 5-325 mg tablet TAKE 1 TABLET BY MOUTH EVERY 4 TO 6 HOURS NEEDED FOR PAIN rosuvastatin (CRESTOR) 20 mg tablet Take 10 mg by mouth. SITagliptin (ZITUVIO) Take 25 mg by mouth. tamsulosin (FLOMAX) 0.4 mg capsule Take 0.4 mg by mouth. cholecalciferol 1,250 mcg (50,000 unit) Capsule 1000u daily empagliflozin (JARDIANCE) 25 mg tablet Take 12.5 mg by mouth. hydrALAZINE (APRESOLINE) 10 mg tablet Take 10 mg by mouth. memantine (NAMENDA) 10 mg Tablet Take 10 mg by mouth. omeprazole (PriLOSEC) 40 mg Capsule, Delayed Release(E.C.) 1 capsule 30 minutes before morning mealOrally Once a day potassium CHLORIDE (KLOR-CON) 10 mEq Extended Release tablet Take 2 tablets every day by oral routefor 30 days. spironolactone (ALDACTONE) 25 mg tablet 1 tablet Orally (Patient not taking: Reported on 11/02/2024) valACYclovir (VALTREX) 1 gram tablet (Patient not taking: Reported on 11/02/2024) amoxicillin-clavulanate (AUGMENTIN) 875-125 mg tablet (Patient not taking: Reported on 11/02/2024) methylPREDNISolone (MEDROL DOSPACK) 4 mg Tablets, Dose Pack (Patient not taking: Reported on 11/02/2024) No current facility-administered medications on file prior to visit. Allergies Allergen Reactions Procaine Unknown Cephalexin Nausea and Vomiting and Unknown At this time Singh no longer needs to wear his cervical collar. He should follow up with us PRN. Ifthere are any concerns or questions prior to our next scheduled appointment Singh should contact adriel we will arrange to visit with him. On the day of the visit, I spent 30 minutes providing care to this patient including Preparing to see the patient, Obtaining and/or reviewing separately obtained history, Performing a medically appropriate examination and/or evaluation, Counseling and educating the patient/family/caregiver, Ordering medications, tests or procedures, Documenting clinical information in the medical record, and Independently interpreting results and communicating results to the patient/family/caregiver (not separately reported). documented in this encounter Miscellaneous Notes * Patient Instructions - Emiliana Tanner CMA - 12/01/2024 11:[address] Carr and Amy TSE may need further testing or referrals to treat you. If you have been referred to another doctor or specialty. Please stop by check out today and make these appointments. If appointment is not scheduled today you should be notified within five businessdays. If you do not hear from the other office then please contact our office at [phone] and ask for Marce so we can help arrange the referral. If you had labs or imaging ordered at your appointment today, please stop by Check out so that staff can arrange this for you. Labs: Go to [facility] ([address] [place] [address] ). Enter through the Main Entrance. Admitting Department is on the 1st floor on the left and they will check you in for your labs and direct you from there. If you had Imaging/Diagnostic such as MRI,CT, or Ultrasound. [facility] [employer] will call babitain the next 5-7 business days to schedule your appointment. They will make every effort to reach you at home or cell number. However, if we request the test be delayed for extended period, then [facility] [employer] will contact you closer to the requested time frame. If you have any questions, please feel to contact [facility] Scheduling at [phone] or [phone]. Wednesday -Wednesday 7:30 am to 6pm. IF we ordered injections to be done and you have not heard anything within 3 business days, please call Anya Paz at [phone] or Dali at [phone] to further assist you getting these scheduled. Thank you Also, Please be sure to check out [employer] as another tool to contact Dr. Carr, Amy Garcia, F-CAPTAIN CANNERY TENDER or Marce. documented in this encounter Plan of Treatment Not on file documented as of this encounter Results * XR CERVICAL SPINE 2 OR 3 VIEWS (12/01/2024 11:37 AM CDT) Anatomical Region Laterality Modality Spine Computed Radiogr aphy 12/01/2024 11:3 7 AM CDT Narrative 12/04/2024 7:16 AM CDT EXAM: XR CERVICAL SPINE 2 OR 3 VIEWS DATE/TIME OF EXAM: 12/01/2024 11:37 AM REASON FOR EXAM: See Diagnosis DIAGNOSIS: Closed nondisplaced fracture of seventh cervical vertebra, unspecified fracture morphology, initial encounter ([facility]) COMPARISON: 12/01/2024 FINDINGS: Overall visualization of the lower cervical spine below the C5-6 disc space is limited by the overlying shoulders. Notably the C7 vertebral body is mostly obscured. Minimal anterolisthesis at C4-5 is similar to prior imaging and likely on a degenerative basis. No significant change or new subluxation during flexion or extension to suggest dynamic instability. Otherwise similar appearance of the multilevel degenerative disease. Procedure Note Rei Alfaro MD - 12/04/2024 EXAM: XR CERVICAL SPINE 2 OR 3 VIEWS DATE/TIME OF EXAM: 12/01/2024 11:37 AM REASON FOR EXAM: See Diagnosis DIAGNOSIS: Closed nondisplaced fracture of seventh cervical vertebra, unspecified fracture morphology, initial encounter ([facility]) COMPARISON: 12/01/2024 FINDINGS: Overall visualization of the lower cervical spine below the C5-6 disc space is limited by the overlying shoulders. Notably the C7 vertebral body is mostly obscured. Minimal anterolisthesis at C4-5 is similar to prior imaging and likely on a degenerative basis. No significant change or new subluxation during flexion or extension to suggest dynamic instability. Otherwise similar appearance of the multilevel degenerative disease. mAy Garcia TOWNSHIP SUPERVISOR DIAGNOSTIC IMAGING ORDERA BLES Final Result documented in this encounter Visit Diagnoses Diagnosis Closed nondisplaced fracture of seventh cervical vertebra, unspecified fracture morphology, initial encounter ([facility])- Primary Closed nondisplaced fracture of seventh cervical vertebra, unspecified fracture morphology, initial encounter ([facility]) documented in this encounter Care Teams Customer Service Professional Relationship Specialty Start Date End Date Zeyad Angel MD [address] [address] PCP - General Family Practice 07/19/17 documented as of this encounter
--- OUTSIDE RECORDS SUMMARY | 2024-12-01 11:25 | XMS_ITS | Encounter Summary ---
Author Organization [facility] Address [address] [place] [address] Care Team Providers Care Retail Business Development Manager Name Role Phone Zeyad Angel MD Primary Care Provider [phone] Encounter Details Date Type Department Care Team (Latest Contact Info) Description 12/01/2024 11:25 AM CDT Ancillary Procedure [facility] Radiology [address] [place] [address] Amy Garcia, EQUIPMENT MANAGER [address] [place] [address] Closed nondisplaced fracture of seventh cervical vertebra, unspecified fracture morphology, initial encounter ([facility]) Social History Tobacco Use Types Packs/Day Years Used Date Smoking Tobacco: Never Smokeless Tobacco: Never Feeling Safe Answer Date Recorded Are you in a relationship wi th someone who hurts you emotionally and/or physically? 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 Gender Identity Not on file Sexual Orientation Not on file documented as of this encounter Plan of Treatment Not on file documented as of this encounter Procedures Procedure Name Priority Date/Time Associated Diagnosis Comments XR CERVICAL SPINE 2 OR 3 VIEWS Routine 12/01/2024 11:37 AM CDT Closed nondisplaced fracture of seventh cervical vertebra, unspecified fracture morphology, initial encounter ([facility]) documented in this encounter Results * XR [...] cervical vertebra, unspecified fracture morphology, initial encounter ([facility]) COMPARISON: 12/01/2024 FINDINGS: Overall visualization of the [...] cervical vertebra, unspecified fracture morphology, initial encounter ([facility]) COMPARISON: 12/01/2024 FINDINGS: Overall visualization of the [...] similar appearance of the multilevel degenerative disease. Amy Garcia EQUIPMENT MANAGER DIAGNOSTIC IMAGING ORDERA BLES Final Result documented in this encounter Visit Diagnoses Diagnosis Closed nondisplaced fracture of seventh cervical vertebra, unspecified fracture morphology, initial encounter ([facility]) documented in this encounter Care Teams Retail Business Development Manager Relationship Specialty Start Date End Date Zeyad Angel MD [address] [address] PCP - General Family Practice 07/19/17 documented as of this encounter
[2024-12-08] VITALS (10 sets, daily range): BP systolic 104–130; BP diastolic 56–83; PULSE 64–120; RESP 18–30; TEMP 36.9–39.4; O2SAT 88–98; BMI 45.3; BMI 46.2
--- NOTE | 2024-12-08 09:10 | XR_ITS ---
WS: [id number] Exam: XR chest 1V portable [id number] Date/Time of Exam: 12/08/2024 9:19 AM Reason For Exam: Weakness Comparison made with prior study 12/30/2023. Chronic RIGHT basal changes noted. No acute infiltrates are noted. Cardiomediastinal silhouette is unremarkable for technique. No pleural effusions. No pneumothorax. Normal bony structures. XR/XR chest 1V portable [id number] IMPRESSION: 1. Chronic RIGHT basal changes. 2. No acute process is suspected.
--- OUTSIDE RECORDS SUMMARY | 2024-12-08 09:13 | XMS_ITS | Clinical Summary ---
Author Organization [facility] Address [address] Attn: [place] [address] Care Team Providers Care Agricultural Chemist Name Role Phone Zeyad Angel MD Primary Care Provider [phone] Allergies Active Allergy Reactions Criticality Noted Date Comments Cephalexin Nausea and Vomiting,Unknown Low 01/02/20 08 Procaine Unknown 11/02/2024 Medications valACYclovir (VALTREX) 1 gram tablet 8 Active Additional Information Patient not taking.Reported on 11/02/2024 amoxicillin-cla vulanate (AUGMENTIN) 875-125 mg tablet 8 Active Additional Information Patient not taking.Reported on 11/02/2024 methylPREDNISol one (MEDROL DOSPACK) 4 mg Tablets, Dose Pack 8 Active Additional Information Patient not taking.Reported on 11/02/2024 cholecalciferol 1,250 mcg (50,000 unit) Capsule 1000u daily Active Cetirizine 10 mg Capsule Take 1 Capsule by mouth daily. Active citalopram (CeleXA) 20 mg tablet Take 20 mg by mouth daily at bedtime. Active citalopram (CeleXA) 40 mg tablet Take 40 mg by mouth. 4 Active docusate sodium (COLACE) 100 mg capsule TAKE 1 CAPSULE BY MOUTH TWICE DAILY prn Active empagliflozin (JARDIANCE) 25 mg tablet Take 12.5 mg by mouth. 5 Active folic acid (FOLVITE) 400 mcg Tablet Take 0.4 mg by mouth. 5 Active furosemide (LASIX) 20 mg tablet Take 20 mg by mouth. 4 Active gabapentin (NEURONTIN) 400 mg capsule Take 400 mg by mouth. 4 Active hydrALAZINE (APRESOLINE) 10 mg tablet Take 10 mg by mouth. 5 Active levothyroxine 50 mcg tablet Take 50 mcg by mouth. 5 Active HYDROcodone-blake taminophen (NORCO) 5-325 mg tablet TAKE 1 TABLET BY MOUTH EVERY 4 TO 6 HOURS NEEDED FOR PAIN Active memantine (NAMENDA) 10 mg Tablet Take 10 mg by mouth. 4 Active omeprazole (PriLOSEC) 40 mg Capsule, Delayed Release(E.C.) 1 capsule 30 minutes before morning meal Orally Once a day Active potassium CHLORIDE (KLOR-CON) 10 mEq Extended Release tablet Take 2 tablets every day by oral route for 30 days. Active rosuvastatin (CRESTOR) 20 mg tablet Take 10 mg by mouth. 5 Active SITagliptin (ZITUVIO) Take 25 mg by mouth. 5 Active spironolactone (ALDACTONE) 25 mg tablet 1 tablet Orally Acti ve tamsulosin (FLOMAX) 0.4 mg capsule Take 0.4 mg by mouth. 4 Active Active Problems Problem Noted Date Diagnosed Date SDH (subdural hematoma) 10/14/2024 Anticoagulated on Eliquis 10/14/2024 Ground-level fall 10/14/2024 Closed nondisplaced fracture of seventh cervical vertebra 10/14/2024 CKD (chronic kidney disease) 09/27/2017 Morbid obesity 09/27/2017 Right renal mass 07/21/2017 Overview (07/11/2020): CT finding, 4.4 cm Alzheimer's dementia without behavioral disturba nce 07/20/2017 CKD (chronic kidney disease) stage 3, GFR 30-59 ml/min 07/20/2017 Resolved Problems Problem Noted Date Diagnosed Date Resolved Date Generalized abdominal pain 07/20/2017 0 08/13/2017 Intractable vomiting with nausea 07/20/2017 08/13/2017 Encounters Date Type Department Care Team Description 12/01/2024 11:25 AM CDT Ancillary Procedure [facility] Spine and Pain Radiology [address] [place] [phone] Amy Garcia, BENZENE WASHER OPERATOR Closed nondisplaced fracture of seventh cervical vertebra, unspecified fracture morphology, initial encounter ([facility]) 12/01/2024 11:00 AM CDT Office Visit [facility] Neurosurgery [address] [place] [phone] Amy Garcia, BENZENE WASHER OPERATOR Closed nondisplaced fracture of seventh cervical vertebra, unspecified fracture morphology, initial encounter ([facility]) (Primary Dx) 12/01/2024 10:20 AM CDT Ancillary Procedure [facility] Spine and Pain Radiology [address] [place] [phone] Amy Garcia, BENZENE WASHER OPERATOR Closed nondisplaced fracture of seventh cervical vertebra, unspecified fracture morphology, initial encounter ([facility]) 11/14/2024 External Device Data STL ABSTRACTION Provider, Abstract 11/14/2024 External Device Data STL ABSTRACTION Provider, Abstract 11/02/2024 11:52 AM CDT - 11/02/2024 11:59 PM CDT Hospital Encounter [facility] Orthopedic [address] [phone] Amy Garcia, BENZENE WASHER OPERATOR Discharge Disposition: Home or Self Care 11/02/2024 10:00 AM CDT Office Visit [facility] Neurosurgery [address] [place] [phone] Amy Garcai, BENZENE WASHER OPERATOR SDH (subdural hematoma) ([facility]) (Primary Dx); Closed nondisplaced fracture of seventh cervical vertebra, unspecified fracture morphology, initial encounter ([facility]) 11/02/2024 9:55 AM CDT Ancillary Procedure [facility] Spine and Pain Radiology [address] [place] [phone] Amy Garcia, BENZENE WASHER OPERATOR Closed nondisplaced fracture of seventh cervical vertebra, unspecified fracture morphology, initial encounter ([facility]) 10/30/2024 Orders Only [facility] Neurosurgery [address] [place] [phone] Amy Garcia, BENZENE WASHER OPERATOR Closed nondisplaced fracture of seventh cervical vertebra, unspecified fracture morphology, initial encounter ([facility]) (Primary Dx) 10/18/2024 External Device Data STL ABSTRACTION Provider, Abstract 10/17/2024 External Device Data STL ABSTRACTION Provider, Abstract 10/17/2024 External Device Data STL ABSTRACTION Provider, Abstract 10/13/2024 10:03 PM CDT - 10/14/2024 10:45 AM CDT Emergency [facility] Emergency Department [address] [place] [phone] Jeffrey Bolton MD Castillo Salcedo, Rolando Israel, DO SDH (subdural hematoma) ([facility]) (Primary Dx); Other closed nondisplaced fracture of seventh cervical vertebra, initial encounter ([facility]); Ground-level fall; Anticoagulated on Eliquis Discharge Disposition: Home or Self Care 10/13/2024 Travel from Last 3 Months Social History Tobacco Use Types Packs/Day Years Used Date Smoking Tobacco: Never Smokeless Tobacco: Never Feeling Safe Answer Date Recorded Are you in a relationship wi th someone who hurts you emotionally and/or physically? 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 Gender Identity Not on file Sexual Orientation Not on file Last Filed Vital Signs Vital Sign Reading Time Taken Comments Blood Pressure 104/58 12/01/2024 10:50 AM CDT Pulse 71 10/14/2024 10:00 AM CDT Temperature 36.9 C (98.4 F) 10/13/2024 10:13 PM CDT Respiratory Rate 18 10/13/2024 10:17 PM CDT Oxygen Saturation 95% 10/14/2024 10:00 AM CDT Inhaled Oxygen Concentration - - Weight 167.8 kg (370 lb) 12/01/2024 10:50 AM CDT Height 190.5 cm (6' 3 ) 12/01/2024 10:50 AM CDT Body Mass Index 46.25 12/01/2024 10:50 AM CDT Plan of Treatment Health Maintenance Due Date Last Done Comments DIABETES ANNUAL FOOT EXAM 1964 DIABETES ANNUAL RETINAL EXAM 1964 DIABETES MICROALBUMIN ANNUAL SCREEN 1964 LDL CHOLESTEROL ANNUAL 1964 RSV VACCINE (60+ or ) (1 - 1-dose 75+ series) 2021 [place] Preventative Visit/Annual Wellness Visit 03/15/2024 INFLUENZA VACCINE (#1) 2024 , 01/20/2023, 01/28/2022, Additional history exists COVID-19 Vaccine (2023-2 5 season) 2024 01/21/2024, 01/20/2023, 01/28/2022, Additional history exists DIABETES HBA1C Q 6 MONTHS 01/05/2025 07/06/2024 DTAP/TDAP/TD VACCINES (2 - T d or Tdap) 01/04/2029 01/04/2019, 07/20/2011, 01/07/2009 ZOSTER VACCINE Completed 09/06/2018, 11/14, 08/08/2013 PNEUMOCOCCAL VACCINE 50+ YEARS Completed 0 07/16/2021, 05/21/2014, 12/28/2011, Additional history exists Medical Devices Implanted Type Area Airplane Pilot Commercial Device Identifier Shelf Expiration Date Model / Serial / Lot Mesh Ventralex 2.5in Med Circ [id number] - [id number] Implanted:Qty: 1 on 07/24/2017 by Singh Ibarra MD Mesh Abdomen CR [employer] 06/10/2019 [id number] / / [id number] Procedures Procedure Name Priority Date/Time Associated Diagnosis Comments XR CERVICAL SPINE 2 OR 3 VIEWS Routine 12/01/2024 11:37 AM CDT Closed nondisplaced fracture of seventh cervical vertebra, unspecified fracture morphology, initial encounter ([facility]) XR CERVICAL SPINE 1 VW Routine 12/01/2024 10:36 AM CDT Closed nondisplaced fracture of seventh cervical vertebra, unspecified fracture morphology, initial encounter ([facility]) CT HEAD WO CONTRAST Stat 11/02/2024 1 2:05 PM CDT SDH (subdural hematoma) ([facility]) XR CERVICAL SPINE 1 VW Routine 11/02/2024 10:08 AM CDT Closed nondisplaced fracture of seventh cervical vertebra, unspecified fracture morphology, initial encounter ([facility]) POC GLUCOSE Stat 10/14/2024 6:[address] HEAD WO CONTRAST Stat 10/14/2024 1 :25 AM CDT PTT Stat 10/13/2024 11:16 PM CDT PROTIME-INR Stat 10/13/2024 11:16 PM CDT COMPREHENSIVE METABOLIC PANEL Stat 10/13/2024 11:16 PM CDT CBC WITH DIFFERENTIAL Stat 10/13/2024 11:16 PM CDT CRITICAL CARE Routine 10/13/2024 10:03 PM CDT from Last 3 Months Results * XR CERVICAL SPINE 2 OR 3 VIEWS (12/01/2024 11:37 AM CDT) Anatomical Region Laterality Modality Spine Computed Radiogr aphy 12/01/2024 11:3 7 AM CDT Narrative 12/04/2024 7:16 AM CDT EXAM: XR CERVICAL SPINE 2 OR 3 VIEWS DATE/TIME OF EXAM: 12/01/2024 11:37 AM REASON FOR EXAM: See Diagnosis DIAGNOSIS: Closed nondisplaced fracture of seventh cervical vertebra, unspecified fracture morphology, initial encounter ([facility]) COMPARISON: 12/01/2024 FINDINGS: Overall visualization of the [...] cervical vertebra, unspecified fracture morphology, initial encounter ([facility]) COMPARISON: 12/01/2024 FINDINGS: Overall visualization of the [...] of the multilevel degenerative disease. Amy Garcia [facility] DIAGNOSTIC IMAGING ORDERA BLES Final Result * XR CERVICAL SPINE 1 VW (12/01/2024 10:36 AM CDT) Only the most recent of2 resultswithin the time period is included. Anatomical Region Laterality Modality Spine Computed Radiogr aphy 12/01/2024 10:3 6 AM CDT Impressions 12/02/2024 9:22 AM CDT IMPRESSION: See below. Exam: XR CERVICAL SPINE 1 VW Date/Time of Exam: 12/01/2024 10:36 AM Reason For Exam: See Diagnosis. Diagnosis: Closed nondisplaced fracture of seventh cervical vertebra, unspecified fracture morphology, initial encounter ([facility]). Prior: 11/02/2024. Findings: Previously seen fracture of [...] soft tissue swelling. Narrative Procedure Note Boris Schrader DO - 12/02/2024 IMPRESSION: See below. Exam: XR CERVICAL SPINE 1 VW Date/Time of Exam: 12/01/2024 10:36 AM Reason For Exam: See Diagnosis. Diagnosis: Closed nondisplaced fracture of seventh cervical vertebra, unspecified fracture morphology, initial encounter ([facility]). Prior: 11/02/2024. Findings: Previously seen fracture of [...] arthropathy. No prevertebral soft tissue swelling. Amy Tasneem Garcia [facility] DIAGNOSTIC IMAGING ORDERA BLES Final Result * CT HEAD WO CONTRAST (11/02/2024 12:05 PM CDT) Only the most recent of2 resultswithin the time period is included. Anatomical Region Laterality Modality Head Computed Tomogra phy 11/02/2024 12:0 5 PM CDT Impressions 11/02/2024 12:12 PM CDT IMPRESSION: No evidence of an acute intracranial process. No appreciable extra-axial hemorrhage Narrative 11/02/2024 12:12 PM CDT EXAM: CT HEAD WO CONTRAST DATE/TIME OF EXAM: 11/02/2024 12:05 PM REASON FOR STUDY: other DIAGNOSIS: SDH (subdural hematoma) ([facility]) COMPARISON: October 14, 2024 TECHNIQUE: CT head performed without contrast. FINDINGS: No evidence of an acute territorial infarct, parenchymal hemorrhage, hydrocephalus or abnormal extra-axial fluid collection. No midline shift. Basilar cisterns remain patent. No mastoid effusion. No paranasal sinus fluid level. No calvarial fracture. No sizable scalp hematoma. Procedure Note Roseline King MD - 11/02/2024 EXAM: CT HEAD WO CONTRAST DATE/TIME OF EXAM: 11/02/2024 12:05 PM REASON FOR STUDY: other DIAGNOSIS: SDH (subdural hematoma) ([facility]) COMPARISON: October 14, 2024 TECHNIQUE: CT head performed without contrast. FINDINGS: No evidence of an acute territorial infarct, parenchymal hemorrhage, hydrocephalus or abnormal extra-axial fluid collection. No midline shift. Basilar cisterns remain patent. No mastoid effusion. No paranasal sinus fluid level. No calvarial fracture. No sizable scalp hematoma. IMPRESSION: No evidence of an acute intracranial process. No appreciable extra-axial hemorrhage Amy Boateng Jose [facility] CT ORDERABLES Final Res ult * (ABNORMAL) POC GLUCOSE (10/14/2024 6:04 AM CDT) [facility] GLUCOSE POC 107(H) 74 - 99 mg/dL 10/14/2024 6:04 AM CDT [facility] SPECIMEN SOURCE, GLUCOSE POC Capillary 10/14/2024 6:04 AM CDT [facility] Blood, whole 10/14/2024 6:04 AM CDT 10/14/2024 6:12 AM CDT Mark Thapa DO POINT OF CARE TESTING Final Result [facility] CLIA # [id number] [facility] [address] [address] [place], [place] [id number] * (ABNORMAL) CBC WITH DIFFERENTIAL (10/13/2024 11:16 PM CDT) [facility] WBC 8.7 4.8 - 10.8 K/uL 10/13/2024 11:25 PM CDT [facility] RBC 4.47(L) 4.60 - 6.20 M/uL 10/13/2024 11:25 PM CDT [facility] HEMOGLOBIN 13.4(L) 14.0 - 18.0 g/dL 10/13/2024 11:25 PM CDT [facility] HEMATOCRIT 39.6(L) 41.0 - 53.0 % 10/13/2024 11:25 PM CDT [facility] MCV 88.6 84.0 - 103.0 fL 10/13/2024 11:25 PM [facility] MCH 30.0 27.0 - 34.0 pg 10/13/2024 11:25 PM [facility] MCHC 33.8 30.0 - 35.0 g/dL 10/13/2024 11:25 PM [facility] PLATELETS 148 140 - 440 K/uL 10/13/2024 11:25 PM [facility] [employer] [facility] MPV 9.4 8.9 - 12.8 fL 10/13/2024 11:25 PM [facility] [employer] [facility] RDW 12.8 11.0 - 14.5 % 10/13/2024 11:25 PM [facility] RDW-STDEV 41.8 37.0 - 54.0 fL 10/13/2024 11:25 PM [facility] NEUTROPHILS 75 42 - 75 % 10/13/2024 11:25 PM [facility] LYMPHOCYTES 15(L) 24 - 44 % 10/13/2024 11:25 PM [facility] MONOCYTES 7 2 - 10 % 10/13/2024 11:25 PM [facility] [employer] [facility] EOSINOPHILS 2 0 - 7 % 10/13/2024 11:25 PM [facility] [employer] [facility] BASOPHILS 1 0 - 1 % 10/13/2024 11:25 PM [facility] IMMATURE GRANULOCYTES 0 0 - 2 % 10/13/2024 11:25 PM [facility] NEUTROPHIL ABSOLUTE 6.55 2.00 - 8.00 K/uL 10/13/2024 11:25 PM [facility] LYMPHOCYTE ABSOLUTE 1.34 1.20 - 4.00 K/uL 10/13/2024 11:25 PM [facility] MONOCYTE ABSOLUTE 0.63(H) 0.10 - 0.60 K/uL 10/13/2024 11:25 PM [facility] EOSINOPHIL ABSOLUTE 0.14 0.00 - 0.70 K/uL 10/13/2024 11:25 PM CDT [facility] BASOPHILS ABSOLUTE 0.05 0.00 - 0.20 K/uL 10/13/2024 11:25 PM CDT [facility] IMMATURE GRANULOCYTES ABSOLUTE 0.03 0.00 - 0.10 K/uL 10/13/2024 11:25 PM CDT [facility] SMEAR REVIEWED: NA - Not Applicable 10/13/2024 11:25 PM CDT [facility] Blood Venipuncture / Unknown 10/13/2024 11:16 PM CDT 10/13/2024 11:21 PM CDT us Jeffrey Bolton MD HEMATOLOGY ORDERABLES Final R esult Performing Organization Address [facility] Co de Phone Number [facility] CLIA # [id number] [address] [address] * (ABNORMAL) PTT (10/13/2024 11:16 PM CDT) PTT 38.5(H) 24.8 - 37.2 seconds 10/13/2024 11:43 PM CDT [facility] Blood Venipuncture / Unknown 10/13/2024 11:16 PM CDT 10/13/2024 11:21 PM CDT Narrative [facility] - 10/13/2024 11:43 PM CDT Therapeutic Range: Hi-level PE/DVT heparin protocol 80.1 - 95.0 sec Lo-level PE/DVT heparin protocol 70.1 - 85.0 sec Cardiac Heparin Protocol 70.1 - 100.0 sec us Jeffrey Bolton MD HEMATOLOGY ORDERABLES Final R esult Performing Organization Address City/[facility]/ZIP Co de Phone Number [facility] CLIA # [id number] [address] [address] * (ABNORMAL) PROTIME-INR (10/13/2024 11:16 PM CDT) PROTIME 17.4(H) 12.7 - 14.9 Seconds 10/13/2024 11:43 PM CDT [facility] INR 1.3(H) 0.8 - 1.2 10/13/2024 11:43 PM CDT [facility] Blood Venipuncture / Unknown 10/13/2024 11:16 PM CDT 10/13/2024 11:21 PM CDT Narrative [facility] - 10/13/2024 11:43 PM CDT Expected Values for INR: DVT/PE Goal INR 2.5; range 2.0 - 3.0 Valve Replacement Tissue Goal INR 2.5; range 2.0 - 3.0 Valve Replacement Mechanical Goal INR 3.0; range 2.5 - 3.5 POST-NY Goal INR 2.5; range 2.0 - 3.0 or Goal INR 3.0; range 2.5 - 3.5 Atrial Fibrillation Goal INR 2.5; range 2.0 - 3.0 Ischemic Stroke Goal INR 2.5; range 2.0 - 3.0 us Jeffrey Bolton MD HEMATOLOGY ORDERABLES Final R esult [id number] [address] [place] [id number] * (ABNORMAL) COMPREHENSIVE METABOLIC PANEL (10/13/2024 11:16 PM CDT) Pathologist [facility] SODIUM 137 136 - 145 mmol/L 10/13/2024 11:57 PM CDT [facility] POTASSIUM 4.0 3.5 - 5.1 mmol/L 10/13/2024 11:57 PM CDT [facility] CHLORIDE 102 98 - 107 mmol/L 10/13/2024 11:57 PM CDT [facility] CO2 22 22 - 29 mmol/L 10/13/2024 11:57 PM [facility] CALCIUM 8.9 8.8 - 10.2 mg/dL 10/13/2024 11:57 PM [facility] BUN 12 8 - 23 mg/dL 10/13/2024 11:57 PM [facility] CREATININE 1.25(H) 0.67 - 1.17 mg/dL 10/13/2024 11:57 PM [facility] Comment:The GFR result is no t clinically significant on patients <18 or >70 years of age. GLUCOSE 138(H) 74 - 99 mg/dL 10/13/2024 11:57 PM [facility] TOTAL PROTEIN 6.6 6.4 - 8.3 g/dL 10/13/2024 11:57 PM [facility] ALBUMIN 3.9 3.5 - 5.2 g/dL 10/13/2024 11:57 PM [facility] BILIRUBIN TOTAL 0.6 0.0 - 1.0 mg/dL 10/13/2024 11:57 PM [facility] ALKALINE PHOSPHATASE 102 40 - 129 U/L 10/13/2024 11:57 PM [facility] AST 17 10 - 50 U/L 10/13/2024 11:57 PM [facility] ALT 19 <=50 U/L 10/13/2024 11:57 PM [facility] GFR 59 mL/min/1. 73 sq meter 10/13/2024 11:57 PM [facility] Comment:eGFR calculated with 2020 CKD-EPI equation. Vegetarian diet, extremely high or low muscle mass, and may affect results. Cystatin C with Glomerular Filtration Rate is a suitable alternative for these patients. ANION GAP 13 9 - 20 mmol/L 10/13/2024 11:57 PM [facility] Blood Venipuncture / Unknown 10/13/2024 11:16 PM CDT 10/13/2024 11:23 PM T us Jeffrey Bolton MD CHEMISTRY ORDERABLES Final Re sult [id number] [address] * Critical Care (10/13/2024 10:03 PM CDT) Narrative Jeffrey Bolton MD - 10/13/2024 10:03 PM CDT Jeffrey Bolton MD 10/13/2024 11:21 PM Critical Care Performed by: Jeffrey Bolton MD Authorized by: Jeffrey Bolton MD Critical care provider statement: Critical care time (minutes): 35 Critical care time was exclusive of: Separately billable procedures and treating other patients Critical care was necessary to treat or prevent imminent or life-threatening deterioration of the following conditions: Trauma and PRECISION LENS GRINDER failure or compromise Critical care was time spent personally by me on the following activities: Blood draw for specimens, development of treatment plan with patient or surrogate, discussions with consultants, examination of patient, interpretation of cardiac output measurements, obtaining history from patient or surrogate, ordering and performing treatments and interventions, ordering and review of laboratory studies, ordering and review of radiographic studies, pulse oximetry, re-evaluation of patient's condition and review of old charts I assumed direction of critical care for this patient from another provider in my specialty: no Care discussed with: admitting provider us Jeffrey Bolton MD PROCEDURE/MINOR SURGICAL ORDE RABLES Final Result from Last 3 Months Insurance O [facility] * Guarantor: ANA HIREN L (C) Account Type Relation to Patient Date of Phone Billing Address Corporate Other DEFAULT ADDRESS [place] [address] [place] [employer] Advance Directives For more information, please contact: [phone] Documents on File Type Date Recorded Patient Sales Marketing Coordinator Expl anation Advance Directive POA 08/04/2017 10:52 AM Advance Directive POA * NO CPR (In Event of Cardiopulmonary Arrest) (Latest Code Status on File) Date Activated Date Inactivated Comments 10/14/2024 7:31 AM 10/14/2024 12:50 PM Question Answer Comments Mechanical Ventilation (for respiratory distress) - Invasive (i.e. intubation): Yes Mechanical Ventilation (for respiratory distress) - Non-Invasive (i.e. BiPAP, CPAP): Yes Care Teams Agricultural Chemist Relationship Specialty Start Date End Date Zeyad Angel MD [address] [address] PCP - General Family Practice 07/19/17
--- OUTSIDE RECORDS SUMMARY | 2024-12-08 09:14 | XMS_ITS | Encounter Summary ---
Author Organization [facility] [employer] Address [address] [place] [address] Phone Care Team Providers Care Sequins Slinger Name Role Phone Urvashi Mcmahan MD Primary Care Provider [phone] Encounter Details Date Type Department Care Team (Late st Contact Info) Description 02/06/2019 Orders Only [facility] [address] [place] [address] Chronic kidney disease, stage 3 [...] mass documented in this encounter Care Teams Sequins Slinger Relationship Specialty Start Date End Date Urvashi Mcmahan MD [address] [place] [address] PCP - General Family Medicine 06/18/20 documented as of this encounter
--- OUTSIDE RECORDS SUMMARY | 2024-12-08 09:14 | XMS_ITS | Clinical Summary ---
Author Organization [facility] Address [address] [place] [address] Care Team Providers Care Log Manager Name Role Phone Zeyad Angel MD Primary Care Provider [phone] Allergies No known active allergies Medications amoxicillin-clavul [...] on file Legal Sex Male 11:09 AM [facility] Gender Identity Not on file Sexual Orientation Not on file Last Filed Vital Signs Vital Sign Reading Time Taken Comments Blood Pressure 160/77 02/03/2019 10:07 AM [facility] Pulse 88 02/03/2019 10:07 AM [facility] Temperature 36.1 C (97 F) 07/30/2017 8:43 AM CDT Respiratory Rate 18 07/30/2017 8:43 AM CDT Oxygen Saturation 95% 07/30/2017 8:43 AM CDT Inhaled Oxygen Concentration - - Weight 167.8 kg (370 lb) 02/03/2019 10:07 AM [facility] Height 190.5 cm (6' 3 ) 02/03/2019 10:07 AM [facility] Body Mass Index 46.25 02/03/2019 10:07 AM [facility] Plan of Treatment Health Maintenance Due Date Last Done Comments DTAP/TDAP/TD VACCINES (1 - Tdap) 1965 PNEUMOCOCCAL VACCINE 50+ YEARS (1 of 1 - PCV) 04/01/18 97 ZOSTER VACCINE (1 of 2) 1996 RSV VACCINE (60+ or ) (1 - 1-dose 75+ series) 2021 INFLUENZA VACCINE (#1) 2024 Medical Devices Implanted Type Area Edge Roller Device Identifier Shelf Expiration Date Model / Serial / Lot Mesh Ventralex 2.5in Med Circ [id number] - [id number] Implanted:Qty: 1 on 07/24/2017 by Singh Ibarra MD at [facility] Mesh Abdomen CR [employer] 06/10/2019 [id number] / / [id number] [employer] VISN 16 CONSOLIDATED FEE UNIT Advance Directives For more information, please contact: [phone] Documents on File Type Date Recorded Patient Model And Mold Maker Expl anation Advance Directive POA 08/04/2017 10:52 AM Advance Directive POA * Full Code (Latest Code Status on File) Date Activated Date Inactivated Comments 07/24/2017 4:16 PM 07/30/2017 3:07 PM * Full Code Date Activated Date Inactivated Comments 07/20/2017 3:37 PM 07/24/2017 4:16 PM Care Teams Log Manager Relationship Specialty Start Date End Date Zeyad Angel MD [address] [address] PCP - General Family Practice 07/19/17
--- OUTSIDE RECORDS SUMMARY | 2024-12-08 09:14 | XMS_ITS | Clinical Summary ---
Author Organization [facility] [employer], [facility] Address [address] [place] [address] Phone Care Team Providers Care Dredge Boat Engineer Name Role Phone Urvashi Mcmhaan MD Primary Care Provider [phone] Allergies No known active allergies Medications * [...] patient's age to complete this topic Insurance [id number] [place], [place] [id number] [place] [address] Regions 1,2,3 (VACCN) Care Teams Dredge Boat Engineer Relationship Specialty Start Date End Date Urvashi Mcmahan MD [address] [place] [address] PCP - General Family Medicine 06/18/20
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
--- OUTSIDE RECORDS SUMMARY | 2024-12-08 09:14 | XMS_ITS | Encounter Summary ---
Author Organization [facility] Address [address] [place] [address] Care Team Providers Care News Operations Manager Name Role Phone Zeyad Angel MD Primary Care Provider [phone] Reason for Referral * Outpatient Services (Routine) - Closed Specialty Diagnoses / Procedures Referred By Contac t Referred To Contact Radiology Diagnoses Right renal mass Procedures CT ABDOMEN PELVIS WO CONTRAST CT ABDOMEN PELVIS W CONTRAST Donnell Kothari MD Phone: tel: fax: [facility] [address] [facility] [address] [place] [address] Phone: tel: fax: Referral ID Status Reason Start Date Expiration Date V isits Requested Visits Authorized [id number] Closed SGF [facility] TO SCHEDULE (SGF) 09/27/2017 10/28/2018 1 1 Encounter Details Date Type Department Care Team ([facility] Contact Info) Description 03/14/2018 Ancillary Orders [facility]- [place] [address] Entrance [address], 3rd [place] [address] Donnell Kothari MD [address] [address] Right renal mass Social History Tobacco Use Types Packs/Day Years Used Date Smoking Tobacco: Never Smokeless Tobacco: Never Sex and Gender Information Value Date Recorded Sex Assigned at Not on file Legal Sex Male 11:09 AM [employer] Gender Identity Not on file Sexual Orientation Not on file documented as of this encounter Plan of Treatment Not on file documented as of this encounter Results * CT ABDOMEN PELVIS WO CONTRAST (03/14/2018 11:22 AM [employer]) Anatomical Region Laterality Modality Abdomen Computed Tomogra phy 03/14/2018 11:2 2 AM [employer] Impressions 03/14/2018 11:39 AM [employer] IMPRESSION: Please see below. Exam: CT ABDOMEN [...] Prostatomegaly and bladder wall thickening is identified. [id number] Narrative Procedure Note Lizzette Urbina MD - [...] Prostatomegaly and bladder wall thickening is identified. [id number] ORDERABLES Final R esult documented in this encounter Visit Diagnoses Diagnosis Right renal mass Unspecified disorder of kidney and ureter Right renal mass Unspecified disorder of kidney and ureter documented in this encounter Care Teams News Operations Manager Relationship Specialty Start Date End Date Zeyad Angel MD [address] [address] PCP - General Family Practice 07/19/17 documented as of this encounter
--- OUTSIDE RECORDS SUMMARY | 2024-12-08 09:14 | XMS_ITS | Patient Health Record ---
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 Name Role Phone Urvashi Queen MD Primary Care Provider UnavailShantelle Gomez Unavailable [phone] [place], [place] Unavailable Unavailable Jese Sung Unavailable [phone] Rosario Melara Unavailable [phone] Mitul Razo Unavailable [phone] Allergies Allergen (clinical drug ingredient) Drug/Non Drug Allergy documented on EMR Reaction Allergy Type Onset Date Status Novocain Unknown Drug Allergy Active Results Component Value Reference Range Flag Notes UA Without Micro-[place], [place] - [address] Reviewed date:07/26/2024 02:46:30 PM Interpretation: Performing Lab: Notes/Report: Glucose 3+ Bili - Ketones - Sp [place] 1.010 Blood - pH 6.5 Protein - Urobili - Nitrites - Leukocytes - Blood Urea Nitrogen (BUN) 84 520 Reviewed date:12/24/2023 12:04:41 PM Interpretation: Performing Lab: Notes/Report: Diagnosis Description: Malignant neoplasm of right kidney, except renal pelvis BUN 17 7-21 MG/DL CBC w\ Auto Diff 76117 Reviewed date:12/24/2023 12:04:07 PM Interpretation: Performing Lab: [...] 40.0-70.0 % Lymph Auto% 22.2 22.0-44.0 % Grimes Auto% 6.4 3.0-7.0 % Eos Auto% 2.2 2.0-4.0 % Baso Auto% 0.6 0.0-1.0 % Imm Gran% .4 .0-.4 % Neutro Abs 4.71 .80-7.70 Absolute Neutrophil Count 4710 NA Lymph Abs 1.53 .10-4.10 Grimes Abs .44 .20-1.00 Eos Abs .15 .00-.40 Baso Abs .04 .00-.20 Imm Gran Abs .03 .00-.10 NRBC# .00 .00-.20 NRBC% .00 .00-.20 /100 intact WBC's Comprehensive Metabolic Pane l (CMP) 60632 Reviewed date:12/24/2023 12:04:27 PM Interpretation: Performing Lab: Notes/Report: Diagnosis Description: Malignant neoplasm of right kidney, except renal pelvis Glucose Serum 100 71-110 MG/DL Testing p erformed at [facility], [address] [place] [address] [place] [address]. CLIA ID#: [id number] BUN 14 7-21 MG/DL Creat 1.21 .57-1.17 MG/DL HI Use of this assay is not recommended for patients undergoing treatment with phenindione, due to the potential for falsely depressed results. I-pzrnmj-k-benzoquinon e imine (NAPQI) is a metabolite of [...] 12-78 UNIT/L Osmo Serum,Calculated 290 280-300 MOSM/KG Creatinine (B) 93801 Reviewed date:12/24/2023 12:04:18 PM Interpretation: Performing Lab: Notes/Report: Diagnosis Description: Malignant neoplasm of right kidney, except renal pelvis Creat 1.40 .57-1.17 MG/DL HI L-acwcqg-n-benzoquinon e imine (NAPQI) is a metabolite of [...] the CKD-EPI Creatinine Equation(2020) to estimate GFR. Chest PA/Lat-71128 Reviewed date:12/25/2023 10:11:28 AM Interpretation: Performing Lab: Notes/Report: [id number] Chest PA/Lat-59983 Reviewed date:12/25/2023 10:12:12 AM Interpretation: Performing Lab: Notes/Report: See Below For Report Chest PA/Lat Diagnosis Description: Malignant neoplasm of right kidney, except renal pelvis Read See Below For Report CT Abdomen w/ + w/o Contrast -50496 Reviewed date:07/16/2024 07:57:41 AM Interpretation: Performing Lab: Notes/Report: [id number]=[email or web address] CT Abdomen w/ + w/o Contrast -87359 Reviewed date:07/16/2024 07:57:24 AM Interpretation: Performing Lab: Notes/Report: See Below For Report CT Abdomen w/ + w/o Contrast Read See Below For Report CT Abdomen w/ + w/o Contrast -32286 Reviewed date:12/23/2023 07:32:32 AM Interpretation: Performing Lab: Notes/Report: See Below For Report CT Abdomen w/ + w/o Contrast Read See Below For Report CT Abdomen w/ + w/o Contrast -60272 Reviewed date:12/23/2023 07:27:11 AM Interpretation: Performing Lab: Notes/Report: [id number]&org=[employer] Bun Proc NC--NO CPT Reviewed date:07/14/2024 09:32:31 AM Interpretation: Performing Lab: Notes/Report: BUN 15 7-21 MG/DL Creat Proc NC--NO PCT Reviewed date:07/14/2024 09:32:24 AM Interpretation: Performing Lab: Notes/Report: Creat 1.25 .57-1.17 MG/DL HI Use of this assay is not recommended for patients undergoing treatment with phenindione, due to the potential for falsely depressed results. U-focgjq-w-benzoquinon e imine (NAPQI) is a metabolite of acetaminophen, NAPQI concentrations of apparoximately 10 mg/L correlation to toxic levels of acetaminophen demonstrates a greater than or equil to 10% change in results. NAPQI concentrations greater than this may lead to falsely depressed results for patient samples. UA W/O Microscopic 18689 Reviewed date:12/29/2023 11:03:50 AM Interpretation: Performing Lab: Notes/Report: Specific gravity UA 1.020 Urine pH 5.5 Urine Glucose 3+ Urine Bilirubin 0 Urine Ketone 0 Urine Blood 0 Urine Protein +- Urobilinogen 0 Urine Nitrite 0 Urine Leukocyte 0 Reason For Referral Reason Malignant Neoplasm o f Right Kidney Referring Provider First Name Ravi Jose Luis ff Referring Provider Last Name OR Referring Provider [facility] Referred [facility] Referred Provider Mitul Razo Referred Address [address],[place], [place],[address],[place] Referred Provider Specialty Urology Referral Priority Routine Reason Neph-scheduled Diagnosis 1 Chronic kidney disea se, stage 3b (N18.32) Referring Provider First Name Ravi Carlsonu jerome Referring Provider Last Name OR Referring Provider [facility] Referred [facility] Referred Provider Jese Sung Referred Address [address] [place] [address] [address],[place], [place],[address],[place] Referred Provider Specialty Nephrology Referral Priority Routine Reason Malignant Neoplasm o f right kidney, except renal pelvis Diagnosis 1 Malignant neoplasm o f right kidney, except renal pelvis (C64.1) Referring Provider First Name Ravi Carlsonu ff Referring Provider Last Name OR Referring Provider [facility] Referred [facility] Uro o[facility] Referred Provider Mitul Razo Referred Address [address],[place], [place],[address],[place] Referred Provider Specialty Urology Referral Priority Routine Reason Neph-scheduled Diagnosis 1 Chronic kidney disea se, stage 3b (N18.32) Referring Provider First Name Ravi Carlsonu jerome Referring Provider Last Name OR Referring Provider [facility] Referred [facility] Referred Provider Jese Sung Referred Address [address] [place] [address] [address],[place], [place],[address],[place] Referred Provider Specialty Nephrology Referral Priority Routine Medications Medication SIG (Take, Route, Frequency, Duration) Notes Start Date End Date Status Tamsulosin HCl 0.4 MG Capsule 1 capsule Orally twice daily Active SITagliptin 25mg 1 tab daily A ctive Potassium Chloride 20 MEQ Powder for Oral Solution ORAL mon,tues,wed,sat 04/17/2022 Active Omeprazole 40 MG Capsule Delayed [...] 25 MG Oral Tablet ORAL *Reorder from BuzzTable for eRx and Interaction Alerts* 08/21/2022 Not-Taking Furosemide 40 MG Tablet 1 tablet Orally wed,,wed,wed Active Dicyclomine Hydrochloride 10 MG Oral Capsule ORAL *Reorder from [employer] for eRx and Interaction Alerts* 04/17/2022 Not-Taking Folic Acid 0.8 MG Oral Capsule ORAL 0.4 mg daily 08/21/2022 Active Dextromethorphan Hydrobromide 1 MG/ML / Guaifenesin 20 MG/ML Oral Solution ORAL *Reorder from [employer] for eRx and Interaction Alerts* 08/21/2022 Not-Taking Empagliflozin 25 MG Tablet 0.5 tablet Orally Once a day Active Citalopram Hydrobromide 40 MG Tablet 1 tablet Orally Once a day Not-Taking Rosuvastatin Calcium 20 MG Tablet 1/2 tablet Orally Once a day Active Eliquis 5 MG Tablet 1 tablet Orally twice a day Active cholecalciferol 0.05 MG Oral Capsule ORAL *Reorder from Buzz[employer] for eRx and Interaction Alerts* 08/21/2022 Not-Taking Chlorhexidine Gluconate 0.12 % Solution as directed Mouth/Throat Not-Taking cetirizine hydrochloride 10 MG Oral Tablet ORAL *Reorder from [employer] for eRx and Interaction Alerts* 08/26/2021 Not-Taking Citalopram 40 MG Oral Tablet ORAL *Reorder from [employer] for eRx and Interaction Alerts* 08/26/2021 Active Aspirin Adult Low Dose 81 MG Tablet Delayed Release 1 tablet Orally Once a day Not-Taking Lancet Device Not-Ta dwaine Cetirizine HCl 10 MG Tablet 1 tablet Orally Once a day Active Apixaban 5 MG Oral Tablet ORAL *Reorder from [employer] for eRx and Interaction Alerts* 08/21/2022 Not-Taking [...] 6.25 MG Oral Tablet ORAL *Reorder from Buzz[employer] for eRx and Interaction Alerts* 08/26/2021 Not-Taking Accu-Chek Active Not -Taking 200 ACTUAT Albuterol 0.09 MG/ACTUAT Dry Powder Inhaler INTRAPULMONARY *Reorder from [employer] for eRx and Interaction Alerts* 08/21/2022 Not-Taking Vitamin D3 25 MCG (1000 UT) Tablet Chewable 1 tablet Orally Once a day Active Sudafed Not-Taking docusate sodium 100 MG Oral Capsule [Colace] ORAL *Reorder from Buzz[employer] for eRx and Interaction Alerts* 04/17/2022 Active [...] : Was [employer] from [id number] Level of Education: [employer] Gnosticist: [employer] Drugs/Alcohol: Do you smoke marijuana? [...] Risk Notes Problem Malignant tumor of kidney (572973473) Malignant neoplasm of right kidney, except renal pelvis (C64.1) Active confirmed Problem Diabetic renal disease (735441337) Type 2 diabetes mellitus with diabetic chronic kidney disease (E11.22) Active confirmed Problem Mixed hyperlipidemia (652233692) Mixed hyperlipidemia (E78.2) Active confirmed Problem Chronic kidney disease due to hypertension (224019289305633) Hypertensive chronic kidney disease with stage 1 through stage 4 chronic kidney disease, or unspecified chronic kidney disease (I12.9) Active confirmed Problem Renal failure syndrome (63915311) Unspecified kidney failure (N19) Active confirmed Problem Secondary hyperparathyroidism of renal origin (69648919) Secondary hyperparathyroidism of renal origin (N25.81) Active confirmed Problem Hyperparathyroidism (96863251) Hyperparathyroidism (E21.3) Active confirmed Problem Benign hypertension (79597998) Hypertension, benign (I10) Active confirmed Problem Vitamin D deficiency (61239704) Vitamin D deficiency (E55.9) Active confirmed Problem History of pulmonary embolus (818885641) History of pulmonary embolism (Z86.711) Active confirmed Problem Anemia (320681803) Anemia (D64.9) Active confir med Problem Acquired hypothyroidism (268813521) Acquired hypothyroidism (E03.9) Active confirmed Problem Diabetic peripheral neuropathy associated with type 2 diabetes mellitus (8385856217872) Type 2 diabetes mellitus with diabetic neuropathy, without long-term current use of insulin (E11.40) Active confirmed Problem Use of anticoagulation (413872012) Chronic anticoagulation (Z79.01) Active confirmed Problem Iron deficiency anemia (89590989) Iron deficiency anemia (D50.9) Active confirmed Problem Morbid obesity (402259801) Morbid obesity (E66.01) Active confirmed Problem Urinary incontinence (199732011) Urinary incontinence (R32) Active confirmed Problem Pancreatic mass (578737102) Pancreatic mass (K86.89) Active confirmed Problem Renal mass (485788170) Renal mass (N28.89) Active confirmed Problem Malignant tumor of kidney (578144179) Malignant neoplasm of right kidney (C64.1) Active confirmed Problem Chronic kidney disease stage 3B (disorder) (030233840) Chronic kidney disease, stage 3b (N18.32) Active confirmed Vital Signs Heart Rate 96 /min 07/26/2024 Temperature 98.76 degrees Fahrenheit 07/26/2024 Oximetry 94 % 06/22/2024 Height-cm 182.88 cm 07/26/2024 Blood pressure diastolic 86 mm Hg 07/26/2024 Weight-kg 168.06 kg 07/26/2024 Height 73 in 07/26/2024 Blood pressure systolic 120 mm Hg 07/26/2024 Weight 370.5 lbs 07/26/2024 BMI 48.88 kg/m2 07/26/2024 Procedures Procedure Date Ordered Date Performed Result Body Sit e PVR (Post Void Residual) 12/29/2023 12/29/2023 500mL strai ght cath Encounters Encounter Location Date Provider Diagnosis [facility] [address] [place] [address] 12/29/2023 Mitul Razo Urinary retention R3 3.9 ; Malignant neoplasm of right kidney C64.1 and Urinary incontinence R32 [facility] [address] [place] [address] 06/22/2024 Shantelle Manzo Hypertensive chronic kidney disease [...] therapy Z79.899 and Iron deficiency anemia D50.9 [facility] [address] [place] [address] [address] [place] [address] 07/26/2024 Mitul Razo Malignant neoplasm o f right kidney C64.1 ; Urinary incontinence R32 and Incomplete emptying of bladder R33.9 [facility] [address] [place] [address] [address] [place] [address] 12/29/2023 Mitul Razo Renal mass N28.89 [facility] [address] [place] [address] [address] [place] [address] 04/20/2024 Rosario Melara [facility] [address] [place] [address] [address] [place] [address] 05/22/2024 Rosario Melara [facility] [address] [place] [address] 07/26/2024 Mitul Razo Malignant neoplasm o f right kidney C64.1 [facility] [address] [place] [address] 07/26/2024 Mitul Danni Malignant neoplasm o f right kidney C64.1 [facility] [address] [place] [address] 07/26/2024 Mitul Razo [facility] [address] [place] [address] 07/26/2024 Mitul Baltazarsay [facility] [address] [place] [address] 07/27/2024 Mitul Razo Assessments Encounter Date Diagnosis (ICD Code) Assessment Notes Treatment Notes Treatment Clinical Notes Section Notes 12/29/2023 Malignant neoplasm of right kidney (ICD-10 [...] is at goal for CKD. 12/29/2023 Urinary retention (ICD-10 - R33.9) 07/26/2024 Urinary incontinence (ICD-10 - R32) 07/26/2024 Malignant neoplasm of right kidney (ICD-10 - C64.1) 07/26/2024 Malignant neoplasm of right kidney (ICD-10 - C64.1) 07/26/2024 Malignant neoplasm of right kidney (ICD-10 - C64.1) 07/26/2024 Incomplete emptying of bladder (ICD-10 - R33.9) 06/22/2024 Chronic kidney disease, stage 3b (ICD-10 [...] CKD. 12/29/2023 Urinary incontinence (ICD-10 - R32) 06/22/2024 Hyponatremia (ICD-10 - E87.1) CKD stage [...] SHPTH is at goal for CKD. 06/22/2024 Secondary hyperparathyroidism of renal origin (ICD-10 [...] SHPTH is at goal for CKD. 06/22/2024 Vitamin D deficiency (ICD-10 - E55.9) [...] SHPTH is at goal for CKD. 06/22/2024 Pharmacologic therapy (ICD-10 - Z79.899) CKD [...] SHPTH is at goal for CKD. 12/29/2023 Other [address] abd [...] Other I have asked patient to sign [facility] for [facility] hospitalization records. Continue current antihypertensives. Monitor blood [...] Follow-up in 6 months with labs at [facility] 5-10 days prior to appointment BMP, mag, [...] x ray. It may be done at [place]. [facility] [place] [facility]. Follow-up [address] abdomen with and without IV contrast, CBC, CMP, and chest x-ray. Plan Of Treatment Pending Test Test Name Order Date Blood Urea Nitrogen (BUN) 48583 12/29/19 24 Blood Urea Nitrogen (BUN) 47652 07/27/19 25 CA 19-9 30665 08/25/2023 Carcinogenicembryonic Antigen 17081 08/13 CBC w\ Auto Diff 58184 07/26/2024 Comprehensive Metabolic Panel (CMP) 8005 3 07/26/2024 Creatinine (B) 84006 12/29/2023 Creatinine (B) 32546 07/26/2024 Chest PA/Lat-46506 07/26/2024 CT Abdomen w/ + w/o Contrast-53007 07/26 Vitamin D Total (B) 38938 12/08/2021 Albumin 12975 09/01/2023 Basic Metabolic Panel (BMP) 60742 2023 Ferritin 45100 09/01/2023 Hemoglobin 06840 09/01/2023 Iron Binding Capacity Total 59163 2023 Iron Level 84592 09/01/2023 Magnesium (B) 68257 09/01/2023 Phosphorus (B) 59959 09/01/2023 Uric Acid (B) 17471 09/01/2023 Vitamin D Total (B) 45963 09/01/2023 UA Reflex Micro, Reflex Cult 78554, 8101 5, 47749 09/01/2023 PTH Intact 59811 09/01/2023 % Iron Saturation (Fe & TIBC)--27080,835 50 09/01/2023 Future Test Test Name Order Date CBC w\ Auto Diff 78270 04/15/2024 Comprehensive Metabolic Panel (CMP) 8005 3 04/15/2024 Chest PA/Lat-47385 04/15/2024 Albumin 87494 05/02/2024 Basic Metabolic Panel (BMP) 21058 2024 Ferritin 18197 05/02/2024 Hemoglobin 25444 05/02/2024 Iron Binding Capacity Total 25502 2024 Iron Level 99167 05/02/2024 Magnesium (B) 40332 05/02/2024 Phosphorus (B) 43540 05/02/2024 Uric Acid (B) 50595 05/02/2024 Microalbumin (U) Random 14043 05/02/2024 Creatinine (U) 60631 05/02/2024 UA Reflex Micro, Reflex Cult 93877, 8101 5, 47331 05/02/2024 PTH Intact 29780 05/02/2024 % Iron Saturation (Fe & TIBC)--26113,835 50 05/02/2024 Basic Metabolic Panel (BMP) 18826 2024 Ferritin 16015 01/22/2025 Hemoglobin 73677 01/22/2025 Magnesium (B) 86819 01/22/2025 Phosphorus (B) 27079 01/22/2025 Vitamin D Total (B) 45491 01/22/2025 PTH Intact 05182 01/22/2025 % Iron Saturation (Fe & TIBC)--84139,835 50 01/22/2025 Next Appt Details Provider Name:Mitul sigala, 01/16/2025 10:10:00 AM, [address], [place], [address], Provider Name:Jese Sung, 02/05/2025 01:40:00 PM, [address] [place] [address] [address], [place], [address], Insurance Providers Payer Name Payer Address Payer Phone Subscriber Number Group Number Insured Name Patient Relationship to Insured Coverage Start Date Coverage End Date [employer] [address] [place] [phone] [id number] Singh Yepez Self - patient is the [...]
--- NOTE | 2024-12-08 09:17 | W.ED.AMS ---
HPI - Altered Mental Status General: Chief Complaint: Altered Mental Status Stated Complaint: ams - fever History of Present Illness: 79-year-old man with a history of morbid obesity, chronic anticoagulation on Eliquis, atrial fibrillation, congestive heart failure, type 2 diabetes, hypertension, and chronic kidney disease who presents to the emergency room with weakness and confusion according to family. Currently he is alert and oriented. He said he just was not acting himself. Also they checked a temperature and he had a fever of over 103. EMS confirmed and his temp was 103 when they checked it. Is also 103 on presentation here. He is 88% on room air so he is placed on oxygen. He says he has had some cough. No focal motor deficits. No chest pain. Family states he did have some abdominal pain earlier but when I evaluate him he does not. Related Data Home Medications ?Medication ?Instructions ?Recorded ?Confirmed cetirizine 10 mg tablet (Zyrtec) 10 mg PO DAILY 05/10/21 12/08/24 levothyroxine 50 mcg tablet 50 mcg PO QAM 05/10/21 12/08/24 memantine 10 mg tablet 10 mg PO BID 05/10/21 12/08/24 tamsulosin 0.4 mg capsule 0.4 mg PO BID 05/10/21 12/08/24 gabapentin 400 mg capsule 400 mg PO BID 08/05/22 12/08/24 cholecalciferol (vitamin D3) 25 25 mcg PO DAILY 12/23/22 12/08/24 mcg (1,000 unit) capsule citalopram 40 mg tablet 40 mg PO QAM depression 12/23/22 12/08/24 empagliflozin 25 mg tablet 12.5 mg PO DAILY 12/23/22 12/08/24 (Jardiance) folic acid 0.8 mg capsule 0.4 mg PO DAILY 12/23/22 12/08/24 rosuvastatin 20 mg tablet 10 mg PO DAILY 12/23/22 12/08/24 hydralazine 10 mg tablet 10 mg PO QID 12/30/23 12/08/24 sitagliptin 25 mg tablet 25 mg PO DAILY 12/30/23 12/08/24 docusate sodium 100 mg capsule 100 mg PO BID PRN Constipation 12/08/24 12/08/24 (Colace) furosemide 20 mg tablet 20 mg PO DAILY 12/08/24 12/08/24 hydrocodone 5 mg-acetaminophen 325 1 tab PO .Q4-6H PRN Pain 12/08/24 12/08/24 mg tablet omeprazole 40 mg capsule,delayed 40 mg PO QAM 12/08/24 12/08/24 release spironolactone 25 mg tablet 25 mg PO DAILY 12/08/24 12/08/24 Previous Rx's ?Medication ?Instructions ?Recorded Diabetic shoes with 3 pairs of #1 ea 11/02/22 inserts diabetic socks [id number] #1 ea 03/22/23 potassium chloride 20 mEq 10 meq (1/2 x 20 mEq) PO DAILY #30 01/02/24 tablet,extended release tabs diabetic shoes with 3 inserts #1 ea 12/07/24 Allergies Allergy/AdvReac Type Severity Reaction Status Date / Time cephalexin (From KeLingvist) Allergy Unknown Verified 12/08/24 07:10 Review of Systems Narrative: Constitutional symptoms: Negative except as documented in HPI. Skin symptoms: Negative except as documented in HPI. Eye symptoms: Negative except as documented in HPI. ENMT symptoms: Negative except as documented in HPI. Respiratory symptoms: Negative except as documented in HPI. Cardiovascular symptoms: Negative except as documented in HPI. Gastrointestinal symptoms: Negative except as documented in HPI. Genitourinary symptoms: Negative except as documented in HPI. Musculoskeletal symptoms: Negative except as documented in HPI. Neurologic symptoms: Negative except as documented in HPI. Psychiatric symptoms: Negative except as documented in HPI. Endocrine symptoms: Negative except as documented in HPI. PFS ED PFSH: Medical History (Updated 12/08/24 @ 12:08 by Sanjuana Carroll MD) Acute on chronic diastolic CHF (congestive heart failure) Type 2 diabetes mellitus Benign essential HTN Pulmonary embolism COVID-19 Pulmonary edema Acute respiratory failure with hypoxia Chronic kidney disease No pertinent family history Social History Smoking and tobacco/nicotine status: unknown if used tobacco/nicotine Physical Exam Narrative: General: Alert, no acute distress. Skin: Warm, dry. Head: Normocephalic, atraumatic. Neck: Supple, trachea midline. Eye: Extraocular movements are intact. Ears, nose, mouth and throat: mucosa moist. Cardiovascular: Regular, Normal peripheral perfusion. Respiratory: Lungs are clear to auscultation, respirations are non-labored, breath sounds are equal, Symmetrical chest wall expansion. Gastrointestinal: Soft, Nontender, Non distended Musculoskeletal: Normal ROM, no deformity. Neurological: Alert and oriented, No focal neurological deficit observed. Psychiatric: Cooperative, appropriate mood & affect. Course Vital Signs: Vital signs: Vital Signs Temperature 103 F H 12/08/24 09:07 Pulse Rate 105 H 12/08/24 11:52 Respiratory Rate 18 12/08/24 11:52 Blood Pressure 104/75 12/08/24 11:52 Pulse Oximetry 89 L 12/08/24 11:52 Oxygen Delivery Me thod Nasal Cannula 12/08/24 11:52 Oxygen Flow Rate 3 12/08/24 11:52 MDM - Altered Mental Status Medical Decision Making Medical decision making: Differential diagnosis for patient presenting with generalized weakness, confusion and fever including but not limited to and based on the above HPI, review of systems and physical exam: Sepsis. Dehydration. Renal failure. Electrolyte abnormalities. Anemia. Congestive heart failure. Hypotension. Coronary syndrome. Hepatitis. Cirrhosis. Infections such as pneumonia, urinary tract infection, [place] illness, Cellulitis, Viral infections including influenza and Covid-19. Workup: labwork and lab/exam driven imaging ordered to evaluate, rule in and rule out above pathologies. EKG: Time 10:22 AM. Rate 112. Sinus tachycardia, nonspecific ST changes, no ectopy, normal [place] & QRS intervals, This was reviewed and interpreted by myself the ER physician at 10:27 AM Chest x-ray: No acute process. No infiltrate. No pneumothorax. This was reviewed and interpreted by myself the emergency room physician. I also reviewed the radiology report. CT of the chest abdomen pelvis: This was ordered to evaluate for source of fever and sepsis. No acute findings. He does have known tumor in his kidney. This was reviewed and interpreted by myself the emergency room physician. I also reviewed the radiology report. Lab Review: Laboratory results were reviewed and interpreted by myself the emergency room physician. Leukocytosis white count 14,000 with left shift of over 90%. No anemia. Stable chronic renal insufficiency I reviewed the patient's medical record. 79-year-old man with a history of morbid obesity, chronic anticoagulation on Eliquis, atrial fibrillation, congestive heart failure, type 2 diabetes, hypertension, and chronic kidney Reexamination: Patient initially had a heart rate in the 60s but jumped up to the 120s.No altered mental status while here. No abdominal pain here. He does have mild oxygen requirement with 2 L. He is not on oxygen at home. Consultation: I spoke with Dr. Goldberg who agrees to admission. Assessment and plan: Fever of unknown origin Sepsis Mild hypoxemia Tachycardia ?At this point I do not have any clear source for sepsis but given that flu and COVID are negative and that he has a white count that is left shifted he has been tachycardic and his blood pressures been soft I am treating him empirically for sepsis -2.5 L normal saline bolus. Fluid volumes based on ideal body weight. -Broad-spectrum antibiotics were administered. Meropenem and Zyvox -Sepsis quality measures. -Lactic acid with a reflex was ordered. -Blood cultures were ordered. ?I reevaluated the patient's volume status after sepsis fluids were given. -I discussed the patient with the hospitalist on-call who is admitting the patient. - Discussed findings and plan with patient. Answered any questions. - All laboratory values were reviewed and interpreted personally by myself, the ER physician - All imaging was reviewed and interpreted personally by myself, the ER physician. - Evaluation and treatment of this problem were appropriate in the emergency setting Critical Care: -I spent a total of >35 minutes of critical care time managing the patient, independent of any other practitioner. -The time involved in the performance of separately reportable procedures was not counted towards critical care time. Lab Data 12/08/24 09:15 12/08/24 09:15 Radiology Impressions Chest X-Ray 12/08/24 09:10 IMPRESSION: 1. Chronic RIGHT basal changes. 2. No acute process is suspected. Chest/Abdomen/Pelvis CT 12/08/24 09:46 IMPRESSION: 1. Shallow inspiration. Cardiomegaly. Otherwise no acute chest findings. 2. Continued enlargement of the RIGHT renal neoplasm since 2019 measuring 8.7 x 8.9 x 8.5 cm with central necrosis. Recommend urology consultation. 3. Indeterminate smaller LEFT renal lesions on this noncontrast study. 4. Diffuse bladder wall thickening similar to previous can be seen with chronic cystitis or bladder outlet obstruction. 5. Prostate measures 4.9 cm. Recommend correlation PSA. Laboratory Results WBC 14.57 10^3/uL (3.29-11.43) H 12/08/24 09:15 RBC 4.82 10^6/uL (3.85-5.65) 12/08/24 09:15 Hgb 14.50 g/dL (11.27-16.99) 12/08/24 09:15 Hct 43.9 % (37-53) 12/08/24 09:15 MCV 91.1 fl (82-101) 12/08/24 09:15 MCH 30.1 pg (27-33) 12/08/24 09:15 MCHC 33.0 g/dL (30-55) 12/08/24 09:15 RDW 12.6 % (12.1-15.1) 12/08/24 09:15 Plt Count 202 10^3/cmm (157-399) 12/08/24 09:15 MPV 8.8 fL (7.4-10.4) 12/08/24 09:15 Neut % (Auto) 92.1 % 12/08/24 09:15 Lymph % (Auto) 3.8 % 12/08/24 09:15 [place] % (Auto) 2.7 % 12/08/24 09:15 Eos % (Auto) 0.2 % 12/08/24 09:15 Baso % (Auto) 0.2 % 12/08/24 09:15 Neut # (Auto) 13.42 10^3/uL (1.8-7.7) H 12/08/24 09:15 Lymph # (Auto) 0.6 10^3/uL (0.8-4.8) L 12/08/24 09:15 [place] # (Auto) 0.4 10^3/uL (0.2-0.9) 12/08/24 09:15 Eos # (Auto) 0.0 10^3/uL (0.0-0.8) 12/08/24 09:15 Baso # (Auto) 0.0 10^3/uL (0.0-0.1) 12/08/24 09:15 Nucleated RBC % (auto) 0 % 12/08/24 09:15 Nucleated RBCs # 0.0 /100WBC 12/08/24 09:15 Sodium 138 mmol/L (136-145) 12/08/24 09:15 Potassium 3.7 mmol/L (3.5-5.1) 12/08/24 09:15 Chloride 99 mmol/L (98-107) 12/08/24 09:15 Carbon Dioxide 26 mmol/L (22-29) 12/08/24 09:15 Anion Gap 16.7 (5-19) 12/08/24 09:15 BUN 14 mg/dL (8-23) 12/08/24 09:15 Creatinine 1.4 mg/dL (0.7-1.2) H 12/08/24 09:15 GFR Calculation Not Reportable 12/08/24 09:15 Glucose 118 mg/dL (65-115) H 12/08/24 09:15 Calculated Osmolality 288 mOsm/kg (285-295) 12/08/24 09:15 Lactic Acid 2.5 mmol/L (0.5-2.2) H 12/08/24 09:15 Lactic Acid (Sepsis) 2.0 mmol/L (0.5-2.2) 12/08/24 11:37 Calcium 9.3 mg/dL (8.5-10.5) 12/08/24 09:15 Total Bilirubin 0.6 mg/dL (0.15-1.2) 12/08/24 09:15 AST 15 U/L (0-40) 12/08/24 09:15 ALT 13 U/L (0-41) 12/08/24 09:15 Alkaline Phosphatase 112 U/L (40-130) 12/08/24 09:15 Troponin T Baseline 31 ng/L (0-15) H 12/08/24 09:15 Troponin T 120 Minute 29.27 ng/L (0-15) H 12/08/24 11:37 Delta Troponin T -1.73 ABS# (0-10) L 12/08/24 11:37 C-Reactive Protein 23.0 mg/L (0.0-4.9) H 12/08/24 09:15 Total Protein 8.3 g/dL (6.6-8.7) 12/08/24 09:15 Albumin 3.8 g/dL (3.5-5.2) 12/08/24 09:15 Globulin 4.5 g/dL (1.3-4.6) 12/08/24 09:15 Procalcitonin 0.90 ng/mL (0-0.5) H 12/08/24 09:15 Urine Color Yellow (Yellow) 12/08/24 09:33 Urine Appearance Clear (CLEAR) 12/08/24 09:33 Urine pH 5.5 (5-7) 12/08/24 09:33 Ur Specific [place] 1.021 (1.005-1.030) 12/08/24 09:33 Urine Protein Negative (Negative) 12/08/24 09:33 Urine Glucose (UA) 3+ (Normal) H 12/08/24 09:33 Urine Ketones Negative (Negative) 12/08/24 09:33 Urine Blood Negative (Negative) 12/08/24 09:33 Urine Nitrate Negative (Negative) 12/08/24 09:33 Urine Bilirubin Negative (Negative) 12/08/24 09:33 Urine Urobilinogen 1.0 mg/dL (Negative) 12/08/24 09:33 Ur Leukocyte Esterase Negative (Negative) 12/08/24 09:33 Urine RBC 0-2 /hpf (0-2) 12/08/24 09:33 Urine WBC 0-5 /hpf (0-5) 12/08/24 09:33 Ur Squamous Epith Cells 0-5 /hpf (0-5) 12/08/24 09:33 Amorphous Sediment Not Reportable 12/08/24 09:33 Urine Bacteria None seen /hpf (NONE) 12/08/24 09:33 Hyaline Casts 0-4 /lpf H 12/08/24 09:33 Influenza A (PCR) Negative (Negative) 12/08/24 09:15 Influenza Type B (PCR) Negative (Negative) 12/08/24 09:15 RSV (PCR) Negative (Negative) 12/08/24 09:15 SARS-CoV-2 (PCR) Negative (Negative) 12/08/24 09:15 All radiology interpretation(s) finalized by discharge Discharge Plan Discharge Patient Disposition: Admitted As Inpatient Clinical Impression: Sepsis, Fever of unknown origin, Acute metabolic encephalopathy Condition: Stable Coding Level of Care Code ED Recruiting Team Lead for Alex Burgos
[2024-12-08 09:24] LABS: Hematocrit 43.9 % (37-53); Hemoglobin 14.50 g/dL (11.27-16.99); Mean Corpuscular HGB Conc 33.0 g/dL (30-55); Mean Corpuscular Hemoglobin 30.1 pg (27-33); Mean Corpuscular Volume 91.1 fl (82-101); Nucleated Red Blood Cells % 0 %; Platelet Count 202 10^3/cmm (157-399); Red Blood Count 4.82 10^6/uL (3.85-5.65); White Blood Count 14.57 10^3/uL (3.29-11.43)
[2024-12-08 09:42] LABS: Glucose Urine UA 3+ (Normal); Nitrate Urine Negative (Negative); Specific Gravity, Urine 1.021 (1.005-1.030)
--- NOTE | 2024-12-08 09:46 | CT_ITS ---
WS: [id number] CT CHEST, ABDOMEN, AND PELVIS TECHNIQUE: Noncontrast CT of the chest, abdomen, and pelvis with coronal and sagittal reformatted images. CLINICAL INFORMATION: sepsis. COMPARISON: CT kidney 12/31/2023 DLP: 1532.[address] scans at [facility] use at least one of these dose optimization techniques: automated exposure control; mA and/or kV adjustment per patient size (includes targeted exams where dose is matched to clinical indication); or iterative reconstruction. CT CHEST: Moderate chronic emphysematous changes. Bibasilar atelectasis. No focal consolidation or pleural fluid. Aortic calcification. Normal caliber thoracic aorta. Coronary calcification. No mediastinal or hilar lymphadenopathy. Small esophageal hernia. No axillary lymphadenopathy. CT ABDOMEN AND PELVIS: Normal noncontrast liver and spleen. Splenic granulomas. Normal GE junction. Air-fluid level in the stomach. Normal gallbladder. Fatty atrophy pancreas. Normal caliber abdominal aorta. Aortic calcification. Large lobulated RIGHT renal mass compatible with renal neoplasm with central necrosis. This continues to increase in size since today measures approximately 8.7 x 8.9 x 8.5 cm. This continues to increase in size since 2019. Atrophic kidneys bilaterally. Indeterminate LEFT renal lesions similar to previous. Adrenal glands are normal. Diffuse irregular bladder wall thickening. Recommend correlation for chronic cystitis or bladder outlet obstruction. This is also similar to previous. Images in the pelvis degraded due to LEFT ANNABEL with beam- hardening artifact. Sigmoid diverticulosis. Normal appendix. Hypertrophic changes lumbar spine. Prostate measures 4.9 cm. Recommend correlation PSA. Advanced degenerative arthritis RIGHT hip. CT/[place] [id number] IMPRESSION: 1. Shallow inspiration. Cardiomegaly. Otherwise no acute chest findings. 2. Continued enlargement of the RIGHT renal neoplasm since 2019 measuring 8.7 x 8.9 x 8.5 cm with central necrosis. Recommend urology consultation. 3. Indeterminate smaller LEFT renal lesions on this noncontrast study. 4. Diffuse bladder wall thickening similar to previous can be seen with chroni c cystitis or bladder outlet obstruction. 5. Prostate measures 4.9 cm. Recommend correlation PSA.
[2024-12-08 09:49] LABS: Lactic Sepsis W/Reflex 2.5 mmol/L (0.5-2.2)
[2024-12-08 09:50] LABS: Alanine Aminotransferase 13 U/L (0-41); Albumin Level 3.8 g/dL (3.5-5.2); Alkaline Phosphatase 112 U/L (40-130); Anion Gap 16.7 (5-19); Aspartate Amino Transferase 15 U/L (0-40); Blood Urea Nitrogen 14 mg/dL (8-23); Calcium 9.3 mg/dL (8.5-10.5); Carbon Dioxide 26 mmol/L (22-29); Chloride 99 mmol/L (98-107); Creatinine Clr Calc Pharmacy 69.7298; Globulin 4.5 g/dL (1.3-4.6); Glucose 118 mg/dL (65-115); Osmolality Calculated 288 mOsm/kg (285-295); Potassium 3.7 mmol/L (3.5-5.1); Sodium 138 mmol/L (136-145); Total Protein 8.3 g/dL (6.6-8.7)
[2024-12-08 09:51] LABS: Reflex Lactate Order REFLEX LACTIC ORDERD
[2024-12-08] MEDS: acetaminophen 1,000 MG/100 ML PIGGYBACK 400 MG IV (09:51)
[2024-12-08] MEDS: linezolid premix 600 MG/300 ML PREMIX 300 MG IV (09:56)
[2024-12-08 09:57] LABS: Procalcitonin 0.90 ng/mL (0-0.5)
[2024-12-08 10:04] LABS: Respiratory Syncytial Virus Ce NEGATIVE (Negative); SARS-CoV-2 PCR NEGATIVE (Negative)
[2024-12-08 10:13] LABS: Troponin(5th) Baseline 31 ng/L (0-15)
--- NOTE | 2024-12-08 10:22 | ECG_ITS ---
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
[2024-12-08 12:04] LABS: Troponin 5 2HR 29.27 ng/L (0-15)
[2024-12-08 12:05] LABS: Troponin 5 2HR Delta -1.73 ABS# (0-10)
[2024-12-08 12:07] LABS: Lactic Acid level (Lactate) 2.0 mmol/L (0.5-2.2)
--- NOTE | 2024-12-08 12:11 | ECG_ITS ---
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
--- NOTE | 2024-12-08 12:20 | PM.HP ---
Providers/Chief Complaint Admitting Physician: Dr. Corea. Primary Care Provider: Urvashi Mcmahan MD Chief Complaint: ams - fever History of Present Illness Singh Yepez is a 79 year old male presenting after episode of increased confusion at home. He was having trouble forming sentences at home and found to have a fever with O2 saturation around 83. He does not use oxygen at home. Given some O2 per EMS and he was brought to the ER. Prior history of UTIs and possible aspiration, however no evidence of abnormal UA or significant changes on chest CT currently. PMHx is significant for renal cell carcinoma, not currently being treated. He has had a TURP and is incontinent of urine. He gets frequent constipation but has had BM yesterday. He had a recent fall with cervical fracture and SDH in neck brace, the brace recently completed. Currently very weak. Presenting for further work up of fever and malaise without clear source. Review of Systems Const: Reports: fever(s), fatigue and malaise Eyes: Denies: change in vision ENMT: Denies: throat pain Card: Denies: chest pain or palpitations Resp: Reports: dyspnea; Denies: productive cough or chest congestion GI: Denies: abdominal pain, nausea or vomiting : Denies: difficulty urinating Musc: Denies: neck pain, back pain or extremity pain Skin/Breast: Denies: rash, pruritus or erythema Neuro: Reports: confusion Psych: Denies: anxiety or depression Medications/Allergies Home Medications ?Medication ?Instructions ?Recorded ?Confirmed ?Last Taken ?Type cetirizine 10 mg tablet (Zyrtec) 10 mg PO DAILY 05/10/21 12/08/24 12/07/24 History levothyroxine 50 mcg tablet 50 mcg PO QAM 05/10/21 12/08/24 12/07/24 History memantine 10 mg tablet 10 mg PO BID 05/10/21 12/08/24 12/07/24 History tamsulosin 0.4 mg capsule 0.4 mg PO BID 05/10/21 12/08/24 12/07/24 History gabapentin 400 mg capsule 400 mg PO BID 08/05/22 12/08/24 12/07/24 History Diabetic shoes with 3 pairs of #1 ea 11/02/22 12/08/24 Unknown Rx inserts cholecalciferol (vitamin D3) 25 25 mcg PO DAILY 12/23/22 12/08/24 12/07/24 History mcg (1,000 unit) capsule citalopram 40 mg tablet 40 mg PO QAM depression 12/23/22 12/08/24 12/07/24 History empagliflozin 25 mg tablet 12.5 mg PO DAILY 12/23/22 12/08/24 12/07/24 History (Jardiance) folic acid 0.8 mg capsule 0.4 mg PO DAILY 12/23/22 12/08/24 12/07/24 History rosuvastatin 20 mg tablet 10 mg PO DAILY 12/23/22 12/08/24 12/07/24 History diabetic socks [id number] #1 ea 03/22/23 12/08/24 Unknown Rx hydralazine 10 mg tablet 10 mg PO QID 12/30/23 12/08/24 12/07/24 History sitagliptin 25 mg tablet 25 mg PO DAILY 12/30/23 12/08/24 12/07/24 History potassium chloride 20 mEq 10 meq (1/2 x 20 mEq) PO DAILY #30 01/02/24 12/08/24 12/07/24 Rx tablet,extended release tabs diabetic shoes with 3 inserts #1 ea 12/07/24 12/08/24 Unknown Rx docusate sodium 100 mg capsule 100 mg PO BID PRN Constipation 12/08/24 12/08/24 Unknown History (Colace) furosemide 20 mg tablet 20 mg PO DAILY 12/08/24 12/08/24 12/07/24 History hydrocodone 5 mg-acetaminophen 325 1 tab PO .Q4-6H PRN Pain 12/08/24 12/08/24 Unknown History mg tablet omeprazole 40 mg capsule,delayed 40 mg PO QAM 12/08/24 12/08/24 12/07/24 History release spironolactone 25 mg tablet 25 mg PO DAILY 12/08/24 12/08/24 12/07/24 History Allergies Allergy/AdvReac Type Severity Reaction Status Date / Time cephalexin (From Keflex) Allergy Unknown Verified 12/08/24 07:10 PFSH Acute PFSH: Medical History (Updated 12/08/24 @ 12:31 by Varun Corea MD) Urinary incontinence Hypothyroidism Renal mass, right Acquired hammertoes of both feet Acute on chronic diastolic CHF (congestive heart failure) Type 2 diabetes mellitus Benign essential HTN Pulmonary embolism COVID-19 Pulmonary edema Acute respiratory failure with hypoxia Chronic kidney disease No pertinent family history Surgical History (Updated 12/08/24 @ 12:31 by Varun Corea MD) S/P TURP H/O hernia repair H/O exploratory laparotomy Family History (Updated 12/08/24 @ 12:32 by Varun Corea MD) Mother Dementia Father Prostate cancer Social History Smoking and tobacco/nicotine status: unknown if used tobacco/nicotine Vitals/I&O/Wt Last Vital Signs Temp 103 F H 12/08/24 09:07 Pulse 105 H 12/08/24 11:52 Resp 18 12/08/24 11:52 BP 104/75 12/08/24 11:52 Pulse Ox 89 L 12/08/24 11:52 O2 Del Method Nasal Cannula 12/08/24 11:52 O2 Flow Rate 3 12/08/24 11:52 12/07/24 12/08/24 12/08/24 22:59 06:59 14:59 Intake Total 2400 / 2400 Balance 2400 / 2400 Weight last 48 hrs Weight 160.118 kg Physical Exam Const: COMMON NORMALS: no acute distress and average body habitus OTHER: somewhat confused HENMT: COMMON NORMALS: normocephalic and atraumatic Eye: COMMON NORMALS: Equal, round and reactive pupils present and EOMs intact bilaterally Lymph: LYMPHATIC: no lymphadenopathy noted Resp: COMMON NORMALS: normal respiratory effort, No retractions and clear to auscultation bilaterally (lungs sounds distant) Cardio: COMMON NORMALS: no JVD, regular rate, regular rhythm, S1 normal heart sound present, S2 normal heart sound present, No gallops present (Cardio), No murmurs present (Cardio) and No rub (Cardio) GI: COMMON NORMALS: Soft to palpation, non-tender and no masses Extremity: NARRATIVE EXTREMITY EXAM: BL LE edema with changes of venous stasis Neuro: COMMON NORMALS: patient oriented x3, CN's II-XII intact bilaterally, moves all extremities and no focal motor deficits Psych: COMMON NORMALS: mental status grossly normal, Normal thought process present, cooperative, normal affect and speech normal Data 12/08/24 09:15 12/08/24 09:15 Micro: Microbiology 12/08/24 09:51 Blood Culture - Preliminary Blood SPECIMEN COLLECTED 12/08/24 09:45 Blood Culture - Preliminary Blood SPECIMEN COLLECTED A&P Assessment and plan 1. Acquired hammertoes of both feet: Plan: 79 year old male presenting with fever, weakness, confusion. Fever - unknown origin - UA is clear - CT chest/abdomen/pelvis without significant issues - chest CT head w/o contrast. - cont. O2, wean as able, does not use O2 at home. - noted emphysema on CT - possible recent aspiration, change abx to rocephin/levofloxacin Renal cell carcinoma - monitoring currently, no active treatment. Constipation - cont. colace Pre-diabetes - cont. jardiance, sitagliptin HTN - cont. hydralazine 10 mg PO QID - cont. spironolactone Hypothyroidism - cont. levothyroxine Confusion - cont. memantine - treat underlying issues as above GERD - cont. PPI Urinary incontinence - s/p TURP - cont tamsulosin LE edema Venous stasis dermatitis - increase home lasix to 40 BID for now, monitor creatinine. History of PE - cont. home eliquis PPx: home eliquis Diet: CC Disposition - full code - up with assist - PT/OT/CM for discharge planning PDMP PDMP Reviewed: Not Reviewed Attestations Medical Necessity Statement*: anticipate > 2 midnights for fever, possible aspiration pneumonia Time Spent in Patient Care: 16 - 35 minutes (>than 50% of time spent in counselling and/or direct pt care on unit). Coding Level of Care Code Acute Code for Chg Fwd Diagnoses Acquired hammertoes of both feet M20.41; M20.42
--- NOTE | 2024-12-08 12:41 | CT_ITS ---
WS: [id number] CT HEAD TECHNIQUE: Noncontrast CT of the head obtained from the skullbase to the vertex. CLINICAL INFORMATION: AMS COMPARISON: 10/13/2024 DLP: 1158.[address] scans at [facility] use at least one of these dose optimization techniques: automated exposure control; mA and/or kV adjustment per patient size (includes targeted exams where dose is matched to clinical indication); or iterative reconstruction. FINDINGS: No evidence of intracranial hemorrhage or mass effect. Ventricular system and basal cisterns are patent. Mild small vessel changes with moderate parenchymal volume loss. No extra-axial fluid collections. No evidence of mass or mass effect. Vascular calcification. Paranasal sinuses and mastoid air cells are well aerated. .Normal visualized soft tissues. CT/CT head wo con* [id number] IMPRESSION: 1. No evidence of intracranial hemorrhage or mass effect. 2. No acute intracranial findings.
--- NOTE | 2024-12-08 13:21 | PC.NURSE ---
repositioned pt in bed, denies any further needs at this time.
[2024-12-08 15:15] LABS: Troponin 5 6HR 26.98 ng/L (0-15); Troponin 5 6HR Delta -4.02 ng/L (0-12)
--- NOTE | 2024-12-08 16:26 | ECG_ITS ---
[employer] Test Date: 2024-12-08 Pat Name: Singh Yepez Department: Room: 253 Gender: Male [employer]: : 1945 Requested By: Sanjuana Jarquin Order Number: [id number] Pawan MD: RUBEN BRITTON Measurements Intervals [place] Rate: 94 P: 75 OR: 191 QRS: -44 QRSD: 93 T: 48 QT: 341 QTc: 427 Interpretive Statements SINUS RHYTHM LEFT AXIS DEVIATION [QRS AXIS < -30] LOW QRS VOLTAGE IN PRECORDIAL LEADS [QRS DEFLECTION < 1.0 mV IN CHEST LEADS] INCOMPLETE RIGHT BUNDLE BRANCH BLOCK [90+ ms QRS DURATION, TERMINAL R IN V1/V2, 40+ ms S IN I/aVL/V4/V5/V6] POSSIBLE ANTERIOR MYOCARDIAL INFARCTION , PROBABLY OLD [30 ms Q WAVE IN V3/V4, OR R < 0.2 mV IN V4] Compared to ECG 12/08/2024 12:11:23 Left-axis deviation now present Low QRS voltage now present Electronically Signed On 12-09-2024 21:38:25 CDT by RUBEN BRITTON [email or web address] [id number]
[2024-12-08] MEDS: ondansetron 2 mg/ML SDV 2 mL 4 MG IVP ×2 (16:42→21:02)
[2024-12-08] MEDS: cefTRIAXone 1,000 mg SDV 1000 MG IVP (16:44)
[2024-12-08] MEDS: levofloxacin-dextrose 5 % 750 MG/150 ML PREMIX 100 MG IV (16:44)
[2024-12-08] MEDS: FUROsemide 10 mg/mL SDV 4mL 40 MG IVP (17:40)
--- NOTE | 2024-12-08 22:34 | PC.NURSE ---
2200 Pt had 1000cc of green emesis with small amount of undigested food.
[2024-12-09] VITALS (7 sets, daily range): BP systolic 119–153; BP diastolic 58–74; PULSE 81–95; RESP 18–19; TEMP 36.4–37; O2SAT 90–92
[2024-12-09] MEDS: ondansetron 2 mg/ML SDV 2 mL 4 MG IVP ×4 (00:26→21:07)
--- NOTE | 2024-12-09 03:28 | PC.NURSE ---
0250 Pt had an additional 500cc of green emesis. Abdomen soft, BS positive all quadrants. Pt stated that his belly had been hurting since but not hurting at the moment. Pt reported that he had not had a bowel movement in 4 days and took 2 little pills for constipation and had a bowel movement later that day on . He had also eaten a meatball sandwich on and felt nauseated and his belly was hurting after eating that sandwich.
--- NOTE | 2024-12-09 04:57 | PC.NURSE ---
Pt had another 400 cc green emesis with small pieces of undigested food. Dr Dallas made aware.
[2024-12-09 05:13] LABS: Hematocrit 40.0 % (37-53); Hemoglobin 13.00 g/dL (11.27-16.99); Mean Corpuscular HGB Conc 32.5 g/dL (30-55); Mean Corpuscular Hemoglobin 29.8 pg (27-33); Mean Corpuscular Volume 91.7 fl (82-101); Platelet Count 167 10^3/cmm (157-399); Red Blood Count 4.36 10^6/uL (3.85-5.65); White Blood Count 19.75 10^3/uL (3.29-11.43)
[2024-12-09 05:24] LABS: Slide Review Slide Review Perform
[2024-12-09 05:53] LABS: Anion Gap 17.2 (5-19); Blood Urea Nitrogen 21 mg/dL (8-23); Calcium 8.5 mg/dL (8.5-10.5); Carbon Dioxide 24 mmol/L (22-29); Chloride 101 mmol/L (98-107); Glucose 157 mg/dL (65-115); Osmolality Calculated 292 mOsm/kg (285-295); Potassium 4.2 mmol/L (3.5-5.1); Sodium 138 mmol/L (136-145)
[2024-12-09 05:56] LABS: Creatinine Clr Calc Pharmacy 61.6971
[2024-12-09 06:29] LABS: Absolute Segmented Neutrophil 14.6 10/cmm (1.6-7.1); Atypical Lymphs 5.0 % (0-5); Band Neutrophils Absolute 3.0 10^3/cmm (0.0-1.2); Total Cells Counted 100 (0-100)
--- NOTE | 2024-12-09 07:11 | USR_ITS ---
PROCEDURE INFORMATION: Exam: US Duplex Left Lower Extremity Veins, Limited Exam date and time: 12/09/2024 9:58 AM Age: 79 years old Clinical indication: Edema, localized; Lower extremity, left; Additional info: Left leg edematous and red, PT C/O calf pain TECHNIQUE: Imaging protocol: Real-time duplex ultrasound of the left extremity with 2-D bravo scale, color Doppler flow and spectral waveform analysis including responses to compression and other maneuvers (when performed) with image documentation. Limited exam focused on the left lower extremity veins. COMPARISON[place] [id number] 12/08/2024 10:06 AM FINDINGS: Left deep veins: Unremarkable. The common femoral, femoral, proximal profunda femoral and popliteal veins are patent without thrombus. Normal Doppler waveforms. Normal compressibility and/or augmentation response. Superficial veins: Greater saphenous vein at the saphenofemoral junction is patent without thrombus. Soft tissues: Unremarkable. US/CV venous duplex [facility] [id number] IMPRESSION: No evidence of deep vein thrombosis.
[2024-12-09] MEDS: FUROsemide 10 mg/mL SDV 4mL 40 MG IVP ×2 (10:59→17:23)
--- NOTE | 2024-12-09 11:21 | P.PN_ITS ---
Subjective 2 Subjective: Nausea/vomiting over night. Vitals/I&O/Wt Last Vital Signs Temp 97.8 F 12/09/24 08:00 Pulse 85 12/09/24 08:00 Resp 18 12/09/24 08:00 BP 121/61 12/09/24 08:00 Pulse Ox 90 12/09/24 08:00 O2 Del Method Room Air 12/09/24 08:00 O2 Flow Rate 3 12/08/24 16:31 12/08/24 12/09/24 12/09/24 22:59 06:59 14:59 Intake Total 390 / 3290 Output Total 1999 / 1999 900 / 2900 Balance -1610 / 1290 -900 / 390 Weight last 48 hrs Weight 163.293 kg Weight 160.118 kg Physical Exam 2 Narrative: Physical Exam Const: no acute distress and average body h abitus, somewhat c onfused HENMT: normocephalic and atraumatic Eye: Equal, round and r eactive pupils pre sent and EOMs inta ct bilaterally Lymph: no lymphadenopathy noted Resp: normal respiratory effort, No retrac tions and clear to auscultation bila terally, lungs cherrie nds distant Cardio: no JVD, regular ra te, regular rhythm , S1 normal heart sound present, S2 normal heart sound present, No germain ps, murmurs presen t, rubs GI: soft to palpation, non-tender and no masses Extremity: BL LE edema with c hanges of venous s tasis Neuro: patient oriented x 3, CN's II-XII int act bilaterally, m oves all extremiti es and no focal mo tor deficits Psych: mental status gianni sly normal, Normal thought process p resent, cooperativ e, normal affect a nd speech normal Urinary Catheter Management: Capellan: Cath Placed During This Visit: yes Reason for Continuing Indwelling Catheter: Other Urinary Catheter Date of Insertion: 12/08/24 Urinary Catheter Time of Insertion: 18:08 Data 12/09/24 04:26 12/09/24 04:26 Micro: Microbiology 12/08/24 09:51 Blood Culture - Preliminary Blood NEGATIVE TO DATE 12/08/24 09:45 Blood Culture - Preliminary Blood NEGATIVE TO DATE A&P Assessment and plan 1. Acute metabolic encephalopathy: 2. Fever of unknown origin: 3. Edema: Plan: 79 year old male presenting with fever, weakness, confusion. Fever - unknown origin - UA is clear - CT chest/abdomen/pelvis without significant issues - chest CT head w/o contrast negative for acute issues. - cont. O2, wean as able, does not use O2 at home. - noted emphysema on CT - possible recent aspiration, change abx to rocephin/levofloxacin - leukocytosis increased O/N N/V overnight - possibly viral, gastroenteritis vs. abx side effect - zofran, compazine available. Renal cell carcinoma - known renal mass. - monitoring currently, no active treatment. Constipation - cont. colace Pre-diabetes - cont. jardiance, sitagliptin HTN - cont. hydralazine 10 mg PO QID - cont. spironolactone Hypothyroidism - cont. levothyroxine Confusion - cont. memantine - treat underlying issues as above GERD - cont. PPI Urinary incontinence - s/p TURP - cont tamsulosin LE edema Venous stasis dermatitis - increase home lasix to 40 BID for now, monitor creatinine. - LLE erythema likely 2/2 fluid overload rather than infection. - compression/elevation as tolerated. - venous duplex without evidence of DVT. - monitor creatinine, may be limiting factor in diuresis. - cardiac echo pending. History of PE - cont. home eliquis PPx: home eliquis Diet: CC Disposition - full code - up with assist - PT/OT/CM for discharge planning PDMP PDMP Reviewed: Not Reviewed Attestations 2 Medical Necessity Statement*: Ongoing inpatient for fever, leukocytosis, fluid overload. Coding Level of Care Code Acute Code for Chg Fwd Diagnoses Acute metabolic encephalopathy G93.41 Fever of unknown origin R50.9 Edema R60.9
--- NOTE | 2024-12-09 11:28 | USCV_ITS ---
Singh Yepez Age: 79 Gender: M : 1945 Exam Date: 12/09/2024 18:50 Ordering Phys: Varun Corea MD Technologist: Stew Palomo Exam Location: [facility] – [place] Indication: elevated trop, fluid overload BP: 153 / 70 HR: 95 Rhythm: Sinus Technical Quality: Suboptimal MEASUREMENTS (Male / Female) Normal Values 2D ECHO LV Diastolic Diameter PLAX 4.1 cm 4.2 - 5.9 / 3.9 - 5.3 cm IVS Diastolic Thickness 1.4 cm 0.6 - 1.0 / 0.6 - 0.9 cm IVS Systolic Thickness 1.5 cm LVPW Diastolic Thickness 1.3 cm 0.6 - 1.0 / 0.6 - 0.9 cm LVPW Systolic Thickness 1.9 cm LVOT Diameter 2.1 cm LV Ejection Fraction 2D Teich 65.3 % LV Ejection Fraction MOD 4C 59.1 % LV Ejection Fraction MOD 2C 61.7 % LV Ejection Fraction 2C AL 62.0 % LA Diameter 3.7 cm RA Systolic Volume 4C AL 40.5 ml RA Systolic Volume 4C MOD 39.1 ml LA Sys Volume AL 45.0 cm cubed LA Sys Volume Index AL 15.0 cm cubed/m squared Aorta at Sinotubular Diameter 2.8 cm M-MODE LA Ao Ratio MM 1.3 AV Cusp Separation MM 1.5 cm DOPPLER AV Peak Velocity 144.0 cm/s LVOT Peak Velocity 95.0 cm/s AV Area Cont Eq vti 1.5 cm squared AV Area Cont Eq pk 2.2 cm squared MV Peak Velocity 122.0 cm/s MV Area PHT 5.1 cm squared Mitral E to A Ratio 76.6 TR Peak Velocity 223.0 cm/s TR Peak Gradient 19.9 mmHg TR Mean Velocity 162.0 cm/s TR Mean Gradient 12.2 mmHg TR Velocity Time Integral 48.3 cm PV Peak Velocity 126.0 cm/s RV Ejection Time 0.1 s FINDINGS Left Ventricle Normal left ventricular size, systolic function and wall thickness, with no regional wall motion abnormalities. Left ventricular ejection fraction is estimated at 60 %. Grade II/IV diastolic dysfunction, moderately elevated filling pressures. Right Ventricle The right ventricle is normal in size and function. Right Atrium The right atrium is normal in size. Left Atrium The left atrium is normal in size. Mitral Valve Moderately thickened mitral valve. Moderate mitral annular calcification. No mitral valve stenosis. Trace mitral valve regurgitation. Aortic Valve Moderate aortic valve calcification. Trace aortic valve regurgitation. Mild aortic valve stenosis, mean gradient 5.5 mmHg, GALINA 1.5 cm squared. Tricuspid Valve Structurally normal tricuspid valve without significant stenosis or regurgitation. Pulmonary artery systolic pressure is normal. Pulmonic Valve Structurally normal pulmonic valve without significant stenosis. There is no pulmonic regurgitation. Pericardium Normal pericardium without effusion. Aorta Normal ascending aorta dimension. IVC The inferior vena cava appears normal. CONCLUSIONS Normal left ventricular size, systolic function and wall thickness, with no regional wall motion abnormalities. Left ventricular ejection fraction is estimated at 60 %. Grade II/IV diastolic dysfunction, moderately elevated filling pressures. Moderate aortic valve calcification. Trace aortic valve regurgitation. Mild aortic valve stenosis, mean gradient 5.5 mmHg, GALINA 1.5 cm squared. There is no pericardial effusion. Right atrial pressure is around 5 mm of mercury. Angela Vanessa MD (Electronically Signed) Final Date: 09 December 2024 20:49 S
--- NOTE | 2024-12-09 11:55 | PC.CHAP ---
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 [] Patient/Family/Request visit [] Outpatient visit [] Follow-up visit [] Physician referral [] Code/Alert [x] Routine visit [] Staff referral [] Actively dying [] Patient sleeping [] Family support [] [] Out of room [] Palliative care [] [] Receiving care in room [] Pre-surgical visit [] Trauma [] Long length of stay [] ICU visit [] Other: Relational/Emotional Strength [] Patient feels connected with others/family/visitors/staff [] Distress [] Loneliness/isolation [] Abandonment Spirituality of Patient [] Person of Diana [] Attends Church of their Diana [] Believes in Prayer [] Reads Bible or Amish materials [] There are Spiritual issues to be addressed [employer] Interventions [] Prayer [] Active listening [] Non-anxious presence [] Spiritual/emotional support [] Crisis/trauma care [] Spiritual counseling [] Bereavement support [] Provided bereavement packet [] Provided Bible/devotional materials [] Provided toy/stuffed animal, coloring book to patient or family member [] Provided Communion [] Anointing/[place] [] Salvation [] Completed spiritual assessment [] Other: Impact on Illness or Injury [] Angry [] Fearful [] Anxious [] Often cries [] Exhaustion [] Unable to work [] Unable to attend taoism [] Unable to walk/stand [] Unable to read [] Unable to drive [] Unable to eat/drink [] Unable to sleep [] Unable to be with family [] Patient intubated [] Other: Summary Time spent with patient
[2024-12-09] MEDS: CITALOPRAM 40 MG TABLET PO (12:22)
[2024-12-09] MEDS: levofloxacin-dextrose 5 % 750 MG/150 ML PREMIX 100 MG IV (12:23)
[2024-12-09] MEDS: cefTRIAXone 1,000 mg SDV 1000 MG IVP (15:14)
--- NOTE | 2024-12-09 15:59 | PC.OT ---
OT evaluation completed. Patient declined OT services. Nursing notified.
[2024-12-09] MEDS: HYDROcodone-acetaminophen 5-325 mg Tablet 1 TAB PO (21:13)
[2024-12-10] VITALS (7 sets, daily range): BP systolic 100–151; BP diastolic 61–80; PULSE 77–98; RESP 15–20; TEMP 36.4–36.9; O2SAT 90–93
[2024-12-10] MEDS: ondansetron 2 mg/ML SDV 2 mL 4 MG IVP (02:03)
[2024-12-10] MEDS: HYDROcodone-acetaminophen 5-325 mg Tablet 1 TAB PO (03:22)
[2024-12-10 05:43] LABS: Hematocrit 43.4 % (37-53); Hemoglobin 14.20 g/dL (11.27-16.99); Mean Corpuscular HGB Conc 32.7 g/dL (30-55); Mean Corpuscular Hemoglobin 29.7 pg (27-33); Mean Corpuscular Volume 90.8 fl (82-101); Nucleated Red Blood Cells % 0 %; Platelet Count 154 10^3/cmm (157-399); Red Blood Count 4.78 10^6/uL (3.85-5.65); White Blood Count 20.12 10^3/uL (3.29-11.43)
[2024-12-10 06:08] LABS: Anion Gap 15.2 (5-19); Blood Urea Nitrogen 27 mg/dL (8-23); Calcium 8.9 mg/dL (8.5-10.5); Carbon Dioxide 26 mmol/L (22-29); Chloride 99 mmol/L (98-107); Creatinine Clr Calc Pharmacy 69.3839; Glucose 159 mg/dL (65-115); Osmolality Calculated 292 mOsm/kg (285-295); Potassium 3.2 mmol/L (3.5-5.1); Sodium 137 mmol/L (136-145)
[2024-12-10] MEDS: CITALOPRAM 40 MG TABLET PO (06:16)
[2024-12-10] MEDS: FUROsemide 10 mg/mL SDV 4mL 40 MG IVP ×2 (08:30→17:14)
--- NOTE | 2024-12-10 11:37 | P.PN_ITS ---
Subjective 2 Subjective: no nausea/vomiting overnight. Vitals/I&O/Wt Last Vital Signs Temp 98.3 F 12/10/24 08:02 Pulse 79 12/10/24 08:02 Resp 16 12/10/24 08:02 BP 127/75 12/10/24 08:02 Pulse Ox 93 12/10/24 08:02 O2 Del Method Room Air 12/10/24 08:02 O2 Flow Rate 2 12/10/24 07:26 12/09/24 12/10/24 12/10/24 22:59 06:59 14:59 Intake Total 150 / 270 240 / 240 Output Total 3100 / 3425 350 / 3775 Balance -2950 / -3155 -350 / -3505 240 / 240 Weight last 48 hrs Weight 158.712 kg Weight 163.293 kg Physical Exam 2 Narrative: Physical Exam Const: no acute distress and average body habitus, mental status improved HENMT: normocephalic and atraumatic Eye: Equal, round and reactive pupils, EOMs intact bilaterally Lymph: no lymphadenopathy Resp: normal respiratory effort, No retractions and clear to auscultation bilaterally, lungs sounds distant Cardio: no JVD, regular rate, regular rhythm, S1/S2 normal, No gallops, murmurs, rubs GI: soft to palpation, non-tender and no masses Extremity: BL LE edema with changes of venous stasis Neuro: patient oriented x3, CN's II-XII intact bilaterally, moves all extremities and no focal motor deficits Psych: mental status grossly normal, Normal thought process present, cooperative, normal affect and speech normal Urinary Catheter Management: Akbar: Cath Placed During This Visit: yes Reason for Continuing Indwelling Catheter: Other Urinary Catheter Date of Insertion: 12/08/24 Urinary Catheter Time of Insertion: 18:08 Data 12/10/24 05:26 12/10/24 05:26 Micro: Microbiology 12/08/24 09:51 Blood Culture - Preliminary Blood NEGATIVE TO DATE 12/08/24 09:45 Blood Culture - Preliminary Blood NEGATIVE TO DATE A&P Assessment and plan 1. Acute metabolic encephalopathy: 2. Fever of unknown origin: 3. Edema: 4. Morbid obesity with BMI of 45.0-49.9, adult: Plan: 79 year old male presenting with fever, weakness, confusion. Fever - unknown origin - UA is clear - CT chest/abdomen/pelvis without significant issues - chest CT head w/o contrast negative for acute issues. - O2 weaned to off. - noted emphysema on CT - possible recent aspiration, change abx to rocephin/levofloxacin - leukocytosis increased O/N - blood cultures negative to date. N/V overnight - possibly viral, gastroenteritis vs. abx side effect - zofran, compazine available. - leukocytosis potentially 2/2 above. Renal cell carcinoma - known renal mass. - monitoring currently, no active treatment. Constipation - cont. colace Pre-diabetes - cont. jardiance, sitagliptin HTN - cont. hydralazine 10 mg PO QID - cont. spironolactone Hypothyroidism - cont. levothyroxine Confusion - cont. memantine - treat underlying issues as above - appears improved. GERD - cont. PPI Urinary incontinence - s/p TURP - cont tamsulosin - akbar placed on diuretics. LE edema Venous stasis dermatitis morbid obesity - increase home lasix to 40 BID for now, monitor creatinine. - LLE erythema likely 2/2 fluid overload rather than infection. - compression/elevation as tolerated. - venous duplex without evidence of DVT. - monitor creatinine, may be limiting factor in diuresis, decreased this AM despite lasix - erythema improving. - cardiac echo with normal EF at 60%, no wall motion abnormalities. GIIDD. History of PE - cont. home eliquis Hypokalemia - 40 meq given. - recheck in AM. PPx: home eliquis Diet: CC Disposition - full code - up with assist - PT/OT/CM for discharge planning PDMP PDMP Reviewed: Not Reviewed Attestations 2 Medical Necessity Statement*: Ongoing inpatient for fluid overload, fever/leukocytosis, confusion, unknown origin. Time Spent in Patient Care: 16 - 35 minutes (>than 50% of time sp ent in counselling and/or direct pt care on unit) . Coding Level of Care Code Acute Code for Chg Fwd Diagnoses Acute metabolic encephalopathy G93.41 Fever of unknown origin R50.9 Edema R60.9 Morbid obesity with BMI of 45.0-49.9, adult E66.01; Z68.42
[2024-12-10] MEDS: levofloxacin-dextrose 5 % 750 MG/150 ML PREMIX 100 MG IV (12:26)
[2024-12-10] MEDS: cefTRIAXone 1,000 mg SDV 1000 MG IVP (15:04)
[2024-12-11] VITALS (8 sets, daily range): BP systolic 102–149; BP diastolic 63–94; PULSE 71–93; RESP 17–18; TEMP 36.4–36.8; O2SAT 87–93
[2024-12-11 04:25] LABS: Hematocrit 38.5 % (37-53); Hemoglobin 12.80 g/dL (11.27-16.99); Mean Corpuscular HGB Conc 33.2 g/dL (30-55); Mean Corpuscular Hemoglobin 30.4 pg (27-33); Mean Corpuscular Volume 91.4 fl (82-101); Nucleated Red Blood Cells % 0 %; Platelet Count 169 10^3/cmm (157-399); Red Blood Count 4.21 10^6/uL (3.85-5.65); White Blood Count 13.32 10^3/uL (3.29-11.43)
[2024-12-11] MEDS: HYDROcodone-acetaminophen 5-325 mg Tablet 1 TAB PO ×2 (05:05→12:30)
[2024-12-11] MEDS: FUROsemide 10 mg/mL SDV 4mL 40 MG IVP (05:07)
[2024-12-11] MEDS: CITALOPRAM 40 MG TABLET PO (05:07)
[2024-12-11 05:08] LABS: Anion Gap 14.4 (5-19); Blood Urea Nitrogen 46 mg/dL (8-23); Calcium 8.8 mg/dL (8.5-10.5); Carbon Dioxide 29 mmol/L (22-29); Chloride 98 mmol/L (98-107); Glucose 123 mg/dL (65-115); Osmolality Calculated 299 mOsm/kg (285-295); Potassium 3.4 mmol/L (3.5-5.1); Sodium 138 mmol/L (136-145)
[2024-12-11 05:10] LABS: Creatinine Clr Calc Pharmacy 46.2121
--- NOTE | 2024-12-11 12:09 | PC.SOCIAL ---
IMM Updated Updated pt on IMM. No questions voiced. Provided pt a copy. Initialed, dated, & timed a copy & placed in chart.
--- NOTE | 2024-12-11 12:45 | PM.PN ---
Subjective Subjective: Creatinine worsened to 2.1 today. Urine output 1000 cc. Still has a Akbar catheter in place. He has left lower extremity cellulitis which per the family appears to be improving. Medications: Reviewed: Yes Vitals/I&O/Wt Last Vital Signs Temp 97.7 F 12/11/24 11:54 Pulse 79 12/11/24 11:54 Resp 18 12/11/24 11:54 BP 119/75 12/11/24 11:54 Pulse Ox 87 L 12/11/24 12:32 O2 Del Method Nasal Cannula 12/11/24 11:54 O2 Flow Rate 2 12/11/24 12:32 12/10/24 12/11/24 12/11/24 22:59 06:59 14:59 Intake Total 240 / 870 240 / 240 Output Total 300 / 1000 Balance 240 / 170 -300 / -130 240 / 240 Weight last 48 hrs Weight 158.445 kg Weight 158.712 kg Physical Exam Narrative: General: No acute distress, AO x3 HEENT: PERRLA, pupils bilaterally equal and reactive, pallors not present Chest: Normal vesicular breath sounds, no added sounds, equal good air entry bilaterally CVS: S1-S2 regular, no murmurs, no tachycardia, no gallops, no rubs Abdomen: Soft, nontender, no organomegaly, bowel sounds present Neuro: No focal deficits, no facial deformity, AO x3, power 5/5 in all limbs Extremities: Left lower extremity cellulitis currently affecting left calf, extending posteriorly into back of the thigh. Per demarcated margins and family cellulitis overall appears to be improving. Urinary Catheter Management: Akbar: Cath Placed During This Visit: yes Reason for Continuing Indwelling Catheter: Other Urinary Catheter Date of Insertion: 12/08/24 Urinary Catheter Time of Insertion: 18:08 Data 12/11/24 03:59 12/11/24 03:59 Other Labs: Radiology Impressions Chest X-Ray 12/08/24 09:10 IMPRESSION: 1. Chronic RIGHT basal changes. 2. No acute process is suspected. Chest/Abdomen/Pelvis CT 12/08/24 09:46 IMPRESSION: 1. Shallow inspiration. Cardiomegaly. Otherwise no acute chest findings. 2. Continued enlargement of the RIGHT renal neoplasm since 2019 measuring 8.7 x 8.9 x 8.5 cm with central necrosis. Recommend urology consultation. 3. Indeterminate smaller LEFT renal lesions on this noncontrast study. 4. Diffuse bladder wall thickening similar to previous can be seen with chronic cystitis or bladder outlet obstruction. 5. Prostate measures 4.9 cm. Recommend correlation PSA. Head CT 12/08/24 12:41 IMPRESSION: 1. No evidence of intracranial hemorrhage or mass effect. 2. No acute intracranial findings. Venous Duplex 12/09/24 07:11 IMPRESSION: No evidence of deep vein thrombosis. Laboratory Results WBC 13.32 10^3/uL (3.29-11.43) H 12/11/24 03:59 RBC 4.21 10^6/uL (3.85-5.65) 12/11/24 03:59 Hgb 12.80 g/dL (11.27-16.99) 12/11/24 03:59 Hct 38.5 % (37-53) 12/11/24 03:59 MCV 91.4 fl (82-101) 12/11/24 03:59 MCH 30.4 pg (27-33) 12/11/24 03:59 MCHC 33.2 g/dL (30-55) 12/11/24 03:59 RDW 13.2 % (12.1-15.1) 12/11/24 03:59 Plt Count 169 10^3/cmm (157-399) 12/11/24 03:59 MPV 9.2 fL (7.4-10.4) 12/11/24 03:59 Neut % (Auto) 83.0 % 12/11/24 03:59 Lymph % (Auto) 10.8 % 12/11/24 03:59 [place] % (Auto) 4.7 % 12/11/24 03:59 Eos % (Auto) 0.5 % 12/11/24 03:59 Baso % (Auto) 0.2 % 12/11/24 03:59 Neut # (Auto) 11.05 10^3/uL (1.8-7.7) H 12/11/24 03:59 Lymph # (Auto) 1.4 10^3/uL (0.8-4.8) 12/11/24 03:59 [place] # (Auto) 0.6 10^3/uL (0.2-0.9) 12/11/24 03:59 Eos # (Auto) 0.1 10^3/uL (0.0-0.8) 12/11/24 03:59 Baso # (Auto) 0.0 10^3/uL (0.0-0.1) 12/11/24 03:59 Nucleated RBC % (auto) 0 % 12/11/24 03:59 Total Counted 100 (0-100) 12/09/24 04:26 Atypical Lymphs % 5.0 % (0-5) 12/09/24 04:26 Absolute Neutrophils 17.6 10^3/cmm (1.4-6.5) H 12/09/24 04:26 Segmented Neutrophils 74 % 12/09/24 04:26 Band Neutrophils 15.0 % 12/09/24 04:26 Absolute Lymphocytes 1.6 10^3/cmm (1.2-3.4) 12/09/24 04:26 Lymphocytes (Manual) 3 % 12/09/24 04:26 Monocytes (Manual) 2.0 % 12/09/24 04:26 Absolute Monocytes 0.4 10^3/cmm (0.1-0.6) 12/09/24 04:26 Eosinophils (Manual) 0 % 12/09/24 04:26 Absolute Eosinophils 0.0 10^3/cmm (0.0-0.7) 12/09/24 04:26 Basophils (Manual) 0.0 % 12/09/24 04:26 Absolute Basophils 0.0 10^3/cmm (0.0-0.2) 12/09/24 04:26 Metamyelocytes 1.0 % 12/09/24 04:26 Nucleated RBCs # 0.0 /100WBC 12/11/24 03:59 Platelet Estimate Normal (Normal) 12/09/24 04:26 Sodium 138 mmol/L (136-145) 12/11/24 03:59 Potassium 3.4 mmol/L (3.5-5.1) L 12/11/24 03:59 Chloride 98 mmol/L (98-107) 12/11/24 03:59 Carbon Dioxide 29 mmol/L (22-29) 12/11/24 03:59 Anion Gap 14.4 (5-19) 12/11/24 03:59 BUN 46 mg/dL (8-23) H 12/11/24 03:59 Creatinine 2.1 mg/dL (0.7-1.2) H 12/11/24 03:59 GFR Calculation Not Reportable 12/11/24 03:59 Glucose 123 mg/dL (65-115) H 12/11/24 03:59 POC Glucose 163 mg/dL (70-110) H 12/09/24 03:22 Calculated Osmolality 299 mOsm/kg (285-295) H 12/11/24 03:59 Lactic Acid 2.5 mmol/L (0.5-2.2) H 12/08/24 09:15 Lactic Acid (Sepsis) 2.0 mmol/L (0.5-2.2) 12/08/24 11:37 Calcium 8.8 mg/dL (8.5-10.5) 12/11/24 03:59 Total Bilirubin 0.6 mg/dL (0.15-1.2) 12/08/24 09:15 AST 15 U/L (0-40) 12/08/24 09:15 ALT 13 U/L (0-41) 12/08/24 09:15 Alkaline Phosphatase 112 U/L (40-130) 12/08/24 09:15 Troponin T Baseline 31 ng/L (0-15) H 12/08/24 09:15 Troponin T 120 Minute 29.27 ng/L (0-15) H 12/08/24 11:37 Delta Troponin T -1.73 ABS# (0-10) L 12/08/24 11:37 Troponin T Hi Sens 6Hr 26.98 ng/L (0-15) H 12/08/24 14:45 Troponin T Hi Sens 6Hr Delta -4.02 ng/L (0-12) L 12/08/24 14:45 C-Reactive Protein 23.0 mg/L (0.0-4.9) H 12/08/24 09:15 Total Protein 8.3 g/dL (6.6-8.7) 12/08/24 09:15 Albumin 3.8 g/dL (3.5-5.2) 12/08/24 09:15 Globulin 4.5 g/dL (1.3-4.6) 12/08/24 09:15 Procalcitonin 0.90 ng/mL (0-0.5) H 12/08/24 09:15 Urine Color Yellow (Yellow) 12/08/24 09:33 Urine Appearance Clear (CLEAR) 12/08/24 09:33 Urine pH 5.5 (5-7) 12/08/24 09:33 Ur Specific [place] 1.021 (1.005-1.030) 12/08/24 09:33 Urine Protein Negative (Negative) 12/08/24 09:33 Urine Glucose (UA) 3+ (Normal) H 12/08/24 09:33 Urine Ketones Negative (Negative) 12/08/24 09:33 Urine Blood Negative (Negative) 12/08/24 09:33 Urine Nitrate Negative (Negative) 12/08/24 09:33 Urine Bilirubin Negative (Negative) 12/08/24 09:33 Urine Urobilinogen 1.0 mg/dL (Negative) 12/08/24 09:33 Ur Leukocyte Esterase Negative (Negative) 12/08/24 09:33 Urine RBC 0-2 /hpf (0-2) 12/08/24 09:33 Urine WBC 0-5 /hpf (0-5) 12/08/24 09:33 Ur Squamous Epith Cells 0-5 /hpf (0-5) 12/08/24 09:33 Amorphous Sediment Not Reportable 12/08/24 09:33 Urine Bacteria None seen /hpf (NONE) 12/08/24 09:33 Hyaline Casts 0-4 /lpf H 12/08/24 09:33 Influenza A (PCR) Negative (Negative) 12/08/24 09:15 Influenza Type B (PCR) Negative (Negative) 12/08/24 09:15 RSV (PCR) Negative (Negative) 12/08/24 09:15 SARS-CoV-2 (PCR) Negative (Negative) 12/08/24 09:15 A&P Assessment and plan 1. Acute metabolic encephalopathy: 2. Fever of unknown origin: 3. Edema: 4. Morbid obesity with BMI of 45.0-49.9, adult: 5. Cellulitis: Plan: 79 year old male presenting with fever, weakness, confusion. Fever - unknown origin - UA is clear - CT chest/abdomen/pelvis without significant issues - chest CT head w/o contrast negative for acute issues. - O2 weaned to off. - noted emphysema on CT - possible recent aspiration, change abx to rocephin/levofloxacin - leukocytosis increased O/N - blood cultures negative to date. N/V overnight - possibly viral, gastroenteritis vs. abx side effect - zofran, compazine available. - leukocytosis potentially 2/2 above. Renal cell carcinoma - known renal mass. - monitoring currently, no active treatment. Constipation - cont. colace Pre-diabetes - cont. jardiance, sitagliptin HTN - cont. hydralazine 10 mg PO QID - cont. spironolactone Hypothyroidism - cont. levothyroxine Confusion - cont. memantine - treat underlying issues as above - appears improved. GERD - cont. PPI Urinary incontinence - s/p TURP - cont tamsulosin - akbar placed on diuretics. LE edema Venous stasis dermatitis morbid obesity - increase home lasix to 40 BID for now, monitor creatinine. - LLE erythema likely 2/2 fluid overload rather than infection. - compression/elevation as tolerated. - venous duplex without evidence of DVT. - monitor creatinine, may be limiting factor in diuresis, decreased this AM despite lasix - erythema improving. - cardiac echo with normal EF at 60%, no wall motion abnormalities. GIIDD. History of PE - cont. home eliquis Hypokalemia - 40 meq given. - recheck in AM. PPx: home eliquis Diet: CC Disposition - full code - up with assist - PT/OT/CM for discharge planning December 11, 2024 79-year-old male with a past medical history of known renal cell carcinoma, being followed by urology, no intervention in the past, history of prostate enlargement, status post TURP in the past follows with Dr. Valdez at [place]. Patient was admitted to the hospital on December 08, 2024 after presenting with a fever of 103 Fahrenheit, leukocytosis, nausea vomiting. CT of the chest abdomen and pelvis performed upon admission showed no acute intestinal process. Incidentally noted right renal neoplasm, unknown diagnosis is 2020 with central necrosis. Indeterminate smaller left renal lesions which also appeared to be unchanged compared to prior CT. There was diffuse bladder wall thickening concerning for chronic cystitis or bladder outlet obstruction with enlarged prostate measuring 4.9 cm. Patient did not have any urinary retention per history, he needed a Akbar catheter placement for accurate RADHA charting. Additionally patient has a history of lymphedema affecting left lower extremity worse on the right side. He has stasis dermatitis bilaterally, however there is clear evidence of left lower extremity cellulitis at this time with streaking particularly involving the posterior calf ascending up behind the popliteal fossa into the thigh. Per patient's family and marked margins, this appears to be improving. He is currently on antibiotics with IV ceftriaxone and IV levofloxacin. There is slight fluctuance to the anterior gaitan which we will obtain ultrasound for today to assess for any underlying abscess. Lower extremity duplex has previously ruled out a DVT. Patient is chronically on Eliquis however did have an interruption of about 2 to 3 weeks in October 2024 when he was admitted at an outside hospital with intracranial bleeding. He was eventually cleared to resume anticoagulation few weeks after the event. Blood culture remains negative to date. Urinalysis upon admission without signs of UTI. Noted to have EN today with creatinine trending up to 2.1. He is currently on Lasix 40 mg IV every 12 hours. Will hold Lasix today and assess for improvement in kidney function. Leukocytosis is trending down satisfactorily. PDMP PDMP Reviewed: Not Reviewed Attestations Medical Necessity Statement*: Worsening kidney function, lasix on hold, add po Zyvox for cellulitis, US lower extremity Coding Level of Care Code Acute Code for Chg Fwd Diagnoses Acute metabolic encephalopathy G93.41 Fever of unknown origin R50.9 Edema R60.9 Morbid obesity with BMI of 45.0-49.9, adult E66.01; Z68.42 Cellulitis L03.90
--- NOTE | 2024-12-11 12:52 | USR_ITS ---
PROCEDURE INFORMATION: Exam: US Left Limited Joint or Other Non-Vascular Extremity Structure Exam date and time: 12/11/2024 1:13 PM Age: 79 years old Clinical indication: Pain; Lower leg; Left; Additional info: Left leg, assess for abscess over anterior gaitan TECHNIQUE: Imaging protocol: US left limited joint or other nonvascular extremity structure. Real-time ultrasound with image documentation. Exam focused on the area of clinical interest. COMPARISON: [place] [id number] 12/09/2024 9:58 AM FINDINGS: Soft tissues: There is diffuse edema throughout the visualized left gaitan in the area of clinical concern. No focal fluid collection is seen to suggest an abscess. US/US soft tissue/extremity [id number] IMPRESSION: Diffuse soft tissue edema throughout the visualized left gaitan in the area of clinical concern. No focal fluid collection seen to suggest an abscess. If there is persistent clinical concern, MRI may be helpful for further evaluation.
[2024-12-11] MEDS: cefTRIAXone 1,000 mg SDV 1000 MG IVP (15:37)
[2024-12-12] VITALS (10 sets, daily range): BP systolic 83–170; BP diastolic 49–88; PULSE 74–90; RESP 16–19; TEMP 36.2–37.1; O2SAT 91–94
[2024-12-12] MEDS: HYDROcodone-acetaminophen 5-325 mg Tablet 1 TAB PO (00:13)
[2024-12-12] MEDS: ondansetron 2 mg/ML SDV 2 mL 4 MG IVP (01:54)
[2024-12-12 05:16] LABS: Hematocrit 40.4 % (37-53); Hemoglobin 13.30 g/dL (11.27-16.99); Mean Corpuscular HGB Conc 32.9 g/dL (30-55); Mean Corpuscular Hemoglobin 30.2 pg (27-33); Mean Corpuscular Volume 91.8 fl (82-101); Nucleated Red Blood Cells % 0 %; Platelet Count 203 10^3/cmm (157-399); Red Blood Count 4.40 10^6/uL (3.85-5.65); White Blood Count 8.53 10^3/uL (3.29-11.43)
[2024-12-12] MEDS: CITALOPRAM 40 MG TABLET PO (05:26)
[2024-12-12 05:41] LABS: Alanine Aminotransferase 16 U/L (0-41); Albumin Level 3.0 g/dL (3.5-5.2); Alkaline Phosphatase 80 U/L (40-130); Anion Gap 16.4 (5-19); Aspartate Amino Transferase 28 U/L (0-40); Blood Urea Nitrogen 41 mg/dL (8-23); Calcium 8.5 mg/dL (8.5-10.5); Carbon Dioxide 27 mmol/L (22-29); Chloride 99 mmol/L (98-107); Creatinine Clr Calc Pharmacy 60.6534; Globulin 4.1 g/dL (1.3-4.6); Glucose 113 mg/dL (65-115); Osmolality Calculated 299 mOsm/kg (285-295); Potassium 3.4 mmol/L (3.5-5.1); Sodium 139 mmol/L (136-145); Total Protein 7.1 g/dL (6.6-8.7)
--- NOTE | 2024-12-12 12:27 | P.PN_ITS ---
Subjective 2 Subjective: Leukocytosis resolved. Cellulitis is improving. Patient was orthostatic this morning and reported dizziness when his blood pressure fell to 80/40 while attempting to get out of bed with PT. Medications: Reviewed: Yes Vitals/I&O/Wt Last Vital Signs Temp 98.4 F 12/12/24 11:41 Pulse 90 12/12/24 11:41 Resp 17 12/12/24 11:41 BP 114/72 12/12/24 11:41 Pulse Ox 92 12/12/24 11:41 O2 Del Method Nasal Cannula 12/12/24 11:41 O2 Flow Rate 1 12/12/24 08:23 12/11/24 12/12/24 12/12/24 22:59 06:59 14:59 Intake Total 720 / 960 120 / 120 Output Total 650 / 650 650 / 1300 550 / 550 Balance 70 / 310 -650 / -340 -430 / -430 Weight last 48 hrs Weight 158.445 kg Physical Exam 2 Narrative: General: No acute distress, AO x3 HEENT: PERRLA, pupils bilaterally equal and reactive, pallors not present Chest: Normal vesicular breath sounds, no added sounds, equal good air entry bilaterally CVS: S1-S2 regular, no murmurs, no tachycardia, no gallops, no rubs Abdomen: Soft, nontender, no organomegaly, bowel sounds present Neuro: No focal deficits, no facial deformity, AO x3, power 5/5 in all limbs Extremities: Left lower extremity cellulitis currently affecting left calf, extending posteriorly into back of the thigh. Per demarcated margins and family cellulitis overall appears to be improving. Urinary Catheter Management: Akbar: Cath Placed During This Visit: yes, but has since been removed by the nurse Reason for Continuing Indwelling Catheter: Decision to DC Catheter Urinary Catheter Date of Insertion: 12/08/24 Urinary Catheter Time of Insertion: 18:08 Date Urinary Catheter Removed: 12/12/24 Time Urinary Catheter Discontinued: 09:00 Data 12/12/24 04:30 12/12/24 04:30 A&P Assessment and plan 1. Acute metabolic encephalopathy: 2. Fever of unknown origin: 3. Edema: 4. Morbid obesity with BMI of 45.0-49.9, adult: 5. Cellulitis: Plan: 79 year old male presenting with fever, weakness, confusion. Fever - unknown origin - UA is clear - CT chest/abdomen/pelvis without significant issues - chest CT head w/o contrast negative for acute issues. - O2 weaned to off. - noted emphysema on CT - possible recent aspiration, change abx to rocephin/levofloxacin - leukocytosis increased O/N - blood cultures negative to date. N/V overnight - possibly viral, gastroenteritis vs. abx side effect - zofran, compazine available. - leukocytosis potentially 2/2 above. Renal cell carcinoma - known renal mass. - monitoring currently, no active treatment. Constipation - cont. colace Pre-diabetes - cont. jardiance, sitagliptin HTN - cont. hydralazine 10 mg PO QID - cont. spironolactone Hypothyroidism - cont. levothyroxine Confusion - cont. memantine - treat underlying issues as above - appears improved. GERD - cont. PPI Urinary incontinence - s/p TURP - cont tamsulosin - akbar placed on diuretics. LE edema Venous stasis dermatitis morbid obesity - increase home lasix to 40 BID for now, monitor creatinine. - LLE erythema likely 2/2 fluid overload rather than infection. - compression/elevation as tolerated. - venous duplex without evidence of DVT. - monitor creatinine, may be limiting factor in diuresis, decreased this AM despite lasix - erythema improving. - cardiac echo with normal EF at 60%, no wall motion abnormalities. GIIDD. History of PE - cont. home eliquis Hypokalemia - 40 meq given. - recheck in AM. PPx: home eliquis Diet: CC Disposition - full code - up with assist - PT/OT/CM for discharge planning December 11, 2024 79-year-old male with a past medical history of known renal cell carcinoma, being followed by urology, no intervention in the past, history of prostate enlargement, status post TURP in the past follows with Dr. Valdez at [place]. Patient was admitted to the hospital on December 08, 2024 after presenting with a fever of 103 Fahrenheit, leukocytosis, nausea vomiting. CT of the chest abdomen and pelvis performed upon admission showed no acute intestinal process. Incidentally noted right renal neoplasm, unknown diagnosis is 2020 with central necrosis. Indeterminate smaller left renal lesions which also appeared to be unchanged compared to prior CT. There was diffuse bladder wall thickening concerning for chronic cystitis or bladder outlet obstruction with enlarged prostate measuring 4.9 cm. Patient did not have any urinary retention per history, he needed a Akbar catheter placement for accurate RADHA charting. Additionally patient has a history of lymphedema affecting left lower extremity worse on the right side. He has stasis dermatitis bilaterally, however there is clear evidence of left lower extremity cellulitis at this time with streaking particularly involving the posterior calf ascending up behind the popliteal fossa into the thigh. Per patient's family and marked margins, this appears to be improving. He is currently on antibiotics with IV ceftriaxone and IV levofloxacin. There is slight fluctuance to the anterior gaitan which we will obtain ultrasound for today to assess for any underlying abscess. Lower extremity duplex has previously ruled out a DVT. Patient is chronically on Eliquis however did have an interruption of about 2 to 3 weeks in October 2024 when he was admitted at an outside hospital with intracranial bleeding. He was eventually cleared to resume anticoagulation few weeks after the event. Blood culture remains negative to date. Urinalysis upon admission without signs of UTI. Noted to have EN today with creatinine trending up to 2.1. He is currently on Lasix 40 mg IV every 12 hours. Will hold Lasix today and assess for improvement in kidney function. Leukocytosis is trending down satisfactorily. December 12, 2024 EN is improving. Creatinine down to 1.6 today. Urine output nearly 1800 cc. Akbar catheter to be removed today and given a voiding trial. Leukocytosis resolved. WBC count normalized at 8.5. Patient is afebrile. This morning he was noted to be orthostatic while attempting to get out of bed his blood pressure dropped to 83/49 mmHg. He reported dizziness. Given symptomatic orthostatic hypotension, patient will need to be monitored closely in the hospital again. Suspect that his orthostatic hypotension may in part be related to overdiuresis for which Lasix has been on hold since yesterday. Will continue to hold Lasix again today. Discussed use of albumin with the patient however patient is a Jehovah's witness and is hesitant to accept albumin transfusion. Will trial 250 cc normal saline bolus and recheck orthostatics. Cellulitis is clinically much better today. Plan to transition to oral antibiotics at discharge. For now continue IV ceftriaxone and oral linezolid discussed lymphedema care with the family at length at bedside. PDMP PDMP Reviewed: Not Reviewed Attestations 2 Medical Necessity Statement*: Orthostatic symptomatic hypotension which needs to be corrected prior to discharge Coding Level of Care Code Acute Code for Chg Fwd High MDM includes number and complexity of problems actively addressed during encounter, amount and/or complexity of data reviewed/ordered and described risk of complication, morbidity or mortality of management as documented Diagnoses Acute metabolic encephalopathy G93.41 Fever of unknown origin R50.9 Edema R60.9 Morbid obesity with BMI of 45.0-49.9, adult E66.01; Z68.42 Cellulitis L03.90
[2024-12-12] MEDS: albumin 25 G/100 ML BAG 60 G IV (16:29)
[2024-12-12] MEDS: cefTRIAXone 1,000 mg SDV 1000 MG IVP (16:30)
[2024-12-13 04:54] LABS: Hematocrit 39.1 % (37-53); Hemoglobin 13.00 g/dL (11.27-16.99); Mean Corpuscular HGB Conc 33.2 g/dL (30-55); Mean Corpuscular Hemoglobin 30.3 pg (27-33); Mean Corpuscular Volume 91.1 fl (82-101); Nucleated Red Blood Cells % 0 %; Platelet Count 207 10^3/cmm (157-399); Red Blood Count 4.29 10^6/uL (3.85-5.65); White Blood Count 8.79 10^3/uL (3.29-11.43)
[2024-12-13] MEDS: CITALOPRAM 40 MG TABLET PO (05:00)
[2024-12-13 05:23] LABS: Alanine Aminotransferase 15 U/L (0-41); Albumin Level 3.3 g/dL (3.5-5.2); Alkaline Phosphatase 73 U/L (40-130); Anion Gap 14.5 (5-19); Aspartate Amino Transferase 25 U/L (0-40); Blood Urea Nitrogen 31 mg/dL (8-23); Calcium 8.6 mg/dL (8.5-10.5); Carbon Dioxide 26 mmol/L (22-29); Chloride 99 mmol/L (98-107); Creatinine Clr Calc Pharmacy 74.6504; Globulin 3.7 g/dL (1.3-4.6); Glucose 126 mg/dL (65-115); Osmolality Calculated 290 mOsm/kg (285-295); Potassium 3.5 mmol/L (3.5-5.1); Sodium 136 mmol/L (136-145); Total Protein 7.0 g/dL (6.6-8.7)
[2024-12-13 05:37] VITALS: BP 135/75; PULSE 77; RESP 15; TEMP 36.8; O2SAT 93
[2024-12-13 08:13] VITALS: BP 132/76; PULSE 81; RESP 18; TEMP 36.5; O2SAT 94
--- NOTE | 2024-12-13 09:02 | PC.SOCIAL ---
IMM Updated Updated pt & family on IMM. No questions voiced. Provided pt a copy. Initialed, dated, & timed copy in chart.
[2024-12-13] MEDS: lactulose oral liq 20 gm/30 mL UDC 40 GM PO (09:30)
[2024-12-13 09:34] VITALS: PULSE 84; RESP 16; O2SAT 93
[2024-12-13] MEDS: piperacillin-tazobactam 3.375 GM in sodium chloride 0.9% (plus) 50 ML IV ×2 (12:15→19:55)
[2024-12-13 12:16] VITALS: BP 158/63; PULSE 79; RESP 19; TEMP 36.6; O2SAT 93
[2024-12-13] MEDS: cefTRIAXone 1,000 mg SDV 1000 MG IVP (15:54)
[2024-12-13 16:00] VITALS: BP 114/71; PULSE 78; RESP 20; TEMP 36.7; O2SAT 94
[2024-12-13 20:00] VITALS: BP 123/69; PULSE 103; RESP 16; TEMP 37; O2SAT 91
[2024-12-14] VITALS (8 sets, daily range): BP systolic 105–144; BP diastolic 58–86; PULSE 72–86; RESP 16–20; TEMP 36.4–36.9; O2SAT 82–96; BMI 45.1
[2024-12-14] MEDS: piperacillin-tazobactam 3.375 GM in sodium chloride 0.9% (plus) 50 ML IV ×3 (03:27→19:26)
[2024-12-14] MEDS: CITALOPRAM 40 MG TABLET PO (04:29)
[2024-12-14] MEDS: cefTRIAXone 1,000 mg SDV 1000 MG IVP (16:06)
--- NOTE | 2024-12-14 18:52 | PM.PN ---
Subjective Subjective: Patient seen and evaluated on my first day in contact with the patient-12/13/2024 this is a late note entry Patient received with extensive cellulitis extending within above the margin drawn by a marker on the left lower extremity and weeping fluid patient is on Levaquin and also a diabetic. I initiated Zosyn for more coverage with gram-negative and anaerobic's and watch for interval change. Patient also had shingles on that left dermatomal area of the shoulder posteriorly patient was already on Neurontin as patient does not have pain. Neurontin was for neuropathIC pain management follow through with interval care and change Vitals/I&O/Wt Last Vital Signs Temp 98 F 12/14/24 15:40 Pulse 80 12/14/24 15:40 Resp 16 12/14/24 15:40 BP 105/58 12/14/24 15:40 Pulse Ox 93 12/14/24 15:40 O2 Del Method Room Air 12/14/24 15:40 O2 Flow Rate 2 12/13/24 20:00 12/14/24 12/14/24 12/14/24 06:59 14:59 22:59 Intake Total 50 / 1180 890 / 890 410 / 1300 Balance 50 / 980 890 / 890 410 / 1300 Weight last 48 hrs Weight 159.5 kg Weight 157.85 kg Physical Exam Narrative: General the patient looks well lying down with the daughter at the bedside. HEENT normocephalic atraumatic neck neck is supple cardiovascular heart rate is regular lungs are pretty much clear abdomen soft nontender nondistended unremarkable extremities are intact no edema has good pulses neurology has no focality lab studies lab studies reviewed and noted. Urinary Catheter Management: [place]an: Cath Placed During This Visit: yes, but has since been removed by the nurse Reason for Continuing Indwelling Catheter: Decision to DC Catheter Urinary Catheter Date of Insertion: 12/08/24 Urinary Catheter Time of Insertion: 18:08 Date Urinary Catheter Removed: 12/12/24 Time Urinary Catheter Discontinued: 09:00 Data 12/13/24 04:16 12/13/24 04:16 A&P Assessment and plan 1. Cellulitis: 2. Acute metabolic encephalopathy: 3. Fever of unknown origin: 4. Sepsis: 5. Type 2 diabetes mellitus: 6. Shingles: Plan: Orthostatic blood pressure with symptoms resolved as per report - Patient now hemodynamically stable Left lower extremity cellulitis with weeping and extending beyond the border of marker - Zosyn added to the Levaquin that patient was receiving for more coverage Shingles to the right shoulder posterior along the dermatome on -Patient is on Neurontin which is neuropathic pain pathway - Continue to monitor for improvement PDMP PDMP Reviewed: Not Reviewed Attestations Medical Necessity Statement*: Orthostatic blood pressure is with no orthostatic hypotension with any symptomatology however patient has left lower extremity region cellulitis need to be optimized for a diabetic patient with IV antibiotics needing couple of days no later than 48 hours from this day 12/13/2024 Coding Level of Care Code Acute Code for [facility] Diagnoses Cellulitis L03.90 Acute metabolic encephalopathy G93.41 Fever of unknown origin R50.9 Sepsis A41.9 Type 2 diabetes mellitus E11.9 Shingles B02.9
--- NOTE | 2024-12-14 19:03 | P.PN_ITS ---
Subjective 2 Subjective: Patient showed remarkable improvement today still does have some red area with some warmth with case discussed with the patient to allow another day she is tomorrow and patient can safely be discharged on Wednesday or even later on tomorrow. The shingle region is doing much better but that does not keep the patient in the hospital and his cellulitis is Vitals/I&O/Wt Last Vital Signs Temp 98 F 12/14/24 15:40 Pulse 80 12/14/24 15:40 Resp 16 12/14/24 15:40 BP 105/58 12/14/24 15:40 Pulse Ox 93 12/14/24 15:40 O2 Del Method Room Air 12/14/24 15:40 O2 Flow Rate 2 12/13/24 20:00 12/14/24 12/14/24 12/14/24 06:59 14:59 22:59 Intake Total 50 / 1180 890 / 890 410 / 1300 Balance 50 / 980 890 / 890 410 / 1300 Weight last 48 hrs Weight 159.5 kg Weight 157.85 kg Physical Exam 2 Narrative: Generally patient looks well in no apparent distress and actually eager to go home. If this continue to improve patient can go tomorrow if patient can do okay with oral medication at the time of discharge that would be fine. Patient has less weeping today practically gone from the left lower extremity cellulitis HEENT normocephalic/atraumatic neck neck is supple cardiovascular heart rate is regular lungs are pretty much clear abdomen soft nontender nondistended unremarkable with extremities are intact no edema has good pulses neurology has no focality lab studies lab studies reviewed and noted. Urinary Catheter Management: Capellan: Cath Placed During This Visit: yes, but has since been removed by the nurse Reason for Continuing Indwelling Catheter: Decision to DC Catheter Urinary Catheter Date of Insertion: 12/08/24 Urinary Catheter Time of Insertion: 18:08 Date Urinary Catheter Removed: 12/12/24 Time Urinary Catheter Discontinued: 09:00 Data 12/13/24 04:16 12/13/24 04:16 A&P Assessment and plan 1. Shingles: 2. Cellulitis: 3. Acute metabolic encephalopathy: 4. Fever of unknown origin: 5. Sepsis: Plan: #1 Left lower extremity cellulitis - Much improved on Levaquin and Zosyn - This can be be escalated in transitioning to oral antibiotics at discharge in another day - No more weeping from the sites of infection - No more extension to the border - Will need antibiotics today and patient continue to look even better tomorrow patient can be discharged or discharge over the weekend. #2 Left shoulder shingle - Much improved continue medication for neuropathic pain pathway patient does not have any pain actually with the shingles. Site is less red and much improved #3 Fever resolved #4 Sepsis resolved #5 Hepatic encephalopathy resolved Disposition at discharge will be going home in 1 to 2 days only dependent on continue improvement of the cellulitis of the left lower extremities PDMP PDMP Reviewed: Not Reviewed Attestations 2 Medical Necessity Statement*: Patient is doing much better and following up with lower extremity cellulitis that is improving will need 1 to 2 days no more than 2 days for safer discharge in this diabetic patient. Coding Level of Care Code 08039 Diagnoses Shingles B02.9 Cellulitis L03.90 Acute metabolic encephalopathy G93.41 Fever of unknown origin R50.9 Sepsis A41.9 Time Spent (min) 45
[2024-12-15 04:00] VITALS: BP 124/77; PULSE 79; RESP 16; TEMP 36.9; O2SAT 95
[2024-12-15] MEDS: CITALOPRAM 40 MG TABLET PO (04:23)
[2024-12-15] MEDS: piperacillin-tazobactam 3.375 GM in sodium chloride 0.9% (plus) 50 ML IV (04:23)
[2024-12-15 07:45] VITALS: PULSE 74; RESP 16; O2SAT 96
[2024-12-15 08:00] VITALS: BP 132/86; PULSE 82; RESP 16; TEMP 36.7; O2SAT 92
--- NOTE | 2024-12-15 09:02 | PC.SOCIAL ---
IMM Updated Updated pt on IMM. No questions voiced. Provided pt a copy. Initialed, dated, & timed copy in chart.
--- NOTE | 2024-12-15 11:05 | P.DS_ITS ---
Discharge Providers Date of Admission: 12/08/24 13:27 Date of Discharge: December 15, 2024 Attending Provider at Admission: Varun Corea MD Attending Provider at Discharge: Tamica Kendall MD Primary Care Provider: Urvashi Mcmahan MD Diagnoses at Discharge Discharge Diagnosis 1. Shingles: 2. Cellulitis: 3. Acute metabolic encephalopathy: 4. Sepsis: Reason for Visit Reason for Visit: ams - fever Hospital Course Hospital Course 79-year-old male with a past medical history of known renal cell carcinoma, being followed by urology, no intervention in the past, history of prostate enlargement, status post TURP in the past follows with Dr. Valdez at [place]. Patient was admitted to the hospital on December 08, 2024 after presenting with a fever of 103 Fahrenheit, leukocytosis, nausea vomiting. CT of the chest abdomen and pelvis performed upon admission showed no acute intestinal process. Incidentally noted right renal neoplasm, unknown diagnosis is 2020 with central necrosis. Indeterminate smaller left renal lesions which also appeared to be unchanged compared to prior CT. There was diffuse bladder wall thickening concerning for chronic cystitis or bladder outlet obstruction with enlarged prostate measuring 4.9 cm. Patient did not have any urinary retention per history, he needed a Capellan catheter placement for accurate RADHA charting. This has now been removed. Additionally patient has a history of lymphedema affecting left lower extremity worse on the right side. He has stasis dermatitis bilaterally, however there is clear evidence of left lower extremity cellulitis with streaking particularly involving the posterior calf ascending up behind the popliteal fossa into the thigh. This improved significantly with iv antibiotics. There was no underlying abscess or DVT. Blood culture remains negative to date. Urinalysis upon admission without signs of UTI. Hospital course notable for EN with creatinine peaking at 2.1 likely related to overdiuresis, lasix was held and cr was back at baseline of 1.3. Hospital course also notable for development of shingles of the left upper back in the C6-C7 distribution on the left side. Patient has received shingles vaccine in the past. He is being discharged with oral Valtrex to be taken over next 5 days to minimize risk of progression in an elderly patient. Alternate possibility is that of fixed drug eruption, however given classical vesicular appearing lesions in the C6-C7 dermatome, clinically favored more to be shingles. VZV DNA has been sent however not expected to be back for another 5 to 7 days. Physical Exam Narrative: General: No acute distress, AO x3 HEENT: PERRLA, pupils bilaterally equal and reactive, pallors not present Chest: Normal vesicular breath sounds, no added sounds, equal good air entry bilaterally CVS: S1-S2 regular, no murmurs, no tachycardia, no gallops, no rubs Abdomen: Soft, nontender, no organomegaly, bowel sounds present Neuro: No focal deficits, no facial deformity, AO x3, power 5/5 in all limbs Extremities: much improved cellulitis over LLE. Diffuse macular to vesicular rash affecting left c6-c7 dermatome clinically appearing to be shingles Urinary Catheter Management: Capellan: Cath Placed During This Visit: yes, but has since been removed by the nurse Reason for Continuing Indwelling Catheter: Decision to DC Catheter Urinary Catheter Date of Insertion: 12/08/24 Urinary Catheter Time of Insertion: 18:08 Date Urinary Catheter Removed: 12/12/24 Time Urinary Catheter Discontinued: 09:00 Discharge Data Studies Completed and Pending Completed Studies During Hospitalization Category Date Time Status CT chest abdomen pelvis [[place] [id number] Cat Scan 12/08/24 09:46 Completed ] Stat CT head wo con* [id number] Stat Cat Scan 12/08/24 12:41 Completed XR chest 1V portable [id number] Stat Exams 12/08/24 09:10 Completed CV. echo complete* [id number] Routine Ultrasound 12/09/24 11:28 Completed US soft tissue/extremity 03052 Routine Ultrasound 12/11/24 12:52 Completed US venous duplex lower extremity LT [CV venous duplex Ultrasound 12/09/24 07:[place] [id number]] Routine Radiology Impressions Chest X-Ray 12/08/24 09:10 IMPRESSION: 1. Chronic RIGHT basal changes. 2. No acute process is suspected. Chest/Abdomen/Pelvis CT 12/08/24 09:46 IMPRESSION: 1. Shallow inspiration. Cardiomegaly. Otherwise no acute chest findings. 2. Continued enlargement of the RIGHT renal neoplasm since 2019 measuring 8.7 x 8.9 x 8.5 cm with central necrosis. Recommend urology consultation. 3. Indeterminate smaller LEFT renal lesions on this noncontrast study. 4. Diffuse bladder wall thickening similar to previous can be seen with chronic cystitis or bladder outlet obstruction. 5. Prostate measures 4.9 cm. Recommend correlation PSA. Head CT 12/08/24 12:41 IMPRESSION: 1. No evidence of intracranial hemorrhage or mass effect. 2. No acute intracranial findings. Venous Duplex 12/09/24 07:11 IMPRESSION: No evidence of deep vein thrombosis. Soft Tissue Ultrasound 12/11/24 12:52 IMPRESSION: Diffuse soft tissue edema throughout the visualized left gaitan in the area of clinical concern. No focal fluid collection seen to suggest an abscess. If there is persistent clinical concern, MRI may be helpful for further evaluation. Laboratory Results WBC 8.79 10^3/uL (3.29-11.43) 12/13/24 04:16 RBC 4.29 10^6/uL (3.85-5.65) 12/13/24 04:16 Hgb 13.00 g/dL (11.27-16.99) 12/13/24 04:16 Hct 39.1 % (37-53) 12/13/24 04:16 MCV 91.1 fl (82-101) 12/13/24 04:16 MCH 30.3 pg (27-33) 12/13/24 04:16 MCHC 33.2 g/dL (30-55) 12/13/24 04:16 RDW 12.8 % (12.1-15.1) 12/13/24 04:16 Plt Count 207 10^3/cmm (157-399) 12/13/24 04:16 MPV 9.1 fL (7.4-10.4) 12/13/24 04:16 Neut % (Auto) 74.9 % 12/13/24 04:16 Lymph % (Auto) 14.2 % 12/13/24 04:16 Bacon % (Auto) 6.6 % 12/13/24 04:16 Eos % (Auto) 2.3 % 12/13/24 04:16 Baso % (Auto) 0.7 % 12/13/24 04:16 Neut # (Auto) 6.59 10^3/uL (1.8-7.7) 12/13/24 04:16 Lymph # (Auto) 1.3 10^3/uL (0.8-4.8) 12/13/24 04:16 Bacon # (Auto) 0.6 10^3/uL (0.2-0.9) 12/13/24 04:16 Eos # (Auto) 0.2 10^3/uL (0.0-0.8) 12/13/24 04:16 Baso # (Auto) 0.1 10^3/uL (0.0-0.1) 12/13/24 04:16 Nucleated RBC % (auto) 0 % 12/13/24 04:16 Total Counted 100 (0-100) 12/09/24 04:26 Atypical Lymphs % 5.0 % (0-5) 12/09/24 04:26 Absolute Neutrophils 17.6 10^3/cmm (1.4-6.5) H 12/09/24 04:26 Segmented Neutrophils 74 % 12/09/24 04:26 Band Neutrophils 15.0 % 12/09/24 04:26 Absolute Lymphocytes 1.6 10^3/cmm (1.2-3.4) 12/09/24 04:26 Lymphocytes (Manual) 3 % 12/09/24 04:26 Monocytes (Manual) 2.0 % 12/09/24 04:26 Absolute Monocytes 0.4 10^3/cmm (0.1-0.6) 12/09/24 04:26 Eosinophils (Manual) 0 % 12/09/24 04:26 Absolute Eosinophils 0.0 10^3/cmm (0.0-0.7) 12/09/24 04:26 Basophils (Manual) 0.0 % 12/09/24 04:26 Absolute Basophils 0.0 10^3/cmm (0.0-0.2) 12/09/24 04:26 Metamyelocytes 1.0 % 12/09/24 04:26 Nucleated RBCs # 0.0 /100WBC 12/13/24 04:16 Platelet Estimate Normal (Normal) 12/09/24 04:26 Sodium 136 mmol/L (136-145) 12/13/24 04:16 Potassium 3.5 mmol/L (3.5-5.1) 12/13/24 04:16 Chloride 99 mmol/L (98-107) 12/13/24 04:16 Carbon Dioxide 26 mmol/L (22-29) 12/13/24 04:16 Anion Gap 14.5 (5-19) 12/13/24 04:16 BUN 31 mg/dL (8-23) H 12/13/24 04:16 Creatinine 1.3 mg/dL (0.7-1.2) H 12/13/24 04:16 GFR Calculation Not Reportable 12/13/24 04:16 Glucose 126 mg/dL (65-115) H 12/13/24 04:16 POC Glucose 163 mg/dL (70-110) H 12/09/24 03:22 Calculated Osmolality 290 mOsm/kg (285-295) 12/13/24 04:16 Lactic Acid 2.5 mmol/L (0.5-2.2) H 12/08/24 09:15 Lactic Acid (Sepsis) 2.0 mmol/L (0.5-2.2) 12/08/24 11:37 Calcium 8.6 mg/dL (8.5-10.5) 12/13/24 04:16 Total Bilirubin 0.4 mg/dL (0.15-1.2) 12/13/24 04:16 AST 25 U/L (0-40) 12/13/24 04:16 ALT 15 U/L (0-41) 12/13/24 04:16 Alkaline Phosphatase 73 U/L (40-130) 12/13/24 04:16 Troponin T Baseline 31 ng/L (0-15) H 12/08/24 09:15 Troponin T 120 Minute 29.27 ng/L (0-15) H 12/08/24 11:37 Delta Troponin T -1.73 ABS# (0-10) L 12/08/24 11:37 Troponin T Hi Sens 6Hr 26.98 ng/L (0-15) H 12/08/24 14:45 Troponin T Hi Sens 6Hr Delta -4.02 ng/L (0-12) L 12/08/24 14:45 C-Reactive Protein 23.0 mg/L (0.0-4.9) H 12/08/24 09:15 Total Protein 7.0 g/dL (6.6-8.7) 12/13/24 04:16 Albumin 3.3 g/dL (3.5-5.2) L 12/13/24 04:16 Globulin 3.7 g/dL (1.3-4.6) 12/13/24 04:16 Procalcitonin 0.90 ng/mL (0-0.5) H 12/08/24 09:15 Urine Color Yellow (Yellow) 12/08/24 09:33 Urine Appearance Clear (CLEAR) 12/08/24 09:33 Urine pH 5.5 (5-7) 12/08/24 09:33 Ur Specific [place] 1.021 (1.005-1.030) 12/08/24 09:33 Urine Protein Negative (Negative) 12/08/24 09:33 Urine Glucose (UA) 3+ (Normal) H 12/08/24 09:33 Urine Ketones Negative (Negative) 12/08/24 09:33 Urine Blood Negative (Negative) 12/08/24 09:33 Urine Nitrate Negative (Negative) 12/08/24 09:33 Urine Bilirubin Negative (Negative) 12/08/24 09:33 Urine Urobilinogen 1.0 mg/dL (Negative) 12/08/24 09:33 Ur Leukocyte Esterase Negative (Negative) 12/08/24 09:33 Urine RBC 0-2 /hpf (0-2) 12/08/24 09:33 Urine WBC 0-5 /hpf (0-5) 12/08/24 09:33 Ur Squamous Epith Cells 0-5 /hpf (0-5) 12/08/24 09:33 Amorphous Sediment Not Reportable 12/08/24 09:33 Urine Bacteria None seen /hpf (NONE) 12/08/24 09:33 Hyaline Casts 0-4 /lpf H 12/08/24 09:33 Influenza A (PCR) Negative (Negative) 12/08/24 09:15 Influenza Type B (PCR) Negative (Negative) 12/08/24 09:15 RSV (PCR) Negative (Negative) 12/08/24 09:15 SARS-CoV-2 (PCR) Negative (Negative) 12/08/24 09:15 Vitals Last Vital Signs Temp 98.1 F 12/15/24 08:00 Pulse 82 12/15/24 08:00 Resp 16 12/15/24 08:00 BP 132/86 12/15/24 08:00 Pulse Ox 92 12/15/24 08:00 O2 Del Method Room Air 12/15/24 08:00 O2 Flow Rate 2 12/13/24 20:00 Discharge Plan Discharge Patient Disposition: Home Health Service Condition: Stable Prescriptions: New linezolid 600 mg Tablet 600 mg PO Q12H 5 Days Qty: 10 0RF Eliquis 5 mg Tablet 5 mg PO BID@0500,1700 Qty: 0 0RF ciprofloxacin HCl [Cipro] 500 mg tablet 500 mg PO BID 5 Days Qty: 10 0RF valacyclovir [Valtrex] 1 gram tablet 1,000 mg PO BID 5 Days Qty: 10 0RF Continued cholecalciferol (vitamin D3) 25 mcg (1,000 unit) capsule 25 mcg PO DAILY citalopram 40 mg tablet 40 mg PO QAM rosuvastatin 20 mg tablet 10 mg PO DAILY folic acid 0.8 mg capsule 0.4 mg PO DAILY Jardiance 25 mg tablet 12.5 mg PO DAILY (DME) diabetic shoes with 3 inserts 12 See Rx Instructions .Route .MEDSUPPLY Qty: 1 0RF Rx Instructions: As directed to the shoe guys (DME) Diabetic shoes with 3 pairs of inserts See Rx Instructions .Route .MEDSUPPLY Qty: 1 0RF Rx Instructions: As directed ([facility] [place] diabetic socks [id number] See Rx Instructions .Route .MEDSUPPLY Qty: 1 0RF Rx Instructions: As directed to the PR cetirizine [Zyrtec] 10 mg Tablet 10 mg PO DAILY tamsulosin 0.4 mg Capsule 0.4 mg PO BID levothyroxine 50 mcg Tablet 50 mcg PO QAM memantine 10 mg Tablet 10 mg PO BID gabapentin 400 mg capsule 400 mg PO BID sitagliptin 25 mg Tablet 25 mg PO DAILY potassium chloride 20 mEq Tablet Extended Release 10 meq PO DAILY Qty: 30 0RF hydrocodone-acetaminophen 5-325 mg tablet 1 tab PO .Q4-6H PRN (Reason: Pain) omeprazole 40 mg Capsule,Delayed Release(Dr/Ec) 40 mg PO QAM spironolactone 25 mg Tablet 25 mg PO DAILY docusate sodium [Colace] 100 mg Capsule 100 mg PO BID PRN (Reason: Constipation) furosemide 20 mg tablet 20 mg PO DAILY Discontinued hydralazine 10 mg Tablet 10 mg PO QID Discharge Order = DC NOW: Discharge Order (Routine); Ordered 12/15/24 Ordered By: Tamica Kendall Other Ambulatory Orders: DME: Oxygen (Order) Location: None Selected Ordered By: Tamica Kendall Referrals: [facility] [Outside] Urvashi Mcmahan MD [Primary Care Provider, Family Practice] Patient Instructions: Altered Mental Status (ED), Opioid Safety, Patient Portal & Jorge Instructions Discharge Attestations Time Spent in Discharge Care*: greater than 30 min Quality Metrics Clinical Quality Measures [ No reported AMI, CVA or VTE this stay] Coding Level of Care Code Acute Code for Chg Fwd Diagnoses Shingles B02.9 Cellulitis L03.90 Acute metabolic encephalopathy G93.41 Sepsis A41.9
[2024-12-15 12:03] VITALS: BP 123/80; PULSE 75; RESP 16; TEMP 36.7; O2SAT 97
[2024-12-15] MEDS: FLU VACC TS2025-26(6MOS UP)/PF 45 MCG/0.5 ML SYRINGE IM (12:45)
[2024-12-15 14:07] VITALS: BP 120/80; PULSE 70; RESP 18; TEMP 36.7; O2SAT 94
--- NOTE | 2024-12-15 14:11 | PC.NURSE ---
Patient is A&Ox3. Respirations even and non-labored on room air. Patient daughter at bedside. Discharge instructions reviewed with daughter and patient including follow up appointments and medications. Patient verbalized understanding. Patient IV removed and tolerated well. Patient wheel chaired to private car.
== END 2024-12-15 13:08 | disposition home health service (06) | DRG 871 ==
LOC: ER 12:08 → ER IP 13:28 → MEDSURG 14:13
PROVIDERS: Admitting Provider Internal Medicine; Emergency Provider Emergency Medicine; PCP Family Medicine; Visit Provider Student in an Organized Health Care Education/Training Program
DX: A41.9 Sepsis, unspecified organism (principal); G93.41 Metabolic encephalopathy; L03.116 Cellulitis of left lower limb; C79.01 Secondary malignant neoplasm of right kidney and renal pelvis; N17.9 Acute kidney failure, unspecified; Z68.42 Body mass index [BMI] 45.0-49.9, adult; I13.0 Hypertensive heart and chronic kidney disease with heart failure and stage 1 through stage 4 chronic kidney disease, or unspecified chronic kidney disease; I50.32 Chronic diastolic (congestive) heart failure; B02.9 Zoster without complications; N40.1 Benign prostatic hyperplasia with lower urinary tract symptoms; N39.498 Other specified urinary incontinence; I87.8 Other specified disorders of veins; T50.2X5A Adverse effect of carbonic-anhydrase inhibitors, benzothiadiazides and other diuretics, initial encounter; E66.01 Morbid (severe) obesity due to excess calories; E87.70 Fluid overload, unspecified; I48.91 Unspecified atrial fibrillation; N18.9 Chronic kidney disease, unspecified; E11.22 Type 2 diabetes mellitus with diabetic chronic kidney disease; I95.1 Orthostatic hypotension; E87.6 Hypokalemia; K21.9 Gastro-esophageal reflux disease without esophagitis; K59.00 Constipation, unspecified; J43.9 Emphysema, unspecified; M20.42 Other hammer toe(s) (acquired), left foot; M20.41 Other hammer toe(s) (acquired), right foot; E03.9 Hypothyroidism, unspecified; R09.02 Hypoxemia; Z79.01 Long term (current) use of anticoagulants; Z79.84 Long term (current) use of oral hypoglycemic drugs; Z86.711 Personal history of pulmonary embolism; Z86.16 Personal history of COVID-19; Z87.440 Personal history of urinary (tract) infections
CPT/HCPCS: 36415; 36416; 51702; 70450; 71045; 71250; 74176; 76882; 80048; 80053; 81001; 82962; 83605; 84145; 84484; 85007; 85025; 86140; 87040; 87637; 90471; 90656; 93005; 93306; 93971; 94640; 94664; 94760; 96365; 96375; 97116; 97161; 97165; 97530; 99285; J0131; J0696; J0780; J1938; J1956; J2020; J2185; J2405; J2543; J7030; J7050; J9999; P9046

== ENCOUNTER 2024-12-19 10:20 | Emergency (ER) | payer OTHER, SELFPAY ==
--- OUTSIDE RECORDS SUMMARY | 2024-06-29 05:10 | XMS_ITS ---
Author Organization [facility] Address [address] [place] [address] Care Team Providers Care Eap Specialist Name Role Phone Urvashi Queen MD Primary Care Provider Unavaila Shantelle Richardson Unavailable [phone] [place], [place] Unavailable Unavailable Mitul Razo Unavailable [phone] REASON FOR VISIT 6m f/u w CT, cbc,cmp, chest xray- straight cath ua Encounters Encounter Location Date Provider Diagnosis [facility] [address] [place] [address] [facility] [address] [place] [address] 06/29/2024 Mitul Razo Plan Of Treatment Next Appt Details Provider Name:Mitul sigala, 01/16/2025 10:10:00 AM, [address] [place] [address] , [address], [place], [address], Provider Name:Jese Sung, 02/05/2025 01:40:00 PM, [address] [place] [address] Dr [facility] [address], [place], [address], Progress Notes * Singh LUJAN RDOB:1945 ( 79 yo M)Acc No.[id number]:06/29/2024 Progress Notes Patient: Singh Padron Provider: Nba Razo MD :1945 A ge:79 Y S ex:Male Date:06/29/2024 Address:[address] [place] [address] [address], [facility] Pcp:Urvashi Queen MD Subjective: * Chief Complaints: * 6 m f/u w CT, cbc,cmp, chest xray- straight cath ua * Electronic signature of Arnulfo Razo MD on 12/19/2024 at 10:37 AM CDT Sign off status: Pending * Provider: Nba Razo MD Date: 0 06/29/2024 Generated for Nick villarreal/Anival/Rikismmiracle on: 1 10:37 AM CDT
[2024-12-19 10:30] VITALS: BP 120/67; PULSE 69; TEMP 36.7; O2SAT 96; BMI 44.2
--- OUTSIDE RECORDS SUMMARY | 2024-12-19 10:37 | XMS_ITS | Clinical Summary ---
Author Organization [facility] Address [address] [facility] Attn: [place] [address] Care Team Providers Care Fuel Storage Technician Name Role Phone Zeyad Angel MD Primary Care Provider [phone] Allergies Active Allergy Reactions Criticality Noted Date [...] Description 12/01/2024 11:25 AM CDT Ancillary Procedure [facility] Spine and Pain Radiology [address] [place] [phone] Amy Garcia, AUTO TRAVEL COUNSELOR Closed nondisplaced fracture of seventh cervical vertebra, unspecified fracture morphology, initial encounter ([facility]) 12/01/2024 11:00 AM CDT Office Visit [facility] Neurosurgery [address] [place] [phone] Amy Garcia, AUTO TRAVEL COUNSELOR Closed nondisplaced fracture of seventh cervical vertebra, unspecified fracture morphology, initial encounter ([facility]) (Primary Dx) 12/01/2024 10:20 AM CDT Ancillary Procedure [facility] Spine and Pain Radiology [address] [place] [phone] Amy Garcia, AUTO TRAVEL COUNSELOR Closed nondisplaced fracture of seventh cervical vertebra, unspecified fracture morphology, initial encounter ([facility]) 11/14/2024 External Device Data [facility] ABSTRACTION Provider, Abstract 11/14/2024 External Device Data [facility] ABSTRACTION Provider, Abstract 11/02/2024 11:52 AM CDT - 11/02/2024 11:59 PM CDT Hospital Encounter [facility] Orthopedic [address] [phone] Amy Garcia, AUTO TRAVEL COUNSELOR Discharge Disposition: Home or Self Care 11/02/2024 10:00 AM CDT Office Visit [facility] Neurosurgery [address] [place] [phone] Amy Garcia, AUTO TRAVEL COUNSELOR SDH (subdural hematoma) ([facility]) (Primary Dx); Closed nondisplaced fracture of seventh cervical vertebra, unspecified fracture morphology, initial encounter ([facility]) 11/02/2024 9:55 AM CDT Ancillary Procedure [facility] Spine and Pain Radiology [address] [place] [phone] Amy Garcia, AUTO TRAVEL COUNSELOR Closed nondisplaced fracture of seventh cervical vertebra, unspecified fracture morphology, initial encounter ([facility]) 10/30/2024 Orders Only [facility] Neurosurgery [address] [place] [address] Amy Garcia, AUTO TRAVEL COUNSELOR Closed nondisplaced fracture of seventh cervical vertebra, unspecified fracture morphology, initial encounter ([facility]) (Primary Dx) 10/18/2024 External Device Data [facility] ABSTRACTION Provider, Abstract 10/17/2024 External Device Data [facility] ABSTRACTION Provider, Abstract 10/17/2024 External Device Data ST[facility] ABSTRACTION Provider, Abstract 10/13/2024 10:03 PM CDT - 10/14/2024 10:[address] [facility] Emergency Department [address] [place] [phone] Jeffrey Bolton MD Castillo Salcedo, Rolando Israel, DO SDH (subdural hematoma) ([facility]) (Primary Dx); Other closed nondisplaced fracture of seventh cervical vertebra, initial encounter ([facility]); Ground-level fall; Anticoagulated on Eliquis Discharge Disposition: [...] on file Legal Sex Male 7:00 AM CLINICAL SPECIALIST MEDICAL DEVICE Gender Identity Not on file Sexual Orientation [...] - 1-dose 75+ series) 2021 Medicare [place] Preventative Visit/Annual Wellness Visit 03/15/2024 INFLUENZA VACCINE [...] history exists Medical Devices Implanted Type Area Automotive Project Engineer Device Identifier Shelf Expiration Date Model / Serial / Lot Mesh Ventralex 2.5in Med Circ [id number] - [id number] Implanted:Qty: 1 on 07/24/2017 by Singh Ibarra MD Mesh Abdomen CR [employer] 06/10/2019 [id number] / / [id number] Procedures Procedure Name Priority Date/Time Associated Diagnosis Comments XR CERVICAL SPINE 2 OR 3 VIEWS Routine 12/01/2024 11:37 AM CDT Closed nondisplaced fracture of seventh cervical vertebra, unspecified fracture morphology, initial encounter ([facility]) XR CERVICAL SPINE 1 VW Routine 12/01/2024 10:36 AM CDT Closed nondisplaced fracture of seventh cervical vertebra, unspecified fracture morphology, initial encounter ([facility]) CT HEAD WO CONTRAST Stat 11/02/2024 1 2:05 PM CDT SDH (subdural hematoma) ([facility]) XR CERVICAL SPINE 1 VW Routine 11/02/2024 10:08 AM CDT Closed nondisplaced fracture of seventh cervical vertebra, unspecified fracture morphology, initial encounter ([facility]) POC GLUCOSE Stat 10/14/2024 6:04 AM CDT [...] cervical vertebra, unspecified fracture morphology, initial encounter ([facility]) COMPARISON: 12/01/2024 FINDINGS: Overall visualization of the [...] cervical vertebra, unspecified fracture morphology, initial encounter ([facility]) COMPARISON: 12/01/2024 FINDINGS: Overall visualization of the [...] of the multilevel degenerative disease. Amy Garcia [facility] DIAGNOSTIC IMAGING ORDERA BLES Final [...] cervical vertebra, unspecified fracture morphology, initial encounter ([facility]). Prior: 11/02/2024. Findings: Previously seen fracture of [...] cervical vertebra, unspecified fracture morphology, initial encounter ([facility]). Prior: 11/02/2024. Findings: Previously seen fracture of [...] prevertebral soft tissue swelling. Amy Tasneem Garcia [facility] DIAGNOSTIC IMAGING ORDERA BLES Final [...] FOR STUDY: other DIAGNOSIS: SDH (subdural hematoma) ([facility]) COMPARISON: October 14, 2024 TECHNIQUE: CT head [...] FOR STUDY: other DIAGNOSIS: SDH (subdural hematoma) ([facility]) COMPARISON: October 14, 2024 TECHNIQUE: CT head performed without contrast. FINDINGS: No evidence of an acute territorial infarct, parenchymal hemorrhage, hydrocephalus or abnormal extra-axial fluid collection. No midline shift. Basilar cisterns remain patent. No mastoid effusion. No paranasal sinus fluid level. No calvarial fracture. No sizable scalp hematoma. IMPRESSION: No evidence of an acute intracranial process. No appreciable extra-axial hemorrhage Amy Boateng Jose [facility] CT ORDERABLES Final Res ult * (ABNORMAL) POC GLUCOSE (10/14/2024 6:04 AM CDT) [facility] GLUCOSE POC 107(H) 74 - 99 mg/dL 10/14/2024 6:04 AM CDT [facility] SPECIMEN SOURCE, GLUCOSE POC Capillary 10/14/2024 6:04 AM CDT [facility] Blood, whole 10/14/2024 6:04 AM CDT 10/14/2024 6:12 AM CDT Mark Thapa DO POINT OF CARE TESTING Final Result [facility] CLIA # [id number] [facility] [address] [address] [place], [place] [id number] * (ABNORMAL) CBC WITH DIFFERENTIAL (10/13/2024 11:16 PM CDT) [facility] WBC 8.7 4.8 - 10.8 K/uL 10/13/2024 11:25 PM CDT [facility] RBC 4.47(L) 4.60 - 6.20 M/uL 10/13/2024 11:25 PM CDT [facility] HEMOGLOBIN 13.4(L) 14.0 - 18.0 g/dL 10/13/2024 11:25 PM CDT [facility] HEMATOCRIT 39.6(L) 41.0 - 53.0 % 10/13/2024 11:25 PM CDT [facility] MCV 88.6 84.0 - 103.0 fL 10/13/2024 11:25 PM [facility] MCH 30.0 27.0 - 34.0 pg 10/13/2024 11:25 PM [facility] MCHC 33.8 30.0 - 35.0 g/dL 10/13/2024 11:25 PM [facility] PLATELETS 148 140 - 440 K/uL 10/13/2024 11:25 PM [facility] [employer] [facility] MPV 9.4 8.9 - 12.8 fL 10/13/2024 11:25 PM [facility] [employer] [facility] RDW 12.8 11.0 - 14.5 % 10/13/2024 11:25 PM [facility] RDW-STDEV 41.8 37.0 - 54.0 fL 10/13/2024 11:25 PM [facility] NEUTROPHILS 75 42 - 75 % 10/13/2024 11:25 PM [facility] LYMPHOCYTES 15(L) 24 - 44 % 10/13/2024 11:25 PM [facility] MONOCYTES 7 2 - 10 % 10/13/2024 11:25 PM [facility] [employer] [facility] EOSINOPHILS 2 0 - 7 % 10/13/2024 11:25 PM [facility] [employer] [facility] BASOPHILS 1 0 - 1 % 10/13/2024 11:25 PM [facility] IMMATURE GRANULOCYTES 0 0 - 2 % 10/13/2024 11:25 PM [facility] NEUTROPHIL ABSOLUTE 6.55 2.00 - 8.00 K/uL 10/13/2024 11:25 PM [facility] LYMPHOCYTE ABSOLUTE 1.34 1.20 - 4.00 K/uL 10/13/2024 11:25 PM [facility] MONOCYTE ABSOLUTE 0.63(H) 0.10 - 0.60 K/uL 10/13/2024 11:25 PM [facility] EOSINOPHIL ABSOLUTE 0.14 0.00 - 0.70 K/uL 10/13/2024 11:25 PM CDT [facility] BASOPHILS ABSOLUTE 0.05 0.00 - 0.20 K/uL 10/13/2024 11:25 PM CDT [facility] IMMATURE GRANULOCYTES ABSOLUTE 0.03 0.00 - 0.10 K/uL 10/13/2024 11:25 PM CDT [facility] SMEAR REVIEWED: NA - Not Applicable 10/13/2024 11:25 PM CDT [facility] Blood Venipuncture / Unknown 10/13/2024 11:16 PM CDT 10/13/2024 11:21 PM CDT us Jeffrey Bolton MD HEMATOLOGY ORDERABLES Final R esult Performing Organization Address [facility] Co de Phone Number [facility] CLIA # [id number] [address] [address] * (ABNORMAL) PTT (10/13/2024 11:16 PM CDT) PTT 38.5(H) 24.8 - 37.2 seconds 10/13/2024 11:43 PM CDT [facility] Blood Venipuncture / Unknown 10/13/2024 11:16 PM CDT 10/13/2024 11:21 PM CDT Narrative [facility] - 10/13/2024 11:43 PM CDT Therapeutic Range: Hi-level PE/DVT heparin protocol 80.1 - 95.0 sec Lo-level PE/DVT heparin protocol 70.1 - 85.0 sec Cardiac Heparin Protocol 70.1 - 100.0 sec us Jeffrey Bolton MD HEMATOLOGY ORDERABLES Final R esult Performing Organization Address City/[facility]/ZIP Co de Phone Number [facility] CLIA # [id number] [address] [address] * (ABNORMAL) PROTIME-INR (10/13/2024 11:16 PM CDT) PROTIME 17.4(H) 12.7 - 14.9 Seconds 10/13/2024 11:43 PM CDT [facility] INR 1.3(H) 0.8 - 1.2 10/13/2024 11:43 PM CDT [facility] Blood Venipuncture / Unknown 10/13/2024 11:16 PM CDT 10/13/2024 11:21 PM CDT Narrative [facility] - 10/13/2024 11:43 PM CDT Expected Values for INR: DVT/PE Goal INR 2.5; range 2.0 - 3.0 Valve Replacement Tissue Goal INR 2.5; range 2.0 - 3.0 Valve Replacement Mechanical Goal INR 3.0; range 2.5 - 3.5 POST-NJ Goal INR 2.5; range 2.0 - 3.0 or Goal INR 3.0; range 2.5 - 3.5 Atrial Fibrillation Goal INR 2.5; range 2.0 - 3.0 Ischemic Stroke Goal INR 2.5; range 2.0 - 3.0 us Jeffrey Bolton MD HEMATOLOGY ORDERABLES [id number] [address] [place] [id number] * (ABNORMAL) COMPREHENSIVE METABOLIC PANEL (10/13/2024 11:16 PM CDT) Pathologist [facility] SODIUM 137 136 - 145 mmol/L 10/13/2024 11:57 PM CDT [facility] POTASSIUM 4.0 3.5 - 5.1 mmol/L 10/13/2024 11:57 PM CDT [facility] CHLORIDE 102 98 - 107 mmol/L 10/13/2024 11:57 PM CDT [facility] CO2 22 22 - 29 mmol/L 10/13/2024 11:57 PM [facility] CALCIUM 8.9 8.8 - 10.2 mg/dL 10/13/2024 11:57 PM [facility] BUN 12 8 - 23 mg/dL 10/13/2024 11:57 PM [facility] CREATININE 1.25(H) 0.67 - 1.17 mg/dL 10/13/2024 11:57 PM [facility] Comment:The GFR result is no t clinically significant on patients <18 or >70 years of age. GLUCOSE 138(H) 74 - 99 mg/dL 10/13/2024 11:57 PM [facility] TOTAL PROTEIN 6.6 6.4 - 8.3 g/dL 10/13/2024 11:57 PM [facility] ALBUMIN 3.9 3.5 - 5.2 g/dL 10/13/2024 11:57 PM [facility] BILIRUBIN TOTAL 0.6 0.0 - 1.0 mg/dL 10/13/2024 11:57 PM [facility] ALKALINE PHOSPHATASE 102 40 - 129 U/L 10/13/2024 11:57 PM [facility] AST 17 10 - 50 U/L 10/13/2024 11:57 PM [facility] ALT 19 <=50 U/L 10/13/2024 11:57 PM [facility] GFR 59 mL/min/1. 73 sq meter 10/13/2024 11:57 PM [facility] Comment:eGFR calculated with 2020 CKD-EPI equation. Vegetarian diet, extremely high or low muscle mass, and may affect results. Cystatin C with Glomerular Filtration Rate is a suitable alternative for these patients. ANION GAP 13 9 - 20 mmol/L 10/13/2024 11:57 PM [facility] Blood Venipuncture / Unknown 10/13/2024 11:16 PM CDT 10/13/2024 11:23 PM T us Jeffrey Bolton MD CHEMISTRY ORDERABLES Final Re sult [facility] [id number] [facility] [address] * Critical Care (10/13/2024 10:03 PM CDT) [...] deterioration of the following conditions: Trauma and EVENT PLANNING MANAGER failure or compromise Critical care was time [...] Result from Last 3 Months Insurance [facility] * Guarantor: ANA HIREN L (C) Account Type Relation to Patient Date of Phone Billing Address Corporate Other DEFAULT ADDRESS [place] [address] [place] [employer] Advance Directives For more information, please contact: [phone] Documents on File Type Date Recorded Patient Career Based Intervention Coordinator Expl anation Advance Directive POA 08/04/2017 10:52 AM Advance Directive POA * NO CPR (In Event of Cardiopulmonary Arrest) (Latest Code Status on File) Date Activated Date Inactivated Comments 10/14/2024 7:31 AM 10/14/2024 12:50 PM Question Answer Comments Mechanical Ventilation (for respiratory distress) - Invasive (i.e. intubation): Yes Mechanical Ventilation (for respiratory distress) - Non-Invasive (i.e. BiPAP, CPAP): Yes Care Teams Fuel Storage Technician Relationship Specialty Start Date End Date Zeyad Angel MD [address] [address] PCP - General Family Practice 07/19/17
--- OUTSIDE RECORDS SUMMARY | 2024-12-19 10:37 | XMS_ITS | Clinical Summary ---
Author Organization [facility] [employer] [facility] [employer] Address [address] [place] [address] Phone Care Team Providers Care Tests Superintendent Name Role Phone Urvashi Mcmahan MD Primary Care Provider [phone] Allergies No known active allergies Medications * [...] patient's age to complete this topic Insurance [id number] [place], [place] [id number] [place] [address] Regions 1,2,3 (VACCN) Care Teams Tests Superintendent Relationship Specialty Start Date End Date Urvashi Mcmahan MD [address] [place] [address] PCP - General Family Medicine 06/18/20
--- OUTSIDE RECORDS SUMMARY | 2024-12-19 10:37 | XMS_ITS | Encounter Summary ---
Author Organization [facility] Address [address] [place] [address] Care Team Providers Care Insulation Mechanic Name Role Phone Zeyad Angel MD Primary Care Provider [phone] Reason for Referral * Outpatient Services (Routine) - Closed Specialty Diagnoses / Procedures Referred By Contac t Referred To Contact Radiology Diagnoses Right renal mass Procedures CT ABDOMEN PELVIS WO CONTRAST CT ABDOMEN PELVIS W CONTRAST Donnell Kothari MD Phone: tel: fax: [facility] [address] [facility] [address] [place] [address] Phone: tel: fax: Referral ID Status Reason Start Date Expiration Date V isits Requested Visits Authorized [id number] Closed SGF [facility] TO SCHEDULE (SGF) 09/27/2017 10/28/2018 1 1 Encounter Details Date Type Department Care Team ([facility] Contact Info) Description 03/14/2018 Ancillary Orders [facility] Urology- [place] [address] Entr[address], 3[address] [place] [address] Donnell Kothari MD [address] [address] Right renal mass Social History Tobacco Use Types Packs/Day Years Used Date Smoking Tobacco: Never Smokeless Tobacco: Never Sex and Gender Information Value Date Recorded Sex Assigned at Not on file Legal Sex Male 11:09 AM ENGINEERING TECH Gender Identity Not on file Sexual Orientation Not on file documented as of this encounter Plan of Treatment Not on file documented as of this encounter Results * CT ABDOMEN PELVIS WO CONTRAST (03/14/2018 11:22 AM ENGINEERING TECH) Anatomical Region Laterality Modality Abdomen Computed Tomogra phy 03/14/2018 11:2 2 AM ENGINEERING TECH Impressions 03/14/2018 11:39 AM ENGINEERING TECH IMPRESSION: Please see below. Exam: CT ABDOMEN [...] Prostatomegaly and bladder wall thickening is identified. [id number] Narrative Procedure Note Lizzette Urbina MD - [...] Prostatomegaly and bladder wall thickening is identified. [id number] ORDERABLES Final R esult documented in this encounter Visit Diagnoses Diagnosis Right renal mass Unspecified disorder of kidney and ureter Right renal mass Unspecified disorder of kidney and ureter documented in this encounter Care Teams Insulation Mechanic Relationship Specialty Start Date End Date Zeyad Angel MD [address] [address] PCP - General Family Practice 07/19/17 documented as of this encounter
--- OUTSIDE RECORDS SUMMARY | 2024-12-19 10:38 | XMS_ITS | Encounter Summary ---
Author Organization [employer] Address [address] [place] [address] Phone Care Team Providers Care Supervisor Advice Name Role Phone Urvashi Mcmahan MD Primary Care Provider [phone] Encounter Details Date Type Department Care Team (Late st Contact Info) Description 02/06/2019 Orders Only [facility] [address] [place] [address] Chronic kidney disease, stage 3 [...] mass documented in this encounter Care Teams Supervisor Advice Relationship Specialty Start Date End Date Urvashi Mcmahan MD [address] [place] [address] PCP - General Family Medicine 06/18/20 documented as of this encounter
--- OUTSIDE RECORDS SUMMARY | 2024-12-19 10:38 | XMS_ITS | Clinical Summary ---
Author Organization [facility] Address [address] [place] [address] Care Team Providers Care Nsh Teacher Name Role Phone Zeyad Angel MD Primary Care Provider Allergies No known active allergies Medications amoxicillin-clavul [...] on file Legal Sex Male 11:09 AM MANAGER GYN Gender Identity Not on file Sexual Orientation Not on file Last Filed Vital Signs Vital Sign Reading Time Taken Comments Blood Pressure 160/77 02/03/2019 10:07 AM MANAGER GYN Pulse 88 02/03/2019 10:07 AM MANAGER GYN Temperature 36.1 C (97 F) 07/30/2017 8:43 AM CDT Respiratory Rate 18 07/30/2017 8:43 AM CDT Oxygen Saturation 95% 07/30/2017 8:43 AM CDT Inhaled Oxygen Concentration - - Weight 167.8 kg (370 lb) 02/03/2019 10:07 AM MANAGER GYN Height 190.5 cm (6' 3 ) 02/03/2019 10:07 AM MANAGER GYN Body Mass Index 46.25 02/03/2019 10:07 AM MANAGER GYN Plan of Treatment Health Maintenance Due Date Last Done Comments DTAP/TDAP/TD VACCINES (1 - Tdap) 1965 PNEUMOCOCCAL VACCINE 50+ YEARS (1 of 1 - PCV) 04/01/18 97 ZOSTER VACCINE (1 of 2) 1996 RSV VACCINE (60+ or ) (1 - 1-dose 75+ series) 2021 INFLUENZA VACCINE (#1) 2024 Medical Devices Implanted Type Area Glue Reel Operator Device Identifier Shelf Expiration Date Model / Serial / Lot Mesh Ventralex 2.5in Med Circ [id number] - [id number] Implanted:Qty: 1 on 07/24/2017 by Singh Ibarra MD at [facility] Mesh Abdomen CR [employer] 06/10/2019 [id number] / / [id number] Insurance [employer] 16 CONSOLIDATED FEE UNIT Advance Directives For more information, please contact: [phone] Documents on File Type Date Recorded Patient Child Protective Services Social Worker Expl anation Advance Directive POA 08/04/2017 10:52 AM Advance Directive POA * Full Code (Latest Code Status on File) Date Activated Date Inactivated Comments 07/24/2017 4:16 PM 07/30/2017 3:07 PM * Full Code Date Activated Date Inactivated Comments 07/20/2017 3:37 PM 07/24/2017 4:16 PM Care Teams Nsh Teacher Relationship Specialty Start Date End Date Zeyad Angel MD [address] [address] PCP - General Family Practice 07/19/17
--- OUTSIDE RECORDS SUMMARY | 2024-12-19 10:38 | XMS_ITS | Patient Health Record ---
Author Organization [facility] Address [address] [place] [address] Care Team Providers Care Paid Search Manager Name Role Phone Urvashi Queen MD Primary Care Provider UnavailShantelle Gomez Unavailable [phone] [place], [place] Unavailable Unavailable Jese Sung Unavailable [phone] Rosario Melara Unavailable [phone] Mitul Razo Unavailable [phone] Allergies Allergen (clinical drug ingredient) Drug/Non Drug Allergy documented on EMR Reaction Allergy Type Onset Date Status Novocain Unknown Drug Allergy Active Results Component Value Reference Range Flag Notes CT Abdomen w/ + w/o Contrast -75552 Reviewed date:12/23/2023 07:32:32 AM Interpretation: Performing Lab: Notes/Report: See Below For Report CT Abdomen w/ + w/o Contrast Read See Below For Report CT Abdomen w/ + w/o Contrast -55934 Reviewed date:07/16/2024 07:57:41 AM Interpretation: Performing Lab: Notes/Report: [email or web address] [employer] [place], [place] - [address] Reviewed date:07/26/2024 02:46:30 PM Interpretation: Performing Lab: Notes/Report: Glucose 3+ Bili - Ketones - Sp [place] 1.010 Blood - pH 6.5 Protein - Urobili - Nitrites - Leukocytes - CT Abdomen w/ + w/o Contrast -81977 Reviewed date:07/16/2024 07:57:24 AM Interpretation: Performing Lab: Notes/Report: See Below For Report CT Abdomen w/ + w/o Contrast Read See Below For Report Creatinine (B) 87574 Reviewed date:12/24/2023 12:04:18 PM Interpretation: Performing Lab: Notes/Report: Diagnosis Description: Malignant neoplasm of right kidney, except renal pelvis Creat 1.40 .57-1.17 MG/DL HI G-zrfggi-m-benzoquinon e imine (NAPQI) is a metabolite of [...] the CKD-EPI Creatinine Equation(2020) to estimate GFR. CBC w\ Auto Diff 52992 Reviewed date:12/24/2023 12:04:07 PM Interpretation: Performing Lab: [...] 40.0-70.0 % Lymph Auto% 22.2 22.0-44.0 % Brown Auto% 6.4 3.0-7.0 % Eos Auto% 2.2 2.0-4.0 % Baso Auto% 0.6 0.0-1.0 % Imm Gran% .4 .0-.4 % Neutro Abs 4.71 .80-7.70 Absolute Neutrophil Count 4710 NA Lymph Abs 1.53 .10-4.10 Brown Abs .44 .20-1.00 Eos Abs .15 .00-.40 Baso Abs .04 .00-.20 Imm Gran Abs .03 .00-.10 NRBC# .00 .00-.20 NRBC% .00 .00-.20 /100 intact WBC's UA W/O Microscopic 65525 Reviewed date:12/29/2023 11:03:50 AM Interpretation: Performing Lab: Notes/Report: Specific gravity UA 1.020 Urine pH 5.5 Urine Glucose 3+ Urine Bilirubin 0 Urine Ketone 0 Urine Blood 0 Urine Protein +- Urobilinogen 0 Urine Nitrite 0 Urine Leukocyte 0 Creat Proc NC--NO PCT Reviewed date:07/14/2024 09:32:24 AM Interpretation: Performing Lab: Notes/Report: Creat 1.25 .57-1.17 MG/DL HI W-gvbkxn-i-benzoquinon e imine (NAPQI) is a metabolite of [...] to the potential for falsely depressed results. Bun Proc NC--NO CPT Reviewed date:07/14/2024 09:32:31 AM Interpretation: Performing Lab: Notes/Report: BUN 15 7-21 MG/DL Chest PA/Lat-15274 Reviewed date:12/25/2023 10:12:12 AM Interpretation: Performing Lab: Notes/Report: See Below For Report Chest PA/Lat Diagnosis Description: Malignant neoplasm of right kidney, except renal pelvis Read See Below For Report CT Abdomen w/ + w/o Contrast -70345 Reviewed date:12/23/2023 07:27:11 AM Interpretation: Performing Lab: Notes/Report: [id number] Chest PA/Lat-15902 Reviewed date:12/25/2023 10:11:28 AM Interpretation: Performing Lab: Notes/Report: [email or web address] Comprehensive Metabolic Pane l (CMP) 38503 Reviewed date:12/24/2023 12:04:27 PM Interpretation: Performing Lab: Notes/Report: Diagnosis Description: Malignant neoplasm of right kidney, except renal pelvis Glucose Serum 100 71-110 MG/DL Testing p erformed at [address] Dolores [place], [place] [address]. CLIA ID#: [id number] BUN 14 7-21 MG/DL Creat 1.21 .57-1.17 MG/DL HI T-lznusf-c-benzoquinon e imine (NAPQI) is a metabolite of [...] except renal pelvis BUN 17 7-21 MG/DL Reason For Referral Reason Neph-scheduled Diagnosis 1 Chronic kidney disea se, stage 3b (N18.32) Referring Provider First Name Ravi cano Referring Provider Last Name [place] Referring Provider [facility] Referred Organization [facility] Referred Provider Jese Sung Referred Address [address] [place] [address] [address],[place], [place],[address],[place] Referred Provider Specialty Nephrology Referral Priority Routine Reason Malignant Neoplasm o f right kidney, except renal pelvis Diagnosis 1 Malignant neoplasm o f right kidney, except renal pelvis (C64.1) Referring Provider First Name Ravi cano Referring Provider Last Name [place] Referring Provider [facility] Referred [facility] Referred Provider Mitul Razo Referred Address [address],[place], [place],[address],[place] Referred Provider Specialty Urology Referral Priority Routine Reason Neph-scheduled Diagnosis 1 Chronic kidney disea se, stage 3b (N18.32) Referring Provider First Name Ravi cano Referring Provider Last Name [place] Referring Provider [facility] Referred Provider Jese Sung Referred Address [address] [place] [address] [address],[place],[address],[place] Referred Provider Specialty Nephrology Referral Priority Routine Medications Medication SIG (Take, Route, Frequency, Duration) Notes Start Date End Date Status Tamsulosin HCl 0.4 MG Capsule 1 capsule Orally twice daily Active SITagliptin 25mg 1 tab daily A ctive Potassium Chloride 20 MEQ Powder for Oral Solution ORAL mon,,wed,sat 04/17/2022 Active Omeprazole 40 MG Capsule Delayed [...] 25 MG Oral Tablet ORAL *Reorder from [employer] for eRx and Interaction Alerts* 08/21/2022 Not-Taking Furosemide 40 MG Tablet 1 tablet Orally mon,,wed,sat Active Dicyclomine Hydrochloride 10 MG Oral Capsule ORAL *Reorder from [employer] for eRx and Interaction Alerts* 04/17/2022 Not-Taking Folic Acid 0.8 MG Oral Capsule ORAL 0.4 mg daily 08/21/2022 Active Dextromethorphan Hydrobromide 1 MG/ML / Guaifenesin 20 MG/ML Oral Solution ORAL *Reorder from [email or web address] for eRx and Interaction Alerts* 08/21/2022 Not-Taking Empagliflozin 25 MG Tablet 0.5 tablet Orally Once a day Active Citalopram Hydrobromide 40 MG Tablet 1 tablet Orally Once a day Not-Taking Rosuvastatin Calcium 20 MG Tablet 1/2 tablet Orally Once a day Active Eliquis 5 MG Tablet 1 tablet Orally twice a day Active cholecalciferol 0.05 MG Oral Capsule ORAL *Reorder from [facility] for eRx and Interaction Alerts* 08/21/2022 Not-Taking Chlorhexidine Gluconate 0.12 % Solution as directed Mouth/Throat Not-Taking cetirizine hydrochloride 10 MG Oral Tablet ORAL *Reorder from [facility] for eRx and Interaction Alerts* 08/26/2021 Not-Taking Citalopram 40 MG Oral Tablet ORAL *Reorder from [employer] for eRx and Interaction Alerts* 08/26/2021 Active Aspirin Adult Low Dose 81 MG Tablet Delayed Release 1 tablet Orally Once a day Not-Taking Lancet Device Not-Ta dwaine Cetirizine HCl 10 MG Tablet 1 tablet Orally Once a day Active Apixaban 5 MG Oral Tablet ORAL *Reorder from [email or web address] for eRx and Interaction Alerts* 08/21/2022 Not-Taking [...] 6.25 MG Oral Tablet ORAL *Reorder from [email or web address] for eRx and Interaction Alerts* 08/26/2021 Not-Taking Accu-Chek Active Not -Taking 200 ACTUAT Albuterol 0.09 MG/ACTUAT Dry Powder Inhaler INTRAPULMONARY *Reorder from [email or web address] for eRx and Interaction Alerts* 08/21/2022 Not-Taking Vitamin D3 25 MCG (1000 UT) Tablet Chewable 1 tablet Orally Once a day Active Sudafed Not-Taking docusate sodium 100 MG Oral Capsule [Colace] ORAL *Reorder from [email or web address] for eRx and Interaction Alerts* 04/17/2022 Active [...] Children: yes x3 : Was in the [employer] from [phone] Level of Education: [employer] Yazidism: [employer] Drugs/Alcohol: Do you smoke marijuana? [...] Risk Notes Problem Malignant tumor of kidney (392136690) Malignant neoplasm of right kidney, except renal pelvis (C64.1) Active confirmed Problem Diabetic renal disease (027942238) Type 2 diabetes mellitus with diabetic chronic kidney disease (E11.22) Active confirmed Problem Mixed hyperlipidemia (380827445) Mixed hyperlipidemia (E78.2) Active confirmed Problem Chronic kidney disease due to hypertension (630481625196668) Hypertensive chronic kidney disease with stage 1 through stage 4 chronic kidney disease, or unspecified chronic kidney disease (I12.9) Active confirmed Problem Renal failure syndrome (18885768) Unspecified kidney failure (N19) Active confirmed Problem Secondary hyperparathyroidism of renal origin (10380487) Secondary hyperparathyroidism of renal origin (N25.81) Active confirmed Problem Hyperparathyroidism (45256117) Hyperparathyroidism (E21.3) Active confirmed Problem Benign hypertension (13159526) Hypertension, benign (I10) Active confirmed Problem Vitamin D deficiency (00726636) Vitamin D deficiency (E55.9) Active confirmed Problem History of pulmonary embolus (142678942) History of pulmonary embolism (Z86.711) Active confirmed Problem Anemia (976997540) Anemia (D64.9) Active confir med Problem Acquired hypothyroidism (453240165) Acquired hypothyroidism (E03.9) Active confirmed Problem Diabetic peripheral neuropathy associated with type 2 diabetes mellitus (5875638298021) Type 2 diabetes mellitus with diabetic neuropathy, without long-term current use of insulin (E11.40) Active confirmed Problem Use of anticoagulation (816213253) Chronic anticoagulation (Z79.01) Active confirmed Problem Iron deficiency anemia (21996115) Iron deficiency anemia (D50.9) Active confirmed Problem Morbid obesity (575437516) Morbid obesity (E66.01) Active confirmed Problem Urinary incontinence (660407435) Urinary incontinence (R32) Active confirmed Problem Pancreatic mass (324336888) Pancreatic mass (K86.89) Active confirmed Problem Renal mass (120108556) Renal mass (N28.89) Active confirmed Problem Malignant tumor of kidney (921808322) Malignant neoplasm of right kidney (C64.1) Active confirmed Problem Chronic kidney disease stage 3B (disorder) (007232002) Chronic kidney disease, stage 3b (N18.32) Active confirmed Vital Signs Heart Rate 96 /min 07/26/2024 Temperature 98.76 degrees Fahrenheit 07/26/2024 Oximetry 94 % 06/22/2024 Blood pressure diastolic 86 mm Hg 07/26/2024 Height-cm 182.88 cm 07/26/2024 Weight-kg 168.06 kg 07/26/2024 Height 73 in 07/26/2024 Blood pressure systolic 120 mm Hg 07/26/2024 Weight 370.5 lbs 07/26/2024 BMI 48.88 kg/m2 07/26/2024 Procedures Procedure Date Ordered Date Performed Result Body Sit e PVR (Post Void Residual) 12/29/2023 12/29/2023 500mL strai ght cath Encounters Encounter Location Date Provider Diagnosis [facility] [address] [place] [address] [place] [address] 12/29/2023 Mitul Razo Urinary retention R3 3.9 ; Malignant neoplasm of right kidney C64.1 and Urinary incontinence R32 [facility] [address] [place] [address] [address] [place] [address] 06/22/2024 Shantelleluis Garciaff Hypertensive chronic kidney disease with stage 1 [...] therapy Z79.899 and Iron deficiency anemia D50.9 [facility] [address] [place] [address] [place] [address] 07/26/2024 Mitul Razo Malignant neoplasm o f right kidney C64.1 ; Urinary incontinence R32 and Incomplete emptying of bladder R33.9 [facility] [address] [place] [address] [place] [address] 12/29/2023 Mitul Razo Renal mass N28.89 [facility] [address] [place] [address] Dr [address] [place] [address] 04/20/2024 Rosario Melara [facility] [address] [place] [address] [address] [place] [address] 05/22/2024 Rosario Melara [facility] [address] [place] [address] [place] [address] 07/26/2024 Mitul Raoz Malignant neoplasm o f right kidney C64.1 [facility] [address] [place] [address] [place] [address] 07/26/2024 Mitul Razo Malignant neoplasm o f right kidney C64.1 [facility] [address] [place] [address] [address] [place] [address] 07/26/2024 Mitul Razo [facility] [address] [place] [address] 07/26/2024 Mitul Razo [facility] [address] [place] [address] [address] [place] [address] 07/27/2024 Mitul Razo Assessments Encounter Date Diagnosis [...] neoplasm of right kidney (ICD-10 - C64.1) 06/22/2024 Chronic kidney disease, stage 3b (ICD-10 [...] SHPTH is at goal for CKD. 07/26/2024 Incomplete emptying of bladder (ICD-10 - R33.9) 12/29/2023 Urinary incontinence (ICD-10 - R32) 06/22/2024 [...] Other I have asked patient to sign SHARON for [facility] hospitalization records. Continue current antihypertensives. Monitor blood [...] Follow-up in 6 months with labs at [facility] 5-10 days prior to appointment BMP, mag, [...] x ray. It may be done at [place]. [facility] [place] [facility]. Follow-up [address] abdomen with and without IV contrast, CBC, CMP, and chest x-ray. Plan Of Treatment Pending Test Test Name Order Date Blood Urea Nitrogen (BUN) 50608 12/29/19 24 Blood Urea Nitrogen (BUN) 38715 07/27/19 25 CA 19-9 89333 08/25/2023 Carcinogenicembryonic Antigen 87614 08/13 CBC w\ Auto Diff 21984 07/26/2024 Comprehensive Metabolic Panel (CMP) 8005 3 07/26/2024 Creatinine (B) 28962 12/29/2023 Creatinine (B) 16847 07/26/2024 Chest PA/Lat-65080 07/26/2024 CT Abdomen w/ + w/o Contrast-11909 07/26 Vitamin D Total (B) 81708 12/08/2021 Albumin 75695 09/01/2023 Basic Metabolic Panel (BMP) 63867 2023 Ferritin 56535 09/01/2023 Hemoglobin 07049 09/01/2023 Iron Binding Capacity Total 29356 2023 Iron Level 63827 09/01/2023 Magnesium (B) 82918 09/01/2023 Phosphorus (B) 06644 09/01/2023 Uric Acid (B) 29424 09/01/2023 Vitamin D Total (B) 09562 09/01/2023 UA Reflex Micro, Reflex Cult 56386, 8101 5, 28917 09/01/2023 PTH Intact 85034 09/01/2023 % Iron Saturation (Fe & TIBC)--98309,835 50 09/01/2023 Future Test Test Name Order Date CBC w\ Auto Diff 68711 04/15/2024 Comprehensive Metabolic Panel (CMP) 8005 3 04/15/2024 Chest PA/Lat-50606 04/15/2024 Albumin 36595 05/02/2024 Basic Metabolic Panel (BMP) 56847 2024 Ferritin 64904 05/02/2024 Hemoglobin 19561 05/02/2024 Iron Binding Capacity Total 04809 2024 Iron Level 03829 05/02/2024 Magnesium (B) 09271 05/02/2024 Phosphorus (B) 57157 05/02/2024 Uric Acid (B) 67928 05/02/2024 Microalbumin (U) Random 58214 05/02/2024 Creatinine (U) 66156 05/02/2024 UA Reflex Micro, Reflex Cult 81326, 8101 5, 08317 05/02/2024 PTH Intact 63201 05/02/2024 % Iron Saturation (Fe & TIBC)--08911,835 50 05/02/2024 Basic Metabolic Panel (BMP) 25856 2024 Ferritin 89154 01/22/2025 Hemoglobin 87385 01/22/2025 Magnesium (B) 06936 01/22/2025 Phosphorus (B) 27077 01/22/2025 Vitamin D Total (B) 74821 01/22/2025 PTH Intact 11182 01/22/2025 % Iron Saturation (Fe & TIBC)--91091,835 50 01/22/2025 Next Appt Details Provider Name:Mitul sigala, 01/16/2025 10:10:00 AM, [address], [place], [address], Provider Name:Jese Sung, 02/05/2025 01:40:00 PM, [address], [place], [address], Insurance Providers Payer Name Payer Address Payer Phone Subscriber Number Group Number Insured Name Patient Relationship to Insured Coverage Start Date Coverage End Date [employer] [address] JOSE [place]IA GUAN [phone] [id number] Singh Yepez Self - patient is the [...]
--- NOTE | 2024-12-19 11:10 | W.ED.NAVMDI ---
HPI - Nausea/Vomiting/Diarrhea General: Chief complaint: Nausea/Vomiting/Diarrhea Stated complaint: n/v dirrea dizzy Time Seen by Provider: 12/19/24 11:02 History of Present Illness: 79-year-old man with a history of morbid obesity, recent admission for cellulitis who is still on some antibiotics, hypothyroidism, right renal mass, congestive heart failure, diabetes, hypertension, pulmonary embolism, chronic kidney disease and chronic anticoagulation on Eliquis who presents emergency room with diarrhea, nausea, decreased appetite and weakness. He has some mild central abdominal pain. Very limited vomiting but quite a bit of diarrhea. He says he has diarrhea twice a day. No fevers. No altered mental status. No focal motor deficits. No chest pain. Related Data Home Medications ?Medication ?Instructions ?Recorded ?Confirmed cetirizine 10 mg tablet (Zyrtec) 10 mg PO DAILY 05/10/21 12/08/24 levothyroxine 50 mcg tablet 50 mcg PO QAM 05/10/21 12/08/24 memantine 10 mg tablet 10 mg PO BID 05/10/21 12/08/24 tamsulosin 0.4 mg capsule 0.4 mg PO BID 05/10/21 12/08/24 gabapentin 400 mg capsule 400 mg PO BID 08/05/22 12/08/24 cholecalciferol (vitamin D3) 25 25 mcg PO DAILY 12/23/22 12/08/24 mcg (1,000 unit) capsule citalopram 40 mg tablet 40 mg PO QAM depression 12/23/22 12/08/24 empagliflozin 25 mg tablet 12.5 mg PO DAILY 12/23/22 12/08/24 (Jardiance) folic acid 0.8 mg capsule 0.4 mg PO DAILY 12/23/22 12/08/24 rosuvastatin 20 mg tablet 10 mg PO DAILY 12/23/22 12/08/24 sitagliptin 25 mg tablet 25 mg PO DAILY 12/30/23 12/08/24 docusate sodium 100 mg capsule 100 mg PO BID PRN Constipation 12/08/24 12/08/24 (Colace) furosemide 20 mg tablet 20 mg PO DAILY 12/08/24 12/08/24 hydrocodone 5 mg-acetaminophen 325 1 tab PO .Q4-6H PRN Pain 12/08/24 12/08/24 mg tablet omeprazole 40 mg capsule,delayed 40 mg PO QAM 12/08/24 12/08/24 release spironolactone 25 mg tablet 25 mg PO DAILY 12/08/24 12/08/24 valacyclovir 1 gram tablet 1,000 mg PO BID 12/19/24 (Valtrex) Previous Rx's ?Medication ?Instructions ?Recorded Diabetic shoes with 3 pairs of #1 ea 11/02/22 inserts diabetic socks [id number] #1 ea 03/22/23 potassium chloride 20 mEq 10 meq (1/2 x 20 mEq) PO DAILY #30 01/02/24 tablet,extended release tabs diabetic shoes with 3 inserts #1 ea 12/07/24 apixaban 5 mg tablet (Eliquis) 5 mg PO BID@0500,1700 #0 tabs 12/15/24 ciprofloxacin HCl 500 mg tablet 500 mg PO BID 5 days #10 tabs 12/15/24 (Cipro) linezolid 600 mg tablet 600 mg PO Q12H 5 days #10 tabs 12/15/24 ondansetron 8 mg disintegrating 8 mg PO Q6H #14 tabs 12/19/24 tablet Allergies Allergy/AdvReac Type Severity Reaction Status Date / Time cephalexin (From [employer]) Allergy Unknown Verified 12/19/24 10:35 Review of Systems Narrative: Constitutional symptoms: Negative except as documented in HPI. Skin symptoms: Negative except as documented in HPI. Eye symptoms: Negative except as documented in HPI. ENMT symptoms: Negative except as documented in HPI. Respiratory symptoms: Negative except as documented in HPI. Cardiovascular symptoms: Negative except as documented in HPI. Gastrointestinal symptoms: Negative except as documented in HPI. Genitourinary symptoms: Negative except as documented in HPI. Musculoskeletal symptoms: Negative except as documented in HPI. Neurologic symptoms: Negative except as documented in HPI. Psychiatric symptoms: Negative except as documented in HPI. Endocrine symptoms: Negative except as documented in HPI. PFSH ED PFSH: Medical History (Updated 12/19/24 @ 14:58 by Sanjuana Carroll MD) Urinary incontinence Hypothyroidism Renal mass, right Acquired hammertoes of both feet Acute on chronic diastolic CHF (congestive heart failure) Type 2 diabetes mellitus Benign essential HTN Pulmonary embolism COVID-19 Pulmonary edema Acute respiratory failure with hypoxia Chronic kidney disease No pertinent family history Surgical History (Updated 12/08/24 @ 12:31 by Varun Corea MD) S/P TURP H/O hernia repair H/O exploratory laparotomy Family History (Updated 12/08/24 @ 12:32 by Varun Corea MD) Mother Dementia Father Prostate cancer Social History Smoking and tobacco/nicotine status: unknown if used tobacco/nicotine Physical Exam Narrative: EXAM NARRATIVE: General: Alert, no acute distress. Skin: Warm, dry. Head: Normocephalic, atraumatic. Neck: Supple, trachea midline. Eye: Extraocular movements are intact. Ears, nose, mouth and throat: tacky oral mucosa Cardiovascular: Regular, Normal peripheral perfusion. Respiratory: Lungs are clear to auscultation, respirations are non-labored, breath sounds are equal, Symmetrical chest wall expansion. Gastrointestinal: Soft, Nontender, Non distended Musculoskeletal: Normal ROM, no deformity. Neurological: Alert and oriented, No focal neurological deficit observed. Psychiatric: Cooperative, appropriate mood & affect. Course Vital Signs: Vital signs: Vital Signs Temperature 98.0 F 12/19/24 10:30 Pulse Rate 76 12/19/24 13:44 Respiratory Rate 16 12/19/24 13:44 Blood Pressure 153/89 12/19/24 13:44 Pulse Oximetry 95 12/19/24 13:44 Oxygen Delivery Me thod Room Air 12/19/24 12:30 MDM - Nausea/Vomiting/Diarrhea Medical Decision Making Medical decision making: Differential diagnosis for this patient with nausea and diarrhea including but not limited to and based on the above HPI, review of systems and physical exam: Urinary tract infection. Appendicitis. Cholecystitis. Colitis. small bowel obstruction. crohn's flare. pancreatitis. gastritis. peptic ulcer. cyclic vomiting. Viral illness. Influenza. COVID. Orders placed to evaluate differential diagnosis based on the above differential, HPI and physical exam Lab Review: Laboratory results were reviewed and interpreted by myself the emergency room physician. No leukocytosis. No anemia. No renal failure. Creatinine is 1.3 which is at his baseline. Urinalysis is negative for infection. However urine is a bit concentrated which would indicate dehydration CT of the abdomen pelvis: No acute process. There is a large renal mass with central necrosis. Patient has a known renal cell carcinoma. Diverticulosis without diverticulitis. Thickened urinary bladder. This was reviewed and interpreted by myself the emergency room physician. I also reviewed the radiology report. I reviewed the patient's medical record. 79-year-old man with a history of morbid obesity, recent admission for cellulitis who is still on some antibiotics, hypothyroidism, right renal mass, congestive heart failure, diabetes, hypertension, pulmonary embolism, chronic kidney disease and chronic anticoagulation on Eliquis Reexamination: Patient remained stable. No increased work of breathing. No altered mental status. No focal motor deficits. Assessment and plan: Dehydration Gastroenteritis/adverse reaction to antibiotics Diarrhea ?IV fluids and IV Zofran in the emergency room. - Discharged home - Discussed plan with patient. Answered any questions. - Evaluation and treatment of this problem were appropriate in the emergency setting. Lab Data 12/19/24 11:00 12/19/24 11:00 Radiology Impressions Abdomen/Pelvis CT 12/19/24 12:08 IMPRESSION: 1. Large 8.9 x 8.7 x 8.9 cm right renal mass with central necrosis compatible with the patient's known renal cell carcinoma. This is not significantly changed compared to the prior study. 2. Mild sigmoid diverticulosis without evidence of acute diverticulitis. 3. Thickened urinary bladder wall which may be due to incomplete distension. Other pathology, such as cystitis, cannot be excluded. Please correlate clinically. 4. Other chronic findings described above. Laboratory Results WBC 9.07 10^3/uL (3.29-11.43) 12/19/24 11:00 RBC 4.25 10^6/uL (3.85-5.65) 12/19/24 11:00 Hgb 12.80 g/dL (11.27-16.99) 12/19/24 11:00 Hct 39.5 % (37-53) 12/19/24 11:00 MCV 92.9 fl (82-101) 12/19/24 11:00 MCH 30.1 pg (27-33) 12/19/24 11:00 MCHC 32.4 g/dL (30-55) 12/19/24 11:00 RDW 12.9 % (12.1-15.1) 12/19/24 11:00 Plt Count 176 10^3/cmm (157-399) 12/19/24 11:00 MPV 8.1 fL (7.4-10.4) 12/19/24 11:00 Neut % (Auto) 80.5 % 12/19/24 11:00 Lymph % (Auto) 12.0 % 12/19/24 11:00 [place] % (Auto) 5.1 % 12/19/24 11:00 Eos % (Auto) 1.5 % 12/19/24 11:00 Baso % (Auto) 0.6 % 12/19/24 11:00 Neut # (Auto) 7.30 10^3/uL (1.8-7.7) 12/19/24 11:00 Lymph # (Auto) 1.1 10^3/uL (0.8-4.8) 12/19/24 11:00 [place] # (Auto) 0.5 10^3/uL (0.2-0.9) 12/19/24 11:00 Eos # (Auto) 0.1 10^3/uL (0.0-0.8) 12/19/24 11:00 Baso # (Auto) 0.1 10^3/uL (0.0-0.1) 12/19/24 11:00 Nucleated RBC % (auto) 0 % 12/19/24 11:00 Nucleated RBCs # 0.0 /100WBC 12/19/24 11:00 Sodium 136 mmol/L (136-145) 12/19/24 11:00 Potassium 4.1 mmol/L (3.5-5.1) 12/19/24 11:00 Chloride 101 mmol/L (98-107) 12/19/24 11:00 Carbon Dioxide 24 mmol/L (22-29) 12/19/24 11:00 Anion Gap 15.1 (5-19) 12/19/24 11:00 BUN 9 mg/dL (8-23) 12/19/24 11:00 Creatinine 1.3 mg/dL (0.7-1.2) H 12/19/24 11:00 GFR Calculation Not Reportable 12/19/24 11:00 Glucose 115 mg/dL (65-115) 12/19/24 11:00 POC Glucose 108 mg/dL (70-110) 12/19/24 11:47 Calculated Osmolality 282 mOsm/kg (285-295) L 12/19/24 11:00 Lactic Acid 1.3 mmol/L (0.5-2.2) 12/19/24 11:00 Calcium 8.5 mg/dL (8.5-10.5) 12/19/24 11:00 Total Bilirubin 0.4 mg/dL (0.15-1.2) 12/19/24 11:00 AST 20 U/L (0-40) 12/19/24 11:00 ALT 19 U/L (0-41) 12/19/24 11:00 Alkaline Phosphatase 94 U/L (40-130) 12/19/24 11:00 Total Protein 7.7 g/dL (6.6-8.7) 12/19/24 11:00 Albumin 3.7 g/dL (3.5-5.2) 12/19/24 11:00 Globulin 4.0 g/dL (1.3-4.6) 12/19/24 11:00 Lipase 28 U/L (13-60) 12/19/24 11:00 Urine Color Yellow (Yellow) 12/19/24 11:30 Urine Appearance Clear (CLEAR) 12/19/24 11:30 Urine pH 5.5 (5-7) 12/19/24 11:30 Ur Specific [place] 1.031 (1.005-1.030) H 12/19/24 11:30 Urine Protein Negative (Negative) 12/19/24 11:30 Urine Glucose (UA) 3+ (Normal) H 12/19/24 11:30 Urine Ketones Negative (Negative) 12/19/24 11:30 Urine Blood Negative (Negative) 12/19/24 11:30 Urine Nitrate Negative (Negative) 12/19/24 11:30 Urine Bilirubin Negative (Negative) 12/19/24 11:30 Urine Urobilinogen 0.2 mg/dL (Negative) 12/19/24 11:30 Ur Leukocyte Esterase Negative (Negative) 12/19/24 11:30 Urine RBC 0-4 /hpf (0-2) H 12/19/24 11:30 Urine WBC 0-4 /hpf (0-5) H 12/19/24 11:30 Ur Squamous Epith Cells 0-4 /hpf (0-5) H 12/19/24 11:30 Amorphous Sediment Not Reportable 12/19/24 11:30 Urine Bacteria None /hpf (NONE) 12/19/24 11:30 Hyaline Casts 0-4 /lpf H 12/19/24 11:30 Urine Mucus 1+ /hpf 12/19/24 11:30 Ur Oval Fat Bodies 1+ /hpf 12/19/24 11:30 All radiology interpretation(s) finalized by discharge Discharge Plan Discharge Patient Disposition: Home Clinical Impression: Gastroenteritis, Dehydration Condition: Stable Prescriptions: New ondansetron 8 mg tablet,disintegrating 8 mg PO Q6H Qty: 14 0RF Rx Instructions: Take 1/2-1 tab every 6 hours as needed for nausea and vomiting No Action cholecalciferol (vitamin D3) 25 mcg (1,000 unit) capsule 25 mcg PO DAILY citalopram 40 mg tablet 40 mg PO QAM rosuvastatin 20 mg tablet 10 mg PO DAILY folic acid 0.8 mg capsule 0.4 mg PO DAILY Jardiance 25 mg tablet 12.5 mg PO DAILY ([facility] [place]) diabetic shoes with 3 inserts 12 See Rx Instructions .Route .MEDSUPPLY Qty: 1 0RF Rx Instructions: As directed to the shoe guys ([facility] [place]) Diabetic shoes with 3 pairs of inserts See Rx Instructions .Route .MEDSUPPLY Qty: 1 0RF Rx Instructions: As directed ([facility] [place]) diabetic socks [id number] See Rx Instructions .Route .MEDSUPPLY Qty: 1 0RF Rx Instructions: As directed to the [place] cetirizine [Zyrtec] 10 mg Tablet 10 mg PO DAILY tamsulosin 0.4 mg Capsule 0.4 mg PO BID levothyroxine 50 mcg Tablet 50 mcg PO QAM memantine 10 mg Tablet 10 mg PO BID gabapentin 400 mg capsule 400 mg PO BID sitagliptin 25 mg Tablet 25 mg PO DAILY potassium chloride 20 mEq Tablet Extended Release 10 meq PO DAILY Qty: 30 0RF valacyclovir [Valtrex] 1 gram tablet 1,000 mg PO BID hydrocodone-acetaminophen 5-325 mg tablet 1 tab PO .Q4-6H PRN (Reason: Pain) omeprazole 40 mg Capsule,Delayed Release(Dr/Ec) 40 mg PO QAM spironolactone 25 mg Tablet 25 mg PO DAILY docusate sodium [Colace] 100 mg Capsule 100 mg PO BID PRN (Reason: Constipation) furosemide 20 mg tablet 20 mg PO DAILY linezolid 600 mg Tablet 600 mg PO Q12H 5 Days Qty: 10 0RF Eliquis 5 mg Tablet 5 mg PO BID@0500,1700 Qty: 0 0RF ciprofloxacin HCl [Cipro] 500 mg tablet 500 mg PO BID 5 Days Qty: 10 0RF Discharge Orders: Discharge ED (Routine); Ordered 12/19/24 Ordered By: Sanjuana Carroll Referrals: Urvashi Mcmahan MD [Primary Care Provider, Family Practice] Discharge Diet: Advance as tolerated Discharge Activity: Increase activity as tolerated Patient Instructions: Dehydration (ED), Gastroenteritis (ED), Opioid Safety, Pain Management, Patient Portal & Jorge Instructions Activity Restrictions/Additional Instructions: Thank you for choosing [facility] for your healthcare needs today. You have been screened and evaluated and felt safe for discharge. Health conditions do change or evolve sometimes and as such it is important that you follow up with your Primary Doctor to be re checked, 3-5 days is a general good time frame for follow up. You are always welcome to return to the ED for re assessment if your symptoms are worsening or you have new concerns Print Language: Somali Coding Level of Care Code ED Tapper Supervisor for Alex Burgos
[2024-12-19 11:13] VITALS: BP 141/89; PULSE 76; O2SAT 95
[2024-12-19 11:14] LABS: Hematocrit 39.5 % (37-53); Hemoglobin 12.80 g/dL (11.27-16.99); Mean Corpuscular HGB Conc 32.4 g/dL (30-55); Mean Corpuscular Hemoglobin 30.1 pg (27-33); Mean Corpuscular Volume 92.9 fl (82-101); Nucleated Red Blood Cells % 0 %; Platelet Count 176 10^3/cmm (157-399); Red Blood Count 4.25 10^6/uL (3.85-5.65); White Blood Count 9.07 10^3/uL (3.29-11.43)
[2024-12-19 11:28] LABS: Alanine Aminotransferase 19 U/L (0-41); Albumin Level 3.7 g/dL (3.5-5.2); Alkaline Phosphatase 94 U/L (40-130); Anion Gap 15.1 (5-19); Aspartate Amino Transferase 20 U/L (0-40); Blood Urea Nitrogen 9 mg/dL (8-23); Calcium 8.5 mg/dL (8.5-10.5); Carbon Dioxide 24 mmol/L (22-29); Chloride 101 mmol/L (98-107); Creatinine Clr Calc Pharmacy 76.1281; Globulin 4.0 g/dL (1.3-4.6); Glucose 115 mg/dL (65-115); Lactic Sepsis W/Reflex 1.3 mmol/L (0.5-2.2); Lipase 28 U/L (13-60); Osmolality Calculated 282 mOsm/kg (285-295); Potassium 4.1 mmol/L (3.5-5.1); Sodium 136 mmol/L (136-145); Total Protein 7.7 g/dL (6.6-8.7)
[2024-12-19] MEDS: ondansetron 2 mg/ML SDV 2 mL 8 MG IVP (11:41)
[2024-12-19 11:50] VITALS: BP 139/72; PULSE 61; O2SAT 96
--- NOTE | 2024-12-19 11:58 | PC.NURSE ---
pt was straight cath with 16fr akbar for urine, output 500cc urine. Per family pt is incontinent of bladder.
--- NOTE | 2024-12-19 11:59 | PC.NURSE ---
pt states taking pepto-bismol for diarrhea.
[2024-12-19 12:00] VITALS: BP 129/57; PULSE 62; O2SAT 94
[2024-12-19 12:06] LABS: Glucose Urine UA 3+ (Normal); Nitrate Urine Negative (Negative)
--- NOTE | 2024-12-19 12:08 | CTR_ITS ---
PROCEDURE INFORMATION: Exam: CT Abdomen And Pelvis With Contrast Exam date and time: 12/19/2024 1:10 PM Age: 79 years old Clinical indication: Other: Diarrhea; Abdominal pain; Prior surgery; Surgery date: 6+ months; Surgery type: --hernia; HX of renal cancer; Additional info: Pain, diarrhea TECHNIQUE: Imaging protocol: Computed tomography of the abdomen and pelvis with contrast. Radiation optimization: All CT scans at this facility use at least one of these dose optimization techniques: automated exposure control; mA and/or kV adjustment per patient size (includes targeted exams where dose is matched to clinical indication); or iterative reconstruction. Contrast material: OMNI 350; Contrast volume: 100 ml; Contrast route: INTRAVENOUS (IV); COMPARISON: [place] [id number] 12/08/2024 10:06 AM RADIATION DOSE METRICS: Total DLP (mGy-cm): 1482.99 FINDINGS: Lungs: Visualized lung bases are clear. Liver: Unremarkable. Gallbladder and biliary ducts: No radiopaque stones. No significant biliary ductal dilatation. Pancreas: Mild fatty atrophy. Spleen: Tiny calcified granulomata. Otherwise unremarkable. Adrenal glands: Unremarkable. Kidneys and ureters: A large lobulated mass with central necrosis is again seen in the right kidney measuring approximately 8.9 cm transverse x 8.7 cm AP x 8.9 cm craniocaudal dimension, not significantly changed. The kidneys are atrophic bilaterally with small cysts, not significantly changed. No significant hydronephrosis. Stomach and bowel: Unremarkable. Bowel loops are normal in caliber. No evidence for obstruction. There are diverticula involving the sigmoid colon without significant surrounding inflammation to suggest acute diverticulitis. Appendix: The appendix is normal in caliber. No evidence of acute appendicitis.. Intraperitoneal space: Unremarkable. No free air. No significant fluid collection. Vasculature: The abdominal aorta is normal in caliber. Mild atherosclerotic calcification. No abdominal aortic aneurysm. Lymph nodes: Unremarkable. No enlarged lymph nodes. Urinary bladder: Incompletely distended with thickening of the wall which may be due to incomplete distension. Other pathology, such as cystitis, cannot be excluded. Reproductive: The prostate gland is mildly enlarged with tiny central calcifications noted. Bones/joints: There are diffuse degenerative changes throughout the lumbar and visualized lower thoracic spine and right hip. A left total hip prosthesis is present with associated metallic artifact limiting optimal evaluation of pelvic structures. Soft tissues: Unremarkable. CT/CT abdomen pelvis w con* [id number] IMPRESSION: 1. Large 8.9 x 8.7 x 8.9 cm right renal mass with central necrosis compatible with the patient's known renal cell carcinoma. This is not significantly changed compared to the prior study. 2. Mild sigmoid diverticulosis without evidence of acute diverticulitis. 3. Thickened urinary bladder wall which may be due to incomplete distension. Other pathology, such as cystitis, cannot be excluded. Please correlate clinically. 4. Other chronic findings described above.
[2024-12-19 12:13] LABS: Specific Gravity, Urine 1.031 (1.005-1.030)
[2024-12-19 12:15] LABS: Oval Fat Bodies Urine 1+ /hpf
[2024-12-19 12:30] VITALS: BP 157/84; PULSE 70; O2SAT 95
[2024-12-19] MEDS: iohexol 350 mg/mL 500 mL Btl (per mL) IV (13:20)
[2024-12-19 13:44] VITALS: BP 153/89; PULSE 76; RESP 16; O2SAT 95
== END 2024-12-19 15:17 | disposition home or self-care (01) ==
PROVIDERS: Emergency Provider Emergency Medicine; PCP Family Medicine
DX: K52.9 Noninfective gastroenteritis and colitis, unspecified (principal); E86.0 Dehydration; Z79.01 Long term (current) use of anticoagulants; E11.22 Type 2 diabetes mellitus with diabetic chronic kidney disease; I13.0 Hypertensive heart and chronic kidney disease with heart failure and stage 1 through stage 4 chronic kidney disease, or unspecified chronic kidney disease; N18.9 Chronic kidney disease, unspecified; I50.33 Acute on chronic diastolic (congestive) heart failure
CPT/HCPCS: 36415; 36416; 74177; 80053; 81001; 82962; 83605; 83690; 85025; 87040; 96361; 96374; 99285; J2405; J7030

== ENCOUNTER → 2025-02-02 09:03 | Outpatient (BNVA) | payer OTHER, SELFPAY | PROVIDERS: PCP Family Medicine; Visit Provider Specialist | DX: M17.11 Unilateral primary osteoarthritis, right knee (principal) | CPT/HCPCS: 20610; J1100; J2795; J3301; J9999 ==

== ENCOUNTER → 2025-02-22 11:08 | Outpatient (BNVA) | payer OTHER, SELFPAY | PROVIDERS: PCP Family Medicine; Visit Provider Podiatrist Foot & Ankle Surgery | DX: E11.8 Type 2 diabetes mellitus with unspecified complications (principal); B35.1 Tinea unguium; N18.9 Chronic kidney disease, unspecified; I73.9 Peripheral vascular disease, unspecified; R60.9 Edema, unspecified; M20.41 Other hammer toe(s) (acquired), right foot; M20.42 Other hammer toe(s) (acquired), left foot; E11.29 Type 2 diabetes mellitus with other diabetic kidney complication | CPT/HCPCS: 11721 ==

== ENCOUNTER 2025-02-26 14:54 | Oncology outpatient (recurring) (ONCR) | payer OTHER, SELFPAY | END 2025-03-14 23:59 | disposition home or self-care (01) | PROVIDERS: PCP Family Medicine; Visit Provider Internal Medicine Medical Oncology | DX: Z53.9 Procedure and treatment not carried out, unspecified reason (principal); C64.1 Malignant neoplasm of right kidney, except renal pelvis | CPT/HCPCS: 99205 ==